=== PATIENT | female | born 1950 | race Caucasian/White ===

== ENCOUNTER 2024-04-03 11:27 | Emergency (ER) | payer MEDICARE, OTHER, SELFPAY ==
[2024-04-03 11:29] VITALS: BP 124/87
--- NOTE | 2024-04-03 13:02 | ED.GENMED ---
History of Present Illness
<Antoinette Marcial PA-C - Last Filed: 04/05/24 21:54>
General
Chief Complaint: Abdominal Symptoms
Source: patient
Exam Limitations: none
Time Seen by Provider: 04/03/24 12:22
Nursing documentation reviewed up to this point in time: agreed with
History of Present Illness
History of Present Illness:
Patient is a 73-year-old female with history hypertension, hyperlipidemia, IBS presenting for evaluation of intermittent abdominal pain and diarrhea. Patient states symptoms have been ongoing for the past month. She states that she typically tries
a brat diet which does improve symptoms. This past Tuesday she states she did eat a steak sandwich that was very greasy and then had significant abdominal cramping and diarrhea. The symptoms have persisted over the weekend. She was seen in urgent
care today where she was sent to the emergency department for further evaluation. Patient does state that she may have had chills over the weekend and feels generally fatigued and dehydrated given the diarrhea.
Patient denies any known fever, vomiting, urinary symptoms. Patient denies any chest pain or shortness of breath. Patient denies any blood in her stool. Patient denies any recent travel or recent antibiotic use. Patient not drink any well water
or has had any undercooked seafood recently. No known sick contacts.
Past History
<Antoinette Marcial PA-C - Last Filed: 04/05/24 21:54>
Past History
ED Past Medical History: None
ED Past Surgical History: None
Review of Systems
<Antoinette Marcial PA-C - Last Filed: 04/05/24 21:54>
Review of Systems
Allergies reviewed?: Yes
All Other Systems: ROS reviewed and negative except as documented in HPI and ROS
Phy Exam
<Antoinette Marcial PA-C - Last Filed: 04/05/24 21:54>
Physical Exam
Physical Exam:
Vitals: Patient's vital signs are stable. Afebrile
General: Patient is well appearing, no acute distress. Nontoxic-appearing
Skin: Warm and dry, no rashes or lesions
Head: Normocephalic, atraumatic
Eyes: Sclera nonicteric. EOMs intact. No nystagmus.
Throat: Dry mucous membranes. Protecting airway
Neck: Normal ROM, no cervical spine tenderness, no meningismus. Trachea midline
Cardiac: Regular rate and rhythm, no murmurs.
Pulm: Normal respiratory effort, no wheezes, rales, rhonchi heard on exam.
Abdomen: Abdomen soft. Mild lower abdominal tenderness without rebound tenderness or guarding. No CVA tenderness.
Extremities: No evidence of cyanosis or edema. Great distal pulses
Neuro: AAOx3. CN II-XII intact. No focal neurologic deficits. Speech fluid. Strength 5 out of 5 in upper and lower extremities. Sensation fully intact. Normal gait.
Psychiatric: Normal affect.
Course
<Antoinette Marcial PA-C - Last Filed: 04/05/24 21:54>
Orders/Labs/Results
Orders:
Orders
04/03/24 12:59
0.9% Sodium Chloride 1000 ml [Nss] 1,000 ml IV BOLUS
04/03/24 13:01
Electrocardiogram (*1) Urgent
Reason for Study: Abdominal Pain
CT Abd/Pel (IV only)-[facility] only Urgent
Comment:
Reason For Exam: Lower abdominal pain, +diarrhea
EKG- Treatment ONCE
04/03/24 13:14
Complete Blood Count/With Diff Urgent
Comprehensive Metabolic Panel Urgent
Lipase Urgent
04/03/24 14:16
Urinalysis Reflex To Culture Urgent
Date Specimen was Collected: 04/03/24
Time Specimen was Collected: 14:14
Urine Microscopic Reflex Cult Urgent
Urine Culture Urgent
MALIHA Source: U
Specimen Description:
Date Specimen was Collected: 04/03/24
Time Specimen was Collected: 14:14
Abnormal Lab Results
04/03/24 04/03/24
13:14 14:16
WBC 12.0 H 10^3/uL
(4.8-10.8)
Abs Immat Gran (auto) 0.1 H 10^3/uL
(0-0.05)
Absolute Neuts (auto) 9.0 H 10^3/uL
(1.4-6.5)
Absolute Monos (auto) 1.1 H 10^3/uL
(0.1-0.6)
Lymphocytes % 14.0 L %
(20.5-51.1)
Sodium 134 L mmol/L
(135-145)
Potassium 3.3 L mmol/L
(3.5-5.1)
Glucose 104 H mg/dl
(70-99)
Calcium 10.5 H mg/dl
(8.4-10.2)
Total Bilirubin 1.4 H mg/dl
(0.2-1.3)
AST 37 H U/L
(14-36)
Leukocyte Esterase Rfl Trace A
(Negative)
Urine Bacteria (Reflex) Moderate A
(Negative)
04/03/24 13:14
04/03/24 13:14
Vital Signs
Initial and Last Documented VS:
Initial Vital Signs
Temp Pulse Resp BP Pulse Ox
98.1 F 104 18 124/87 95
04/03/24 11:29 04/03/24 11:29 04/03/24 11:29 04/03/24 11:29 04/03/24 11:29
Last Documented Vital Signs
Temp Pulse Resp BP Pulse Ox
98.1 F 88 21 103/77 96
04/03/24 11:29 04/03/24 14:32 04/03/24 14:32 04/03/24 16:30 04/03/24 14:15
<Lenora Galdamez, DO - Last Filed: 04/03/24 16:15>
Orders/Labs/Results
Orders:
Orders
04/03/24 12:59
0.9% Sodium Chloride 1000 ml [Nss] 1,000 ml IV BOLUS
04/03/24 13:01
Electrocardiogram (*1) Urgent
Reason for Study: Abdominal Pain
CT Abd/Pel (IV only)-[facility] only Urgent
Comment:
Reason For Exam: Lower abdominal pain, +diarrhea
EKG- Treatment ONCE
04/03/24 13:14
Complete Blood Count/With Diff Urgent
Comprehensive Metabolic Panel Urgent
Lipase Urgent
04/03/24 14:16
Urinalysis Reflex To Culture Urgent
Date Specimen was Collected: 04/03/24
Time Specimen was Collected: 14:14
Urine Microscopic Reflex Cult Urgent
Urine Culture Urgent
MALIHA Source: U
Specimen Description:
Date Specimen was Collected: 04/03/24
Time Specimen was Collected: 14:14
Abnormal Lab Results
04/03/24 04/03/24
13:14 14:16
WBC 12.0 H 10^3/uL
(4.8-10.8)
Abs Immat Gran (auto) 0.1 H 10^3/uL
(0-0.05)
Absolute Neuts (auto) 9.0 H 10^3/uL
(1.4-6.5)
Absolute Monos (auto) 1.1 H 10^3/uL
(0.1-0.6)
Lymphocytes % 14.0 L %
(20.5-51.1)
Sodium 134 L mmol/L
(135-145)
Potassium 3.3 L mmol/L
(3.5-5.1)
Glucose 104 H mg/dl
(70-99)
Calcium 10.5 H mg/dl
(8.4-10.2)
Total Bilirubin 1.4 H mg/dl
(0.2-1.3)
AST 37 H U/L
(14-36)
Leukocyte Esterase Rfl Trace A
(Negative)
Urine Bacteria (Reflex) Moderate A
(Negative)
04/03/24 13:14
04/03/24 13:14
Vital Signs
Initial and Last Documented VS:
Initial Vital Signs
Temp Pulse Resp BP Pulse Ox
98.1 F 104 18 124/87 95
04/03/24 11:29 04/03/24 11:29 04/03/24 11:29 04/03/24 11:29 04/03/24 11:29
Last Documented Vital Signs
Temp Pulse Resp BP Pulse Ox
98.1 F 88 21 103/77 96
04/03/24 11:29 04/03/24 14:32 04/03/24 14:32 04/03/24 16:30 04/03/24 14:15
<Antoinette Marcial PA-C - Last Filed: 04/05/24 21:54>
MDM/Problems Addressed
Differential Diagnosis Includes:
Not limited to: IBS, IBD, colitis, diverticulitis, UTI, pancreatitis, cholelithiasis, dehydration
MDM/Problems Addressed:
73 year old female presenting with a few weeks of intermittent diarrhea and abdominal pain worsening over the past few days. Patient feels weak and dehydrated. No red flag diarrhea risk factors. No fevers or chills. Vital stable. Afebrile. Physical
exam as above. Patient is nontoxic appearing. Abdomen soft and mildly tender diffusely across lower abdomen. No rebound tenderness or guarding. Heart rate and rhythm. Lungs clear bilaterally. No focal neurologic deficits. Labs and UA were obtained.
Did place collection hat in toilet to send stool culture if patient able to provide sample. Check CT admin/pelvis. Will give IV fluids. Patient declines any analgesia at this time.
Labs noted. My leukocytosis, possibly due to dehydration. Evidence of dehydration on labs. This was repleted with 1 L normal saline. UA shows no signs of infection or blood to suggest kidney stone. EKG obtained in triage shows no acute ischemic
changes. CT pending
CT noted. No acute intraabdominal abnormalities.
Work up here negative. Patient has not had any episodes of diarrhea since arrival. She has a follow-up appointment scheduled with primary care on . Stable for discharge with return precautions and PCP follow up. Patient comfortable with
plan. All questions answered.
Chronic conditions affecting care:
IBS
Acute Exacerbation and/or Progression of Chronic Illness:
N/A
<Antoinette Marcial PA-C - Last Filed: 04/05/24 21:54>
*Radiology
Radiology exam reviewed: preliminary read by ED provider and radiology read reviewed
*Pulse Oximetry
Patient hypoxic: no
*EKG
Interpreted by ED Provider?: Yes
EKG Intrepretation Date: 04/03/24
Interpretation: normal
Comparison EKG: no changes
Heart Rate: 87
Rate: normal
Rhythm: sinus
Ischemia: no ischemia
*Nurse Unit Manager Interpretation
Rate: Nurse Unit Manager- N/A
*Critical Care Note
Total Time (30-74mins, 75-104mins- exclusive of procedures): Not Applicable
ED Attending Note
<Antoinette Marcial PA-C - Last Filed: 04/05/24 21:54>
-
Portions of this chart may have been created with voice recognition software.� Occasional wrong word or��sound alike� substitutions may have occurred due to the inherent limitations of voice recognition software.
<Lenora Galdamez DO - Last Filed: 04/03/24 16:15>
ED Attending Note
Patient seen and examined by attending physician: Yes
I performed a history and physical exam of patient and discussed management with resident, I reviewed resident's note and agree with documented findings and plan of care.: Yes
ED Attending Note:
73-year-old female history of IBS, asthma, hypertension, hyperlipidemia presenting with lower abdominal pain and diarrhea for the past 1 month. Patient states that she was previously eating a brat diet which provided relief. Patient states that on
Friday 03/30 she had a steak sandwich when symptoms returned. Patient states that she has been having multiple episodes of nonbloody diarrhea daily since. Patient reports nausea but denies fever, vomiting, or urinary symptoms. Patient states that
she has a appointment with her PCP on 04/05. Patient denies any recent use of antibiotics. Patient states that she has been using loperamide with some relief. Heart regular rate rhythm, lungs clear, abdomen soft nondistended nontender.
Results reviewed. UA negative for UTI. Mild hyponatremia potassium 3.3 possibly from diarrhea. Mild leukocytosis white count 12, no bandemia. CT abdomen pelvis reviewed, Evaluation for bowel pathology is limited by the lack of enteric contrast
Diverticuli are present in the colon with no CT evidence of diverticulitis
There are no areas of pericolonic inflammatory stranding.
If there is clinical suspicion for bowel pathology, this study could be repeated with enteric contrast
There is multilevel lumbar degenerative disc disease
There is a 1.5 cm umbilical hernia which contains only fat
Discussed results with patient at bedside. Patient has not had a bowel movement in the ER. Recommended to continue loperamide as needed for diarrhea. Stable for discharge with PCP follow-up. Discussed return precautions, patient expressed verbal
understanding
Discharge Plan
Departure
Patient Disposition: Home (Routine Discharge)
Date of Disposition: 04/03/24
Time of Disposition: 16:08
Patient with high blood pressure during this ER visit?: No
Condition: Good
Covid-19: Not Applicable
Discharge Problem:
Abdominal pain, Diarrhea
Instructions: Dehydration, Adult (DC), Acute Diarrhea, Abdominal Pain
Prescriptions:
No Action
diltiazem HCl [Cardizem CD] 120 MG capsule,extended release 24hr
120 mg PO DAILY
furosemide 20 MG tablet
20 mg PO DAILY
clorazepate dipotassium 3.75 MG tablet
1 - 2 tab PO DAILY
doxycycline hyclate 50 MG capsule
50 mg PO DAILY
Patient Comments:
uses for frequent sinus infections-none taken recently
aspirin 81 MG tablet,delayed release (DR/EC)
81 mg PO DAILY
vitamin A palmitate 10,000 UNIT capsule
10,000 unit PO DAILY
Patient Comments:
not taking yet
azelastine-fluticasone [Dymista] 23 GM spray,non-aerosol
50 mg NS DAILY
guaifenesin [Mucinex] 600 MG tablet extended release 12hr
600 mg PO PRN PRN (Reason: CONGESTION)
losartan 50 MG tablet
25 mg PO DAILY
selenium 200 MCG tablet
200 mcg PO DAILY
Patient Comments:
stopped in May pre-surgery
vitamin E 400 UNIT capsule
400 unit PO DAILY
Patient Comments:
stopped last month pre-surgery
mometasone-formoterol [Dulera] 1 PUFF HFA aerosol inhaler
2 puff inhalation BID
Patient Comments:
prefers dulera to advair but uses whichever her doctor has samples of
fluticasone propion-salmeterol [Advair Diskus] 1 DISK blister with device
2 puff inhalation BID
Patient Comments:
prefers to use advair
hydrocodone-acetaminophen 1 TABLET tablet
1 tab PO Q6HPRN PRN (Reason: moderate pain) Qty: 40 0RF
amiodarone [Pacerone] 200 MG tablet
200 mg PO DAILY Qty: 30 0RF
Rx Instructions:
200 mg daily then stop
warfarin [Jantoven] 2 MG tablet
2 mg PO DAILY Qty: 60 3RF
Rx Instructions:
4mg (2 tabs) daily or as directed for target INR 2.0-3.[address] to manage INR as outpatient
Referrals:
Azeb Estrada CRNP [Family Provider] - Follow up in 2-3 days
Arlen Fernández DO [Active] - Call in 1-3 days for appt
Activity Restrictions/Additional Instructions:
RETURN TO THE EMERGENCY DEPARTMENT WITH ANY FEVERS, CHILLS, WORSENING ABDOMINAL PAIN, INTRACTABLE NAUSEA/VOMITING, SIGNS OF SEVERE DEHYDRATION, CHEST PAIN, SHORTNESS OF BREATH, WORSENING IN CURRENT SYMPTOMS, OR ANY OTHER CONCERNS
-It is important to stay well-hydrated. You should eat a bland diet and advance as tolerated. You can take [id number] Imodium if diarrhea persists.
-You should follow-up with your primary care provider with your scheduled appointment on .
Interventions
Interventions:
*Risk Screen - Suicide Last Done: 04/03/24 13:15
*General Assessment Last Done: 04/03/24 13:15
*Neglect/Abuse Screening Last Done: 04/03/24 13:15
ED- Fall Risk Assessment Last Done: 04/03/24 16:38
*ED COVID-19 Vaccine History Last Done: 04/03/24 13:15
*Nursing Disposition Last Done: 04/03/24 16:38
GD-Opslhm-Apwkvrahry Assessment Last Done: 04/03/24 13:15
Discharge Date and Time
Discharge Date/Time: 04/03/24 16:39
Print Language: [place]
[2024-04-03 13:12] VITALS: BP 110/65
[2024-04-03] MEDS: NSS 1000 IV (13:16)
[2024-04-03 13:26] LABS: % Basophils 0.6 % (0-2); % Eosinophils 0.7 % (0-6); % Immature Granulocytes 0.5 % (0-0.5); % Monocytes 9.3 % (1.7-9.3); % Neutrophils 74.9 % (42.2-75.2); Absolute Basophils 0.1 10^3/uL (0-0.2); Absolute Eosinophils 0.1 10^3/uL (0-0.7); Absolute Immature Granulocytes 0.1 10^3/uL (0-0.05); Absolute Lymphocytes 1.7 10^3/uL (1.2-3.4); Absolute Monocytes 1.1 10^3/uL (0.1-0.6); Hematocrit 40.3 % (37.0-47.0); Hemoglobin 13.9 g/dL (12.0-16.0); Mean Corp Hgb Conc. 34.5 g/dL (33.0-37.0); Mean Corpuscular Hgb 30.3 pg (27.0-31.0); Mean Corpuscular Volume 87.8 fL (81.0-99.0); Mean Platelet Volume 10.1 fL (7.4-10.4); Nucleated Red Blood Cells % 0 %; Platelet Count 267 10^3/uL (130-400); Red Blood Cell Count 4.59 10^6/uL (4.20-5.40); Red Cell Dist. Width 12.7 % (11.5-14.5)
[2024-04-03 13:42] LABS: ALT (SGPT) 28 U/L (0-35); AST (SGOT) 37 U/L (14-36); Alkaline Phosphatase 78 U/L (38-126); Blood Urea Nitrogen 16 mg/dl (7-17); Calcium 10.5 mg/dl (8.4-10.2); Carbon Dioxide 23 mmol/L (22-30); Chloride 101 mmol/L (98-107); Glucose 104 mg/dl (70-99); Lipase 148 U/L (23-300); Potassium 3.3 mmol/L (3.5-5.1); Sodium 134 mmol/L (135-145); Total Bilirubin 1.4 mg/dl (0.2-1.3); Total Protein 6.5 g/dl (6.3-8.2); eGFR > 60.00
[2024-04-03 14:00] VITALS: BP 119/92
[2024-04-03 14:12] VITALS: BP 109/62
[2024-04-03 14:23] LABS: Urine Albumin Negative (Neg - Trace); Urine Bilirubin Negative (Negative); Urine Character Clear (Clear); Urine Color Yellow; Urine Glucose Negative (Negative); Urine Ketone Negative (Negative); Urine Leukocyte Trace (Negative); Urine Nitrite Negative (Negative); Urine Occult Blood Negative (Negative); Urine Urobilinogen Negative (Neg - 1+)
[2024-04-03 15:29] LABS: Urine Red Blood Cell 0-2 /HPF (0-2); Urine Squamous Cell 26-30 /LPF (Few)
[2024-04-03 15:30] LABS: Urine Bacteria Moderate (Negative); Urine White Cell 0-2 /HPF (0-5)
[2024-04-03 16:30] VITALS: BP 103/77
== END 2024-04-03 16:39 | disposition home or self-care (01) ==
LOC: EMR 11:27
PROVIDERS: Physician Assistant; EMERGENCY PHYSICIAN Emergency Medicine; FAMILY PHYSICIAN Nurse Practitioner Family
DX: R19.7 Diarrhea, unspecified (principal); R10.30 Lower abdominal pain, unspecified; K42.9 Umbilical hernia without obstruction or gangrene; M51.35 Other intervertebral disc degeneration, thoracolumbar region; K58.9 Irritable bowel syndrome, unspecified; I10 Essential (primary) hypertension; J45.909 Unspecified asthma, uncomplicated; E78.5 Hyperlipidemia, unspecified; Z79.82 Long term (current) use of aspirin; Z88.6 Allergy status to analgesic agent; Z88.0 Allergy status to penicillin; Z88.8 Allergy status to other drugs, medicaments and biological substances; Z91.048 Other nonmedicinal substance allergy status
CPT/HCPCS: 99285; 96360; 74177; 80053; 81003; 81015; 83690; 85025; 87086; 93005; Q9967

== ENCOUNTER 2024-05-22 09:00 | Day surgery (SDC) | payer MEDICARE, OTHER, SELFPAY ==
--- NOTE | 2024-05-22 11:59 | ITS.CL.CARDI ---
Laboratory Tester - Cardioversion
Cardioversion
Procedure Report:
CARDIOVERSION REPORT
Date of Procedure: 05/22/2024
Referring: Romain Lane DO
�
INDICATION: Atrial flutter (onset 4 weeks ago)
�
MEDICATION: Eliquis
�
ANESTHESIA: Propofol
�
CARDIOVERSION: Successful synchronized cardioversion using a single 100 J shock to restore normal sinus rhythm
�
COMPLICATIONS: None
�
CONCLUSION: Successful cardioversion of atrial flutter to normal sinus rhythm with single synchronized 100 J shock
�
RECOMMENDATION: Continue Eliquis without interruption
�
Copy to: Romain Lane DO, LORE Sargent
�
Chris Gurrola MD, FACC
�
== END 2024-05-22 12:15 | disposition home or self-care (01) ==
LOC: CATH 09:00
PROVIDERS: ATTENDING PHYSICIAN Internal Medicine Cardiovascular Disease; FAMILY PHYSICIAN Nurse Practitioner Family
DX: I48.92 Unspecified atrial flutter (principal); I10 Essential (primary) hypertension; E78.5 Hyperlipidemia, unspecified; Z79.82 Long term (current) use of aspirin; Z79.01 Long term (current) use of anticoagulants
CPT/HCPCS: 92960; 93005

== ENCOUNTER 2025-03-24 16:39 | Inpatient (IN) | payer MEDICARE, OTHER, SELFPAY ==
[2025-03-24] VITALS (10 sets, daily range): BP systolic 92–133; BP diastolic 54–78; BMI 31.5; BMI 33.7
--- NOTE | 2025-03-24 13:24 | ED.GENMED ---
History of Present Illness
<LORE De Jesus - Last Filed: 03/24/25 16:26>
General
Chief Complaint: Abdominal Symptoms
Source: patient
Exam Limitations: none
Time Seen by Provider: 03/24/25 13:09
Nursing documentation reviewed up to this point in time: agreed with
History of Present Illness
History of Present Illness:
74-year-old female with past with history of hypertension hyperlipidemia mitral regurgitation A-fib on Eliquis, anemia presents to the ER for evaluation abdominal pain. Patient has had abdominal pain for the past 2 days intermittently nauseous
constipated. She did move her bowels a little bit today but did not have a full good bowel movement yesterday. She does have issues with diarrhea and did take a lot of Imodium last week. She does complain of mild pain with urination. Denies any
back pain. Denies any fevers.
Past History
<LORE De Jesus - Last Filed: 03/24/25 16:26>
Past History
ED Past Medical History: None
ED Past Surgical History: None
Review of Systems
<LORE De Jesus - Last Filed: 03/24/25 16:26>
Review of Systems
Allergies reviewed?: Yes
All Other Systems: ROS reviewed and negative except as documented in HPI and ROS
Phy Exam
<LORE De Jesus - Last Filed: 03/24/25 16:26>
General Physical Exam
General Presentation: no apparent distress
General age: appears stated age
General Skin: warm and dry
General Habitus: normal
General Mental: alert
General Hydration: appears well hydrated
Cardiovascular Exam
Cardiovascular Exam: regular rate/rhythm, no murmur and normal peripheral pulses
Pulmonary Exam
Pulmonary Exam: lungs clear and no respiratory distress
Gastrointestinal Exam
Gastrointestinal Exam: soft and other (+ BS + non specific tenderness throughout )
Neurological Exam
Neurological Exam: alert and oriented x3
Musculoskeletal Exam
Musculoskeletal Exam: full ROM
Skin Exam
Skin Exam: normal color and warm/dry
Psychiatric Exam
Psychiatric Exam: normal mood/affect
Course
<LORE De Jesus - Last Filed: 03/24/25 16:26>
Orders/Labs/Results
Orders:
Orders
03/24/25 13:23
IV Insert/Care/Rem.- Treatment PRN
0.9% Sodium Chloride 1000 ml [Nss] 1,000 ml IV BOLUS
03/24/25 13:24
CT Abd/Pel (IV only)-DH only Urgent
Comment:
Reason For Exam: abd pain /constipation
03/24/25 13:40
Complete Blood Count/With Diff Urgent
Comprehensive Metabolic Panel Urgent
Lipase Urgent
Urinalysis Reflex To Culture Urgent
Date Specimen was Collected: 03/24/25
Time Specimen was Collected: 13:28
Urine Microscopic Reflex Cult Urgent
Urine Culture Urgent
MALIHA Source: U
Specimen Description:
Date Specimen was Collected: 03/24/25
Time Specimen was Collected: 13:28
03/24/25 15:33
Lactic Acid Q4H
Comment: CANCEL 2nd LACTIC ACID IF 1st LACTIC ACID IS LESS THAN 2
Blood Culture Q30M
MALIHA Source: Blood/Venous
Specimen Description:
Blood Culture Q30M
MALIHA Source: Blood/Venous
Specimen Description:
03/24/25 15:49
LevoFLOXacin 500 MG/100 ML [Levaquin] 500 mg in 100 ml IV NOW
MetroNIDAZOLE 500 MG/100 ML [Flagyl 500 mg] 100 ml IV NOW
03/24/25 15:52
Electrocardiogram (*1) Stat
Reason for Study: Other
Other Reason for Exam: chest pain
Electrocardiogram (*1) Urgent
Reason for Study: Abdominal Pain
Cardiac Monitoring- Treatment ONCE
EKG- Treatment ONCE
EKG- Treatment ONCE
03/24/25 16:11
Type+Screen Stat
INR [Prothrombin Time] Stat
PTT Stat
03/24/25 16:13
Admit/Transfer Patient As Directed
Co-Sign Provider:
Level of Care: Inpatient admission
Assign to:: Telemetry
Physician / Group: terry
Diagnosis: sigmoid diverticulitis
Reason for Telemetry: Arrhythmia
Date to Stop Telemetry: 03/27/25
Time to Stop Telemetry: 11:00
Reason for Hospitalization: sigmoid diverticulitis
Expected length of stay greater than two midnights?: Yes
ELOS- Estimated Length of Stay in days: 3
I certify the patient meets the requirements for IP care: Yes
PRN Pain Medication Management As Directed
May give lesser potent ordered pain med per pt: Yes
preference::
Protocol:: Medication orders for pain may be administered in a
manner that supports deferring to patient preference
when the pt is:
- Requesting an ordered lesser potent pain medication.
Least to most potent pain medications are defined
as: acetaminophen < NSAID < tramadol < opioids
(morphine, oxycodone, hydromorphone).
- Requesting a lesser dose of the same medication IF
ORDERED.
- Requesting a less intrusive route of administration
if both routes are prescribed by the provider (PO <
IV).
03/24/25 16:14
Code Status As Directed
Resuscitation Status: Do not resuscitate
Reached after discussion with pt or family/Healthcare POA: Yes
DNR Bracelet Application ONCE
03/24/25 18:45
Lactic Acid Q4H
Comment: CANCEL 2nd LACTIC ACID IF 1st LACTIC ACID IS LESS THAN 2
03/27/25 11:00
DC Protocol for Telemetry ONCE
Abnormal Lab Results
03/24/25 03/24/25
13:40 15:33
WBC 29.2 H 10^3/uL
(4.8-10.8)
MPV 10.6 H fL
(7.4-10.4)
Abs Immat Gran (auto) 0.3 H 10^3/uL
(0-0.05)
Absolute Neuts (auto) 24.6 H 10^3/uL
(1.4-6.5)
Absolute Monos (auto) 1.4 H 10^3/uL
(0.1-0.6)
Immature Gran % 0.9 H %
(0-0.5)
Neutrophils % 84.2 H %
(42.2-75.2)
Lymphocytes % 9.6 L %
(20.5-51.1)
Carbon Dioxide 20 L mmol/L
(22-30)
Glucose 103 H mg/dl
(70-99)
Lactic Acid 2.9 H mmol/L
(0.7-2.0)
Calcium 10.5 H mg/dl
(8.4-10.2)
Total Bilirubin 2.2 H mg/dl
(0.2-1.3)
Ur Occult Blood Reflex 3+ A
(Negative)
Leukocyte Esterase Rfl 3+ A
(Negative)
Urine RBC 3-6 A /HPF
(0-2)
Urine WBC (Reflex) 11-15 A /HPF
(0-5)
Urine Bacteria (Reflex) Many A
(Negative)
Urine Albumin (Reflex) 2+ A
(Neg - Trace)
03/24/25 13:40
03/24/25 13:40
Vital Signs
Initial and Last Documented VS:
Initial Vital Signs
Temp Pulse Resp BP Pulse Ox
98.2 F 79 20 133/78 96
03/24/25 12:16 03/24/25 12:16 03/24/25 12:16 03/24/25 12:16 03/24/25 12:16
Last Documented Vital Signs
Temp Pulse Resp BP Pulse Ox
98.3 F 85 18 127/66 97
03/24/25 15:43 03/24/25 15:43 03/24/25 15:43 03/24/25 15:43 03/24/25 15:43
Summer Child Caregiver consulted with Physician
Summer Child Caregiver consulted with physician?: Yes
Name of Physician Consulted: Elodia
<Thang Clifton, DO - Last Filed: 03/24/25 15:56>
Orders/Labs/Results
Orders:
Orders
03/24/25 13:23
IV Insert/Care/Rem.- Treatment PRN
0.9% Sodium Chloride 1000 ml [Nss] 1,000 ml IV BOLUS
03/24/25 13:24
CT Abd/Pel (IV only)-DH only Urgent
Comment:
Reason For Exam: abd pain /constipation
03/24/25 13:40
Complete Blood Count/With Diff Urgent
Comprehensive Metabolic Panel Urgent
Lipase Urgent
Urinalysis Reflex To Culture Urgent
Date Specimen was Collected: 03/24/25
Time Specimen was Collected: 13:28
Urine Microscopic Reflex Cult Urgent
Urine Culture Urgent
MALIHA Source: U
Specimen Description:
Date Specimen was Collected: 03/24/25
Time Specimen was Collected: 13:28
03/24/25 15:33
Lactic Acid Q4H
Comment: CANCEL 2nd LACTIC ACID IF 1st LACTIC ACID IS LESS THAN 2
Blood Culture Q30M
MALIHA Source: Blood/Venous
Specimen Description:
Blood Culture Q30M
MALIHA Source: Blood/Venous
Specimen Description:
03/24/25 15:49
LevoFLOXacin 500 MG/100 ML [Levaquin] 500 mg in 100 ml IV NOW
MetroNIDAZOLE 500 MG/100 ML [Flagyl 500 mg] 100 ml IV NOW
03/24/25 15:52
Electrocardiogram (*1) Stat
Reason for Study: Other
Other Reason for Exam: chest pain
Electrocardiogram (*1) Urgent
Reason for Study: Abdominal Pain
Cardiac Monitoring- Treatment ONCE
EKG- Treatment ONCE
EKG- Treatment ONCE
03/24/25 16:11
Type+Screen Stat
INR [Prothrombin Time] Stat
PTT Stat
03/24/25 16:13
Admit/Transfer Patient As Directed
Co-Sign Provider:
Level of Care: Inpatient admission
Assign to:: Telemetry
Physician / Group: terry
Diagnosis: sigmoid diverticulitis
Reason for Telemetry: Arrhythmia
Date to Stop Telemetry: 03/27/25
Time to Stop Telemetry: 11:00
Reason for Hospitalization: sigmoid diverticulitis
Expected length of stay greater than two midnights?: Yes
ELOS- Estimated Length of Stay in days: 3
I certify the patient meets the requirements for IP care: Yes
PRN Pain Medication Management As Directed
May give lesser potent ordered pain med per pt: Yes
preference::
Protocol:: Medication orders for pain may be administered in a
manner that supports deferring to patient preference
when the pt is:
- Requesting an ordered lesser potent pain medication.
Least to most potent pain medications are defined
as: acetaminophen < NSAID < tramadol < opioids
(morphine, oxycodone, hydromorphone).
- Requesting a lesser dose of the same medication IF
ORDERED.
- Requesting a less intrusive route of administration
if both routes are prescribed by the provider (PO <
IV).
03/24/25 16:14
Code Status As Directed
Resuscitation Status: Do not resuscitate
Reached after discussion with pt or family/Healthcare POA: Yes
DNR Bracelet Application ONCE
03/24/25 18:45
Lactic Acid Q4H
Comment: CANCEL 2nd LACTIC ACID IF 1st LACTIC ACID IS LESS THAN 2
03/27/25 11:00
DC Protocol for Telemetry ONCE
Abnormal Lab Results
03/24/25 03/24/25
13:40 15:33
WBC 29.2 H 10^3/uL
(4.8-10.8)
MPV 10.6 H fL
(7.4-10.4)
Abs Immat Gran (auto) 0.3 H 10^3/uL
(0-0.05)
Absolute Neuts (auto) 24.6 H 10^3/uL
(1.4-6.5)
Absolute Monos (auto) 1.4 H 10^3/uL
(0.1-0.6)
Immature Gran % 0.9 H %
(0-0.5)
Neutrophils % 84.2 H %
(42.2-75.2)
Lymphocytes % 9.6 L %
(20.5-51.1)
Carbon Dioxide 20 L mmol/L
(22-30)
Glucose 103 H mg/dl
(70-99)
Lactic Acid 2.9 H mmol/L
(0.7-2.0)
Calcium 10.5 H mg/dl
(8.4-10.2)
Total Bilirubin 2.2 H mg/dl
(0.2-1.3)
Ur Occult Blood Reflex 3+ A
(Negative)
Leukocyte Esterase Rfl 3+ A
(Negative)
Urine RBC 3-6 A /HPF
(0-2)
Urine WBC (Reflex) 11-15 A /HPF
(0-5)
Urine Bacteria (Reflex) Many A
(Negative)
Urine Albumin (Reflex) 2+ A
(Neg - Trace)
03/24/25 13:40
03/24/25 13:40
Vital Signs
Initial and Last Documented VS:
Initial Vital Signs
Temp Pulse Resp BP Pulse Ox
98.2 F 79 20 133/78 96
03/24/25 12:16 03/24/25 12:16 03/24/25 12:16 03/24/25 12:16 03/24/25 12:16
Last Documented Vital Signs
Temp Pulse Resp BP Pulse Ox
98.3 F 85 18 127/66 97
03/24/25 15:43 03/24/25 15:43 03/24/25 15:43 03/24/25 15:43 03/24/25 15:43
<LORE De Jesus - Last Filed: 03/24/25 16:26>
MDM/Problems Addressed
Differential Diagnosis Includes:
Not limited to constipation, obstruction ,colitis, diverticulitis
MDM/Problems Addressed:
Patient is a 74 yr old female complaining abdominal pain and constipation. Patient presents with distended abdomen however nontachycardic no fever. Tender throughout the abdomen, white count elevated at 29,000 CAT scan shows acute sigmoid
diverticulitis with perforation 6 cm abscess with mild to moderate pneumoperitoneum. Patient is allergic to penicillin IV Levaquin and Flagyl ordered Case reviewed with ED physician. ED hospitalist and surgeon notified via [facility] text. Patient
with stable blood pressure nontachycardic. Patient is on Eliquis and did take her morning dose this morning surgery made aware.
Chronic conditions affecting care:
stroke hx on eliquis
<LORE De Jesus - Last Filed: 03/24/25 16:26>
*Radiology
Radiology exam reviewed: radiology read reviewed
*Pulse Oximetry
SaO2: 96
Oxygen Mode of Delivery: Room air
Patient hypoxic: no
<Thang Clifton DO - Last Filed: 03/24/25 15:56>
*EKG
Interpreted by ED Provider?: Yes
*Critical Care Note
Total Time (30-74mins, 75-104mins- exclusive of procedures): 30
<LORE De Jesus - Last Filed: 03/24/25 16:26>
Patient Management
Discussion with other providers: Field Handyman (Dr Tato Hutson colorectal )
ED Attending Note
<LORE De Jesus - Last Filed: 03/24/25 16:26>
-
Portions of this chart may have been created with voice recognition software.� Occasional wrong word or��sound alike� substitutions may have occurred due to the inherent limitations of voice recognition software.
<Thang Clifton DO - Last Filed: 03/24/25 15:56>
ED Attending Note
Patient seen and examined by attending physician: Yes
I performed the substantive portion of visit, reviewed & personally made and approve the management plan that is documented in note by myself or ZOHAIB.: Yes
ED Attending Note:
Seen with CORE BAKER examined independently 74-year-old female A-fib on Eliquis followed by Dr. Lane at [place], known diverticulosis presents with a few days of abdominal pain diarrhea pain white count was 30,000 CT report noted patient and friends
updated, will try to get her comfortable start on antibiotics consult to colorectal surgery admit to medical team, check EKG
Discharge Plan
Departure
Patient Disposition: Admit
Date of Disposition: 03/24/25
Time of Disposition: 16:14
Admit to: Telemetry
Admit to doctor: hospitalist
Presentation/result/management discussed w/ accepting MD/DO: Hospitalist
Patient with high blood pressure during this ER visit?: No
Condition: Fair
Covid-19: Not Applicable
Discharge Problem:
Diverticulitis of colon with perforation
Prescriptions:
No Action
furosemide 20 MG tablet
20 mg PO DAILY
clorazepate dipotassium 3.75 MG tablet
1 - 2 tab PO DAILY
aspirin 81 MG tablet,delayed release (DR/EC)
81 mg PO DAILY
azelastine-fluticasone [Dymista] 23 GM spray,non-aerosol
50 mg NS DAILY
guaifenesin [Mucinex] 600 MG tablet extended release 12hr
600 mg PO PRN PRN (Reason: CONGESTION)
selenium 200 MCG tablet
200 mcg PO DAILY
Patient Comments:
stopped in May pre-surgery
Dulera 1 PUFF HFA aerosol inhaler
2 puff inhalation BID
Patient Comments:
prefers dulera to advair but uses whichever her doctor has samples of
fluticasone propion-salmeterol [Advair Diskus] 1 DISK blister with device
2 puff inhalation BID
Patient Comments:
prefers to use advair
atorvastatin [Lipitor] 40 mg Tablet
40 mg PO HS
metoprolol succinate 50 mg Tablet Extended Release 24 Hr
50 mg PO TID
meclizine 25 mg Tablet
25 mg PO DAILY PRN (Reason: vertigo)
ibuprofen [Advil] 200 mg Tablet
omeprazole magnesium [Prilosec OTC] 20 mg Tablet,Delayed Release (Dr/Ec)
20 mg PO DAILY
cholecalciferol (vitamin D3) [Vitamin D3] 50 mcg (2,000 unit) Tablet
50 mcg PO DAILY
Eliquis 5 mg Tablet
5 mg PO BID
Referrals:
UNKNOWN - PT DOES,NOT KNOW [Family Provider]
Interventions
Interventions:
*Risk Screen - Suicide Last Done: 03/24/25 12:54
*General Assessment Last Done: 03/24/25 12:16
*Neglect/Abuse Screening Last Done: 03/24/25 12:54
*ED- Fall Risk Assessment Last Done: 03/24/25 12:53
*ED COVID-19 Vaccine History Last Done: 03/24/25 12:53
JM-Ikezgj-Tzunleudoc Assessment Last Done: 03/24/25 12:54
Discharge Date and Time
Print Language: WELSH
[2025-03-24] MEDS: NSS 1000 IV (13:47)
[2025-03-24 14:12] LABS: ALT (SGPT) 21 U/L (0-35); AST (SGOT) 32 U/L (14-36); Albumin 4.6 g/dl (3.5-5.0); Alkaline Phosphatase 76 U/L (38-126); Blood Urea Nitrogen 17 mg/dl (7-17); Calcium 10.5 mg/dl (8.4-10.2); Carbon Dioxide 20 mmol/L (22-30); Chloride 107 mmol/L (98-107); Estimated Creatinine Clearance 65 ml/min; Glucose 103 mg/dl (70-99); Lipase 33 U/L (23-300); Potassium 4.7 mmol/L (3.5-5.1); Sodium 138 mmol/L (135-145); Total Protein 7.7 g/dl (6.3-8.2); eGFR > 60.00
[2025-03-24 14:13] LABS: Urine Character Clear (Clear)
[2025-03-24 14:17] LABS: Hematocrit 44.9 % (37.0-47.0); Hemoglobin 15.3 g/dL (12.0-16.0); Mean Corp Hgb Conc. 34.1 g/dL (33.0-37.0); Mean Corpuscular Volume 89.4 fL (81.0-99.0); Platelet Count 253 10^3/uL (130-400); Red Cell Dist. Width 12.7 % (11.5-14.5)
[2025-03-24 15:00] LABS: Urine Squamous Cell >30 /LPF (Few)
[2025-03-24 15:15] LABS: Nucleated Red Blood Cells % 0 %
--- NOTE | 2025-03-24 15:51 | HPS.HSE ---
Family Physician
-
Family Physician: NOT KNOW UNKNOWN - PT DOES
Chief Complaint
-
abdominal pain
History of Present Illness
74-year-old female with past with history of hypertension hyperlipidemia mitral regurgitation A-fib on Eliquis, anemia presents to the ER for evaluation abdominal pain for past three associated with nausea and constipation. a week ago, she was
having diarrhea and took Imodium. she has not had a bowel movement for past two days. she had small BM today. she was having painful urination yesterday. today she was able to void without difficulty. she was noted warm yesterday and chills. she did
not measure temp yesterday. Patient denies any headache, dizziness syncope. Patient denies chest pain. She has chronic short of breath. Patient denied hematuria.
CT with acute sigmoid diverticulitis with perforation. Pelvic abscess. Admitting for further management. Patient received r Levaquin and Flagyl in the ER
Medical History
Past Medical History
Past Medical History: Reports Other
Additional Past Medical History:
Mitral valve disorder
Diastolic heart failure
Hypertension
Severe
A-fib
PVCs
Past Surgical History: Reports Other
Additional Past Surgical History:
Left shoulder replacement
Left knee replacement
Mitral valve repair
Social History
Tobacco: Non-smoker
Alcohol: Occasional
Drug: None
Personal: Single
Living: Alone
Family History
Family History: Not pertinent
Allergies / Home Medications
Allergies reflects when Allergies were last updated in [facility].
Home Medications with original date entered in [facility]
Allergy/Medication List:
Allergies
Allergy/AdvReac Type Severity Reaction Status Date / Time
atenolol Allergy 'felt out Verified 03/24/25 12:16
of it'
ibuprofen Allergy swelling Verified 03/24/25 12:16
of face
Penicillins Allergy Hives Verified 03/24/25 12:16
environmental Allergy Sneezing Uncoded 03/24/25 12:16
and
Coughing
Home Medications
furosemide 20 mg tablet 20 mg PO DAILY 06/06/14
aspirin 81 mg tablet,delayed release 81 mg PO DAILY 06/07/14
azelastine 137 mcg-fluticasone 50 mcg/spray nasal spray (Dymista) 50 mg NS DAILY 06/07/14
clorazepate dipotassium 3.75 mg tablet 1 - 2 tab PO DAILY 06/07/14
guaifenesin 600 mg tablet, extended release 12 hr (Mucinex) 600 mg PO PRN PRN CONGESTION 06/07/14
fluticasone 250 mcg-salmeterol 50 mcg/dose blistr powdr for inhalation (Advair Diskus) 2 puff inhalation BID 07/12/14
mometasone-formoterol HFA 200 mcg-5 mcg/actuation aerosol inhaler (Dulera) 2 puff inhalation BID 07/12/14
selenium 200 mcg tablet 200 mcg PO DAILY 07/12/14
apixaban 5 mg tablet (Eliquis) 5 mg PO BID 05/22/24
atorvastatin 40 mg tablet (Lipitor) 40 mg PO HS 05/22/24
cholecalciferol (vitamin D3) 50 mcg (2,000 unit) tablet (Vitamin D3) 50 mcg PO DAILY 05/22/24
ibuprofen 200 mg tablet (Advil) mg 05/22/24
meclizine 25 mg tablet 25 mg PO DAILY PRN vertigo 05/22/24
metoprolol succinate 50 mg tablet,extended release 24 hr 50 mg PO TID 05/22/24
omeprazole magnesium 20 mg tablet,delayed release (Prilosec OTC) 20 mg PO DAILY 05/22/24
Review of Systems
-
Constitutional: Reports No Symptoms
EENT: Reports No Symptoms
Respiratory: Reports No Symptoms
Cardiac: Reports No Symptoms
Abdomen/GI: Reports Abdominal Pain, Nausea and Constipated
: Reports No Symptoms
Musculoskeletal: Reports No Symptoms
Skin: Reports No Symptoms
Neurological: Reports No Symptoms
Endocrine: Reports No Symptoms
Hematologic/Lymphatic: Reports No Symptoms
Psych: Reports No Symptoms
Physical Exam
Vital Signs
Vital Signs
Temp Pulse Resp BP Pulse Ox
98.3 F 85 18 127/66 97
03/24/25 15:43 03/24/25 15:43 03/24/25 15:43 03/24/25 15:43 03/24/25 15:43
Physical Exam
General: Well Developed, Well Nourished and No Apparent Distress
HEENT: NormoCephalic, Moist mucous membranes and Atraumatic
Respiratory: Clear
Cardiac: S1/S2 and Regular Rhythm; No Murmur or Rub
GI: Soft, Non Tender, Non Distended and Normal Bowel Sounds; No Organomegaly
Rectal: Deferred by Provider
Musculoskeletal: No Clubbing, No Cyanosis and No Edema
Skin: No Rash
Neuro: AO x 3 and Nonfocal/grossly intact
Psych: Calm
Laboratory Results
-
03/24/25 13:40
03/24/25 13:40
Laboratory Results
Total Bilirubin 2.2 mg/dl (0.2-1.3) H 03/24/25 13:40
AST 32 U/L (14-36) 03/24/25 13:40
ALT 21 U/L (0-35) 03/24/25 13:40
Alkaline Phosphatase 76 U/L (38-126) 03/24/25 13:40
Lipase 33 U/L (23-300) 03/24/25 13:40
Data Reviewed
-
CT Scan: Report Reviewed by me
Lab Data: Labs Reviewed by me
Impression/Plan
-
# Abdominal pain secondary to acute sigmoid diverticulitis with perforation/pelvic abscess
- WBC 29
- IV Levaquin and Flagyl continue
- Keep patient n.p.o.
- Tylenol as needed for fever or pain
-Blood culture sent from ER
-Surgery consulted
- CT abdomen pelvis with impression Acute sigmoid diverticulitis with perforation. Pelvic abscess in the cul-de-sac measuring 6.1 x 3.2 cm.
# Paroxysmal A-fib
-Hold Eliquis in anticipation of surgical procedure
-Metoprolol continued
#GERD
-omeprazole
#anxiety
-clorazepate continued
#HLD
-statin continued
# DVT prophylaxis
-SCD
# CODE STATUS
- Patient is DNR
[2025-03-24] MEDS: LEVAQUIN 100 IV (15:59)
[2025-03-24] MEDS: FLAGYL 500 MG 100 IV (16:00)
[2025-03-24 16:32] LABS: APTT 30.8 Sec (23.4-35.0); INR 1.30; PT 16.5 Sec (11.4-14.6)
--- NOTE | 2025-03-24 16:45 | CON.CRS ---
Consultation
-
Date/Time Consultation Performed: 03/24/25 1645
Reason for Consultation: perforated diverticulitis
Medical History
-
Chief Complaint: abdominal pain
History of Present Illness:
74 yo female with a pmh of aflutter s/p cardioversion in 2023 on Eliquis, MV repair 2013, last colonoscopy about 3 years ago in [place] with reported diverticula who presents with worsening abdominal pain. She has struggled with diarrhea over the
past few years with recent worsening noted about 3-4 days ago for which she took Imodium. About 2 days ago she noted increased lower abdominal pain, mostly in the pelvis with cramping. Diarrhea had resolved but she was only passing small formed
stools. Yesterday, the pain worsened and she began feeling rectal pressure as well as increasing pain. She presents today for evaluation given ongoing symptoms. She denies nausea or vomiting but notes she has not eaten all day due to decreased
appetite. She denies fevers but has had chills. She is having cramping twinges of pain currently. On exam, she has mild upper abdominal tenderness with severe tenderness to the BLLQ and pelvis.
Past Medical History
Past Medical History: Arrhythmias (afluttter s/p cardioversion), CHF (hfpef), CVA, HTN, Hypercholesterolemia and Other (karina with cpap use at home, obesity)
Past Surgical History: Cardiac (MV repair) and Orthopedic (left TSA, left TKR)
Social History
Tobacco: Non-Smoker
Alcohol: Occasional
Family History
Family History: Reviewed & Not Pertinent
Allergies / Home Medications
Allergy/AdvReac Type Severity Reaction Status Date / Time
atenolol Allergy 'felt out Verified 03/24/25 12:16
of it'
ibuprofen Allergy swelling Verified 03/24/25 12:16
of face
Penicillins Allergy Hives Verified 03/24/25 12:16
environmental Allergy Sneezing Uncoded 03/24/25 12:16
and
Coughing
�Medication �Instructions �Recorded �Confirmed �Type
furosemide 20 mg tablet 20 mg PO DAILY 06/06/14 03/24/25 History
azelastine 137 mcg-fluticasone 50 50 mg intranasal DAILY 06/07/14 03/24/25 History
mcg/spray nasal spray (Dymista)
clorazepate dipotassium 3.75 mg 7.5 mg PO DAILY 06/07/14 03/24/25 History
tablet
guaifenesin 600 mg tablet, 600 mg PO DAILY 06/07/14 03/24/25 History
extended release 12 hr (Mucinex)
mometasone-formoterol HFA 200 2 puff inhalation R BID 07/12/14 03/24/25 History
mcg-5 mcg/actuation aerosol
inhaler (Dulera)
apixaban 5 mg tablet (Eliquis) 5 mg PO BID 05/22/24 03/24/25 History
atorvastatin 40 mg tablet (Lipitor) 40 mg PO HS 05/22/24 03/24/25 History
metoprolol succinate 50 mg 50 mg PO QPM 05/22/24 03/24/25 History
tablet,extended release 24 hr
omeprazole magnesium 20 mg 20 mg PO DAILY 05/22/24 03/24/25 History
tablet,delayed release (Prilosec
OTC)
acetaminophen 325 mg tablet 650 mg PO Q6HPRN PRN mild pain 03/24/25 03/24/25 History
(Tylenol)
budesonide 160 mcg-glycopyr 9 2 inh inhalation R DAILY 03/24/25 03/24/25 History
mcg-formot 4.8 mcg/actuation HFA
inhaler (Breztri Aerosphere)
metoprolol succinate 50 mg 100 mg PO DAILY 03/24/25 03/24/25 History
tablet,extended release 24 hr
(Toprol XL)
Review of Systems
-
History Source: Patient
All other systems: Negative unless noted
A 10 point review of systems was completed, and was negative except as per HPI.
Physical Exam
Vital Signs
Temp 98.3 F 03/24/25 15:43
Pulse 85 03/24/25 15:43
Resp Rate 18 03/24/25 15:43
Blood pressure 127/66 03/24/25 15:43
SaO2 97 03/24/25 15:43
03/23/25 03/24/25 03/25/25
06:59 06:59 06:59
Actual Weight 85.729 kg
Body Mass Index (BMI) 31.5
Lab Results / Allergies
03/24/25 13:40
03/24/25 13:40
WBC 29.2 10^3/uL (4.8-10.8) H 03/24/25 13:40
Hgb 15.3 g/dL (12.0-16.0) 03/24/25 13:40
Hct 44.9 % (37.0-47.0) 03/24/25 13:40
Plt Count 253 10^3/uL (130-400) 03/24/25 13:40
Abs Immat Gran (auto) 0.3 10^3/uL (0-0.05) H 03/24/25 13:40
Neutrophils % 84.2 % (42.2-75.2) H 03/24/25 13:40
Allergy/AdvReac Type Severity Reaction Status Date / Time
atenolol Allergy 'felt out Verified 03/24/25 12:16
of it'
ibuprofen Allergy swelling Verified 03/24/25 12:16
of face
Penicillins Allergy Hives Verified 03/24/25 12:16
environmental Allergy Sneezing Uncoded 03/24/25 12:16
and
Coughing
Physical Exam
General: Well Developed, Well Nourished and Pain
HEENT: Moist Mucous Membranes
Respiratory: Non Labored Respirations
GI: Soft, Tender (Mild BLUQ, mod to severe BLLQ mostly on the left and suprapubically) and Distended
Skin: Warm
Neuro: Awake, Alert and AO x 3
Psych: Other (anxious)
Data Reviewed
-
CT Scan: Image Personally Visualized and interpreted, Report Reviewed by me, Discussed with Physician and Discussed with Patient
Labs: Labs Reviewed by me, Discussed with Physician and Discussed with Patient
Old Records: Reviewed
Assessment / Plan
-
74 yo female pmh of aflutter s/p cardioversion in 2023 on Eliquis (LD today), MV repair 2013, last colonoscopy about 3 years ago in [place] with reported diverticula who presents with worsening abdominal pain over the past 2 days proceeded by
diarrhea for 1-2 days. Prior colonoscopy with diverticula but she denies prior episodes of diverticulitis. CT imaging concerning for perforated sigmoid diverticulitis with free air present under the diaphragm and near the umbilicus. Pelvic abscess
vs stool collection in the cul-de-sac measuring 6.1 x 3.2 cm. Afebrile with stable vital signs currently. Lactic acid elevated to 2.9. WBC elevated to 29.2. UA abnormal, cx pending.
Plan:
Discussed emergent surgery with patient for exploratory laparotomy with likely diverting colostomy creation intraop. She is very hesitant about surgery currently and trying to reach her daughter in [place] to discuss. Placed 2 calls from hospital
phone and 1 from the patient's cell to her daughter Aaliyah without response as of yet.
-Admit to medicine service
-IV abx started in ED with Levaquin and Flagyl, would continue
-Keep NPO
-Check type and screen and coags
-Hold AC in anticipation of OR, will give Kcentra if she is agreeable to proceed with surgery as she last took Eliquis this am
--- NOTE | 2025-03-24 17:27 | W.PN.UPDATE ---
Update Note
Progress Note Update
Patient seen and examined independently with SWEETIE Mcgarry on 03/24/2025.
74-year-old female past medical history of asthma, anxiety, chronic diastolic heart failure, hypertension, hyperlipidemia, mitral regurgitation, atrial fibrillation on Eliquis, anemia, presenting with abdominal pain for 3 days with chills and
constipation. �Last took Eliquis this morning.
Labs show leukocytosis. �Lactic acid 2.9.
CT abdomen pelvis showed acute sigmoid diverticulitis with perforation. �Pelvic abscess 6 x 3 cm.
Hold Eliquis. �N.p.o., IV fluids, Levaquin/Flagyl. �Hold Lasix, antihypertensives. �Colorectal surgery consulted. �Patient to go to OR today.
[2025-03-24] MEDS: KCENTRA 160 UNIT IV (17:50)
--- NOTE | 2025-03-24 22:55 | W.IMMPOSTOP ---
Addendum entered and electronically signed by Tato Hutson MD 03/24/25 23:05:
Preoperatively; patient identified her daughter, Aaliyah, to serve as her medical proxy if she is unable to make decisions for herself, but she does have a living will; I updated her daughter over the phone; daughter lives in [place]
Original Note:
Surgical Immed Post Op Note
-
Primary Surgeon: Tato Hutson MD
Assisting Surgeon: Tiffany Ramirez NP
Pre-op Diagnosis: Perforated sigmoid diverticulitis
Post-op Diagnosis: Perforated sigmoid diverticulitis
Procedure Performed: Ex lap, drainage of pelvic abscess, sigmoidectomy, abdominal washout, creation of end colostomy
Anesthesia Type: General
Specimen / Cultures: Sigmoid
Estimated Blood Loss: 75 mL
IVF: 2 L
UOP: 700 mL
Complications: None
Operative Findings: Identified perforation in the distal sigmoid; sigmoid colon was significantly redundant; identified abscess with pus in the pouch of Grzegorz; sent anaerobic/aerobic cultures; divided just distal to the perforation and mid
sigmoid, divided mesentery with LigaSure; washed abdomen with 5 L of warm saline; mobilized proximal sigmoid and created a LUQ and colostomy
--- NOTE | 2025-03-24 22:59 | OR.RPT ---
Addendum entered and electronically signed by Tato Hutson MD 03/27/25 15:50:
Missing info from paragraph 6 of 'procedure in detail' section: I secured the umbilical stalk to the midline fascial closure with a horizontal mattress 0 Vicryl stitch.
Original Note:
Operative Report
Operative Report
DATE OF OPERATION: 03/24/2025
SURGEON: Tato Hutson MD
PREOPERATIVE DIAGNOSIS: Acute perforated sigmoid diverticulitis
POSTOPERATIVE DIAGNOSIS: Acute perforated sigmoid diverticulitis
OPERATION: Exploratory laparotomy, drainage of pelvic abscess, sigmoidectomy, creation of end-colostomy, repair of umbilical hernia
ASSISTANTS:
1. Tiffany Ramirez NP
ANESTHESIA: General
ESTIMATED BLOOD LOSS: 75 mL
UOP: 700 mL
IVF: 2.0 L
FINDINGS:
1. Identified perforation in the distal sigmoid colon, adjacent to a pelvic abscess; cultured the purulent fluid
2. Sigmoid colon significantly redundant; stapled across healthy bowel in the mid sigmoid colon and just distal to the inflammation on the distal sigmoid
3. Created proximal sigmoid end colostomy in the left upper quadrant
4. Inferior aspect of incision left open packed with Betadine�soaked Kerlix and superior aspect closed with intermittent molly and Telfa raiza
SPECIMENS:
1. Abdominal fluid cultures.
2. Sigmoid colon
DRAINS: None
COMPLICATIONS: No immediate complications.
INDICATIONS: The patient is a 74-year-old female who presented with 2 to 3 days of abdominal discomfort after taking Imodium for her chronic diarrhea, followed by acute abdominal pain starting 1 day prior to admission. A CT scan showed acute
diverticulitis with pneumoperitoneum and a pelvic abscess. Due to the free perforation and the concern for possible stool spillage, I recommended that she proceed with surgery. The operation was discussed with the patient and patient's daughter
over the phone in detail, including risks, benefits and alternatives. My plan is to explore the abdomen, identify the site of perforation and remove the segment of bowel, likely the sigmoid colon. I will then assess if a primary anastomosis is
reasonable or if an ostomy would be safer. I anticipate needing to create an ostomy to reduce the risk of post-operative complications. Risks described included, but are not limited to, bleeding, infection, anastomotic leak or stenosis (if
anastomosis created), rectal stump dehiscence, ureteral injury, bowel or solid organ injury, recurrence of diverticulitis, risks associated with a stoma if created (ie- skin irritation, ischemia, retraction, prolapse and parastomal hernia) and
anesthetic risks, including but not limited to, WA, CVA, DVT/PE, organ failure, respiratory failure, prolonged intubation and . The patient understood and agreed to proceed.
PROCEDURE IN DETAIL: The patient was taken to the operating room and placed on the operating table in supine position. Sequential compression devices were placed bilaterally. General anesthesia was induced and the patient was intubated without
complication. The patient was placed in lithotomy position with both arms secured to the armboards in extended position. Roa catheter was placed with sterile technique. The abdomen was prepped and draped in a sterile fashion. A time-out was
performed verifying the correct patient, procedure, operative site, positioning, and special equipment. Anesthesia placed a nasogastric tube. IV antibiotics were recently given. A marking pen was used to justo out the midline.
Using a 15 blade scalpel, a midline incision was made from 4 cm above the umbilicus and extended caudally to 4 cm above the pubic symphysis. This was taken down to the level of the fascia with Bovie electrocautery and hemostasis was assured. The
linea alba was divided carefully with Bovie electrocautery. Then 2 Kellys were used to grasp and elevate the peritoneum, which was sharply divided with Metzenbaum scissors, ensuring no peritoneal organs were in the vicinity. Upon entry, I
evaluated the nearby structures and no injury from entry was identified. I extended the fascial incision to the length of the skin incision, taking care to avoid injury to the bladder. I identified an umbilical hernia. Therefore, I disconnected
the umbilical stalk from the fascia and excised the hernia sac. I cleaned the edge of the fascia at this location. The Bookwalter was set up with 4 points of retraction. The patient was placed in Trendelenburg position. The abdomen was explored.
The transverse colon was fairly redundant and the omentum extended into the inferior abdomen. This was swept cephalad out of the operative field. The small bowel was swept out of the pelvis. At this point, I had not encountered the perforation
and I had not encountered any purulent or feculent ascites. The sigmoid colon was significantly redundant. Using blunt dissection, I followed the sigmoid colon down into the pelvis and encountered an abscess with 15 cc of purulent fluid. This was
swabbed for anaerobic and aerobic cultures. I bluntly mobilized the rectosigmoid and brought this into the operative field. I identified the site of perforation in the distal sigmoid colon. The total extent of sigmoid inflammation was about 15 cm
in length.
I mobilized the sigmoid from its lateral attachments. However, the sigmoid was quite redundant and minimal mobilization was required. The left ovary and fallopian tube was adherent to the mesentery of the sigmoid. This was carefully dissected off
of the sigmoid mesentery with electrocautery. I freed the white line of Toldt up to the distal descending colon. There were some adhesions between the distal and mid sigmoid, which I lysed. I took care to avoid injury to the left ureter, which
was at a significant distance from the inflamed sigmoid colon. I created a hole in the mesentery just distal to the inflammation on the distal sigmoid and another at the apex of the loop of sigmoid proximally. I stapled and divided at both
location with a green load of the contour stapler. The staple lines were hemostatic. I divided the mesentery with the [place] LigaSure, staying close to the mesenteric border of the colon and away from the left ureter. The sigmoid colon was passed
off as specimen. The abdomen was washed with 5 L of warm saline and the effluent was clear. I evaluated the cut edge of the mesentery and the staple lines, which remained hemostatic.
I discussed the case with anesthesia at this point. She was not on vasopressors. However, due to her significant comorbidities, emergency nature of the surgery as well as purulent contamination of the pelvis, I felt the safest option for her was
to proceed with end-colostomy creation as opposed to primary anastomosis. I mobilized the proximal sigmoid from its lateral attachments up to the distal descending colon. This easily reached my intended left upper quadrant ostomy site. Due to the
patient's significant pannus, I felt that a left lower quadrant ostomy would be more prone to complications.
Using an Allis, I elevated the skin at a site in the left upper quadrant and created a circular incision with electrocautery. I coned out a small amount of subcutaneous tissue. Using [place] [address]'s and electrocautery, I took this down through the
anterior and posterior layers of the fascia, making a cruciate incision in each and splitting the rectus muscle with a Kierra clamp. I ensured the colostomy tunnel was large enough by passing the tips of 3 fingers through easily. I inverted the
abdominal wall and checked for hemostasis from the intra-abdominal side, which was confirmed. I brought the colon through the colostomy tunnel, ensuring no twist to the mesentery. I directed the mesentery inferiorly. I once more examined the
operative field, including the rectal stump, mesentery, and left retroperitoneum and hemostasis was assured.
I cleaned the edges of the fascia from the subcutaneous tissue by 1 to 2 cm. I checked for NG tube placement. Due to the significant fatty tissue in the omentum and gastrohepatic ligament, it was difficult for me to identify the esophagus without
opening the incision more superiorly. I palpated the stomach and anesthesia advanced the NG tube to 75 cm. Some gastric contents was seen. However, I was unable to confirm gastric placement of the NG tube. Seprafilm was placed just below the
midline incision. The midline fascia was closed with a running 0 PDS, starting at the corners and ending in the middle. The superior aspect of the incision was closed with intermittent molly and Telfa raiza. The inferior aspect was left open and
was packed with Betadine�soaked Kerlix. An Aquacel dressing was placed over the midline incision. The left-sided colostomy was matured in a Brooked fashion with 3-0 Vicryl stitches, and a stoma appliance was placed.
At this point, the procedure was complete. The patient was awoken and extubated without complication. All needle, sponge and instrument counts were reported as correct. The patient tolerated the procedure well and was transferred to the recovery
room in stable condition with the nasogastric tube and Roa in place.
Of note, Tiffany Ramirez, SWEETIE, outreach assistant, was necessary during this procedure for traction, countertraction, and exploratory purposes. I was present for the entire duration of the case.
DICTATED BY: Tato Hutson MD
[2025-03-25] VITALS (18 sets, daily range): BP systolic 95–117; BP diastolic 54–82; PULSE 71–82; O2SAT 90; BMI 33.7
[2025-03-25] MEDS: NORMOSOL-R/PLASMALYTE-A 1000 IV ×3 (00:43→22:12)
[2025-03-25] MEDS: FLAGYL 500 MG 100 IV ×4 (00:45→23:53)
[2025-03-25] MEDS: OFIRMEV 100 IV ×4 (00:50→18:24)
[2025-03-25] MEDS: CHLORASEPTIC/SORE THROAT SPRAY 1 SPRAY PO ×2 (05:08→07:36)
--- NOTE | 2025-03-25 05:26 | PTCARENOTE ---
Pt c/o throat pain & a feeling of choking. NGT was coiling in back of pt's throat. Had to pull out and readvance tube. REAL ESTATE SALES ASSOCIATE aware, another CXR ordered to confirm placement.
[2025-03-25 05:47] LABS: Hematocrit 38.6 % (37.0-47.0); Hemoglobin 13.1 g/dL (12.0-16.0); Mean Corp Hgb Conc. 33.9 g/dL (33.0-37.0); Mean Corpuscular Volume 90.8 fL (81.0-99.0); Platelet Count 214 10^3/uL (130-400); Red Cell Dist. Width 12.7 % (11.5-14.5)
[2025-03-25 06:10] LABS: Blood Urea Nitrogen 12 mg/dl (7-17); Calcium 8.9 mg/dl (8.4-10.2); Carbon Dioxide 23 mmol/L (22-30); Chloride 108 mmol/L (98-107); Estimated Creatinine Clearance 74 ml/min; Glucose 174 mg/dl (70-99); Magnesium 2.5 mg/dl (1.6-2.3); Potassium 4.0 mmol/L (3.5-5.1); Sodium 139 mmol/L (135-145); eGFR > 60.00
[2025-03-25 06:39] LABS: Nucleated Red Blood Cells % 0 %
[2025-03-25] MEDS: SYMBICORT 160/4.5 MCG INHALER 2 PUFF INH ×2 (07:15→19:56)
[2025-03-25] MEDS: SPIRIVA RESPIMAT 2.5 MCG 2 PUFF INH (07:15)
[2025-03-25] MEDS: PROTONIX IV 40 MG IV (07:24)
[2025-03-25] MEDS: DILAUDID 0.5 MG IV (07:24)
[2025-03-25] MEDS: NSS (PRESERVATIVE FREE) 10 ML IV (07:24)
--- NOTE | 2025-03-25 07:25 | PTCARENOTE ---
Cared for pt overnight. aaox3, very anxious. NSR, 5LNC. NGT in place draining brown liquid. Roa in place draining clear yellow urine. SCDs. Aquacell small drainage but intact. Colostomy in place. Iv tylenol. Refusing q2 turns. No other issues.
Will monitor.
--- NOTE | 2025-03-25 08:30 | W.PN.CRS1 ---
Today's Communication / Plan
-
continue ngt
lovenox
wound RN for stoma teaching
Assessment/Plan
-
POD#1 Ex lap, drainage of pelvic abscess, sigmoidectomy, abdominal washout, creation of end colostomy
WBC: 27.3 (29.2). Hgb 13.1
-Discontinue NGT. Remain NPO today.
-Continue IVFs
-OOB as tolerated with PT
-Wound RN for stoma management
-Start lovenox tonight for DVT prophylaxis
-DC zamarripa
-Will change dressing tomorrow and remove packing
-OR pathology pending
-Continue IV antibiotics
-Pain control: Tylenol standing, Dilaudid PRN
-Hold Eliquis for now
Subjective Data
Procedure
03/24/2025- Ex lap, drainage of pelvic abscess, sigmoidectomy, abdominal washout, creation of end colostomy
Subjective Data
Date of Service: March 25, 2025
Patient states her NGT is causing a lot of discomfort. Denies nausea but she feels weak. She has abdominal pain when she coughs.
Objective Data
-
Vital Signs
Temp Pulse Resp BP Pulse Ox
98.5 F 72 18 105/57 94
03/25/25 07:49 03/25/25 07:15 03/25/25 07:15 03/25/25 06:00 03/25/25 07:15
Intake & Output
03/24/25 03/25/25 03/26/25
06:59 06:59 06:59
Intake Total 440 / 440
Output Total 1265 / 1265
Balance -825 / -825
Intake:
IV fluids (Total) 350 / 350
normosol 350 / 350
Amount instilled into GI Tube ( 90 / 90
Total)
[place] Sump 90 / 90
Output:
Gastrointestinal tube output ( 415 / 415
Total)
[place] Sump 415 / 415
Urine, Zamarripa 850 / 850
Lab Results
03/25/25 05:20
03/25/25 05:20
Physical Exam
-
General: No Acute Distress and AOx3
Abdomen: Soft, Non Distended, Tender (around incision) and Other (colostomy warm and pink)
Wound: Dressing in Place
--- NOTE | 2025-03-25 09:45 | PTCARENOTE ---
NG tube and zamarripa d/c per order. Patient tolerated well. Care ongoing.
--- NOTE | 2025-03-25 10:36 | W.PN.HOSP.TC ---
Today's Communication/Plan
-
Post Op care
IVF
Restart anticoagulation when ok with surgeon
Assessment / Plan
Assessment / Plan
74-year-old with abdominal pain
CT abdomen and pelvis-acute sigmoid diverticulitis with perforation. Pelvic abscess 6.1 into 3.2 cm. Left scoliosis. Multilevel discogenic and facet DJD. Mild grade 1 spondylolisthesis L4 on L5. 1.7 cm umbilical hernia
EKG 03/20-sinus rhythm. LAD poor R wave progression, inferior/posterior infarct now present
CVS: S1-S2 normal
Chest:few rales at bases
Abdomen: midline wound, with shadowing on the dressing. NO BS, Colostomy empty.
Extremities: No edema
# Acute sigmoid diverticulitis with perforation/pelvic abscess
S/P Ex lap, drainage of pelvic abscess, sigmoidectomy, abdominal washout, creation of end colostomy Dr. Hutson on 03/24/2025
Continue Levaquin and Flagyl-allergic to penicillin
White count trending down
OR cultures pending
NG tube removed and Roa removed.
Continue n.p.o.-pain control, IV fluids
sales rep for stoma management
# Lactic acidosis resolved
# Acute Hypoxic resp inufficiency post op - Likely atelectasis- Wean O2 as tolerated. Discussed about using IS.
# Paroxysmal atrial fibrillation
Restart full anticoagulation when okay with surgeon
Continue metoprolol IV
Will use Lovenox prophylaxis dose in the meantime
# Mitral Regurgitation-history of valve repair 2013
# Asthma-continue Dulera, Breztri, Dymista or equivalent
# Hyperlipidemia-statin
# HTN- BB IV. Was on metoprolol 100 mg in a.m. and 50 mg in p.m.
# GERD-continue PPI
# Anxiety-continue clorazepate
# Left scoliosis. Multilevel discogenic and facet degenerative changes. Mild grade 1 spondylolisthesis of L4 and L5.
# H/O Migraine
# Obesity with a BMI 33
# HUNTER- CPAP ordered .
# DVT prophylaxis-Lovenox
# CODE STATUS-DNR
D/W PT OT at bed side
D/W RN at bed side
Time spent over 50 min
Part of this note was created using voice recognition system. Occasional wrong word or��sound alike� substitutions may have inadvertently occurred due to the inherent limitations of voice recognition software. If noted kindly bring it to my
attention for correction.
Anticipated Discharge: > 48 hours
Subjective/Interval History
-
Date of Service: March 25, 2025
Objective Data
-
Labs:
Laboratory Results
03/25/25
05:20
WBC 27.3 H
Hgb 13.1
Hct 38.6
Plt Count 214
Sodium 139
Potassium 4.0
Chloride 108 H
Carbon Dioxide 23
BUN 12
Creatinine 0.7
Glucose 174 H
Calcium 8.9 D
Vital Signs:
Vital Signs
Temp Pulse Resp BP Pulse Ox
98.5 F 69 17 101/55 94
03/25/25 07:49 03/25/25 08:00 03/25/25 08:00 03/25/25 08:00 03/25/25 08:00
I&O
03/24/25 03/25/25 03/26/25
06:59 06:59 06:59
Intake Total 440 / 440
Output Total 1265 / 1265 650 / 650
Balance -825 / -825 -650 / -650
[2025-03-25] MEDS: LOPRESSOR 5 MG IV ×2 (13:11→23:53)
--- NOTE | 2025-03-25 14:34 | WOUNDNOTE ---
WO RN note: Patient s/p end colostomy yesterday. Stoma pink and swollen. Ostomy appliance intact. Skin on sacrum and heels intact. Air chair cushion in recliner chair. Colostomy teaching folder and ostomy supplies (Chip wafer # [id number], Ariadna
seal and Chip pouch # [id number]) given. Instructed patient how to open and close pouch. Patient upset about having an ostomy. Emotional support given. Plan to change pouch with teaching on . Patient stated she lives alone and plans to go to
rehab/SNF when discharged. Patient gave verbal permission for a [place] ostomy secure starting kit but prefers it be ordered closer to discharge.
[2025-03-25] MEDS: TRANXENE 7.5 MG PO (15:53)
--- NOTE | 2025-03-25 16:49 | PTCARENOTE ---
Patient AOx3. Patient is very anxious about plan of care. PRN anxiety medication given per MAR. Emotional support provided throughout shift. 5L NC with SpO2 greater than 92%. NSR on the monitor. BP stable. Patient able to urinate post zamarripa removal.
Patient tolerating ice chips post NG tube removal. No output from colostomy. Stoma is budded, pink, and moist. Midline dressing with moderate amount of drainage. Assist x1 with RW when OOB. IVF running per order. Call wheeler within reach, bed in
lowest position, and bed of wheels locked.
--- NOTE | 2025-03-25 17:09 | CM ---
Patient with Dx sigmoid diverticulitis with perforation/pelvic abscess S/P Ex lap, drainage pelvic abscess, sigmoidectomy, end colostomy. O2 5L this am. Receiving IVF, IV Abx. NPO. Seen by ostomy nurse. Pt/OT; requires assist of 2, recommend
skilled rehab.
Met with patient who resides alone in a first floor condo with 3 steps at entrance/patient walks on grass to avoid stairs.
The patient was independent in ADLs and ambulation using her SPC.
She states she was having difficulty getting OOB/doing transfers prior to admission.
She has some trepidation about being alone and the possibility of falling - suggested getting medical alert - she looked into this and could not afford it.
DME - SPC, RW stored at son's house/unsure if still available
Prior VN, can't remember agency
No prior SNF.
PCP - Azeb Estrada NP
Pharmacy - [facility]
Discussed SNF for short term rehab and ostomy care/teaching, and provided NH list. Patient receptive and wants to discuss with her children. Her daughter and son in law in [place] are both nurses.
Plan follow up with patient for SNF preferences.
[2025-03-25] MEDS: LOPRESSOR IV (17:15)
[2025-03-25] MEDS: LEVAQUIN 100 IV (17:21)
[2025-03-25] MEDS: LOVENOX 40 MG SC (17:21)
[2025-03-26] VITALS (13 sets, daily range): BP systolic 109–139; BP diastolic 60–90; PULSE 84; BMI 34.1
[2025-03-26 04:14] LABS: Hematocrit 36.7 % (37.0-47.0); Hemoglobin 12.1 g/dL (12.0-16.0); Mean Corp Hgb Conc. 33.0 g/dL (33.0-37.0); Mean Corpuscular Volume 92.0 fL (81.0-99.0); Platelet Count 213 10^3/uL (130-400); Red Cell Dist. Width 12.5 % (11.5-14.5)
[2025-03-26] MEDS: DILAUDID 0.5 MG IV ×2 (04:15→10:29)
[2025-03-26 04:38] LABS: Blood Urea Nitrogen 14 mg/dl (7-17); Calcium 9.2 mg/dl (8.4-10.2); Carbon Dioxide 22 mmol/L (22-30); Chloride 112 mmol/L (98-107); Estimated Creatinine Clearance 87 ml/min; Glucose 113 mg/dl (70-99); Magnesium 3.0 mg/dl (1.6-2.3); Potassium 4.2 mmol/L (3.5-5.1); Sodium 141 mmol/L (135-145); eGFR > 60.00
--- NOTE | 2025-03-26 04:45 | PTCARENOTE ---
Caring for pt overnight. aaox3, very anxious and forgetful. Remains on 5Lnc & cpap hs. IVF running. ivabx. moderate drainage on aquacell but intact. colostomy intact, very scant bowel drainage. NSR. pt remains npo no po meds. pt is refusing turns.
pt very anxious and cautious with care.
Pt c/o pain in abdomen & urinating frequently. Scanned her for 671cc, pt unable to empty bladder all the way. cathed her for 700cc clear yellow urine. Pain improved. will monitor.
[2025-03-26] MEDS: LOPRESSOR 5 MG IV ×3 (06:15→17:13)
[2025-03-26] MEDS: SYMBICORT 160/4.5 MCG INHALER 2 PUFF INH (07:56)
[2025-03-26] MEDS: SPIRIVA RESPIMAT 2.5 MCG 2 PUFF INH (07:56)
[2025-03-26] MEDS: FLAGYL 500 MG 100 IV (08:01)
[2025-03-26] MEDS: NSS (PRESERVATIVE FREE) 10 ML IV (08:01)
[2025-03-26] MEDS: PROTONIX IV 40 MG IV (08:01)
[2025-03-26] MEDS: NORMOSOL-R/PLASMALYTE-A 1000 IV (08:04)
--- NOTE | 2025-03-26 08:41 | W.PN.CRS1 ---
Today's Communication / Plan
-
clears
dressing changed
Assessment/Plan
-
POD#2 Ex lap, drainage of pelvic abscess, sigmoidectomy, abdominal washout, creation of end colostomy
WBC: 20.0 (27.3), Hgb 12.1
-Advance to clears
-Continue IVFs until tolerating po
-OOB as tolerated with PT
-Wound RN for stoma management
-Lovenox for DVT prophylaxis, TEDS/SCDS in place
-Voiding post zamarripa removal
-Daily dressing changes
-OR pathology pending
-Continue IV antibiotics
-Pain control: Tylenol standing, Dilaudid PRN
-Hold Eliquis for now
Subjective Data
Procedure
03/24/2025- Ex lap, drainage of pelvic abscess, sigmoidectomy, abdominal washout, creation of end colostomy
Subjective Data
Date of Service: March 26, 2025
Patient states she is feeling much better. Denies nausea or vomiting. NGT came out yesterday.
Objective Data
-
Vital Signs
Temp Pulse Resp BP Pulse Ox
98.2 F 71 16 125/81 98
03/26/25 03:32 03/26/25 08:04 03/26/25 08:04 03/26/25 08:00 03/26/25 08:04
Intake & Output
03/25/25 03/26/25 03/27/25
06:59 06:59 06:59
Intake Total 440 / 440 2700 / 2700
Output Total 1265 / 1265 1500 / 1500
Balance -825 / -825 1200 / 1200
Intake:
IV fluids (Total) 350 / 350 2200 / 2200
normosol 350 / 350
IV piggybacks 500 / 500
Amount instilled into GI Tube ( 90 / 90
Total)
[place] Sump
Output:
Gastrointestinal tube output ( 415 / 415 50 / 50
Total)
[place] Sump 415 / 415 50 / 50
Urine, Zamarripa 850 / 850 600 / 600
Urine, Voided 150 / 150
Straight cath output 700 / 700
Other:
Number of approximated MODERATE 1
amounts of urine
Number of approximated LARGE 1
amounts of urine
How many times incontinent 1
MODERATE amount urine
How many times incontinent 1
SATURATED amount urine
Lab Results
03/26/25 03:37
03/26/25 03:37
Physical Exam
-
General: No Acute Distress and AOx3
Abdomen: Soft, Non Distended and Non Tender
Wound: Dressing Changed (kerilex removed, gauze put into wound and redressed)
--- NOTE | 2025-03-26 08:43 | PN.CDI ---
CDI
- -
CDI:
Physician Documentation Request
Admit Date: 03/24/25 16:39
Dear Doctor Ilia,
Patient admitted for diverticulitis.
Nursing documentation clinical panel wound care
03/25/25
01:22
Is this a pressure-related injury? [Present on admission Right Second Toe] Yes
Pressure injury appearance (Stage 1) [Present on admission Right Second Toe] Non blanchable
red
Pressure injury stage [Present on admission Right Second Toe] Stage 1
Surrounding Skin - [Present on admission Right Second Toe] Dry and intact
Physician documentation of the type and location of wounds is required for compliant documentation. Based on the above clinical findings and your assessment, please provide the following in your progress note:
1. Location of the ulcer/wound, including laterality.
2. Type (etiology) of ulcer/wound:
- Diabetic ulcer
- Arterial (ischemic) ulcer
- Traumatic wound
- Venous stasis ulcer
- Pressure (decubitus) ulcer
- Non-healing surgical wound
- Other
- Unable to determine
3. For a non-pressure ulcer, please indicate the depth/severity:
- Limited to the breakdown of skin
- With fat layer exposed
- With necrosis of muscle
- With necrosis of bone
- Other
- Unable to determine
4. If a pressure ulcer, please also include the stage* of the ulcer:
- Stage 1 - Skin intact, non-blanchable redness
- Stage 2 - Partial thickness loss of dermis, includes intact or open blister
- Stage 3 - Full thickness tissue not including bone, tendon or muscle
- Stage 4 - Full thickness tissue loss, including exposed bone, tendon or muscle
- Unstageable - Full thickness loss in which the base of the ulcer is covered by slough (yellow, sanchez, ruiz, green or brown) and/or eschar (sanchez, brown or black) in the wound bed.
- Unable to determine
Use of terms such as suspected, likely, concern for, or probable (associated with a specific diagnosis that is being evaluated, monitored, or treated as if it exists) are acceptable and can be coded in the inpatient setting, when documented at the
time of discharge.
Thank you,
Celina Johnson RN, BSN
CDI Specialist
Available via [employer] text
Please use your independent medical judgment in providing your response.
*Source: National Pressure Ulcer Advisory Panel (NPUAP)
--- NOTE | 2025-03-26 10:14 | W.PN.HOSP.TC ---
Addendum entered and electronically signed by Danish Morillo MD 03/26/25 10:23:
Diet advanced to clears
Spoke to daughter who is an RN and updated.
Original Note:
Today's Communication/Plan
-
Okay to transfer to 2 S.
Encourage incentive spirometry
Wean oxygen as tolerated
Continue n.p.o. with IV fluids and await return of bowel function
Continue antibiotic
PT OT
Assessment / Plan
Assessment / Plan
74-year-old with abdominal pain
CT abdomen and pelvis-acute sigmoid diverticulitis with perforation. Pelvic abscess 6.1 into 3.2 cm. Left scoliosis. Multilevel discogenic and facet DJD. Mild grade 1 spondylolisthesis L4 on L5. 1.7 cm umbilical hernia
EKG 03/20-sinus rhythm. LAD poor R wave progression, inferior/posterior infarct now present
CVS: S1-S2 normal
Chest:few rales at bases
Abdomen: midline wound dressing. NO BS, Colostomy empty.
Extremities: No edema
# Acute sigmoid diverticulitis with perforation/pelvic abscess
S/P Ex lap, drainage of pelvic abscess, sigmoidectomy, abdominal washout, creation of end colostomy Dr. Hutson on 03/24/2025
Continue Levaquin and Flagyl-allergic to penicillin
White count trending down
OR cultures pending, Gram stain with gram-positive cocci and gram-negative rods
NG tube removed and Roa removed.
ID eval
Continue n.p.o.-pain control, IV fluids
floor plan adjuster for stoma management
encourage IS
# Lactic acidosis resolved
# Acute Hypoxic resp inufficiency post op - Likely atelectasis- Wean O2 as tolerated. Discussed about using IS.
# Paroxysmal atrial fibrillation
Restart full anticoagulation when okay with surgeon
Continue metoprolol IV
Will use Lovenox prophylaxis dose in the meantime
# Mitral Regurgitation-history of valve repair 2013
# Asthma-continue Dulera, Breztri, Dymista or equivalent
# Hyperlipidemia-statin
# HTN- BB IV. Was on metoprolol 100 mg in a.m. and 50 mg in p.m.
# GERD-continue PPI
# Anxiety-continue clorazepate
# Left scoliosis. Multilevel discogenic and facet degenerative changes. Mild grade 1 spondylolisthesis of L4 and L5.
# H/O Migraine
# Obesity with a BMI 33
# HUNTER- CPAP ordered .
# DVT prophylaxis-Lovenox
# CODE STATUS-DNR
D/W Surgeon at bed side
D/W RN at bed side
Part of this note was created using voice recognition system. Occasional wrong word or��sound alike� substitutions may have inadvertently occurred due to the inherent limitations of voice recognition software. If noted kindly bring it to my
attention for correction.
Anticipated Discharge: > 48 hours
Subjective/Interval History
-
Date of Service: March 26, 2025
Objective Data
-
Labs:
Laboratory Results
03/26/25
03:37
WBC 20.0 H
Hgb 12.1
Hct 36.7 L
Plt Count 213
Sodium 141
Potassium 4.2
Chloride 112 H
Carbon Dioxide 22
BUN 14
Creatinine 0.6
Glucose 113 H
Calcium 9.2
Vital Signs:
Vital Signs
Temp Pulse Resp BP Pulse Ox
98.0 F 71 16 125/81 98
03/26/25 07:48 03/26/25 08:04 03/26/25 08:04 03/26/25 08:00 03/26/25 08:04
I&O
03/25/25 03/26/25 03/27/25
06:59 06:59 06:59
Intake Total 440 / 440 2900 / 2900 100 / 100
Output Total 1265 / 1265 1500 / 1500
Balance -825 / -825 1400 / 1400 100 / 100
[2025-03-26] MEDS: LR 1000 IV (10:29)
--- NOTE | 2025-03-26 12:08 | CON.ID ---
Consultation
-
Date/Time Consultation Requested: March 26, 2025 1013
Date/Time Consultation Performed: March 26, 2025 1210
Requesting Provider: Dr. Danish Morillo
Performing Provider: Dr. Yanira Farrar
Reason for Consultation: Perforated diverticulitis
Chief Complaint / Past History
Chief Complaint
Abdominal pain
History of Present Illness
74-year-old female with history of atrial fibrillation, mitral valve repair, heart failure with preserved EF who presented to the hospital on March 24 due to several day history of abdominal pain. She reports that she has a history of diverticulosis
and was told not to eat seeds. Never had diverticulitis in the past. She has been having diarrhea chronically in taking Imodium regularly. She then developed constipation for 2 days. She then developed severe abdominal pain with nausea.
Positive chills. She presented to the ER March 24 with white count 29.2, lactic acid 2.9. CAT scan shows perforated sigmoid diverticulitis with a 6.1 cm pelvic abscess. She was taken to the OR right away status post abscess drainage,
sigmoidectomy, and end colostomy. She is currently on levofloxacin and metronidazole. She reports history of hives from penicillin 20 years ago. Never had cephalosporins. Today she complains of postop abdominal pain. She also feels weak. She
wants to eat solid foods but currently on liquid diet.
Past History
Additional Past Medical History:
Asthma
CVA
Hypertension
Atrial fibrillation
HFpEF
Mitral valve repair
HUNTER
Anxiety
Left total knee replaced
Left shoulder replacement
Allergy History:
atenolol Allergy (Verified 03/24/25 12:16)
'felt out of it'
ibuprofen Allergy (Verified 03/24/25 12:16)
swelling of face
Penicillins Allergy (Verified 03/24/25 12:16)
Hives
environmental Allergy (Uncoded 03/24/25 12:16)
Sneezing and Coughing
Medications Reviewed: Yes
Current Antibiotics:
Levofloxacin
Metronidazole
Social History
Tobacco: Non-Smoker
Alcohol: Occasional
Drug: None
Living: Alone
Family History
Family History: Not Pertinent
Review of Systems
Review of Systems
General: Chills and Change in Appetite
HEENT: Negative Sinus Problems, Headache or Pharyngitis
Cardiovascular: Negative Chest Pain or Dyspnea
Respiratory: Negative Dyspnea or Cough
Gasteroenterology: Negative Diarrhea
Genital / Urological: Negative Dysuria or Flank Pain
Endocrine: Weakness
All systems: All other systems were reviewed and were negative
Vital Signs
Temp Pulse Resp BP Pulse Ox
98.0 F 74 26 128/63 96
03/26/25 07:48 03/26/25 10:00 03/26/25 10:00 03/26/25 10:00 03/26/25 10:00
Physical Exam
Physical Exam
Constitutional: No Acute Distress and Non-toxic
Eyes: No Conjunctival Hemorrhage and Sclera Anicteric
Cardiovascular: Regular Rate and S1/S2
Pulmonary: Clear
Gastrointestinal: Soft, Tender, Non Distended and Decreased Bowel Sounds
Genito-Urinary: Negative CVA Tenderness
Extremities: Negative Edema
Neurological: AO x 3
Lab / Diagnostic Study Results
03/26/25 03:37
03/26/25 03:37
Abs Immat Gran (auto) 0.2 10^3/uL (0-0.05) H 03/25/25 05:20
Absolute Neuts (auto) 25.2 10^3/uL (1.4-6.5) H 03/25/25 05:20
Absolute Lymphs (auto) 1.0 10^3/uL (1.2-3.4) L 03/25/25 05:20
Absolute Monos (auto) 0.8 10^3/uL (0.1-0.6) H 03/25/25 05:20
Absolute Basos (auto) 0.1 10^3/uL (0-0.2) 03/25/25 05:20
Immature Gran % 0.8 % (0-0.5) H 03/25/25 05:20
Neutrophils % 92.4 % (42.2-75.2) H 03/25/25 05:20
Lymphocytes % 3.6 % (20.5-51.1) L 03/25/25 05:20
Monocytes % 2.9 % (1.7-9.3) 03/25/25 05:20
Eosinophils % 0.0 % (0-6) 03/25/25 05:20
Basophils % 0.3 % (0-2) 03/25/25 05:20
PT 16.5 Sec (11.4-14.6) H 03/24/25 16:11
INR 1.30 03/24/25 16:11
Lactic Acid 1.3 mmol/L (0.7-2.0) 03/25/25 05:20
Ur Squamous Epith Cells >30 /LPF (Few) 03/24/25 13:40
Microbiology Results
Micro:
03/24/25 19:45 Anaerobic Culture - Preliminary
Abdomen Culture pending. Anaerobic cultures are examined after 3
days incubation. Additional information to follow.
03/24/25 19:45 Wound Culture - Preliminary
Abdomen Gram Stain - Preliminary
03/24/25 13:40 Urine Culture - Final
Urine Aerococcus Species
03/25/25 05:20 MRSA Screen - Final
Nose No Methicillin Resistant Staphylococcus aureus isolated.
03/24/25 15:33 Blood Culture - Preliminary
Blood/Venous No Growth in 24 hours- Final report to follow
03/24/25 15:33 Blood Culture - Preliminary
Blood/Venous No Growth in 24 hours- Final report to follow
03/24/25 CT a/p: Acute sigmoid diverticulitis with perforation. Pelvic abscess in the cul-de-sac measuring 6.1 x 3.2 cm.
Assessment / Plan
# Perforated sigmoid diverticulitis with pelvic abscess
# Leukocytosis
# PCN allergy - hives
-03/24 s/p I+D, sigmoidectomy, end colostomy
- Appreciate colorectal surgeons. OR cx pending
- change levofloxacin/metronidazole to meropenem pending cx data.
-Trend wbc.
# Aerococcus bacteruria
- UA >30 sq epithelial cells suggesitve of contaminant specimen
- Ucx <100CFU organism
- No need to treat.
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
Asthma
CVA
Hypertension
Atrial fibrillation
HFpEF
Mitral valve repair
HUNTER
Anxiety
Left total knee replaced
Left shoulder replacement
[2025-03-26] MEDS: STERILE WATER FOR INJECTION 10 ML IV (17:12)
[2025-03-26] MEDS: MERREM 500 MG IV (17:13)
[2025-03-26] MEDS: LOVENOX 40 MG SC (17:13)
[2025-03-26] MEDS: DILAUDID 1 MG IV (17:30)
[2025-03-26] MEDS: TRANXENE 7.5 MG PO (17:30)
--- NOTE | 2025-03-26 17:43 | PTCARENOTE ---
Patient AOx3. Patient is very anxious about plan of care. PRN anxiety medication given per MAR. Emotional support provided throughout shift. 3L NC with SpO2 greater than 92%. NSR on the monitor. BP stable. Patient urinating appropriately in commode.
Patient tolerating diet. No output from colostomy. Stoma is budded, pink, and moist. Midline dressing changed by MD. Assist x1 with RW when OOB. IVF running per order. Call wheeler within reach, bed in lowest position, and bed of wheels locked.
--- NOTE | 2025-03-26 19:21 | PTCARENOTE ---
Verbal report given to 2S JULIANA Valerio.
--- NOTE | 2025-03-26 20:15 | TRANSFER ---
Patient transferred via bed on phototypesetting equipment monitor/2 L NC to room 2101. All belongings with pt. Pt thankful for care. Receiving RN & PCT at bedside.
--- NOTE | 2025-03-26 20:20 | TRANSFER ---
Transfer to from IMU. Met with off-going IMU nurse at bedside. Oriented pt. to room, addressed questions/concerns, and safety maintained.
[2025-03-26] MEDS: SYMBICORT 160/4.5 MCG INHALER INH (21:19)
[2025-03-27] VITALS (9 sets, daily range): BP systolic 104–126; BP diastolic 54–79; PULSE 85; O2SAT 88; BMI 33.9
[2025-03-27] MEDS: DESENEX/MITRAZOL/ZEASORB 1 APPLIC TOPICAL ×3 (00:22→20:59)
[2025-03-27] MEDS: MERREM 500 MG IV ×4 (00:23→21:01)
[2025-03-27] MEDS: STERILE WATER FOR INJECTION 10 ML IV ×4 (00:23→21:01)
[2025-03-27] MEDS: LR 1000 IV ×2 (00:23→15:44)
[2025-03-27] MEDS: LOPRESSOR 5 MG IV ×3 (00:23→23:11)
[2025-03-27 06:59] LABS: Hematocrit 37.2 % (37.0-47.0); Hemoglobin 12.4 g/dL (12.0-16.0); Mean Corp Hgb Conc. 33.3 g/dL (33.0-37.0); Mean Corpuscular Volume 91.9 fL (81.0-99.0); Platelet Count 267 10^3/uL (130-400); Red Cell Dist. Width 12.7 % (11.5-14.5)
[2025-03-27 07:16] LABS: Blood Urea Nitrogen 15 mg/dl (7-17); Calcium 9.5 mg/dl (8.4-10.2); Carbon Dioxide 23 mmol/L (22-30); Chloride 110 mmol/L (98-107); Estimated Creatinine Clearance 74 ml/min; Glucose 67 mg/dl (70-99); Potassium 3.8 mmol/L (3.5-5.1); Sodium 138 mmol/L (135-145); eGFR > 60.00
[2025-03-27] MEDS: SPIRIVA RESPIMAT 2.5 MCG INH (08:24)
[2025-03-27] MEDS: SYMBICORT 160/4.5 MCG INHALER INH (08:24)
--- NOTE | 2025-03-27 09:15 | W.PN.CRS1 ---
Today's Communication / Plan
-
Continue clears
Dressing changes
Assessment/Plan
-
POD# 3 ex lap, drainage of pelvic abscess, sigmoidectomy, abdominal washout, creation of end colostomy
WBC: 13.0 (20.0), Hgb 12.4 (12.1)
- Continue on clears today given a little bit of bloating.
-Continue IVFs until tolerating po
-OOB as tolerated with PT
-Wound RN for stoma management
-Lovenox for DVT prophylaxis, TEDS/SCDS in place
-Daily dressing changes. May need a possible wound VAC in a few days.
-OR pathology pending
-Continue IV antibiotics
-Pain control: Tylenol standing, Dilaudid PRN
-Hold Eliquis for now
Subjective Data
Procedure
03/24/2025- Ex lap, drainage of pelvic abscess, sigmoidectomy, abdominal washout, creation of end colostomy
Subjective Data
Date of Service: March 27, 2025
Patient states she feels a little bloated today. She has some mild pain around her incision. She denies nausea. She has some flatus in her colostomy bag. No liquid stool yet.
Objective Data
-
Vital Signs
Temp Pulse Resp BP Pulse Ox
97.9 F 73 18 106/69 96
03/27/25 07:00 03/27/25 07:00 03/27/25 07:00 03/27/25 07:00 03/27/25 07:00
Intake & Output
03/26/25 03/27/25 03/28/25
06:59 06:59 06:59
Intake Total 2900 / 2900 1480 / 1480 830 / 830
Output Total 1500 / 1500 120 / 120
Balance 1400 / 1400 1360 / 1360 830 / 830
Intake:
Oral fluids 480 / 480 830 / 830
IV fluids (Total) 2400 / 2400 900 / 900
IV piggybacks 500 / 500 100 / 100
Output:
Gastrointestinal tube output ( 50 / 50
Total)
[place] Sump 50 / 50
Urine, Roa 600 / 600
Urine, Voided 150 / 150 120 / 120
Straight cath output 700 / 700
Other:
Number of approximated SMALL 1
amounts of urine
Number of approximated MODERATE 1 1 1
amounts of urine
Number of approximated LARGE 1 2 2
amounts of urine
How many times incontinent 1
MODERATE amount urine
How many times incontinent 1
SATURATED amount urine
Lab Results
03/27/25 06:10
03/27/25 06:10
Physical Exam
-
General: No Acute Distress and AOx3
Abdomen: Soft, Distended (Mild) and Tender (Around incision)
Wound: No Signs of Infection and Dressing Changed
[2025-03-27] MEDS: PROTONIX IV 40 MG IV (10:08)
[2025-03-27] MEDS: NSS (PRESERVATIVE FREE) 10 ML IV (10:09)
[2025-03-27] MEDS: DILAUDID 0.5 MG IV ×2 (10:20→21:01)
--- NOTE | 2025-03-27 12:08 | W.PN.HOSP.TC ---
Today's Communication/Plan
-
IV AB
IV fluids to be continued
Await return of bowel function
Case management to send referrals for SNF
Assessment / Plan
Assessment / Plan
74-year-old with abdominal pain
CT abdomen and pelvis-acute sigmoid diverticulitis with perforation. Pelvic abscess 6.1 into 3.2 cm. Left scoliosis. Multilevel discogenic and facet DJD. Mild grade 1 spondylolisthesis L4 on L5. 1.7 cm umbilical hernia
EKG 03/20-sinus rhythm. LAD poor R wave progression, inferior/posterior infarct now present
CVS: S1-S2 normal
Chest:few rales at bases
Abdomen: midline wound dressing. NO BS, Colostomy empty.
Extremities: No edema
# Acute sigmoid diverticulitis with perforation/pelvic abscess
S/P Ex lap, drainage of pelvic abscess, sigmoidectomy, abdominal washout, creation of end colostomy Dr. Hutson on 03/24/2025
Currently on meropenem
White count trending down
OR cultures pending, Gram stain with strep viridans, Enterococcus and gram-negative bacilli
NG tube removed and Roa removed.
ID eval appreciated.
Clear liquid diet-still no stoma output
welder plastic for stoma management
encourage IS
# Lactic acidosis resolved
# Acute Hypoxic resp insufficiency post op - Likely atelectasis-off oxygen now.Discussed about using IS.
# Paroxysmal atrial fibrillation
Restart full Anticoagulation when okay with surgeon
Continue Metoprolol , changed to p.o.
Will use Lovenox prophylaxis dose in the meantime
# Mitral Regurgitation-history of valve repair 2013
# Asthma-continue Dulera, Breztri, Dymista or equivalent
# Hyperlipidemia-statin
# HTN- BB Was on metoprolol 100 mg in a.m. and 50 mg in p.m. will do 25 BID
# GERD-continue PPI
# Anxiety-continue clorazepate
# Left scoliosis. Multilevel discogenic and facet degenerative changes. Mild grade 1 spondylolisthesis of L4 and L5.
# H/O Migraine
# Obesity with a BMI 33
# HUNTER- CPAP ordered .
# DVT prophylaxis-Lovenox
# CODE STATUS-DNR
D/W Surgeon discussed with daughter and updated.
Discussed about probably starting anticoagulation tomorrow per discussion with surgeon.
Part of this note was created using voice recognition system. Occasional wrong word or��sound alike� substitutions may have inadvertently occurred due to the inherent limitations of voice recognition software. If noted kindly bring it to my
attention for correction.
Anticipated Discharge: 24 - 48 hours
Subjective/Interval History
-
Date of Service: March 27, 2025
Objective Data
-
Labs:
Laboratory Results
03/27/25
06:10
WBC 13.0 H
Hgb 12.4
Hct 37.2
Plt Count 267 D
Sodium 138
Potassium 3.8
Chloride 110 H
Carbon Dioxide 23
BUN 15
Creatinine 0.7
Glucose 67 L
Calcium 9.5
Vital Signs:
Vital Signs
Temp Pulse Resp BP Pulse Ox
98.6 F 74 14 126/55 99
03/27/25 11:00 03/27/25 11:00 03/27/25 11:00 03/27/25 11:00 03/27/25 11:00
I&O
03/26/25 03/27/25 03/28/25
06:59 06:59 06:59
Intake Total 2900 / 2900 1480 / 1480 830 / 830
Output Total 1500 / 1500 120 / 120
Balance 1400 / 1400 1360 / 1360 830 / 830
--- NOTE | 2025-03-27 12:22 | CM ---
Chart reviewed and recommendation is for skilled placement, options reviewed with patient and list of Medicare.gov alf facilities provided to patient along with ratings and patient [facility], referral sent to
both facilities.
Plan; Skilled placement when stable.
[2025-03-27] MEDS: MUCINEX 600 MG PO (13:44)
[2025-03-27] MEDS: TOPROL XL PO ×2 (13:44→15:53)
--- NOTE | 2025-03-27 15:05 | W.PN.ID1 ---
Date of Service
Date of Service: March 27, 2025
Today's Communication
Continue meropenem pending cx.
Assessment / Plan
# Perforated sigmoid diverticulitis with pelvic abscess
# Leukocytosis - improving
# PCN allergy - hives
-03/24 s/p I+D, sigmoidectomy, end colostomy
- Appreciate colorectal surgeons. OR cx: GNR x 2, Viridans strep, Enterococcus
- Continue meropenem pending cx data.
-Trend wbc.
# Aerococcus bacteruria
- UA >30 sq epithelial cells suggestive of contaminant specimen
- Ucx <100CFU organism
- No need to treat.
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
Asthma
CVA
Hypertension
Atrial fibrillation
HFpEF
Mitral valve repair
HUNTER
Anxiety
Left total knee replaced
Left shoulder replacement
Chief Complaint
-: Other (abd abscess)
Subjective / Review of Systems
Abd sore
Vital Signs / Physical Exam
Vital Signs
Vital Signs
Temp Pulse Resp BP Pulse Ox
98.6 F 74 14 126/55 99
03/27/25 11:00 03/27/25 11:00 03/27/25 11:00 03/27/25 11:00 03/27/25 11:00
Physical Exam
Constitutional: No Acute Distress
Cardiovascular: Regular Rate and S1/S2
Pulmonary: Clear
Gastrointestinal: Soft, Tender (mild), Non Distended and Decreased Bowel Sounds
Extremities: Negative Edema
Neurological: AO x 3
Objective Data
Lab Data
Lab Results
03/27/25 06:10
03/27/25 06:10
PT 16.5 Sec (11.4-14.6) H 03/24/25 16:11
INR 1.30 03/24/25 16:11
APTT 30.8 Sec (23.4-35.0) 03/24/25 16:11
Estimated Creat Clear 74 ml/min 03/27/25 06:10
Lactic Acid 1.3 mmol/L (0.7-2.0) 03/25/25 05:20
Total Bilirubin 2.2 mg/dl (0.2-1.3) H 03/24/25 13:40
AST 32 U/L (14-36) 03/24/25 13:40
ALT 21 U/L (0-35) 03/24/25 13:40
Alkaline Phosphatase 76 U/L (38-126) 03/24/25 13:40
Most recent labs reviewed.
Micro Results:
03/24/25 19:45 Wound Culture - Preliminary
Abdomen Gram negative bacilli
Enterococcus species
Viridans Streptococcus Group
Gram Stain - Preliminary
03/24/25 15:33 Blood Culture - Preliminary
Blood/Venous No Growth in 48 hours- Final report to follow
03/24/25 15:33 Blood Culture - Preliminary
Blood/Venous No Growth in 48 hours- Final report to follow
03/24/25 19:45 Anaerobic Culture - Preliminary
Abdomen Culture pending. Anaerobic cultures are examined after 3
days incubation. Additional information to follow.
03/24/25 13:40 Urine Culture - Final
Urine Aerococcus Species
03/25/25 05:20 MRSA Screen - Final
Nose No Methicillin Resistant Staphylococcus aureus isolated.
03/24/25 CT a/p: Acute sigmoid diverticulitis with perforation. Pelvic abscess in the cul-de-sac measuring 6.1 x 3.2 cm.
[2025-03-27] MEDS: LR IV (15:39)
[2025-03-27] MEDS: LOPRESSOR IV (16:17)
[2025-03-27] MEDS: LIPITOR 40 MG PO (18:58)
[2025-03-27] MEDS: LOVENOX 40 MG SC (18:59)
[2025-03-27] MEDS: SYMBICORT 160/4.5 MCG INHALER 2 PUFF INH (19:19)
[2025-03-27] MEDS: TOPROL XL 25 MG PO (20:58)
--- NOTE | 2025-03-27 23:04 | W.PN.UPDATE ---
Update Note
Progress Note Update
HR 120's - 130's. Patient asymptomatic, EKG sinus tachycardia, hx of Afib Eliquis on hold. 99.0, HR sustaining 132 122/79 93 4l 18
patient seen and evaluated, denies chest pain, or shortness of breath. lungs with rales bases, regular rate, tachycardia 130's, 18 RR.
labs ordered, Metoprolol 5mg IVx1
lab results noted. HR 106
[2025-03-28 00:03] LABS: Hematocrit 41.2 % (37.0-47.0); Hemoglobin 14.0 g/dL (12.0-16.0); Mean Corp Hgb Conc. 34.0 g/dL (33.0-37.0); Mean Corpuscular Volume 90.5 fL (81.0-99.0); Platelet Count 302 10^3/uL (130-400); Red Cell Dist. Width 12.8 % (11.5-14.5)
[2025-03-28 00:19] LABS: Blood Urea Nitrogen 12 mg/dl (7-17); Calcium 9.7 mg/dl (8.4-10.2); Carbon Dioxide 25 mmol/L (22-30); Chloride 109 mmol/L (98-107); Estimated Creatinine Clearance 74 ml/min; Glucose 92 mg/dl (70-99); Magnesium 2.2 mg/dl (1.6-2.3); Potassium 3.7 mmol/L (3.5-5.1); Sodium 140 mmol/L (135-145); eGFR > 60.00
--- NOTE | 2025-03-28 00:26 | PTCARENOTE ---
2231 noted pts HR on tele was SR sustained in the 120s, at start of shift was SR 70's. Pt asymptomatic. Reached out to SPORTS MARKETING SPECIALIST Isaac. VS as documented. STAT EKG done, & labs drawn, metoprolol given. HR came down to 110's. STAT lab results reviewed w SPORTS MARKETING SPECIALIST.
Care ongoing.
[2025-03-28 03:00] VITALS: BP 120/78
[2025-03-28] MEDS: STERILE WATER FOR INJECTION 10 ML IV ×4 (03:13→21:24)
[2025-03-28] MEDS: MERREM 500 MG IV ×4 (03:13→21:24)
[2025-03-28] MEDS: LR IV (04:46)
--- NOTE | 2025-03-28 05:13 | PTCARENOTE ---
Early on during this shift, pt was educated on need to get OOB and use commode for toileting. Pt stated she couldn't do it bc she felt tired and felt that she can't do anything for herself. Then pt stated that the floor she was on before did
everything for her and spoiled her. RN explained that pt did not need to be in higher level of care anymore and that pt should try to maintain/regain any functional independence. Pt verbalized understanding but refused to get OOB for toileting this
shift. Care ongoing.
[2025-03-28 05:56] VITALS: BMI 33.5
[2025-03-28 07:00] VITALS: BP 123/85
[2025-03-28] MEDS: SPIRIVA RESPIMAT 2.5 MCG 2 PUFF INH (07:48)
[2025-03-28] MEDS: SYMBICORT 160/4.5 MCG INHALER 2 PUFF INH (07:48)
[2025-03-28 07:57] LABS: Hematocrit 42.1 % (37.0-47.0); Hemoglobin 13.9 g/dL (12.0-16.0); Mean Corp Hgb Conc. 33.0 g/dL (33.0-37.0); Mean Corpuscular Volume 91.1 fL (81.0-99.0); Platelet Count 310 10^3/uL (130-400); Red Cell Dist. Width 12.8 % (11.5-14.5)
[2025-03-28] MEDS: DESENEX/MITRAZOL/ZEASORB 1 APPLIC TOPICAL ×2 (08:29→20:26)
[2025-03-28] MEDS: MUCINEX 600 MG PO (08:30)
[2025-03-28] MEDS: PROTONIX IV 40 MG IV (08:30)
[2025-03-28] MEDS: TOPROL XL 25 MG PO ×2 (08:30→20:27)
[2025-03-28] MEDS: NSS (PRESERVATIVE FREE) 10 ML IV (08:30)
[2025-03-28] MEDS: DILAUDID 0.5 MG IV ×2 (08:31→19:15)
[2025-03-28 08:49] LABS: Blood Urea Nitrogen 12 mg/dl (7-17); Calcium 9.8 mg/dl (8.4-10.2); Carbon Dioxide 25 mmol/L (22-30); Chloride 110 mmol/L (98-107); Estimated Creatinine Clearance 86 ml/min; Glucose 112 mg/dl (70-99); Potassium 3.8 mmol/L (3.5-5.1); Sodium 139 mmol/L (135-145); eGFR > 60.00
--- NOTE | 2025-03-28 08:58 | W.PN.CRS1 ---
Today's Communication / Plan
-
full liquid diet
okay to restart eliquis from our perspective
Assessment/Plan
-
POD#4 ex lap, drainage of pelvic abscess, sigmoidectomy, abdominal washout, creation of end colostomy
WBC: 12.9 (13.0), Hgb 13.9 (12.4)
-Advance to full liquid diet
-Continue IVFs until tolerating po
-OOB as tolerated with PT
-Wound RN for stoma management
-Lovenox for DVT prophylaxis, TEDS/SCDS in place
-Daily dressing changes. May need a possible wound VAC in a few days.
-OR pathology pending
-Continue IV antibiotics
-Pain control: Tylenol standing, Dilaudid PRN
-Okay to restart Eliquis from our perspective. If starting a heparin gtt, please no bolus.
Subjective Data
Procedure
03/24/2025- Ex lap, drainage of pelvic abscess, sigmoidectomy, abdominal washout, creation of end colostomy
Subjective Data
Date of Service: March 28, 2025
Patient states she is feeling sore. She denies nausea or vomiting. She is tolerating clears.
Objective Data
-
Vital Signs
Temp Pulse Resp BP Pulse Ox
97.9 F 76 16 123/85 93
03/28/25 07:00 03/28/25 07:54 03/28/25 07:54 03/28/25 07:00 03/28/25 07:54
Intake & Output
03/27/25 03/28/25 03/29/25
06:59 06:59 06:59
Intake Total 1480 / 1480 2180 / 2180
Output Total 120 / 120
Balance 1360 / 1360 2180 / 2180
Intake:
Oral fluids 480 / 480 1430 / 1430
IV fluids (Total) 900 / 900 750 / 750
IV piggybacks 100 / 100
Output:
Urine, Voided 120 / 120
Other:
Number of approximated SMALL 1
amounts of urine
Number of approximated MODERATE 1 1
amounts of urine
Number of approximated LARGE 2 1
amounts of urine
How many times incontinent 1
MODERATE amount urine
How many times incontinent 1
SATURATED amount urine
Lab Results
03/28/25 07:34
03/28/25 07:34
Physical Exam
-
General: No Acute Distress and AOx3
Abdomen: Soft, Non Distended and Tender (mild around incision)
Skin: Warm and Dry
Wound: Dressing Changed (dry gauze into wound)
--- NOTE | 2025-03-28 09:40 | WOUNDNOTE ---
WOC RN note: Patient's stoma pink and budded. Mild local erythema suspect from moisture. Small serous brown drainage in pouch. Midline dressing D+I. Instructed patient colostomy appliance emptying and changing using Chip wafer # [id number] and
[place] pouch # [id number]. Ostomy supplies in room. Skin on sacrum and heels intact. Patient's heels off bed with pillow. Patient can turn self slowly in bed. Next appliance change due early next week. Will follow as needed.
[2025-03-28] MEDS: LR 1000 IV (09:44)
--- NOTE | 2025-03-28 10:09 | CON.CAR ---
Addendum entered and electronically signed by Tato Das MD 03/28/25 11:16:
Patient seen and examined in collaboration with NUCLEAR SPECTROSCOPIST; agree with below.
- 74-year-old female with remote mitral valve repair and paroxysmal atrial flutter (on Eliquis) admitted with diverticulitis with perforation/pelvic abscess who underwent subsequent colostomy; cardiology consulted for atrial flutter with RVR.
- Will start the patient on a Cardizem drip.
- Continue Toprol-XL 25 mg BID.
- Will resume Eliquis, as patient was cleared to resume by Surgery.
- Echocardiogram today.
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
Original Note:
Consultation
Consultation Request
Date/Time Consultation Requested: 03/28/2025 0900
Date/Time Consultation Performed: 03/28/2025 0930
Requesting Provider: Dr. Morillo
Performing Provider: Dr. Das
Reason for Consultation: Atrial flutter RVR
Medical History
-
Chief Complaint: Atrial flutter RVR
History of Present Illness:
Deputy Bailiff: Dr. Lane [facility] cardiology/[place]
74-year-old patient who is followed by Dr. Lane of [facility] cardiology. Patient with prior history of mitral valve repair with [place] cords to P2 x 2 and a 28 mm annuloplasty ring and suture closure of the left atrial appendage 07/12/2014,
atrial flutter, CVA in 2016 She presented to [facility] with acute abdominal pain. She was found to have diverticulitis and abscess. She proceeded to drainage of pelvic abscess, sigmoidectomy, abdominal washout and creation of end
colostomy. Initially she presented in normal sinus rhythm however has developed atrial flutter with RVR. Patient's Eliquis had been held secondary to needing surgery. Patient states that as an outpatient she had been stable and had seen her
manager community late last week. She had not had recurrent episodes of atrial flutter. She currently denies chest pain or shortness of breath. She can feel some some degree of palpitations this morning.
Past Medical History
Past Medical History: Arrhythmias (atrial flutter), Asthma, CVA (2016), HTN and Valvular Disease (MV repair, )
Past Surgical History: Other (MV repair, 03/24/2025- Ex lap, drainage of pelvic abscess, sigmoidectomy, abdominal washout, creation of end colostomy)
Social History
Tobacco: Non-Smoker
Alcohol: Occasional
Living: Alone
Family History
Family History: Reviewed & Not Pertinent
Allergies / Home Medications
Allergy/AdvReac Type Severity Reaction Status Date / Time
atenolol Allergy 'felt out Verified 03/24/25 12:16
of it'
ibuprofen Allergy swelling Verified 03/24/25 12:16
of face
Penicillins Allergy Hives Verified 03/24/25 12:16
environmental Allergy Sneezing Uncoded 03/24/25 12:16
and
Coughing
�Medication �Instructions �Recorded �Confirmed �Type
furosemide 20 mg tablet 20 mg PO DAILY Fluid 06/06/14 03/24/25 History
Retention/Swelling
azelastine 137 mcg-fluticasone 50 50 mg intranasal DAILY 06/07/14 03/24/25 History
mcg/spray nasal spray (Dymista) Lung/Breathing Issues
clorazepate dipotassium 3.75 mg 7.5 mg PO DAILY Mental 06/07/14 03/24/25 History
tablet Health/Anxiety
guaifenesin 600 mg tablet, 600 mg PO DAILY Congestion 06/07/14 03/24/25 History
extended release 12 hr (Mucinex)
mometasone-formoterol HFA 200 2 puff inhalation R BID 07/12/14 03/24/25 History
mcg-5 mcg/actuation aerosol Lung/Breathing Issues
inhaler (Dulera)
apixaban 5 mg tablet (Eliquis) 5 mg PO BID Blood Clot 05/22/24 03/24/25 History
Prevention/Tx
atorvastatin 40 mg tablet (Lipitor) 40 mg PO HS High Cholesterol 05/22/24 03/24/25 History
metoprolol succinate 50 mg 50 mg PO QPM Blood Pressure 05/22/24 03/24/25 History
tablet,extended release 24 hr
omeprazole magnesium 20 mg 20 mg PO DAILY Gastrointestinal 05/22/24 03/24/25 History
tablet,delayed release (Prilosec Issue
OTC)
acetaminophen 325 mg tablet 650 mg PO Q6HPRN PRN mild pain 03/24/25 03/24/25 History
(Tylenol)
budesonide 160 mcg-glycopyr 9 2 inh inhalation R DAILY 03/24/25 03/24/25 History
mcg-formot 4.8 mcg/actuation HFA Lung/Breathing Issues
inhaler (Breztri Aerosphere)
metoprolol succinate 50 mg 100 mg PO DAILY Blood Pressure 03/24/25 03/24/25 History
tablet,extended release 24 hr
(Toprol XL)
Review of Systems
-
History Source: Patient
Constitutional: No Symptoms
EENT: No Symptoms
Respiratory: No Symptoms
Cardiac: Palpitations
: No Symptoms
Musculoskeletal: No Symptoms
Skin: No Symptoms
Neurological: No Symptoms
Physical Exam
Vital Signs
Temp Pulse Resp BP Pulse Ox
97.9 F 76 16 123/85 93
03/28/25 07:00 03/28/25 07:54 03/28/25 07:54 03/28/25 07:00 03/28/25 07:54
Lab Results
03/28/25 07:34
03/28/25 07:34
Physical Exam
General: Well Developed, Well Nourished and No Apparent Distress
HEENT: Normocephalic and Moist Mucous Membranes
Respiratory: Clear and Non Labored Respirations
Cardiac: S1/S2 and Regular Rhythm
Breast: Deferred by me
GI: Soft, Non Tender and Other (colostomy )
Musculoskeletal: No Edema
Skin: Warm and Dry
Neuro: AO x 3
Psych: Calm
Impression / Plan
-
Acute sigmoid diverticulitis with perforation and pelvic abscess :
s/p ex lap, drainage of pelvic abscess, sigmoidectomy, abdominal washout, creation of end colostomy
Surgery note indicates that Eliquis can be restarted
Paroxysmal atrial flutter with RVR:
Patient presented with normal sinus rhythm. She has now developed atrial flutter with RVR.
Initiate IV diltiazem for rate control. This requires intensive monitoring. Continue current doses of metoprolol and titrate as BP allows. ( OP dosing was toprol succ 100mg am, 50mg pm)
[id number] score is 6. She is on chronic anticoagulation with Eliquis which was held for her abdominal procedure.
Surgery indicates that Eliquis can be restarted. Will restart Eliquis today.
In the past has required cardioversion.
Mitral valve repair:
Mitral valve repair as well as suture closure of the left atrial appendage in June 2024
Follow-up echo
CVA:
Noted in 2016. She denies any recurrent events.
hyperlipidemia:
on chronic statin.
Data Reviewed
-
EKG: Tracing Personally Visualized and interpreted (EKG from 03/24/2025 with normal sinus rhythm at 86 bpm with inferior posterior infarct age undetermined.EKG from 03/27/25 atrial flutter at 131 bpm, left axis deviation, inferior infarct)
Radiology: Report Reviewed by me (Chest x-ray 03/25/2025 small bilateral pleural effusions, moderate cardiomegaly)
Medical Tests (Nuc Med, Echo etc): Other ([facility] 06/07/2014 LM normal, LAD mild proximal LAD ectasia with out focal stenosis, LCx mild luminal irregularities, RCA large dominant, proximal ectasia and mild luminal disease in mid RCA)
Labs: Labs Reviewed by me, Discussed with Physician and Discussed with Patient
Old Records: Requested (Office records request from Dr. Lane patient's primary manager community)
[2025-03-28] MEDS: CARDIZEM 10 MG IV (10:29)
[2025-03-28] MEDS: ELIQUIS 5 MG PO ×2 (10:54→20:27)
[2025-03-28] MEDS: CARDIZEM 125 IV (10:57)
--- NOTE | 2025-03-28 10:59 | PTCARENOTE ---
Cardizem gtt started hr 130.
[2025-03-28 11:46] VITALS: BP 94/55
--- NOTE | 2025-03-28 12:00 | W.PN.ID1 ---
Date of Service
Date of Service: March 28, 2025
Today's Communication
Continue antibiotics
Assessment / Plan
# Perforated sigmoid diverticulitis with pelvic abscess
# Leukocytosis - improving
# PCN allergy - hives
-03/24 s/p I+D, sigmoidectomy, end colostomy
- OR cx: GNR x 2, Viridans strep, Enterococcus
--> Continue meropenem pending cx data.
- Trend wbc.
# Aerococcus bacteruria
- UA >30 sq epithelial cells suggestive of contaminant specimen
- Ucx <100CFU organism
- No need to treat.
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
Asthma
CVA
Hypertension
Atrial fibrillation
HFpEF
Mitral valve repair
HUNTER
Anxiety
Left total knee replaced
Left shoulder replacement
Chief Complaint
-: Other (abd abscess)
Subjective / Review of Systems
Patient seen and examined. Reports ongoing abdominal discomfort.
Vital Signs / Physical Exam
Vital Signs
Vital Signs
Temp Pulse Resp BP Pulse Ox
98.0 F 76 16 94/55 95
03/28/25 11:46 03/28/25 11:46 03/28/25 11:46 03/28/25 11:46 03/28/25 11:46
Physical Exam
Constitutional: No Acute Distress
Cardiovascular: Regular Rate and S1/S2
Pulmonary: Clear
Gastrointestinal: Soft, Tender (mild), Non Distended, Decreased Bowel Sounds and Other (Ostomy in place. )
Extremities: Negative Edema
Wound: Other (Midline abdominal wound dressed.)
Neurological: AO x 3
Objective Data
Lab Data
Lab Results
03/28/25 07:34
03/28/25 07:34
PT 16.5 Sec (11.4-14.6) H 03/24/25 16:11
INR 1.30 03/24/25 16:11
APTT 30.8 Sec (23.4-35.0) 03/24/25 16:11
Estimated Creat Clear 86 ml/min 03/28/25 07:34
Lactic Acid 1.3 mmol/L (0.7-2.0) 03/25/25 05:20
Total Bilirubin 2.2 mg/dl (0.2-1.3) H 03/24/25 13:40
AST 32 U/L (14-36) 03/24/25 13:40
ALT 21 U/L (0-35) 03/24/25 13:40
Alkaline Phosphatase 76 U/L (38-126) 03/24/25 13:40
Most recent labs reviewed.
Micro Results:
03/24/25 19:45 Anaerobic Culture - Preliminary
Abdomen Culture pending. Anaerobic cultures are examined after 3
days incubation. Additional information to follow.
03/24/25 19:45 Wound Culture - Preliminary
Abdomen Gram negative bacilli
Enterococcus species
Viridans Streptococcus Group
Gram Stain - Preliminary
03/24/25 15:33 Blood Culture - Preliminary
Blood/Venous No Growth in 72 hours- Final report to follow
03/24/25 15:33 Blood Culture - Preliminary
Blood/Venous No Growth in 72 hours- Final report to follow
03/24/25 13:40 Urine Culture - Final
Urine Aerococcus Species
03/25/25 05:20 MRSA Screen - Final
Nose No Methicillin Resistant Staphylococcus aureus isolated.
03/24/25 CT a/p: Acute sigmoid diverticulitis with perforation. Pelvic abscess in the cul-de-sac measuring 6.1 x 3.2 cm.
--- NOTE | 2025-03-28 12:20 | W.PN.HOSP.TC ---
Today's Communication/Plan
-
Continue Cardizem drip
Eliquis restarted
Continue antibiotics
Assessment / Plan
Assessment / Plan
74-year-old with abdominal pain
CT abdomen and pelvis-acute sigmoid diverticulitis with perforation. Pelvic abscess 6.1 into 3.2 cm. Left scoliosis. Multilevel discogenic and facet DJD. Mild grade 1 spondylolisthesis L4 on L5. 1.7 cm umbilical hernia
EKG 03/20-sinus rhythm. LAD poor R wave progression, inferior/posterior infarct now present
CVS: S1-S2 irregular
Chest:few rales at bases
Abdomen: midline wound dressing. NO BS, Colostomy empty.
Extremities: No edema
# Acute sigmoid diverticulitis with perforation/pelvic abscess
S/P Ex lap, drainage of pelvic abscess, sigmoidectomy, abdominal washout, creation of end colostomy Dr. Hutson on 03/24/2025
Currently on meropenem
White count trending down
OR cultures pending, Gram stain with strep viridans, Enterococcus and gram-negative bacilli
NG tube removed and Roa removed.
ID eval appreciated.
Clear liquid diet-still no stoma output, changed to full liquids today
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
encourage IS
# Lactic acidosis resolved
# Acute Hypoxic resp insufficiency post op - Likely atelectasis-off oxygen now.Discussed about using IS.
# Paroxysmal atrial fibrillation
went into afib noght of 03/27/25
Started Cardizem gtt
Restart full Anticoagulation 03/28/25
Continue Metoprolol
# Mitral Regurgitation-history of valve repair 2013
# Asthma-continue Dulera, Breztri, Dymista or equivalent
# Hyperlipidemia-statin
# HTN- BB Was on metoprolol 100 mg in a.m. and 50 mg in p.m. will do 25 BID and now on cardizem.
# GERD-continue PPI
# Anxiety-continue clorazepate
# Left scoliosis. Multilevel discogenic and facet degenerative changes. Mild grade 1 spondylolisthesis of L4 and L5.
# H/O Migraine
# Obesity with a BMI 33
# HUNTER- CPAP ordered .
# DVT prophylaxis-Eliquis
# CODE STATUS-DNR
Part of this note was created using voice recognition system. Occasional wrong word or��sound alike� substitutions may have inadvertently occurred due to the inherent limitations of voice recognition software. If noted kindly bring it to my
attention for correction.
Anticipated Discharge: > 48 hours
Subjective/Interval History
-
Date of Service: March 28, 2025
Objective Data
-
Labs:
Laboratory Results
03/28/25
07:34
WBC 12.9 H
Hgb 13.9
Hct 42.1
Plt Count 310
Sodium 139
Potassium 3.8
Chloride 110 H
Carbon Dioxide 25
BUN 12
Creatinine 0.6
Glucose 112 H
Calcium 9.8
Vital Signs:
Vital Signs
Temp Pulse Resp BP Pulse Ox
98.0 F 76 16 94/55 95
03/28/25 11:46 03/28/25 11:46 03/28/25 11:46 03/28/25 11:46 03/28/25 11:46
I&O
03/27/25 03/28/25 03/29/25
06:59 06:59 06:59
Intake Total 1480 / 1480 2179
Output Total 120 / 120
Balance 1360 / 1360 2179 / 2179
--- NOTE | 2025-03-28 12:42 | WOUNDNOTE ---
Updated [facility] [place] via tiger text re: patient's peristomal skin was mildly red suspect was r/t moisture.
[2025-03-28 13:04] VITALS: BP 125/61
--- NOTE | 2025-03-28 13:29 | CM ---
CM following re: discharge planning.
Reviewed pt's chart, met with pt.
Pt is aware that [facility] offered a bed and [facility] still reviewing clinical. Pt expressed her agreement with [facility].
CM TTed [facility] distributor of directories to confirm whether or not pt can be admitted to [facility] on the weekend.
D/C plan: [facility] based on bed availability on the day of discharge.
CM will follow to assist pt with discharge to [facility]
--- NOTE | 2025-03-28 14:40 | PN.CDI ---
CDI
- -
CDI:
Physician Documentation Request
Admit Date: 03/24/25 16:39
Dear Doctor Ilia,
Patient admitted for diverticulitis.
03/27 Hospitalist PN: 'Acute Hypoxic resp insufficiency post op - Likely atelectasis-off oxygen now.Discussed about using IS.'
Selected Entries
03/24/25
23:27 03/25/25
20:02 03/26/25
08:04
Nasal Cannula flow liters per minute 6 5 3
03/26/25
20:30 03/27/25
19:21 03/27/25
22:45
Nasal Cannula flow liters per minute 2 3 4
Clarify which of the following accurately represents the patient's respiratory status following surgery:
Acute hypoxic respiratory failure
Acute pulmonary insufficiency following surgery
Hypoxia
Other
Additional information for Pulmonary Insufficiency:
Consider when patients require termite exterminator helper oxygen therapy postoperatively
Weaned off oxygen initially then requiring supplemental oxygen
No other definitive diagnosis to support the need for oxygen (COPD exac, CHF etc.)
Unable to wean from vent
When criteria for respiratory failure not present
May extend stay or require additional resources; may need home O2
Additional information for Respiratory Failure:
Recognized criteria for Respiratory Failure (Source: [facility] Hospitalist Jul 2013)
ABGs: (1 or more) Symptoms Indicate:
1. p)2 <60 or RA SPO2 <91% on RA 1. Tachypnea, SOB, dyspnea 1. Type as:
2. pCO2 50 and pH <7.35 2. Use of accessory muscles a. Hypoxic
3. pO2 decrease of pCO2 increase by 3. Pallor or cyanosis b. Hypercapnic
10 mmHg from baseline if known 4. Anxiety or restlessness 2. If due to procedure or due to another cause
5. Unable to speak in full sentences
Supplemental O2 of > 40% Intubation is not required
Use of terms such as suspected, likely, concern for, or probable (associated with a specific diagnosis that is being evaluated, monitored, or treated as if it exists) are acceptable and can be coded in the inpatient setting, when documented at the
time of discharge.
Thank you,
Celina Johnson RN, BSN
CDI Specialist
Available via [place] text
Please use your independent medical judgment in providing your response.
[2025-03-28] MEDS: LIPITOR 40 MG PO (17:45)
[2025-03-28 19:05] VITALS: BP 124/71
[2025-03-28] MEDS: SYMBICORT 160/4.5 MCG INHALER INH (20:22)
[2025-03-28 23:00] VITALS: BP 100/63
[2025-03-29 03:00] VITALS: BP 108/60
[2025-03-29] MEDS: MERREM 500 MG IV ×4 (03:31→21:57)
[2025-03-29] MEDS: STERILE WATER FOR INJECTION 10 ML IV ×4 (03:31→21:57)
[2025-03-29 06:00] VITALS: BMI 33.2
[2025-03-29 07:00] VITALS: BP 103/56
[2025-03-29 07:22] LABS: Hematocrit 40.9 % (37.0-47.0); Hemoglobin 14.4 g/dL (12.0-16.0); Mean Corp Hgb Conc. 35.2 g/dL (33.0-37.0); Mean Corpuscular Volume 88.0 fL (81.0-99.0); Platelet Count 255 10^3/uL (130-400); Red Cell Dist. Width 12.8 % (11.5-14.5)
[2025-03-29] MEDS: SPIRIVA RESPIMAT 2.5 MCG 2 PUFF INH (08:20)
[2025-03-29] MEDS: SYMBICORT 160/4.5 MCG INHALER 2 PUFF INH ×2 (08:20→18:33)
[2025-03-29] MEDS: NSS (PRESERVATIVE FREE) 10 ML IV (09:13)
[2025-03-29] MEDS: PROTONIX IV 40 MG IV (09:13)
[2025-03-29] MEDS: TOPROL XL 25 MG PO (09:13)
[2025-03-29] MEDS: ELIQUIS 5 MG PO ×2 (09:14→20:41)
[2025-03-29] MEDS: MUCINEX 600 MG PO (09:14)
[2025-03-29] MEDS: DESENEX/MITRAZOL/ZEASORB 1 APPLIC TOPICAL ×2 (09:15→20:41)
[2025-03-29 09:19] LABS: Blood Urea Nitrogen 14 mg/dl (7-17); Calcium 10.1 mg/dl (8.4-10.2); Carbon Dioxide 23 mmol/L (22-30); Chloride 109 mmol/L (98-107); Estimated Creatinine Clearance 73 ml/min; Glucose 109 mg/dl (70-99); Potassium 3.8 mmol/L (3.5-5.1); Sodium 138 mmol/L (135-145); eGFR > 60.00
--- NOTE | 2025-03-29 09:39 | W.PN.HOSP.TC ---
Today's Communication/Plan
-
Continue antibiotics
Await return of bowel function
Encourage out of bed
Assessment / Plan
Assessment / Plan
74-year-old with abdominal pain
CT abdomen and pelvis-acute sigmoid diverticulitis with perforation. Pelvic abscess 6.1 into 3.2 cm. Left scoliosis. Multilevel discogenic and facet DJD. Mild grade 1 spondylolisthesis L4 on L5. 1.7 cm umbilical hernia
EKG 03/20-sinus rhythm. LAD poor R wave progression, inferior/posterior infarct now present
Echo 04/24/2025-EF more than 75%. Wall motion is consistent with postoperative state. Normal RV size and function. Severely dilated LA. Mild . Mild TR. PA pressure 25 to 30 mmHg
CVS: S1-S2 irregular
Chest:few rales at bases
Abdomen: Midline wound dressing. Diminished BS
Extremities: No edema
# Acute sigmoid diverticulitis with perforation/pelvic abscess
S/P Ex lap, drainage of pelvic abscess, sigmoidectomy, abdominal washout, creation of end colostomy Dr. Hutson on 03/24/2025
Currently on meropenem
White count trending down
OR cultures , Gram stain with strep viridans, Enterococcus and gram-negative bacilli
NG tube removed and Roa removed.
ID eval appreciated.
On full liquids
Still no stoma output
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
encourage IS
# Mild burning with urination- Try a dose of pyridium
# Lactic acidosis resolved
# Acute Hypoxic resp failure post op - Likely atelectasis-off oxygen now.Discussed about using IS.
# Paroxysmal atrial fibrillation
went into afib night of 03/27/25
Started Cardizem gtt
Restarted full Anticoagulation 03/28/25
Continue Metoprolol
# Mitral Regurgitation-history of valve repair 2013
# Asthma-continue Dulera, Breztri, Dymista or equivalent
# Hyperlipidemia-statin
# HTN- BB Was on metoprolol 100 mg in a.m. and 50 mg in p.m. on 25mg BID and now on cardizem.
# GERD-continue PPI
# Anxiety-continue clorazepate
# Left scoliosis. Multilevel discogenic and facet degenerative changes. Mild grade 1 spondylolisthesis of L4 and L5.
# H/O Migraine
# Obesity with a BMI 33
# HUNTER- CPAP ordered .
# DVT prophylaxis-Eliquis
# CODE STATUS-DNR
D/W RN
Part of this note was created using voice recognition system. Occasional wrong word or��sound alike� substitutions may have inadvertently occurred due to the inherent limitations of voice recognition software. If noted kindly bring it to my
attention for correction.
Anticipated Discharge: > 48 hours
Subjective/Interval History
-
Date of Service: March 29, 2025
Objective Data
-
Labs:
Laboratory Results
03/29/25 03/29/25
05:43 08:18
WBC 12.9 H
Hgb 14.4
Hct 40.9
Plt Count 255
Sodium Cancelled 138
Potassium Cancelled 3.8
Chloride Cancelled 109 H
Carbon Dioxide Cancelled 23
BUN Cancelled 14
Creatinine Cancelled 0.7
Glucose Cancelled 109 H
Calcium Cancelled 10.1
Vital Signs:
Vital Signs
Temp Pulse Resp BP Pulse Ox
98.3 F 76 16 103/56 92
03/29/25 07:00 03/29/25 09:13 03/29/25 08:25 03/29/25 09:13 03/29/25 08:25
I&O
03/28/25 03/29/25 03/30/25
06:59 06:59 06:59
Intake Total 2180 / 2180 1260 / 1260 1260 / 1260
Balance 2180 / 2180 1260 / 1260 1260 / 1260
[2025-03-29] MEDS: CARDIZEM 125 IV (09:46)
[2025-03-29] MEDS: TYLENOL 1000 MG PO ×3 (09:47→23:56)
--- NOTE | 2025-03-29 10:09 | W.PN.ID1 ---
Date of Service
Date of Service: March 29, 2025
Today's Communication
Continue antibiotics.
Assessment / Plan
# Perforated sigmoid diverticulitis with pelvic abscess
# Leukocytosis - improving
# PCN allergy - hives
-03/24 s/p I+D, sigmoidectomy, end colostomy
- OR cx: GNR x 2, Viridans strep, Enterococcus; awaiting final identification and susceptibilities.
--> Continue meropenem pending cx data.
- Trend wbc.
# Aerococcus bacteruria
- UA >30 sq epithelial cells suggestive of contaminant specimen
- Ucx <100CFU organism
- No need to treat.
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
Asthma
CVA
Hypertension
Atrial fibrillation
HFpEF
Mitral valve repair
HUNTER
Anxiety
Left total knee replaced
Left shoulder replacement
Chief Complaint
-: Other (abd abscess)
Subjective / Review of Systems
Review of Systems: No Fever, No Chills and Abdominal Pain (Controlled)
Vital Signs / Physical Exam
Vital Signs
Vital Signs
Temp Pulse Resp BP Pulse Ox
98.3 F 76 16 103/56 92
03/29/25 07:00 03/29/25 09:13 03/29/25 08:25 03/29/25 09:13 03/29/25 08:25
Physical Exam
Constitutional: No Acute Distress
Cardiovascular: Regular Rate and S1/S2
Pulmonary: Clear
Gastrointestinal: Soft, Tender (mild), Non Distended, Decreased Bowel Sounds and Other (Ostomy in place. )
Extremities: Negative Edema
Wound: Other (Midline abdominal wound dressed.)
Neurological: AO x 3
Objective Data
Lab Data
Lab Results
03/29/25 05:43
03/29/25 08:18
PT 16.5 Sec (11.4-14.6) H 03/24/25 16:11
INR 1.30 03/24/25 16:11
APTT 30.8 Sec (23.4-35.0) 03/24/25 16:11
Estimated Creat Clear 73 ml/min 03/29/25 08:18
Lactic Acid 1.3 mmol/L (0.7-2.0) 03/25/25 05:20
Total Bilirubin 2.2 mg/dl (0.2-1.3) H 03/24/25 13:40
AST 32 U/L (14-36) 03/24/25 13:40
ALT 21 U/L (0-35) 03/24/25 13:40
Alkaline Phosphatase 76 U/L (38-126) 03/24/25 13:40
Most recent labs reviewed.
Micro Results:
03/24/25 15:33 Blood Culture - Preliminary
Blood/Venous No Growth in 4 days- Final report to follow
03/24/25 15:33 Blood Culture - Preliminary
Blood/Venous No Growth in 4 days- Final report to follow
03/24/25 19:45 Anaerobic Culture - Preliminary
Abdomen Culture pending. Anaerobic cultures are examined after 3
days incubation. Additional information to follow.
03/24/25 19:45 Wound Culture - Preliminary
Abdomen Gram negative bacilli
Enterococcus species
Viridans Streptococcus Group
Gram Stain - Preliminary
03/24/25 13:40 Urine Culture - Final
Urine Aerococcus Species
03/25/25 05:20 MRSA Screen - Final
Nose No Methicillin Resistant Staphylococcus aureus isolated.
Imaging:
03/24/25 CT a/p: Acute sigmoid diverticulitis with perforation. Pelvic abscess in the cul-de-sac measuring 6.1 x [address] Scan: Image Reviewed and Report Reviewed
[2025-03-29 11:10] VITALS: BP 106/65
--- NOTE | 2025-03-29 12:19 | W.PN.CRS1 ---
Today's Communication / Plan
-
As above
Assessment/Plan
-
74-year-old female with PMH of severe MR s/p MVR 2013, HUNTER (on CPAP), A-fib (on Eliquis, last dose morning of admission), TIA 2016, HFpEF, HLD, HTN who presented with 2 to 3 days of acute abdominal pain and rectal pressure after taking Imodium for
her chronic diarrhea. She does have chronic SBO with activity, unable to climb 1 flight of stairs. Denied any recent N/V, unintentional weight loss or chest pain. Her WBC was 29.[address] scan showed acute diverticulitis with pelvic abscess as
well as moderate amount of distant free air. She was taken urgently to the operating room.
POD 5 ex lap, drainage of pelvic abscess (culture sent), sigmoidectomy, creation of end colostomy
AFVSS
WBC 12.9 from 12.9, Hb 14.4, CR 0.7
� Continue fulls until ostomy function; cautioned regarding N/V
�Recommended wound VAC; however, patient declining for now; continue daily packing with kerlix
� Okay for hep drip; okay for Eliquis if tolerating regular and having ostomy function
� Pain control with Tylenol and Dilaudid as needed; will add pregabalin and lidocaine patches
�Appreciate ID, on IV teodoro; okay to stop antibiotics from my standpoint
� Encourage OOB/IS, appreciate PT
� Appreciate hospitalist
Subjective Data
Procedure
03/24/2025- Ex lap, drainage of pelvic abscess, sigmoidectomy, abdominal washout, creation of end colostomy
Subjective Data
Date of Service: March 29, 2025
No overnight events. Tolerated clears, but felt a stomachache with yogurt. Denies vomiting.
Minimal flatus in ostomy bag, no stool. Voiding.
Pain somewhat controlled.
Patient out of bed to chair.
Objective Data
-
Vital Signs
Temp Pulse Resp BP Pulse Ox
98.3 F 76 16 103/56 92
03/29/25 07:00 03/29/25 09:13 03/29/25 08:25 03/29/25 09:13 03/29/25 09:09
Intake & Output
03/28/25 03/29/25 03/30/25
06:59 06:59 06:59
Intake Total 2180 / 2180 1260 / 1260 1260 / 1260
Balance 2180 / 2180 1260 / 1260 1260 / 1260
Intake:
Oral fluids 1430 / 1430 360 / 360 450 / 450
IV fluids (Total) 750 / 750 900 / 900 750 / 750
IV piggybacks 60 / 60
Other:
Number of approximated MODERATE 1 1 2
amounts of urine
Number of approximated LARGE 1 1
amounts of urine
How many times incontinent 1
SATURATED amount urine
Lab Results
03/29/25 05:43
03/29/25 08:18
Physical Exam
-
General: No Acute Distress and AOx3
HEENT: Grossly Normal
Abdomen: Soft, Non Distended, Tender (Appropriately tender near midline incision), No Guarding and No Rebound
Skin: Warm and Dry
Wound: Other (Dressing changed, incision and inferior midline wound clean without surrounding erythema or purulence; wound repacked)
[2025-03-29] MEDS: LYRICA 75 MG PO ×2 (13:02→20:41)
[2025-03-29] MEDS: LIDOCAINE 4% PATCH 1 PATCH TOPICAL ×2 (13:02→13:03)
[2025-03-29 15:35] VITALS: BP 118/60
--- NOTE | 2025-03-29 15:50 | W.PN.CD ---
Today's Communication / Plan
-
stop diltiazem drip after giving 12-1/2 mg of Lopressor. Increase standing metoprolol succinate to 37.5 p.o. twice daily.
Continue to monitor telemetry and titrate medication as needed.
Impression / Plan
-
Acute sigmoid diverticulitis with perforation and pelvic abscess :
s/p ex lap, drainage of pelvic abscess, sigmoidectomy, abdominal washout, creation of end colostomy
Surgery note indicates that Eliquis can be restarted
Paroxysmal atrial flutter with RVR:
Patient presented with normal sinus rhythm. She has now developed atrial flutter with RVR.
Rate controlled now, will transition dilt gtt to higher metoprolol dose and titrate as BP allows. Increase to 37.5 mg bid, 12.5 of tartrate now ( OP dosing was toprol succ 100mg am, 50mg pm)
[id number] score is 6. She is on chronic anticoagulation with Eliquis .
In the past has required cardioversion.
Mitral valve repair:
Mitral valve repair as well as suture closure of the left atrial appendage in June 2024
CVA:
Noted in 2016. She denies any recurrent events.
hyperlipidemia:
on chronic statin.
Subjective:
extremely tired, cannot sleep without being woken up
TTE: 03/28/25:
CONCLUSIONS
-Left ventricular ejection fraction is >75%, by visual assessment. Wall motion
is consistent with post-operative state.
-Normal right ventricular size and function.
-Severely dilated left atrium.
-Status-post mitral valve repair with peak/mean gradients of 17/7 mmHg.
-Mild aortic stenosis; peak/mean gradients 18/12 mmHg, calculated CAR is 1.8
cm2.
-Mild tricuspid regurgitation. Estimated pulmonary artery pressure of 25-30
mmHg, assuming a right atrial pressure of 3 mmHg.
Physical Exam
Vital Signs/Labs
Vital Signs
Temp Pulse Resp BP Pulse Ox
98.0 F 72 16 106/65 94
03/29/25 11:10 03/29/25 11:10 03/29/25 11:10 03/29/25 11:10 03/29/25 11:10
03/28/25 03/29/25 03/30/25
06:59 06:59 06:59
Actual Weight 195 lb 193 lb 4.8 oz
03/29/25 05:43
03/29/25 08:18
PT 16.5 Sec (11.4-14.6) H 03/24/25 16:11
INR 1.30 03/24/25 16:11
APTT 30.8 Sec (23.4-35.0) 03/24/25 16:11
Magnesium 2.2 mg/dl (1.6-2.3) 03/27/25 23:45
Physical Exam
Constitutional: No acute distress and Other (Somnolent)
Cardiovascular: Pedal edema is absent, JVD pressure is normal and Rhythm/rate is irregular
Respiratory: Respiratory effort normal, Lungs clear to auscul., Wheeze Absent and Crackles Absent
GI: Soft and Non tender
Data Reviewed
-
Date of Service: March 29, 2025
Medical Decision Making: Review of Case with other Provider (Updated Dr. Morillo and her nurse. Stopping Dilt and increasing the Lopressor)
[2025-03-29] MEDS: LOPRESSOR 12.5 MG PO (16:26)
[2025-03-29] MEDS: TRANXENE 7.5 MG PO (17:05)
[2025-03-29] MEDS: LIPITOR 40 MG PO (17:05)
[2025-03-29 19:00] VITALS: BP 107/64
[2025-03-29] MEDS: TOPROL XL 37.5 MG PO (20:42)
[2025-03-29 23:00] VITALS: BP 114/72
[2025-03-29] MEDS: REMOVE LIDOCAINE PATCH 1 PATCH REMOVE ×2 (23:55)
[2025-03-30] VITALS (7 sets, daily range): BP systolic 101–131; BP diastolic 59–71; PULSE 70; O2SAT 93; BMI 32.2
[2025-03-30] MEDS: STERILE WATER FOR INJECTION 10 ML IV ×4 (04:14→21:19)
[2025-03-30] MEDS: MERREM 500 MG IV ×4 (04:14→21:18)
[2025-03-30] MEDS: TYLENOL 1000 MG PO ×3 (05:39→17:48)
[2025-03-30 06:22] LABS: Hematocrit 38.8 % (37.0-47.0); Hemoglobin 13.0 g/dL (12.0-16.0); Mean Corp Hgb Conc. 33.5 g/dL (33.0-37.0); Mean Corpuscular Volume 91.7 fL (81.0-99.0); Platelet Count 310 10^3/uL (130-400); Red Cell Dist. Width 12.8 % (11.5-14.5)
[2025-03-30 06:42] LABS: Blood Urea Nitrogen 13 mg/dl (7-17); Calcium 9.9 mg/dl (8.4-10.2); Carbon Dioxide 24 mmol/L (22-30); Chloride 110 mmol/L (98-107); Estimated Creatinine Clearance 84 ml/min; Glucose 100 mg/dl (70-99); Potassium 4.2 mmol/L (3.5-5.1); Sodium 140 mmol/L (135-145); eGFR > 60.00
[2025-03-30] MEDS: SPIRIVA RESPIMAT 2.5 MCG 2 PUFF INH (07:37)
[2025-03-30] MEDS: SYMBICORT 160/4.5 MCG INHALER 2 PUFF INH ×2 (07:37→20:04)
[2025-03-30] MEDS: MUCINEX 600 MG PO (08:39)
[2025-03-30] MEDS: LYRICA 75 MG PO ×2 (08:40→21:17)
[2025-03-30] MEDS: ELIQUIS 5 MG PO ×2 (08:40→21:17)
[2025-03-30] MEDS: DESENEX/MITRAZOL/ZEASORB 1 APPLIC TOPICAL ×2 (08:40→21:19)
[2025-03-30] MEDS: LIDOCAINE 4% PATCH 1 PATCH TOPICAL ×2 (08:41)
[2025-03-30] MEDS: TOPROL XL 37.5 MG PO ×2 (08:42→18:42)
[2025-03-30] MEDS: PROTONIX IV 40 MG IV (08:42)
[2025-03-30] MEDS: NSS (PRESERVATIVE FREE) 10 ML IV (08:42)
--- NOTE | 2025-03-30 09:03 | W.PN.CD ---
Today's Communication / Plan
-
- Continue Toprol-XL 37.5 mg twice daily (she was taking 100 mg twice daily at home, but does not appear to need such a high dose at this time--blood pressure will not allow).
- Cardiology will remain available on an as-needed basis; patient to follow-up with primary Biomedical Engineering Technologist as an outpatient (Dr. Lane).
Impression / Plan
-
Acute sigmoid diverticulitis with perforation and pelvic abscess :
s/p ex lap, drainage of pelvic abscess, sigmoidectomy, abdominal washout, creation of end colostomy
Surgery note indicates that Eliquis can be restarted
Paroxysmal atrial flutter with RVR:
- Patient presented with normal sinus rhythm. She has now developed atrial flutter with RVR.
- Heart remains controlled.
- Continue Toprol-XL 37.5 mg twice daily (she was taking 100 mg twice daily at home, but does not appear to need such a high dose at this time--blood pressure will not allow).
- [id number] score is 6. She is on chronic anticoagulation with Eliquis.
- Cardiology will remain available on an as-needed basis; patient to follow-up with primary Biomedical Engineering Technologist as an outpatient (Dr. Lane).
Mitral valve repair:
- Mitral valve repair as well as suture closure of the left atrial appendage in June 2024
- Stable.
CVA:
Noted in 2016. She denies any recurrent events.
- Stable.
- Continue atorvastatin; on Eliquis.
hyperlipidemia:
- Continue atorvastatin.
Subjective:
No cardiac complaints this a.m.
TTE: 03/28/25:
CONCLUSIONS
-Left ventricular ejection fraction is >75%, by visual assessment. Wall motion
is consistent with post-operative state.
-Normal right ventricular size and function.
-Severely dilated left atrium.
-Status-post mitral valve repair with peak/mean gradients of 17/7 mmHg.
-Mild aortic stenosis; peak/mean gradients 18/12 mmHg, calculated CAR is 1.8
cm2.
-Mild tricuspid regurgitation. Estimated pulmonary artery pressure of 25-30
mmHg, assuming a right atrial pressure of 3 mmHg.
Physical Exam
Vital Signs/Labs
Vital Signs
Temp Pulse Resp BP Pulse Ox
98.2 F 70 14 111/59 95
03/30/25 07:00 03/30/25 07:42 03/30/25 07:42 03/30/25 07:00 03/30/25 07:42
03/29/25 03/30/25 03/31/25
06:59 06:59 06:59
Actual Weight 87.679 kg 85.003 kg
03/30/25 05:07
03/30/25 05:07
PT 16.5 Sec (11.4-14.6) H 03/24/25 16:11
INR 1.30 03/24/25 16:11
APTT 30.8 Sec (23.4-35.0) 03/24/25 16:11
Magnesium 2.2 mg/dl (1.6-2.3) 03/27/25 23:45
Physical Exam
Constitutional: No acute distress and Comfortable
EENT: Anicteric
Cardiovascular: Rhythm & rate is regular, Pedal edema is absent, Systolic murmur present (Soft 2/6) and S1S2 is normal
Respiratory: Respiratory effort normal and Rhonchi Present (Mild bibasilar)
GI: Soft
Neuro/Psych: AO x 3
Other: Skin (Warm, dry)
Data Reviewed
-
Date of Service: March 30, 2025
EKG: Tracing Personally Visualized and interpreted (Telemetry: Atrial flutter (rate-controlled))
Echo: Tracing Personally Visualized and interpreted (As above: EF greater than 75%; mild .)
Labs: Labs Reviewed by me
--- NOTE | 2025-03-30 09:24 | W.PN.HOSP.TC ---
Today's Communication/Plan
-
Regular diet started
Watch heart rate
Possible discharge Tuesday. Patient aware
Assessment / Plan
Assessment / Plan
74-year-old with abdominal pain
CT abdomen and pelvis-acute sigmoid diverticulitis with perforation. Pelvic abscess 6.1 into 3.2 cm. Left scoliosis. Multilevel discogenic and facet DJD. Mild grade 1 spondylolisthesis L4 on L5. 1.7 cm umbilical hernia
EKG 03/20-sinus rhythm. LAD poor R wave progression, inferior/posterior infarct now present
Echo 04/24/2025-EF more than 75%. Wall motion is consistent with postoperative state. Normal RV size and function. Severely dilated LA. Mild . Mild TR. PA pressure 25 to 30 mmHg
CVS: S1-S2 irregular
Chest:few rales at bases
Abdomen: Stoma with brown stool
Extremities: No edema
# Acute sigmoid diverticulitis with perforation/pelvic abscess
S/P Ex lap, drainage of pelvic abscess, sigmoidectomy, abdominal washout, creation of end colostomy Dr. Hutson on 03/24/2025
Currently on meropenem
White count trending down
OR cultures , Gram stain with strep viridans, Enterococcus and gram-negative bacilli
NG tube removed and Roa removed.
ID eval appreciated.
Diet advanced to regular diet
Stool output noted in the stoma
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
encourage IS
# Mild burning with urination-better with 1 dose of pyridium
# Lactic acidosis resolved
# Acute Hypoxic resp failure post op - Likely atelectasis-off oxygen now.Discussed about using IS.
# Paroxysmal atrial fibrillation
went into afib night of 03/27/25
Of Cardizem gtt
Restarted full Anticoagulation 03/28/25
Continue Metoprolol 37.5 mg twice daily
# Mitral Regurgitation-history of valve repair 2013
# Asthma-continue Dulera, Breztri, Dymista or equivalent
# Hyperlipidemia-statin
# HTN- BB Was on metoprolol 100 mg in a.m. and 50 mg in p.m. now on 37.5 mg p.o. twice daily
# GERD-continue PPI
# Anxiety-continue clorazepate
# Left scoliosis. Multilevel discogenic and facet degenerative changes. Mild grade 1 spondylolisthesis of L4 and L5.
# H/O Migraine
# Obesity with a BMI 33
# HUNTER- CPAP ordered .
# DVT prophylaxis-Eliquis
# CODE STATUS-DNR
D/W RN at bedside
Part of this note was created using voice recognition system. Occasional wrong word or��sound alike� substitutions may have inadvertently occurred due to the inherent limitations of voice recognition software. If noted kindly bring it to my
attention for correction.
Anticipated Discharge: 24 - 48 hours
Subjective/Interval History
-
Date of Service: March 30, 2025
Objective Data
-
Labs:
Laboratory Results
03/30/25
05:07
WBC 13.3 H
Hgb 13.0
Hct 38.8
Plt Count 310 D
Sodium 140
Potassium 4.2
Chloride 110 H
Carbon Dioxide 24
BUN 13
Creatinine 0.6
Glucose 100 H
Calcium 9.9
Vital Signs:
Vital Signs
Temp Pulse Resp BP Pulse Ox
98.2 F 70 14 111/59 95
03/30/25 07:00 03/30/25 07:42 03/30/25 07:42 03/30/25 07:00 03/30/25 07:42
I&O
03/29/25 03/30/25 03/31/25
06:59 06:59 06:59
Intake Total 1260 / 1260 2029
Balance 1260 / 1260 2029
[2025-03-30] MEDS: FLUSH (NSS) 2 FLUSH IV ×2 (10:03→15:16)
--- NOTE | 2025-03-30 10:43 | W.PN.ID1 ---
Date of Service
Date of Service: March 30, 2025
Today's Communication
Continue antibiotics
Assessment / Plan
# Perforated sigmoid diverticulitis with pelvic abscess
- s/p washout, ostomy placement (03/24/25)
# Leukocytosis - improving
# PCN allergy - hives
-03/24 s/p I+D, sigmoidectomy, end colostomy
- OR cx: GNR x 2, Viridans strep, Enterococcus; awaiting final identification and susceptibilities.
--> Continue meropenem pending cx data.
- Trend wbc.
# Aerococcus bacteruria
- UA >30 sq epithelial cells suggestive of contaminant specimen
- Ucx <100CFU organism
- No need to treat.
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
Asthma
CVA
Hypertension
Atrial fibrillation
HFpEF
Mitral valve repair
HUNTER
Anxiety
Left total knee replaced
Left shoulder replacement
Chief Complaint
-: Other (abd abscess)
Subjective / Review of Systems
Patient seen and examined. Reports some ongoing abdominal discomfort, but pain controlled.
Review of Systems: No Fever and No Chills
Vital Signs / Physical Exam
Vital Signs
Vital Signs
Temp Pulse Resp BP Pulse Ox
98.2 F 70 14 111/59 95
03/30/25 07:00 03/30/25 07:42 03/30/25 07:42 03/30/25 07:00 03/30/25 07:42
Physical Exam
Constitutional: No Acute Distress, Comfortable and Non-toxic
Cardiovascular: Regular Rate and S1/S2; Negative S3/S4
Pulmonary: Clear
Gastrointestinal: Soft, Tender (mild), Non Distended, Decreased Bowel Sounds and Other (Ostomy in place with stool in the bag)
Extremities: Negative Edema
Wound: Other (Midline abdominal wound dressed.)
Neurological: AO x 3
Objective Data
Lab Data
Lab Results
03/30/25 05:07
03/30/25 05:07
PT 16.5 Sec (11.4-14.6) H 03/24/25 16:11
INR 1.30 03/24/25 16:11
APTT 30.8 Sec (23.4-35.0) 03/24/25 16:11
Estimated Creat Clear 84 ml/min 03/30/25 05:07
Lactic Acid 1.3 mmol/L (0.7-2.0) 03/25/25 05:20
Total Bilirubin 2.2 mg/dl (0.2-1.3) H 03/24/25 13:40
AST 32 U/L (14-36) 03/24/25 13:40
ALT 21 U/L (0-35) 03/24/25 13:40
Alkaline Phosphatase 76 U/L (38-126) 03/24/25 13:40
Most recent labs reviewed.
Micro Results:
03/24/25 19:45 Wound Culture - Final
Abdomen Gram negative bacilli
Enterococcus species
Viridans Streptococcus Group
Gram Stain - Final
03/24/25 19:45 Anaerobic Culture - Final
Abdomen
03/24/25 15:33 Blood Culture - Final
Blood/Venous No Growth - Final Report
03/24/25 15:33 Blood Culture - Final
Blood/Venous No Growth - Final Report
03/24/25 13:40 Urine Culture - Final
Urine Aerococcus Species
03/25/25 05:20 MRSA Screen - Final
Nose No Methicillin Resistant Staphylococcus aureus isolated.
Imaging:
03/24/25 CT a/p: Acute sigmoid diverticulitis with perforation. Pelvic abscess in the cul-de-sac measuring 6.1 x 3.2 cm.
--- NOTE | 2025-03-30 11:34 | W.PN.GS2 ---
Addendum entered and electronically signed by Donta Pruitt MD 03/30/25 12:31:
Patient seen and examined. Agree with assessment plan as documented below.
74 yo female with h/o MVR 2013, HUNTER (on CPAP), A-fib, HFpEF presenting for perforated diverticulitis with pelvic abscess now POD #6 ex lap, drainage of abscess, sigmoidectomy and creation of end colostomy
AFVSS
WBC with slight up trend, h/h stable
Lytes stable
Tolerating fulls with evidence of bowel recovery
Plan:
Advance to regular diet
ABX as per ID
Resumed on PO Eliquis
Wound care following for stoma/wound care. Anticipate eventual wound vac to lower portion of incision
OOB/ambulate
Pt/Ot following, will likely need inpatient rehab upon d/c
Original Note:
Today's Communication / Plan
-
regular diet
OOB/ambulate
Assessment / Plan
-
74 yo female with h/o MVR 2013, HUNTER (on CPAP), A-fib, HFpEF presenting for perforated diverticulitis with pelvic abscess now POD #6 ex lap, drainage of abscess, sigmoidectomy and creation of end colostomy
AFVSS
WBC with slight uptrend, h/h stable
Lytes stable
Tolerating fulls with evidence of bowel recovery
Plan:
Advance to regular diet
ABX as per ID
Resumed on PO Eliquis
Wound care following for stoma/wound care. Anticipate eventual wound vac to lower portion of incision
OOB/ambulate
Pt/Ot following, will likey need inpatient rehab upon d/c
Subjective Data
-
Date of Service: March 30, 2025
Pt seen and examined at bedside with Dr. Pruitt. Denies n/v. Tolerating diet. Still feeling uncomfortable managing stoma. Mild abdomional tenderness.
Objective Data
-
Intake and Output
03/29/25 03/30/25 03/31/25
06:59 06:59 06:59
Intake Total 1260 / 1260 2029 330 / 330
Balance 1260 / 1260 2029 330 / 330
Intake:
Oral fluids 360 / 360 1170 / 1170 330 / 330
IV fluids (Total) 900 / 900 750 / 750
IV piggybacks 110 / 110
Other:
Number of approximated MODERATE 1 2
amounts of urine
Number of approximated LARGE 1
amounts of urine
Vital Signs
Temp Pulse Resp BP Pulse Ox
98.2 F 70 14 111/59 93
03/30/25 07:00 03/30/25 07:42 03/30/25 07:42 03/30/25 07:00 03/30/25 08:39
Lab Results
03/30/25 05:07
03/30/25 05:07
Calcium 9.9 mg/dl (8.4-10.2) 03/30/25 05:07
Magnesium 2.2 mg/dl (1.6-2.3) 03/27/25 23:45
Total Bilirubin 2.2 mg/dl (0.2-1.3) H 03/24/25 13:40
AST 32 U/L (14-36) 03/24/25 13:40
ALT 21 U/L (0-35) 03/24/25 13:40
Alkaline Phosphatase 76 U/L (38-126) 03/24/25 13:40
Total Protein 7.7 g/dl (6.3-8.2) 03/24/25 13:40
Albumin 4.6 g/dl (3.5-5.0) 03/24/25 13:40
Physical Exam
-
NAD
ABD soft, incisional tenderness, ND
Stoma pink/viable with stool/flatus in appliance
Incision with intact molly to upper portion of incision, backing to distal portion of wound changed: ssf on dressing
Patient has a zamarripa catheter: No
Patient has a central line: No
--- NOTE | 2025-03-30 15:55 | CM ---
Plan is for skilled placement at [facility], call placed to admissions regarding wound vac placement.
Plan; Skilled placement at [facility] with [facility].
[2025-03-30] MEDS: LIPITOR 40 MG PO (17:48)
[2025-03-30] MEDS: REMOVE LIDOCAINE PATCH 1 PATCH REMOVE ×2 (21:18)
[2025-03-31] MEDS: TYLENOL PO (01:03)
[2025-03-31 03:00] VITALS: BP 109/63
[2025-03-31] MEDS: MERREM 500 MG IV ×4 (04:46→21:02)
[2025-03-31] MEDS: TYLENOL 1000 MG PO ×4 (04:47→23:29)
[2025-03-31] MEDS: STERILE WATER FOR INJECTION 10 ML IV ×4 (04:47→21:02)
[2025-03-31 05:55] LABS: Hematocrit 38.9 % (37.0-47.0); Hemoglobin 12.9 g/dL (12.0-16.0); Mean Corp Hgb Conc. 33.2 g/dL (33.0-37.0); Mean Corpuscular Volume 91.3 fL (81.0-99.0); Platelet Count 301 10^3/uL (130-400); Red Cell Dist. Width 12.8 % (11.5-14.5)
[2025-03-31 06:00] VITALS: BMI 32.5
[2025-03-31 06:28] LABS: Blood Urea Nitrogen 19 mg/dl (7-17); Calcium 10.1 mg/dl (8.4-10.2); Carbon Dioxide 21 mmol/L (22-30); Chloride 113 mmol/L (98-107); Estimated Creatinine Clearance 85 ml/min; Glucose 106 mg/dl (70-99); Magnesium 2.2 mg/dl (1.6-2.3); Potassium 4.9 mmol/L (3.5-5.1); Sodium 141 mmol/L (135-145); eGFR > 60.00
[2025-03-31] MEDS: SPIRIVA RESPIMAT 2.5 MCG 2 PUFF INH (07:12)
[2025-03-31] MEDS: SYMBICORT 160/4.5 MCG INHALER 2 PUFF INH ×2 (07:13→19:55)
[2025-03-31 07:20] VITALS: BP 121/66
[2025-03-31] MEDS: DESENEX/MITRAZOL/ZEASORB 1 APPLIC TOPICAL ×2 (08:47→20:58)
[2025-03-31] MEDS: MUCINEX 600 MG PO (08:48)
[2025-03-31] MEDS: LIDOCAINE 4% PATCH 1 PATCH TOPICAL ×2 (08:48)
[2025-03-31] MEDS: ELIQUIS 5 MG PO (08:49)
[2025-03-31] MEDS: TOPROL XL 37.5 MG PO ×2 (08:49→20:59)
[2025-03-31] MEDS: PROTONIX IV 40 MG IV (08:49)
[2025-03-31] MEDS: LYRICA 75 MG PO ×2 (08:49→20:59)
[2025-03-31] MEDS: NSS (PRESERVATIVE FREE) 10 ML IV (08:49)
--- NOTE | 2025-03-31 09:14 | W.PN.GS2 ---
Addendum entered and electronically signed by Donta Pruitt MD 03/31/25 09:45:
Patient seen and examined. Agree with assessment plan as documented below.
74 yo female with h/o MVR 2013, HUNTER (on CPAP), A-fib, HFpEF presenting for perforated diverticulitis with pelvic abscess
POD #7 ex lap, drainage of abscess, sigmoidectomy and creation of end colostomy
AFVSS
WBC with slight up trend, h/h stable
Lytes stable
Tolerating regular diet with +stool/flatus from stoma
Midline wound open to base of incision with packing, nonpurulent drainage
Differential for elevated WBC includes but is not limited to midline wound versus persistent deeper intra-abdominal abscess cavity. Plan for repeat CT of the abdomen pelvis with oral and IV contrast today to help differentiate and further workup.
Plan:
CT abd/pelvis given rising WBC to aid in abx course
Continue regular diet
ABX as per ID
Resumed on PO Eliquis
Wound care following for stoma/wound care. Anticipate eventual wound vac to lower portion of incision
OOB/ambulate
Pt/Ot following, will likey need inpatient rehab upon d/c
Original Note:
Today's Communication / Plan
-
Local wound care
CT abd/pelvis
Assessment / Plan
-
74 yo female with h/o MVR 2013, HUNTER (on CPAP), A-fib, HFpEF presenting for perforated diverticulitis with pelvic abscess
POD #7 ex lap, drainage of abscess, sigmoidectomy and creation of end colostomy
AFVSS
WBC with slight uptrend, h/h stable
Lytes stable
Tolerating regular diet with +stool/flatus from stoma
Midline wound open to base of incision with packing, nonpurulent drainage
Plan:
Ct abd/pelvis given rising WBC
Continue regular diet
ABX as per ID
Resumed on PO Eliquis
Wound care following for stoma/wound care. Anticipate eventual wound vac to lower portion of incision
OOB/ambulate
Pt/Ot following, will likey need inpatient rehab upon d/c
Subjective Data
-
Date of Service: March 31, 2025
Pt seen and examined at bedside with Dr. Pruitt. Denies n/v. Tolerating diet. Anxious. Feels her colostomy is quite 'gross' and not yet comfortable with it.
Objective Data
-
Intake and Output
03/30/25 03/31/25 04/01/25
06:59 06:59 06:59
Intake Total 2029 330 / 330 720 / 720
Output Total 50 / 50
Balance 2029 330 / 330 670 / 670
Intake:
Oral fluids 1170 / 1170 330 / 330 720 / 720
IV fluids (Total) 750 / 750
IV piggybacks 110 / 110
Output:
Liquid stool amount 50 / 50
Colostomy 50 / 50
Other:
Number of approximated MODERATE 2 1
amounts of urine
Vital Signs
Temp Pulse Resp BP Pulse Ox
98.1 F 69 17 121/66 96
03/31/25 07:20 03/31/25 07:20 03/31/25 07:20 03/31/25 07:20 03/31/25 07:20
Lab Results
03/31/25 05:04
03/31/25 05:04
Calcium 10.1 mg/dl (8.4-10.2) 03/31/25 05:04
Magnesium 2.2 mg/dl (1.6-2.3) 03/31/25 05:04
Total Bilirubin 2.2 mg/dl (0.2-1.3) H 03/24/25 13:40
AST 32 U/L (14-36) 03/24/25 13:40
ALT 21 U/L (0-35) 03/24/25 13:40
Alkaline Phosphatase 76 U/L (38-126) 03/24/25 13:40
Total Protein 7.7 g/dl (6.3-8.2) 03/24/25 13:40
Albumin 4.6 g/dl (3.5-5.0) 03/24/25 13:40
Physical Exam
-
NAD
ABD soft, incisional tenderness, ND
Stoma pink/viable with stool/flatus in appliance
Incision with intact molly to upper portion of incision, packing to distal portion of wound changed: ssf on dressing
Patient has a zamarripa catheter: No
Patient has a central line: No
--- NOTE | 2025-03-31 09:21 | W.PN.ID1 ---
Date of Service
Date of Service: March 31, 2025
Today's Communication
Continue antibiotics.
Assessment / Plan
# Perforated sigmoid diverticulitis with pelvic abscess
- s/p washout, ostomy placement (03/24/25)
# Leukocytosis -stable
# PCN allergy - hives
-03/24 s/p I+D, sigmoidectomy, end colostomy
- OR cx: GNR x 2, Viridans strep, Enterococcus; awaiting final identification and susceptibilities.
--> Continue meropenem
- Trend wbc.
- for CT ab/pel today
# Aerococcus bacteruria
- UA >30 sq epithelial cells suggestive of contaminant specimen
- Ucx <100CFU organism
- No need to treat.
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
Asthma
CVA
Hypertension
Atrial fibrillation
HFpEF
Mitral valve repair
HUNTER
Anxiety
Left total knee replaced
Left shoulder replacement
Chief Complaint
-: Other (abd abscess)
Subjective / Review of Systems
Review of Systems: No Fever and No Chills
Vital Signs / Physical Exam
Vital Signs
Vital Signs
Temp Pulse Resp BP Pulse Ox
98.1 F 69 17 121/66 96
03/31/25 07:20 03/31/25 07:20 03/31/25 07:20 03/31/25 07:20 03/31/25 07:20
Physical Exam
Constitutional: No Acute Distress, Comfortable and Non-toxic
Cardiovascular: Regular Rate and S1/S2; Negative S3/S4
Pulmonary: Clear
Gastrointestinal: Soft, Tender (mild) and Non Distended
Extremities: Negative Edema
Wound: Other (Midline abdominal wound dressed.)
Neurological: AO x 3
Objective Data
Lab Data
Lab Results
03/31/25 05:04
03/31/25 05:04
PT 16.5 Sec (11.4-14.6) H 03/24/25 16:11
INR 1.30 03/24/25 16:11
APTT 30.8 Sec (23.4-35.0) 03/24/25 16:11
Estimated Creat Clear 85 ml/min 03/31/25 05:04
Lactic Acid 1.3 mmol/L (0.7-2.0) 03/25/25 05:20
Total Bilirubin 2.2 mg/dl (0.2-1.3) H 03/24/25 13:40
AST 32 U/L (14-36) 03/24/25 13:40
ALT 21 U/L (0-35) 03/24/25 13:40
Alkaline Phosphatase 76 U/L (38-126) 03/24/25 13:40
Most recent labs reviewed.
Micro Results:
03/24/25 19:45 Wound Culture - Final
Abdomen Gram negative bacilli
Enterococcus species
Viridans Streptococcus Group
Gram Stain - Final
03/24/25 19:45 Anaerobic Culture - Final
Abdomen
03/24/25 15:33 Blood Culture - Final
Blood/Venous No Growth - Final Report
03/24/25 15:33 Blood Culture - Final
Blood/Venous No Growth - Final Report
03/24/25 13:40 Urine Culture - Final
Urine Aerococcus Species
03/25/25 05:20 MRSA Screen - Final
Nose No Methicillin Resistant Staphylococcus aureus isolated.
Imaging:
03/24/25 CT a/p: Acute sigmoid diverticulitis with perforation. Pelvic abscess in the cul-de-sac measuring 6.1 x 3.2 cm.
[2025-03-31] MEDS: OMNIPAQUE 50 ML PO (09:22)
[2025-03-31] MEDS: FLUSH (NSS) 2 FLUSH IV ×2 (10:02→15:41)
[2025-03-31 11:00] VITALS: BP 99/59
--- NOTE | 2025-03-31 14:01 | W.PN.HOSP.TC ---
Today's Communication/Plan
-
IR to see if they can drain the abscess
Pt needs a wound Vac
Possible Discharge Tuesday. Case management to arrange
Assessment / Plan
Assessment / Plan
74-year-old with abdominal pain
03/24/2025 CT abdomen and pelvis-acute sigmoid diverticulitis with perforation. Pelvic abscess 6.1 into 3.2 cm. Left scoliosis. Multilevel discogenic and facet DJD. Mild grade 1 spondylolisthesis L4 on L5. 1.7 cm umbilical hernia
EKG 03/20-sinus rhythm. LAD poor R wave progression, inferior/posterior infarct now present
Echo 04/24/2025-EF more than 75%. Wall motion is consistent with postoperative state. Normal RV size and function. Severely dilated LA. Mild . Mild TR. PA pressure 25 to 30 mmHg
03/31/2025-CT abdomen and pelvis-postoperative changes of partial colectomy with left lower quadrant and a colostomy. Persistent rim-enhancing collection within the lower midline pelvis adjacent to the rectal stump 3.2 into 3.0 into 4.6 into 2.1 cm.
Mild hepatomegaly. Bibasilar atelectasis more pronounced on the right.
CVS: S1-S2 irregular
Chest:few rales at bases
Abdomen: Stoma with brown stool
Extremities: No edema
# Acute sigmoid diverticulitis with perforation/pelvic abscess
S/P Ex lap, drainage of pelvic abscess, sigmoidectomy, abdominal washout, creation of end colostomy Dr. Hutson on 03/24/2025
Currently on meropenem
White count trending down
OR cultures , Gram stain with strep viridans, Enterococcus and gram-negative bacilli
NG tube removed and Roa removed.
ID eval appreciated.
Diet advanced to regular diet
Stool output noted in the stoma
fitness center attendant for stoma management
encourage IS
CT showing a collection of 4.6 into 3.2 cm-Eliquis on hold. Interventional radiology consult to see if this could be drained
# Mild burning with urination-better with 1 dose of Pyridium
# Lactic acidosis resolved
# Acute Hypoxic resp failure post op - Likely atelectasis-off oxygen now.Discussed about using IS.
# Paroxysmal atrial fibrillation
went into afib night of 03/27/25
Of Cardizem gtt, Continue Metoprolol 37.5 mg twice daily
Restarted full Anticoagulation 03/28/25. Anticoagulation placed on hold on 03/31/2025
# Mitral Regurgitation-history of valve repair 2013
# Asthma-continue Dulera, Breztri, Dymista or equivalent
# Hyperlipidemia-statin
# HTN- BB Was on metoprolol 100 mg in a.m. and 50 mg in p.m. now on 37.5 mg p.o. twice daily
# GERD-continue PPI
# Anxiety-continue clorazepate
# Left scoliosis. Multilevel discogenic and facet degenerative changes. Mild grade 1 spondylolisthesis of L4 and L5.
# H/O Migraine
# Obesity with a BMI 33
# HUNTER- CPAP ordered .
# DVT prophylaxis-Eliquis
# CODE STATUS-DNR
D/W RN at bedside
D/W Surgeon and ID
Spoke to patient's daughter who is a nurse and updated
Part of this note was created using voice recognition system. Occasional wrong word or��sound alike� substitutions may have inadvertently occurred due to the inherent limitations of voice recognition software. If noted kindly bring it to my
attention for correction.
Anticipated Discharge: 24 - 48 hours
Subjective/Interval History
-
Date of Service: March 31, 2025
Objective Data
-
Labs:
Laboratory Results
03/31/25
05:04
WBC 13.7 H
Hgb 12.9
Hct 38.9
Plt Count 301
Sodium 141
Potassium 4.9
Chloride 113 H
Carbon Dioxide 21 L
BUN 19 H
Creatinine 0.6
Glucose 106 H
Calcium 10.1
Vital Signs:
Vital Signs
Temp Pulse Resp BP Pulse Ox
98.6 F 72 17 99/59 96
03/31/25 11:00 03/31/25 11:00 03/31/25 11:00 03/31/25 11:00 03/31/25 11:00
I&O
03/30/25 03/31/25 04/01/25
06:59 06:59 06:59
Intake Total 2029 330 / 330 720 / 720
Output Total 50 / 50
Balance 2029 330 / 330 670 / 670
[2025-03-31 15:12] VITALS: BP 103/65
[2025-03-31] MEDS: LIPITOR 40 MG PO (17:16)
[2025-03-31 19:00] VITALS: BP 99/55
[2025-03-31] MEDS: REMOVE LIDOCAINE PATCH 1 PATCH REMOVE ×2 (21:01)
--- NOTE | 2025-03-31 21:30 | PTCARENOTE ---
pt education provided for colostomy care. Pt demonstrated understanding of how to open and empty appliance, but needed some help w cleaning up and closing appliance. Pt verbalized need for education regarding diet, literature provided. Care ongoing.
[2025-03-31 23:00] VITALS: BP 111/58
[2025-04-01] VITALS (8 sets, daily range): BP systolic 79–112; BP diastolic 43–67; BMI 31.8
[2025-04-01] MEDS: STERILE WATER FOR INJECTION 10 ML IV ×4 (03:05→21:15)
[2025-04-01] MEDS: MERREM 500 MG IV ×4 (03:05→21:15)
[2025-04-01] MEDS: TYLENOL 1000 MG PO ×3 (05:17→18:23)
[2025-04-01 06:51] LABS: Hematocrit 39.8 % (37.0-47.0); Hemoglobin 12.9 g/dL (12.0-16.0); Mean Corp Hgb Conc. 32.4 g/dL (33.0-37.0); Mean Corpuscular Volume 92.6 fL (81.0-99.0); Platelet Count 322 10^3/uL (130-400); Red Cell Dist. Width 12.9 % (11.5-14.5)
[2025-04-01 07:15] LABS: Blood Urea Nitrogen 18 mg/dl (7-17); Calcium 9.9 mg/dl (8.4-10.2); Carbon Dioxide 22 mmol/L (22-30); Chloride 113 mmol/L (98-107); Estimated Creatinine Clearance 84 ml/min; Glucose 93 mg/dl (70-99); Potassium 4.5 mmol/L (3.5-5.1); Sodium 142 mmol/L (135-145); eGFR > 60.00
[2025-04-01] MEDS: SPIRIVA RESPIMAT 2.5 MCG 2 PUFF INH (07:24)
[2025-04-01] MEDS: SYMBICORT 160/4.5 MCG INHALER 2 PUFF INH ×2 (07:25→19:50)
[2025-04-01] MEDS: PROTONIX 40 MG PO (08:06)
[2025-04-01] MEDS: TOPROL XL 37.5 MG PO (08:06)
[2025-04-01] MEDS: MUCINEX 600 MG PO (08:06)
[2025-04-01] MEDS: LYRICA 75 MG PO ×2 (08:06→21:15)
[2025-04-01] MEDS: LIDOCAINE 4% PATCH 1 PATCH TOPICAL ×2 (08:07)
[2025-04-01] MEDS: DESENEX/MITRAZOL/ZEASORB 1 APPLIC TOPICAL ×2 (08:08→21:16)
--- NOTE | 2025-04-01 08:28 | CM ---
Addendum entered by Talya Cline 04/01/25 15:02:
accepted by [facility] and [facility]. IF [facility] is choice will need hard copy of scripts for CPAP and wound VAC as well as 3 days of ostomy supplies. [facility] will also need scripts. CM will continue to follow for discharge planning
needs.
Addendum entered by Talya Cline 04/01/25 12:06:
updated clinicals sent to [facility] and to [facility]. awaiting clarification of acceptance.
Addendum entered by Talya Cline 04/01/25 10:16:
Patient also asking about possible bed at [facility]. Patient for further assessments today per physician; possible for transfer tuesday pending further medical treatment plan
Original Note:
CM sent response via all scripts and texted to liaison at [facility]. Awaiting response about when bed would be available. CM will continue to follow for discharge planning needs.
PLan; [facility] when medically appropriate.
[2025-04-01] MEDS: DILAUDID 1 MG IV (09:33)
--- NOTE | 2025-04-01 09:43 | W.PN.CRS1 ---
Today's Communication / Plan
-
consult IR for ?drain
holding eliquis for now
npo until plan with IR sorted out, then back to regular
Assessment/Plan
-
74-year-old female with PMH of severe MR s/p MVR 2013, HUNTER (on CPAP), A-fib (on Eliquis, last dose morning of admission), TIA 2015, HFpEF, HLD, HTN who presented with 2 to 3 days of acute abdominal pain and rectal pressure after taking Imodium for
her chronic diarrhea. She does have chronic SBO with activity, unable to climb 1 flight of stairs. Denied any recent N/V, unintentional weight loss or chest pain. Her WBC was 29.[address] scan showed acute diverticulitis with pelvic abscess as
well as moderate amount of distant free air. She was taken urgently to the operating room.
POD #7 ex lap, drainage of abscess, sigmoidectomy and creation of end colostomy
AFVSS
WBC 12.1 (13/), Hgb 12.9 (12.9)
Tolerating regular diet with +stool/flatus from stoma
Midline wound open to base of incision with packing, nonpurulent drainage
Plan:
-IR consulted for ?drainage of lower midline pelvis fluid collection
-NPO until plan from IR, the resume regular diet
-Hold Eliquis until decision made regarding IR drain (held yesterday AM)
-Antibiotics per ID
-Wound care following for stoma/wound care. Spoke with wound RN today regarding vac placement.
-OOB/ambulate, pt/ot following, will likey need inpatient rehab upon d/c
-OR pathology consistent with acute focal diverticulitis
Subjective Data
Procedure
03/24/2025- Ex lap, drainage of pelvic abscess, sigmoidectomy, abdominal washout, creation of end colostomy
Subjective Data
Date of Service: April 01, 2025
Patient states she is very hungry. She has some pain but it is controlled. She is passing gas and flatus in her bag. Denies nausea or vomiting.
Objective Data
-
Vital Signs
Temp Pulse Resp BP Pulse Ox
98.0 F 82 18 107/67 96
04/01/25 07:00 04/01/25 07:28 04/01/25 07:28 04/01/25 07:00 04/01/25 07:28
Intake & Output
03/31/25 04/01/25 04/02/25
06:59 06:59 06:59
Intake Total 330 / 330 960 / 960
Output Total 500 / 500
Balance 330 / 330 460 / 460
Intake:
Oral fluids 330 / 330 960 / 960
Output:
Liquid stool amount 500 / 500
Colostomy 500 / 500
Other:
Number of approximated MODERATE 1 1 1
amounts of urine
Number of approximated LARGE 1
amounts of urine
Lab Results
04/01/25 05:23
04/01/25 05:23
Physical Exam
-
General: No Acute Distress and AOx3
Abdomen: Soft, Non Distended and Non Tender
Wound: Dressing Changed (in lower midline portion of wound, molly in place in anterior aspect)
--- NOTE | 2025-04-01 10:31 | WOUNDNOTE ---
[facility] RN note: Patient's stoma pink, budded and functioning for soft loose brown stool. Local peristomal yeast rash noted. Instructed patient how to empty pouch, treat peristomal rash with light dusting of Miconazole powder followed by no sting
barrier wipe and how to change appliance using Chip wafer # [id number], Ariadna seal and Chip pouch # [id number]. Ostomy supplies and ostomy teaching folder with patient. Wound vac applied to distal abdominal surgical wound per Dr. Cortez's request.
Confirmed use just black foam, pump setting 125mmhg continuous, change q 48-72 hours. Patient tolerated well. Patient was premedicated for pain from RN Frances. Patient sleepy from pain medication. Patient stated she thinks just the Tylenol will be
enough for the next vac dressing change. Deb Martini aware patient will need a wound vac at SNF/rehab. Patient's sacral and heel skin intact. Patient turned to R semi side lying position. Heels off bed with pillow. Air chair cushion given by [facility] RN
student Karla. Nursing will remove abdominal vac dressing on day of discharge and apply gauze or saline moistened gauze dressing for transfer and SNF/rehab will apply their own vac equipment. Next vac dressing change due Tuesday. Will follow as
needed.
--- NOTE | 2025-04-01 11:57 | W.PN.HOSP.TC ---
Today's Communication/Plan
-
Await IR plans
Assessment / Plan
Assessment / Plan
74-year-old with abdominal pain
03/24/2025 CT abdomen and pelvis-acute sigmoid diverticulitis with perforation. Pelvic abscess 6.1 into 3.2 cm. Left scoliosis. Multilevel discogenic and facet DJD. Mild grade 1 spondylolisthesis L4 on L5. 1.7 cm umbilical hernia
EKG 03/20-sinus rhythm. LAD poor R wave progression, inferior/posterior infarct now present
Echo 04/24/2025-EF more than 75%. Wall motion is consistent with postoperative state. Normal RV size and function. Severely dilated LA. Mild . Mild TR. PA pressure 25 to 30 mmHg
03/31/2025-CT abdomen and pelvis-postoperative changes of partial colectomy with left lower quadrant and a colostomy. Persistent rim-enhancing collection within the lower midline pelvis adjacent to the rectal stump 3.2 into 3.0 into 4.6 into 2.1 cm.
Mild hepatomegaly. Bibasilar atelectasis more pronounced on the right.
CVS: S1-S2 irregular
Chest:few rales at bases
Abdomen: Stoma with brown stool
Extremities: No edema
# Acute sigmoid diverticulitis with perforation/pelvic abscess
S/P Ex lap, drainage of pelvic abscess, sigmoidectomy, abdominal washout, creation of end colostomy Dr. Hutson on 03/24/2025
Currently on meropenem
White count trending down
OR cultures , Gram stain with strep viridans, Enterococcus and gram-negative bacilli
NG tube removed and Roa removed.
ID eval appreciated.
Diet advanced to regular diet
Stool output noted in the stoma
rubber chemist for stoma management
encourage IS
CT showing a collection of 4.6 into 2.1 cm and one 3.2X3.0 cm-Eliquis on hold. Interventional radiology consult to see if this could be drained
# Hypotension- Post BB, Vac change and Dilaudid- 500 ml bolus and watch.Pt feels tired. no other symptoms. EKG flutter with 4:1 block
# Lactic acidosis resolved
# Acute Hypoxic resp failure post op - Likely atelectasis-off oxygen now.Discussed about using IS.
# Paroxysmal atrial fibrillation
went into afib night of 03/27/25
Of Cardizem gtt, Continue Metoprolol 37.5 mg twice daily
Restarted full Anticoagulation 03/28/25. Anticoagulation placed on hold on 03/31/2025 for IR procedure
Pause - Reviewed with cards. No new changes
# Mitral Regurgitation-history of valve repair 2013
# Asthma-continue Dulera, Breztri, Dymista or equivalent
# Hyperlipidemia-statin
# HTN- BB Was on metoprolol 100 mg in a.m. and 50 mg in p.m. now on 37.5 mg p.o. twice daily
# GERD-continue PPI
# Anxiety-continue clorazepate
# Left scoliosis. Multilevel discogenic and facet degenerative changes. Mild grade 1 spondylolisthesis of L4 and L5.
# H/O Migraine
# Obesity with a BMI 33
# HUNTER- CPAP ordered .
# DVT prophylaxis-Eliquis
# CODE STATUS-DNR
D/W RN at bedside
D/W Cardiology
D/W Wound care at bed side
Spoke to patient's daughter who is a nurse and updated yesterday
Part of this note was created using voice recognition system. Occasional wrong word or��sound alike� substitutions may have inadvertently occurred due to the inherent limitations of voice recognition software. If noted kindly bring it to my
attention for correction.
Anticipated Discharge: Within 24 hours
Subjective/Interval History
-
Date of Service: April 01, 2025
Objective Data
-
Labs:
Laboratory Results
04/01/25
05:23
WBC 12.1 H
Hgb 12.9
Hct 39.8
Plt Count 322
Sodium 142
Potassium 4.5
Chloride 113 H
Carbon Dioxide 22
BUN 18 H
Creatinine 0.6
Glucose 93
Calcium 9.9
Vital Signs:
Vital Signs
Temp Pulse Resp BP Pulse Ox
98.4 F 69 16 92/52 100
04/01/25 11:15 04/01/25 11:31 04/01/25 11:15 04/01/25 11:31 04/01/25 11:15
I&O
03/31/25 04/01/25 04/02/25
06:59 06:59 06:59
Intake Total 330 / 330 960 / 960
Output Total 500 / 500
Balance 330 / 330 460 / 460
[2025-04-01] MEDS: NSS 500 IV (12:03)
--- NOTE | 2025-04-01 12:20 | W.PN.UPDATE ---
Update Note
Progress Note Update
Called by primary service to evaluate telemetry.
There was a concern for 2.7-second pause overnight. The patient is in atrial flutter. No significant heart blocks.
On the general review heart rate is mainly controlled around 65 bpm.
If the patient remains hospitalized and can safely resume apixaban, can consider TANISHA guided DCCV. She would need to be on uninterrupted anticoagulation for 4 weeks postprocedure.
--- NOTE | 2025-04-01 12:26 | W.PN.ID1 ---
Date of Service
Date of Service: April 01, 2025
Today's Communication
For IR abscess drainage.
Continue meropenem.
Assessment / Plan
# Perforated sigmoid diverticulitis with pelvic abscess
- s/p washout, ostomy placement (03/24/25)
# Leukocytosis -stable
# PCN allergy - hives
-03/24 s/p I+D, sigmoidectomy, end colostomy
- OR cx: GNR x 2, Viridans strep, Enterococcus; awaiting final identification and susceptibilities.
- 03/31/25 CT a/p: rim enhancing collection next to rectal stump
- For IR drain placement, aerobic and anaerobic cx
- Continue meropenem
# Aerococcus bacteruria
- UA >30 sq epithelial cells suggestive of contaminant specimen
- Ucx <100CFU organism
- No need to treat.
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
Asthma
CVA
Hypertension
Atrial fibrillation
HFpEF
Mitral valve repair
HUNTER
Anxiety
Left total knee replaced
Left shoulder replacement
Chief Complaint
-: Other (abd abscess)
Subjective / Review of Systems
No new complaints.
Vital Signs / Physical Exam
Vital Signs
Vital Signs
Temp Pulse Resp BP Pulse Ox
98.4 F 69 16 92/52 100
04/01/25 11:15 04/01/25 11:31 04/01/25 11:15 04/01/25 11:31 04/01/25 11:15
Physical Exam
Constitutional: No Acute Distress
Pulmonary: Clear
Gastrointestinal: Soft, Non Tender, Non Distended and Other (Ostomy with soft stool)
Extremities: Negative Edema
Neurological: AO x 3
Objective Data
Lab Data
Lab Results
04/01/25 05:23
04/01/25 05:23
PT 16.5 Sec (11.4-14.6) H 03/24/25 16:11
INR 1.30 03/24/25 16:11
APTT 30.8 Sec (23.4-35.0) 03/24/25 16:11
Estimated Creat Clear 84 ml/min 04/01/25 05:23
Lactic Acid 1.3 mmol/L (0.7-2.0) 03/25/25 05:20
Total Bilirubin 2.2 mg/dl (0.2-1.3) H 03/24/25 13:40
AST 32 U/L (14-36) 03/24/25 13:40
ALT 21 U/L (0-35) 03/24/25 13:40
Alkaline Phosphatase 76 U/L (38-126) 03/24/25 13:40
Most recent labs reviewed.
Micro Results:
03/24/25 19:45 Wound Culture - Preliminary
Abdomen Gram negative bacilli
Enterococcus species
Viridans Streptococcus Group
Gram Stain - Final
03/24/25 19:45 Anaerobic Culture - Final
Abdomen
03/24/25 15:33 Blood Culture - Final
Blood/Venous No Growth - Final Report
03/24/25 15:33 Blood Culture - Final
Blood/Venous No Growth - Final Report
03/24/25 13:40 Urine Culture - Final
Urine Aerococcus Species
03/25/25 05:20 MRSA Screen - Final
Nose No Methicillin Resistant Staphylococcus aureus isolated.
Imaging:
03/31/25 CT a/p: There is a persistent rim-enhancing collection within the lower midline pelvis, adjacent to the rectal stump, which appears bilobed and measures 3.2 x 3.0 cm and 4.6 x 2.1 cm.
03/24/25 CT a/p: Acute sigmoid diverticulitis with perforation. Pelvic abscess in the cul-de-sac measuring 6.1 x 3.2 cm.
--- NOTE | 2025-04-01 15:55 | W.PN.UPDATE ---
Update Note
Progress Note Update
Blood pressure improved after the bolus
Patient was seen again
Other than feeling slightly tired no other complaints of chest pain or shortness of breath
Continue to monitor
[2025-04-01] MEDS: LIPITOR 40 MG PO (18:24)
[2025-04-01] MEDS: TOPROL XL PO ×2 (21:15→21:19)
[2025-04-01] MEDS: REMOVE LIDOCAINE PATCH 1 PATCH REMOVE ×2 (21:16)
[2025-04-02] VITALS (7 sets, daily range): BP systolic 104–139; BP diastolic 54–76
[2025-04-02] MEDS: TYLENOL PO
[2025-04-02] MEDS: TYLENOL 1000 MG PO ×3 (03:04→17:30)
[2025-04-02] MEDS: MERREM 500 MG IV ×4 (04:30→21:25)
[2025-04-02] MEDS: STERILE WATER FOR INJECTION 10 ML IV ×4 (04:30→21:25)
[2025-04-02] MEDS: SPIRIVA RESPIMAT 2.5 MCG 2 PUFF INH (07:51)
[2025-04-02] MEDS: SYMBICORT 160/4.5 MCG INHALER 2 PUFF INH ×2 (07:51→19:39)
[2025-04-02] MEDS: LIDOCAINE 4% PATCH 1 PATCH TOPICAL ×2 (07:53→07:54)
[2025-04-02] MEDS: MUCINEX 600 MG PO (07:54)
[2025-04-02] MEDS: DESENEX/MITRAZOL/ZEASORB 1 APPLIC TOPICAL ×2 (07:54→20:11)
[2025-04-02] MEDS: LYRICA 75 MG PO ×2 (07:57→20:08)
[2025-04-02] MEDS: PROTONIX 40 MG PO (07:57)
[2025-04-02] MEDS: TOPROL XL 37.5 MG PO ×2 (07:57→20:10)
[2025-04-02 08:27] LABS: Hematocrit 41.8 % (37.0-47.0); Hemoglobin 13.6 g/dL (12.0-16.0); Mean Corp Hgb Conc. 32.5 g/dL (33.0-37.0); Mean Corpuscular Volume 92.3 fL (81.0-99.0); Platelet Count 352 10^3/uL (130-400); Red Cell Dist. Width 12.6 % (11.5-14.5)
--- NOTE | 2025-04-02 09:40 | CM ---
Patient for procedure today, per physician. CM will update facilities and clarify availability for tomorrow with [facility] and [facility]. CM will also continue to follow for discharge planning needs.
Plan; SNF; [facility] or [facility] pending bed availability
[2025-04-02] MEDS: TRANXENE 7.5 MG PO (09:53)
--- NOTE | 2025-04-02 10:01 | W.PN.CRS1 ---
Today's Communication / Plan
-
IR drain
Assessment/Plan
-
74-year-old female with PMH of severe MR s/p MVR 2013, HUNTER (on CPAP), A-fib (on Eliquis, last dose morning of admission), TIA 2016, HFpEF, HLD, HTN who presented with 2 to 3 days of acute abdominal pain and rectal pressure after taking Imodium for
her chronic diarrhea. She does have chronic SBO with activity, unable to climb 1 flight of stairs. Denied any recent N/V, unintentional weight loss or chest pain. Her WBC was 29.[address] scan showed acute diverticulitis with pelvic abscess as
well as moderate amount of distant free air. She was taken urgently to the operating room.
POD #8 ex lap, drainage of abscess, sigmoidectomy and creation of end colostomy
AFVSS
WBC 10.6, Hgb 13.6
Tolerating regular diet with +stool/flatus from stoma
7- wound vac placement
Plan:
-IR consulted for ?drainage of lower midline pelvis fluid collection - will attempt today
-NPO until plan from IR, the resume regular diet
-Hold Eliquis for IR drain (held 7/6 AM). Will re-evaluate tomorrow if can restart.
-Antibiotics per ID
-Wound care for vac changes
-OOB/ambulate, pt/ot following, will likey need inpatient rehab upon d/c
-OR pathology consistent with acute focal diverticulitis
Subjective Data
Procedure
03/24/2025- Ex lap, drainage of pelvic abscess, sigmoidectomy, abdominal washout, creation of end colostomy
Subjective Data
Date of Service: April 02, 2025
Patient states she has some abdominal pain. She also thinks she might have a cold. Denies nausea or vomiting. She is tolerating a diet and has bowel function.
Objective Data
-
Vital Signs
Temp Pulse Resp BP Pulse Ox
97.5 F 55 16 142/66 97
04/02/25 07:00 04/02/25 07:57 04/02/25 07:52 04/02/25 07:57 04/02/25 07:52
Intake & Output
04/01/25 04/02/25 04/03/25
06:59 06:59 06:59
Intake Total 960 / 960 1720 / 1720
Output Total 500 / 500 195 / 195
Balance 460 / 460 1525 / 1525
Intake:
Oral fluids 960 / 960 720 / 720
IV fluids (Total) 1000 / 1000
Output:
Liquid stool amount 500 / 500 195 / 195
Colostomy 500 / 500 195 / 195
Other:
Number of approximated MODERATE 1 1
amounts of urine
Number of approximated LARGE 1 1
amounts of urine
Lab Results
04/02/25 08:08
Physical Exam
-
General: No Acute Distress and AOx3
Abdomen: Soft, Non Distended, Non Tender and Other (colostomy warm and pink)
Skin: Warm and Dry
Wound: Other (wound vac in place)
[2025-04-02 10:06] LABS: Blood Urea Nitrogen 12 mg/dl (7-17); Calcium 10.5 mg/dl (8.4-10.2); Carbon Dioxide 21 mmol/L (22-30); Chloride 111 mmol/L (98-107); Estimated Creatinine Clearance 84 ml/min; Glucose 97 mg/dl (70-99); Potassium 4.6 mmol/L (3.5-5.1); Sodium 141 mmol/L (135-145); eGFR > 60.00
--- NOTE | 2025-04-02 10:41 | W.PN.HOSP.TC ---
Today's Communication/Plan
-
IR intervention today
Assessment / Plan
Assessment / Plan
74-year-old with abdominal pain
03/24/2025 CT abdomen and pelvis-acute sigmoid diverticulitis with perforation. Pelvic abscess 6.1 into 3.2 cm. Left scoliosis. Multilevel discogenic and facet DJD. Mild grade 1 spondylolisthesis L4 on L5. 1.7 cm umbilical hernia
EKG 03/20-sinus rhythm. LAD poor R wave progression, inferior/posterior infarct now present
Echo 04/24/2025-EF more than 75%. Wall motion is consistent with postoperative state. Normal RV size and function. Severely dilated LA. Mild . Mild TR. PA pressure 25 to 30 mmHg
03/31/2025-CT abdomen and pelvis-postoperative changes of partial colectomy with left lower quadrant and a colostomy. Persistent rim-enhancing collection within the lower midline pelvis adjacent to the rectal stump 3.2 into 3.0 into 4.6 into 2.1 cm.
Mild hepatomegaly. Bibasilar atelectasis more pronounced on the right.
CVS: S1-S2 irregular
Chest:few rales at bases
Abdomen: Stoma with brown stool
Extremities: No edema
# Acute sigmoid diverticulitis with perforation/pelvic abscess
S/P Ex lap, drainage of pelvic abscess, sigmoidectomy, abdominal washout, creation of end colostomy Dr. Hutson on 03/24/2025
Currently on meropenem
White count trending down
OR cultures , Gram stain with strep viridans, Enterococcus and Morganella, E. coli
NG tube removed and Roa removed.
Diet advanced to regular diet
Stool output noted in the stoma
credit review officer for stoma management
encourage IS
CT showing a collection of 4.6 into 2.1 cm and one 3.2X3.0 cm-Eliquis on hold. Interventional radiology consult to see if this could be drained-IR planning for today
# Hypotension- Post BB, Vac change and Dilaudid- 500 ml bolus and watch.Pt feels tired. no other symptoms. EKG flutter with 4:1 block
# Lactic acidosis resolved
# Acute Hypoxic resp failure post op - Likely atelectasis-off oxygen now.Discussed about using IS.
# Paroxysmal atrial fibrillation
went into afib night of 03/27/25
Of Cardizem gtt, Continue Metoprolol 37.5 mg twice daily
Restarted full Anticoagulation 03/28/25. Anticoagulation placed on hold on 03/31/2025 for IR procedure
Pause - Reviewed with cards Yesterday, no new changes recommended
Heart rate has been up and down. Continue metoprolol dose recommended by cardiology
# Mitral Regurgitation-history of valve repair 2013
# Asthma-continue Dulera, Breztri, Dymista or equivalent
# Hyperlipidemia-statin
# HTN- BB Was on metoprolol 100 mg in a.m. and 50 mg in p.m. now on 37.5 mg p.o. twice daily
# GERD-continue PPI
# Anxiety-continue clorazepate
# Left scoliosis. Multilevel discogenic and facet degenerative changes. Mild grade 1 spondylolisthesis of L4 and L5.
# H/O Migraine
# Obesity with a BMI 33
# HUNTER- CPAP ordered .
# DVT prophylaxis-Eliquis
# CODE STATUS-DNR
D/W RN at bedside
Part of this note was created using voice recognition system. Occasional wrong word or��sound alike� substitutions may have inadvertently occurred due to the inherent limitations of voice recognition software. If noted kindly bring it to my
attention for correction.
Anticipated Discharge: Within 24 hours
Subjective/Interval History
-
Date of Service: April 02, 2025
Objective Data
-
Labs:
Laboratory Results
04/02/25
08:08
WBC 10.6
Hgb 13.6
Hct 41.8
Plt Count 352
Sodium 141
Potassium 4.6
Chloride 111 H
Carbon Dioxide 21 L
BUN 12
Creatinine 0.6
Glucose 97
Calcium 10.5 H
Vital Signs:
Vital Signs
Temp Pulse Resp BP Pulse Ox
97.5 F 55 16 142/66 97
04/02/25 07:00 04/02/25 07:57 04/02/25 07:52 04/02/25 07:57 04/02/25 07:52
I&O
04/01/25 04/02/25 04/03/25
06:59 06:59 06:59
Intake Total 960 / 960 1720 / 1720
Output Total 500 / 500 195 / 195
Balance 460 / 460 1525 / 1525
--- NOTE | 2025-04-02 14:08 | W.PN.ID1 ---
Date of Service
Date of Service: April 02, 2025
Today's Communication
Continue meropenem.
Assessment / Plan
# Perforated sigmoid diverticulitis with pelvic abscess
- s/p washout, ostomy placement (03/24/25)
# Leukocytosis -resolved
# PCN allergy - hives
-03/24 s/p I+D, sigmoidectomy, end colostomy
- OR cx: E. coli, Morganella, Viridans strep, Enterococcus
- 03/31/25 CT a/p: rim enhancing collection next to rectal stump
- For IR drain placement, aerobic and anaerobic cx
- Continue meropenem
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
Asthma
CVA
Hypertension
Atrial fibrillation
HFpEF
Mitral valve repair
HUNTER
Anxiety
Left total knee replaced
Left shoulder replacement
Chief Complaint
-: Other (abd abscess)
Subjective / Review of Systems
No new complaints.
Vital Signs / Physical Exam
Vital Signs
Vital Signs
Temp Pulse Resp BP Pulse Ox
97.5 F 94 16 110/60 97
04/02/25 07:00 04/02/25 11:53 04/02/25 11:59 04/02/25 11:53 04/02/25 07:52
Physical Exam
Constitutional: No Acute Distress
Pulmonary: Clear
Gastrointestinal: Soft, Non Tender, Non Distended and Other (Ostomy with soft stool)
Extremities: Negative Edema
Neurological: AO x 3
Objective Data
Lab Data
Lab Results
04/02/25 08:08
04/02/25 08:08
PT 16.5 Sec (11.4-14.6) H 03/24/25 16:11
INR 1.30 03/24/25 16:11
APTT 30.8 Sec (23.4-35.0) 03/24/25 16:11
Estimated Creat Clear 84 ml/min 04/02/25 08:08
Lactic Acid 1.3 mmol/L (0.7-2.0) 03/25/25 05:20
Total Bilirubin 2.2 mg/dl (0.2-1.3) H 03/24/25 13:40
AST 32 U/L (14-36) 03/24/25 13:40
ALT 21 U/L (0-35) 03/24/25 13:40
Alkaline Phosphatase 76 U/L (38-126) 03/24/25 13:40
Most recent labs reviewed.
Micro Results:
03/24/25 19:45 Wound Culture - Final
Abdomen Escherichia coli
Morganella morganii
Enterococcus faecalis
Viridans Streptococcus Group
Gram Stain - Final
03/24/25 19:45 Anaerobic Culture - Final
Abdomen
03/24/25 15:33 Blood Culture - Final
Blood/Venous No Growth - Final Report
03/24/25 15:33 Blood Culture - Final
Blood/Venous No Growth - Final Report
03/24/25 13:40 Urine Culture - Final
Urine Aerococcus Species
03/25/25 05:20 MRSA Screen - Final
Nose No Methicillin Resistant Staphylococcus aureus isolated.
Imaging:
03/31/25 CT a/p: There is a persistent rim-enhancing collection within the lower midline pelvis, adjacent to the rectal stump, which appears bilobed and measures 3.2 x 3.0 cm and 4.6 x 2.1 cm.
03/24/25 CT a/p: Acute sigmoid diverticulitis with perforation. Pelvic abscess in the cul-de-sac measuring 6.1 x 3.2 cm.
--- NOTE | 2025-04-02 14:24 | WOUNDNOTE ---
WOC RN NOTE: Reviewed chart and met with patient. Scant areas noted with some serous drainage due to edema. The skin was cleaned and ABD and ese applied. Confirmed order for compression with MARISELA with Dr. Quintero. RN Mckenzie to apply. Patient declined
to stand for sacral assessment due to rib pain and recent PT session. RN Mckenzie to contact WOC RN if sacral wound is noted on next assessment. Will sign off.
--- NOTE | 2025-04-02 17:07 | W.PN.UPDATE ---
Update Note
Progress Note Update
Patient is unable to lie prone for the pelvic fluid drainage procedure due to severe pain, surgical wound, and ostomy bag. Offered pillows and other positioning aids, but she was unable to try due to above concerns. No procedure performed.
[2025-04-02] MEDS: LIPITOR 40 MG PO (17:30)
[2025-04-02] MEDS: REMOVE LIDOCAINE PATCH 1 PATCH REMOVE ×2 (20:11)
[2025-04-02] MEDS: MELATONIN 5 MG PO (21:25)
[2025-04-02] MEDS: FLUSH (NSS) 2 FLUSH IV (21:26)
[2025-04-03] VITALS (7 sets, daily range): BP systolic 97–120; BP diastolic 59–86; PULSE 117–139; BMI 31.9
[2025-04-03] MEDS: TYLENOL PO (00:34)
[2025-04-03] MEDS: STERILE WATER FOR INJECTION 10 ML IV ×2 (03:54→10:51)
[2025-04-03] MEDS: MERREM 500 MG IV ×2 (03:54→10:51)
[2025-04-03] MEDS: FLUSH (NSS) 2 FLUSH IV (03:54)
[2025-04-03] MEDS: TYLENOL 1000 MG PO ×3 (06:16→17:20)
[2025-04-03] MEDS: SPIRIVA RESPIMAT 2.5 MCG 2 PUFF INH (07:22)
[2025-04-03] MEDS: SYMBICORT 160/4.5 MCG INHALER 2 PUFF INH ×2 (07:23→19:44)
[2025-04-03] MEDS: LIDOCAINE 4% PATCH 1 PATCH TOPICAL ×2 (07:52→07:53)
[2025-04-03] MEDS: LYRICA 75 MG PO ×2 (07:53→21:52)
[2025-04-03] MEDS: TOPROL XL 37.5 MG PO ×2 (07:53→21:51)
[2025-04-03] MEDS: PROTONIX 40 MG PO (07:53)
[2025-04-03] MEDS: MUCINEX 600 MG PO (07:53)
[2025-04-03] MEDS: DESENEX/MITRAZOL/ZEASORB 1 APPLIC TOPICAL ×2 (07:54→21:51)
--- NOTE | 2025-04-03 08:35 | W.PN.CRS1 ---
Today's Communication / Plan
-
hold eliquis
regular diet
will call daughter regarding IR drain
Assessment/Plan
-
74-year-old female with PMH of severe MR s/p MVR 2013, HUNTER (on CPAP), A-fib (on Eliquis, last dose morning of admission), TIA 2016, HFpEF, HLD, HTN who presented with 2 to 3 days of acute abdominal pain and rectal pressure after taking Imodium for
her chronic diarrhea. She does have chronic SBO with activity, unable to climb 1 flight of stairs. Denied any recent N/V, unintentional weight loss or chest pain. Her WBC was 29.[address] scan showed acute diverticulitis with pelvic abscess as
well as moderate amount of distant free air. She was taken urgently to the operating room.
POD #9 ex lap, drainage of abscess, sigmoidectomy and creation of end colostomy
AFVSS
no labs today
Tolerating regular diet with +stool/flatus from stoma
04/01- wound vac placement
04/02- refused IR drain
Plan:
-Refused IR yesterday - we will talk to daughter regarding this today
-Regular diet
-Continue to hold Eliquis for now, will re-evaluate tomorrow
-Antibiotics per ID
-Wound care for vac changes
-OOB/ambulate, pt/ot following, will likey need inpatient rehab upon d/c
-OR pathology consistent with acute focal diverticulitis
Subjective Data
Procedure
03/24/2025- Ex lap, drainage of pelvic abscess, sigmoidectomy, abdominal washout, creation of end colostomy
Subjective Data
Date of Service: April 03, 2025
Patient states she did not want to undergo the IR drain yesterday due to them asking her to roll onto her belly. She does not have any pain. Denies nausea or vomiting. Tolerating a diet.
Objective Data
-
Vital Signs
Temp Pulse Resp BP Pulse Ox
98 F 73 16 139/75 95
04/03/25 07:00 04/03/25 07:53 04/03/25 07:25 04/03/25 07:53 04/03/25 07:00
Intake & Output
04/02/25 04/03/25 04/04/25
06:59 06:59 06:59
Intake Total 1720 / 1720 240 / 240
Output Total 195 / 195 200 / 200
Balance 1525 / 1525 40 / 40
Intake:
Oral fluids 720 / 720 240 / 240
IV fluids (Total) 1000 / 1000
Output:
Liquid stool amount 195 / 195 200 / 200
Colostomy 195 / 195 200 / 200
Other:
Number of approximated MODERATE 1 2
amounts of urine
Number of approximated LARGE 1
amounts of urine
Lab Results
04/02/25 08:08
04/02/25 08:08
Physical Exam
-
General: No Acute Distress and AOx3
Abdomen: Soft, Non Distended, Non Tender and Other (colostomy warm and pink with function)
Wound: Other (wound vac in place)
Incision: Clear, Dry, Intact
--- NOTE | 2025-04-03 12:58 | W.PN.ID1 ---
Date of Service
Date of Service: April 03, 2025
Today's Communication
Transition IV meropenem to doxycycline 100mg po bid, cefdinir 300mg po bid and metronidazole 500mg po bid through 04/16/25.
Assessment / Plan
# Perforated sigmoid diverticulitis with pelvic abscess
- s/p washout, ostomy placement (03/24/25)
# Leukocytosis -resolved
# PCN allergy - hives
-03/24 s/p I+D, sigmoidectomy, end colostomy
- OR cx: E. coli, Morganella, Viridans strep, Enterococcus
- 03/31/25 CT a/p: rim enhancing collection next to rectal stump -> pt unable to lay prone for IR drain placement
- Transition IV meropenem to doxycycline 100mg po bid, cefdinir 300mg po bid and metronidazole 500mg po bid through 04/16/25.
# Conditions [employer]
Asthma
CVA
Hypertension
Atrial fibrillation
HFpEF
Mitral valve repair
HUNTER
Anxiety
Left total knee replaced
Left shoulder replacement
Chief Complaint
-: Other (abd abscess)
Subjective / Review of Systems
Feeling better. Pt unable to lay prone for perc drain yesterday.
Vital Signs / Physical Exam
Vital Signs
Vital Signs
Temp Pulse Resp BP Pulse Ox
98.4 F 67 16 110/61 96
04/03/25 12:00 04/03/25 12:00 04/03/25 12:00 04/03/25 12:00 04/03/25 12:00
Physical Exam
Constitutional: No Acute Distress and Comfortable
Cardiovascular: Regular Rate and S1/S2
Pulmonary: Clear
Gastrointestinal: Soft, Non Tender and Non Distended
Neurological: AO x 3
Objective Data
Lab Data
Lab Results
04/02/25 08:08
04/02/25 08:08
PT 16.5 Sec (11.4-14.6) H 03/24/25 16:11
INR 1.30 03/24/25 16:11
APTT 30.8 Sec (23.4-35.0) 03/24/25 16:11
Estimated Creat Clear 84 ml/min 04/02/25 08:08
Lactic Acid 1.3 mmol/L (0.7-2.0) 03/25/25 05:20
Total Bilirubin 2.2 mg/dl (0.2-1.3) H 03/24/25 13:40
AST 32 U/L (14-36) 03/24/25 13:40
ALT 21 U/L (0-35) 03/24/25 13:40
Alkaline Phosphatase 76 U/L (38-126) 03/24/25 13:40
Most recent labs reviewed.
Micro Results:
03/24/25 19:45 Wound Culture - Final
Abdomen Escherichia coli
Morganella morganii
Enterococcus faecalis
Viridans Streptococcus Group
Gram Stain - Final
03/24/25 19:45 Anaerobic Culture - Final
Abdomen
03/24/25 15:33 Blood Culture - Final
Blood/Venous No Growth - Final Report
03/24/25 15:33 Blood Culture - Final
Blood/Venous No Growth - Final Report
03/24/25 13:40 Urine Culture - Final
Urine Aerococcus Species
03/25/25 05:20 MRSA Screen - Final
Nose No Methicillin Resistant Staphylococcus aureus isolated.
Imaging:
03/31/25 CT a/p: There is a persistent rim-enhancing collection within the lower midline pelvis, adjacent to the rectal stump, which appears bilobed and measures 3.2 x 3.0 cm and 4.6 x 2.1 cm.
03/24/25 CT a/p: Acute sigmoid diverticulitis with perforation. Pelvic abscess in the cul-de-sac measuring 6.1 x 3.2 cm.
Care Review
Plan reviewed with: Physician (Dr. Morillo)
--- NOTE | 2025-04-03 13:42 | W.PN.HOSP.TC ---
Today's Communication/Plan
-
Discharge patient when okay with colorectal surgeon
Assessment / Plan
Assessment / Plan
74-year-old with abdominal pain
03/24/2025 CT abdomen and pelvis-acute sigmoid diverticulitis with perforation. Pelvic abscess 6.1 into 3.2 cm. Left scoliosis. Multilevel discogenic and facet DJD. Mild grade 1 spondylolisthesis L4 on L5. 1.7 cm umbilical hernia
EKG 03/20-sinus rhythm. LAD poor R wave progression, inferior/posterior infarct now present
Echo 04/24/2025-EF more than 75%. Wall motion is consistent with postoperative state. Normal RV size and function. Severely dilated LA. Mild . Mild TR. PA pressure 25 to 30 mmHg
03/31/2025-CT abdomen and pelvis-postoperative changes of partial colectomy with left lower quadrant and a colostomy. Persistent rim-enhancing collection within the lower midline pelvis adjacent to the rectal stump 3.2 into 3.0 into 4.6 into 2.1 cm.
Mild hepatomegaly. Bibasilar atelectasis more pronounced on the right.
CVS: S1-S2 irregular
Chest:CTA
Abdomen: Stoma with brown stool
Extremities: No edema
# Acute sigmoid diverticulitis with perforation/pelvic abscess
S/P Ex lap, drainage of pelvic abscess, sigmoidectomy, abdominal washout, creation of end colostomy Dr. Hutson on 03/24/2025
Currently on meropenem, to be changed to doxycycline 100mg po bid, cefdinir 300mg po bid and metronidazole 500mg po bid through 04/16/25.
White count trending down
OR cultures , Gram stain with strep viridans, Enterococcus and Morganella, E. coli
NG tube removed and Roa removed.
Diet advanced to regular diet
Stool output noted in the stoma
salesperson floor coverings for stoma management
encourage IS
CT showing a collection of 4.6 into 2.1 cm and one 3.2X3.0 cm-Eliquis on hold.
Patient could not lay prone therefore IR could not aspirate
Colorectal surgery wants to watch patient for another day and get labs
# Hypotension- Post BB, Vac change and Dilaudid- 500 ml bolus and watch.Pt feels tired. no other symptoms. EKG flutter with 4:1 block
# Lactic acidosis resolved
# Acute Hypoxic resp failure post op - Likely atelectasis-off oxygen now.Discussed about using IS.
# Paroxysmal atrial fibrillation
went into afib night of 03/27/25
Of Cardizem gtt, Continue Metoprolol 37.5 mg twice daily
Restarted full Anticoagulation 03/28/25. Anticoagulation placed on hold on 03/31/2025 for IR procedure
Pause - Reviewed with cards Yesterday, no new changes recommended
Heart rate has been up and down. Continue metoprolol dose recommended by cardiology
# Mitral Regurgitation-history of valve repair 2013
# Asthma-continue Dulera, Breztri, Dymista or equivalent
# Hyperlipidemia-statin
# HTN- BB Was on metoprolol 100 mg in a.m. and 50 mg in p.m. now on 37.5 mg p.o. twice daily
# GERD-continue PPI
# Anxiety-continue Clorazepate
# Left scoliosis. Multilevel discogenic and facet degenerative changes. Mild grade 1 spondylolisthesis of L4 and L5.
# H/O Migraine
# Obesity with a BMI 33
# HUNTER- CPAP ordered .
# DVT prophylaxis-Eliquis
# CODE STATUS-DNR
D/W RN at bedside
D/W ID
Part of this note was created using voice recognition system. Occasional wrong word or��sound alike� substitutions may have inadvertently occurred due to the inherent limitations of voice recognition software. If noted kindly bring it to my
attention for correction.
Anticipated Discharge: Within 24 hours
Subjective/Interval History
-
Date of Service: April 03, 2025
Objective Data
-
Vital Signs:
Vital Signs
Temp Pulse Resp BP Pulse Ox
98.4 F 67 16 110/61 96
04/03/25 12:00 04/03/25 12:00 04/03/25 12:00 04/03/25 12:00 04/03/25 12:00
I&O
04/02/25 04/03/25 04/04/25
06:59 06:59 06:59
Intake Total 1720 / 1720 240 / 240 240 / 240
Output Total 195 / 195 200 / 200
Balance 1525 / 1525 40 / 40 240 / 240
--- NOTE | 2025-04-03 13:58 | CM ---
Addendum entered by Po Bryant 04/03/25 15:17:
CM spoke to [facility] quality control director and she confirmed that pt is accepted for admission to [facility] tomorrow. Pt will bring her own C-Pap machine.
Pt is aware and she expressed her great appreciation with discharge plan outcome.
Original Note:
CM following re: discharge planning.
Reviewed pt's chart, met with pt.
Per Colorectal surgery, pt possibly will be ready for discharge tomorrow.
CM spoke to [facility] quality control director and she confirmed that [facility] will have a bed available tomorrow and pt will be accepted for admission and they will order wound vac.
Pt is aware and she stated she really wants to go to [facility] instead of [facility].
CM made numerous attempts to talk to [facility] admissions department and has to leave messages on quality control director cell phone and desk phone.
Awaiting for confirmation from [facility]
D/C plan: [facility] or [facility].
CM will follow to assist pt with discharge to a preferred SNF.
[2025-04-03] MEDS: VIBRAMYCIN 100 MG PO ×2 (14:27→21:51)
[2025-04-03] MEDS: OMNICEF 300 MG PO ×2 (14:28→21:52)
--- NOTE | 2025-04-03 15:07 | WOUNDNOTE ---
WON RN NOTE: Changed abdominal wound vac dressing today, patient tolerated with minimal discomfort. Patient made aware when goes to SNF upon discharge vac dressing will be removed and saline wet to dry dressing will be applied, until facility can
apply their wound vac dressing. Teaching done with patient regarding purpose of vac dressing and how it works, requires repeat instruction. Base of wound with pink granulation tissue. Colostomy functioning for soft light brown stool, stoma pink, no
leakage under wafer. Answered all questions regarding ostomy care, support and encouragement given. Patient reports she is watching staff empty pouch and wants to do on own before discharge. Patient ambulated to bed from chair using walker, sacrum
is intact. Heels are blanchable red. Next vac change due Tuesday if still here.
[2025-04-03] MEDS: FLAGYL 500 MG PO ×2 (15:15→21:52)
[2025-04-03] MEDS: LIPITOR 40 MG PO (17:20)
[2025-04-03] MEDS: REMOVE LIDOCAINE PATCH 1 PATCH REMOVE ×2 (21:52)
[2025-04-04] VITALS (10 sets, daily range): BP systolic 70–139; BP diastolic 56–94; BMI 31.6
[2025-04-04] MEDS: TYLENOL PO (00:24)
[2025-04-04] MEDS: TYLENOL 1000 MG PO ×3 (03:31→17:27)
[2025-04-04] MEDS: TRANXENE 7.5 MG PO (06:02)
[2025-04-04 06:53] LABS: Hematocrit 39.3 % (37.0-47.0); Hemoglobin 12.9 g/dL (12.0-16.0); Mean Corp Hgb Conc. 32.8 g/dL (33.0-37.0); Mean Corpuscular Volume 91.6 fL (81.0-99.0); Platelet Count 343 10^3/uL (130-400); Red Cell Dist. Width 12.5 % (11.5-14.5)
[2025-04-04 07:08] LABS: Blood Urea Nitrogen 22 mg/dl (7-17); Calcium 10.7 mg/dl (8.4-10.2); Carbon Dioxide 21 mmol/L (22-30); Chloride 112 mmol/L (98-107); Estimated Creatinine Clearance 84 ml/min; Glucose 104 mg/dl (70-99); Potassium 4.6 mmol/L (3.5-5.1); Sodium 141 mmol/L (135-145); eGFR > 60.00
--- NOTE | 2025-04-04 08:17 | W.PN.CRS1 ---
Today's Communication / Plan
-
As below
Assessment/Plan
-
74-year-old female with PMH of severe MR s/p MVR 2013, HUNTER (on CPAP), A-fib (on Eliquis, last dose morning of admission), TIA 2016, HFpEF, HLD, HTN who presented with 2 to 3 days of acute abdominal pain and rectal pressure after taking Imodium for
her chronic diarrhea. She does have chronic SBO with activity, unable to climb 1 flight of stairs. Denied any recent N/V, unintentional weight loss or chest pain. Her WBC was 29.[address] scan showed acute diverticulitis with pelvic abscess as
well as moderate amount of distant free air. She was taken urgently to the operating room.
POD 10 ex lap, drainage of pelvic abscess (culture sent), sigmoidectomy, creation of end colostomy
AFVSS
WBC 12.2 from 10.6
�Due to increase in leukocytosis, recommend IR drain; had lengthy discussion and patient is willing if we can use sedation
�Will reach out to IR to see if this can be scheduled for this afternoon; will need to be n.p.o. for 7 to 8 hours, so soonest would be 3 or 4 PM
�Continue doxycycline, cefdinir and Flagyl per ID
�Make n.p.o., okay for p.o. meds
�Pain control with Tylenol, pregabalin, lidocaine patches, tramadol as needed, and Dilaudid as needed
�Hold Eliquis, okay for DVT PPx
� Encourage OOB/IS, appreciate PT
� Appreciate hospitalist
Dispo�Will need 1-2 more days of admission
Subjective Data
Procedure
03/24/2025- Ex lap, drainage of pelvic abscess, sigmoidectomy, abdominal washout, creation of end colostomy
Subjective Data
Date of Service: April 04, 2025
No issues overnight. Denies N/V. Just finished breakfast.
Pain controlled.
Voiding
Objective Data
-
Vital Signs
Temp Pulse Resp BP Pulse Ox
97.7 F 47 18 139/73 96
04/04/25 03:54 04/04/25 03:54 04/04/25 03:54 04/04/25 03:54 04/04/25 03:54
Intake & Output
04/03/25 04/04/25 04/05/25
06:59 06:59 06:59
Intake Total 240 / 240 480 / 480
Output Total 200 / 200 100 / 100
Balance 40 / 40 380 / 380
Intake:
Oral fluids 240 / 240 480 / 480
Output:
Liquid stool amount 200 / 200 100 / 100
Colostomy 200 / 200 100 / 100
Other:
Number of approximated MODERATE 2 1 1
amounts of urine
Lab Results
04/04/25 06:28
04/04/25 06:28
Physical Exam
-
General: No Acute Distress and AOx3
HEENT: Grossly Normal
Abdomen: Soft, Non Distended, Tender (Appropriately tender near midline incision), No Guarding, No Rebound and Other (Ostomy pink and productive of stool)
Skin: Warm and Dry
Wound: No Signs of Infection and Dressing in Place (Superior aspect of midline incision open to air, intermittent molly, no surrounding erythema or purulent drainage; inferior aspect with wound VAC in place, functioning)
[2025-04-04] MEDS: TOPROL XL 37.5 MG PO ×2 (08:38→19:56)
[2025-04-04] MEDS: FLAGYL 500 MG PO ×2 (08:38→19:56)
[2025-04-04] MEDS: LYRICA 75 MG PO ×2 (08:38→19:56)
[2025-04-04] MEDS: OMNICEF 300 MG PO ×2 (08:38→19:56)
[2025-04-04] MEDS: PROTONIX 40 MG PO (08:38)
[2025-04-04] MEDS: DESENEX/MITRAZOL/ZEASORB 1 APPLIC TOPICAL ×2 (08:38→21:14)
[2025-04-04] MEDS: VIBRAMYCIN 100 MG PO ×2 (08:39→19:56)
[2025-04-04] MEDS: MUCINEX 600 MG PO (08:39)
[2025-04-04] MEDS: LIDOCAINE 4% PATCH 1 PATCH TOPICAL ×2 (08:40)
[2025-04-04 08:49] LABS: Nucleated Red Blood Cells % 0 %
[2025-04-04] MEDS: SYMBICORT 160/4.5 MCG INHALER 2 PUFF INH ×2 (08:53→21:40)
[2025-04-04] MEDS: SPIRIVA RESPIMAT 2.5 MCG 2 PUFF INH (08:53)
--- NOTE | 2025-04-04 10:10 | W.PN.ID1 ---
Date of Service
Date of Service: April 04, 2025
Today's Communication
Continue abx's.
Assessment / Plan
# Perforated sigmoid diverticulitis with pelvic abscess
- s/p washout, ostomy placement (03/24/25)
# Leukocytosis - trended up today
# PCN allergy - hives
-03/24 s/p I+D, sigmoidectomy, end colostomy
- OR cx: E. coli, Morganella, Viridans strep, Enterococcus
- 03/31/25 CT a/p: rim enhancing collection next to rectal stump
pt unable to lay prone for IR drain placement. Pt will be sedated for procedure today.
- s/p IV meropenem x 8 days
- Continue doxycycline 100mg po bid, cefdinir 300mg po bid and metronidazole 500mg po bid (d2)
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
Asthma
CVA
Hypertension
Atrial fibrillation
HFpEF
Mitral valve repair
HUNTER
Anxiety
Left total knee replaced
Left shoulder replacement
Chief Complaint
-: Other (abd abscess)
Subjective / Review of Systems
Pt to undergo perc drain today. She will be sedated for procedure.
Tolerating antibiotics so far.
Vital Signs / Physical Exam
Vital Signs
Vital Signs
Temp Pulse Resp BP Pulse Ox
97.9 F 58 16 114/63 96
04/04/25 08:25 04/04/25 09:03 04/04/25 09:03 04/04/25 08:25 04/04/25 09:03
Physical Exam
Constitutional: No Acute Distress
Cardiovascular: Regular Rate and S1/S2
Pulmonary: Clear
Gastrointestinal: Soft, Non Tender and Non Distended
Extremities: Negative Edema
Neurological: AO x 3
Objective Data
Lab Data
Lab Results
04/04/25 06:28
04/04/25 06:28
PT 16.5 Sec (11.4-14.6) H 03/24/25 16:11
INR 1.30 03/24/25 16:11
APTT 30.8 Sec (23.4-35.0) 03/24/25 16:11
Estimated Creat Clear 84 ml/min 04/04/25 06:28
Lactic Acid 1.3 mmol/L (0.7-2.0) 03/25/25 05:20
Total Bilirubin 2.2 mg/dl (0.2-1.3) H 03/24/25 13:40
AST 32 U/L (14-36) 03/24/25 13:40
ALT 21 U/L (0-35) 03/24/25 13:40
Alkaline Phosphatase 76 U/L (38-126) 03/24/25 13:40
Most recent labs reviewed.
Micro Results:
03/24/25 19:45 Wound Culture - Final
Abdomen Escherichia coli
Morganella morganii
Enterococcus faecalis
Viridans Streptococcus Group
Gram Stain - Final
03/24/25 19:45 Anaerobic Culture - Final
Abdomen
03/24/25 15:33 Blood Culture - Final
Blood/Venous No Growth - Final Report
03/24/25 15:33 Blood Culture - Final
Blood/Venous No Growth - Final Report
03/24/25 13:40 Urine Culture - Final
Urine Aerococcus Species
03/25/25 05:20 MRSA Screen - Final
Nose No Methicillin Resistant Staphylococcus aureus isolated.
Imaging:
03/31/25 CT a/p: There is a persistent rim-enhancing collection within the lower midline pelvis, adjacent to the rectal stump, which appears bilobed and measures 3.2 x 3.0 cm and 4.6 x 2.1 cm.
03/24/25 CT a/p: Acute sigmoid diverticulitis with perforation. Pelvic abscess in the cul-de-sac measuring 6.1 x 3.2 cm.
--- NOTE | 2025-04-04 11:23 | W.PN.HOSP.TC ---
Today's Communication/Plan
-
for IRAD drainage of presumptive abscess
Assessment / Plan
Assessment / Plan
74-year-old with abdominal pain
03/24/2025 CT abdomen and pelvis-acute sigmoid diverticulitis with perforation. Pelvic abscess 6.1 into 3.2 cm. Left scoliosis. Multilevel discogenic and facet DJD. Mild grade 1 spondylolisthesis L4 on L5. 1.7 cm umbilical hernia
EKG 03/20-sinus rhythm. LAD poor R wave progression, inferior/posterior infarct now present
Echo 04/24/2025-EF more than 75%. Wall motion is consistent with postoperative state. Normal RV size and function. Severely dilated LA. Mild . Mild TR. PA pressure 25 to 30 mmHg
03/31/2025-CT abdomen and pelvis-postoperative changes of partial colectomy with left lower quadrant and a colostomy. Persistent rim-enhancing collection within the lower midline pelvis adjacent to the rectal stump 3.2 into 3.0 into 4.6 into 2.1 cm.
Mild hepatomegaly. Bibasilar atelectasis more pronounced on the right.
# Acute sigmoid diverticulitis with perforation/pelvic abscess
S/P Ex lap, drainage of pelvic abscess, sigmoidectomy, abdominal washout, creation of end colostomy Dr. Hutson on 03/24/2025
S/P meropenem x 8 days, was changed to doxycycline 100mg po bid, cefdinir 300mg po bid and metronidazole 500mg po bid through 04/16/25.
White count 10.6-->12.2k
OR cultures , Gram stain with strep viridans, Enterococcus and Morganella, E. coli
NG tube removed and Roa removed.
Diet advanced to regular diet
Stool output noted in the stoma
mechanical technician for stoma management
encourage IS
CT showing: Postoperative changes of partial colectomy with left lower quadrant end colostomy. There is a persistent rim-enhancing collection within the lower midline pelvis, adjacent to the rectal stump, which appears bilobed and measures 3.2 x
3.0 cm and 4.6 x 2.1 cm.-Eliquis on hold.
Patient could not lay prone therefore IR could not aspirate
Colorectal surgery wants to IRAD drain with sedation later today
# Hypotension- Post BB, Vac change and Dilaudid- 500 ml bolus and watch.Pt feels tired. no other symptoms. EKG flutter with 4:1 block
# Lactic acidosis resolved
# Acute Hypoxic resp failure post op - Likely atelectasis-off oxygen now.Discussed about using IS.
# Paroxysmal atrial fibrillation
went into afib night of 03/27/25
Of Cardizem gtt, Continue Metoprolol 37.5 mg twice daily
Restarted full Anticoagulation 03/28/25. Anticoagulation placed on hold on 03/31/2025 for IR procedure
Pause - Reviewed with cards Yesterday, no new changes recommended
Heart rate has been up and down. Continue metoprolol dose recommended by cardiology
# Mitral Regurgitation-history of valve repair 2013
# Asthma-continue Dulera, Breztri, Dymista or equivalent
# Hyperlipidemia-statin
# HTN- BB Was on metoprolol 100 mg in a.m. and 50 mg in p.m. now on 37.5 mg p.o. twice daily
# GERD-continue PPI
# Anxiety-continue Clorazepate
# Left scoliosis. Multilevel discogenic and facet degenerative changes. Mild grade 1 spondylolisthesis of L4 and L5.
# H/O Migraine
# Obesity with a BMI 33
# HUNTER- CPAP ordered .
# DVT prophylaxis-Eliquis
# CODE STATUS-DNR
D/W RN at bedside
discussed with Dr. Jaxon Hutson. He will confirm plans with Dr. Tirado for intervention on rim enhancing collection seen on CT scan from 03/31. IRAD nursing recommended holding off on SQ Heparin for DVT until 12 hrs post procedure, for planned prone
procedure for IRAD drainage
D/W ID
Anticipated Discharge: > 48 hours
Subjective/Interval History
-
Date of Service: April 04, 2025
Nervous over planned IRAD drainage
Objective Data
-
Labs:
Laboratory Results
04/04/25
06:28
WBC 12.2 H
Hgb 12.9
Hct 39.3
Plt Count 343
Sodium 141
Potassium 4.6
Chloride 112 H
Carbon Dioxide 21 L
BUN 22 H
Creatinine 0.6
Glucose 104 H
Calcium 10.7 H
Vital Signs:
Vital Signs
Temp Pulse Resp BP Pulse Ox
97.9 F 58 16 114/63 96
04/04/25 08:25 04/04/25 09:03 04/04/25 09:03 04/04/25 08:25 04/04/25 09:03
I&O
04/03/25 04/04/25 04/05/25
06:59 06:59 06:59
Intake Total 240 / 240 480 / 480
Output Total 200 / 200 100 / 100 50 / 50
Balance 40 / 40 380 / 380 -50 / -50
Review of Systems
-
History Source: Patient and Coordinated Provider
Constitutional: Denies Fever
EENT: Reports No Symptoms Reported
Respiratory: Reports No Symptoms
Cardiac: Reports No Symptoms
Abdomen/GI: Reports Abdominal Pain
Musculoskeletal: Reports No Symptoms
Physical Exam
-
General: Well Developed, Well Nourished and No Apparent Distress
HEENT: Normocephalic, Atraumatic and Moist Mucous Membranes
Respiratory: Clear to Auscultation (with splinting); Negative Wheezes, Rales or Rhonchi
Cardiac: Regular Rhythm and S1/S2
GI: Soft, Tender and Ostomy (Stoma with liquidy stool in ostomy bag); Negative Normal Bowel Sounds (hypoactive BS)
Musculoskeletal: No Clubbing, No Cyanosis and No Edema
Skin: Warm and Dry
Neuro: Awake, Alert and Oriented
--- NOTE | 2025-04-04 13:43 | CM ---
CM following re: discharge planning.
Reviewed pt's chart, met with pt.
Per Colorectal surgery, pt will need to continue inpatient level of cafe for 1-2 days. ID following.
CM spoke to [facility] space sciences director and she confirmed that pt will be accepted for admission to [facility] when pt is medically stable. Pt is aware, expressed her great appreciation with discharge plan outcome.
Pt stated she will need w/c van transport at discharge. Pt stated she might ask her son to transport but pt feels that her son might not be able due to being impatience.
Pt stated she has her C-pap machine here and she will bring it to [facility]. [facility] is aware.
[facility] nursing report: [phone]
Discharge instructions fax: [phone].
D/C plan: [facility] most likely by w/c van.
CM will follow to assist pt with discharge to [facility].
[2025-04-04] MEDS: ATIVAN 0.5 MG IV (15:12)
[2025-04-04] MEDS: LIPITOR 40 MG PO (17:27)
[2025-04-04] MEDS: REMOVE LIDOCAINE PATCH 1 PATCH REMOVE ×2 (21:14)
[2025-04-05] VITALS (8 sets, daily range): BP systolic 102–131; BP diastolic 59–89; PULSE 117; O2SAT 96–98; BMI 31.7
[2025-04-05] MEDS: TYLENOL PO ×2 (01:04→06:05)
[2025-04-05] MEDS: SPIRIVA RESPIMAT 2.5 MCG 2 PUFF INH (07:15)
[2025-04-05] MEDS: SYMBICORT 160/4.5 MCG INHALER 2 PUFF INH ×2 (07:15→18:06)
[2025-04-05] MEDS: DESENEX/MITRAZOL/ZEASORB 1 APPLIC TOPICAL ×2 (07:58→20:21)
--- NOTE | 2025-04-05 07:58 | PN.IRAD.UPD ---
Update Note - IRAD
- -
Checked the abscess drain to make sure there was still a stop cock on it and it is still in good position.
Fabio Reynolds RT(R)()
[2025-04-05] MEDS: LIDOCAINE 4% PATCH 1 PATCH TOPICAL ×2 (08:00)
[2025-04-05] MEDS: VIBRAMYCIN 100 MG PO ×2 (08:00→20:22)
[2025-04-05] MEDS: MUCINEX 600 MG PO (08:00)
[2025-04-05] MEDS: LYRICA 75 MG PO ×2 (08:00→20:22)
[2025-04-05] MEDS: PROTONIX 40 MG PO (08:01)
[2025-04-05] MEDS: FLAGYL 500 MG PO ×2 (08:01→20:22)
[2025-04-05] MEDS: OMNICEF 300 MG PO ×2 (08:01→20:22)
[2025-04-05] MEDS: TOPROL XL 37.5 MG PO ×2 (08:01→20:22)
--- NOTE | 2025-04-05 10:24 | W.PN.ID1 ---
Date of Service
Date of Service: April 05, 2025
Today's Communication
Continue doxycycline 100mg po bid, cefdinir 300mg po bid and metronidazole 500mg po bid (d3) through 04/16/25.
Assessment / Plan
# Perforated sigmoid diverticulitis with pelvic abscess
- s/p washout, ostomy placement (03/24/25)
# Leukocytosis - trended up today
# PCN allergy - hives
-03/24 s/p I+D, sigmoidectomy, end colostomy
- OR cx: E. coli, Morganella, Viridans strep, Enterococcus
- 03/31/25 CT a/p: rim enhancing collection next to rectal stump
04/04/12 s/p IR perc drain - thick bloody fluid.
Gram stain no org. cx neg.
- s/p IV meropenem x 8 days
- Continue doxycycline 100mg po bid, cefdinir 300mg po bid and metronidazole 500mg po bid (d3) through 04/16/25.
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
Asthma
CVA
Hypertension
Atrial fibrillation
HFpEF
Mitral valve repair
HUNTER
Anxiety
Left total knee replaced
Left shoulder replacement
Chief Complaint
-: Other (abd abscess)
Subjective / Review of Systems
Tolerating abx's.
Vital Signs / Physical Exam
Vital Signs
Vital Signs
Temp Pulse Resp BP Pulse Ox
98.4 F 83 18 131/89 96
04/05/25 07:50 04/05/25 07:50 04/05/25 07:50 04/05/25 07:50 04/05/25 07:56
Physical Exam
Constitutional: No Acute Distress
Cardiovascular: Regular Rate and S1/S2
Pulmonary: Clear
Gastrointestinal: Soft, Non Tender, Non Distended and Other (YOEL drain: serosanguinous clear fluid)
Extremities: Negative Edema
Neurological: AO x 3
Objective Data
Lab Data
PT 16.5 Sec (11.4-14.6) H 03/24/25 16:11
INR 1.30 03/24/25 16:11
APTT 30.8 Sec (23.4-35.0) 03/24/25 16:11
Estimated Creat Clear 84 ml/min 04/04/25 06:28
Lactic Acid 1.3 mmol/L (0.7-2.0) 03/25/25 05:20
Total Bilirubin 2.2 mg/dl (0.2-1.3) H 03/24/25 13:40
AST 32 U/L (14-36) 03/24/25 13:40
ALT 21 U/L (0-35) 03/24/25 13:40
Alkaline Phosphatase 76 U/L (38-126) 03/24/25 13:40
Most recent labs reviewed.
Micro Results:
04/04/25 16:00 Wound Culture - Pending
Abscess Gram Stain - Preliminary
04/04/25 16:00 Anaerobic Culture - Pending
Abscess
03/24/25 19:45 Wound Culture - Final
Abdomen Escherichia coli
Morganella morganii
Enterococcus faecalis
Viridans Streptococcus Group
Gram Stain - Final
03/24/25 19:45 Anaerobic Culture - Final
Abdomen
03/24/25 15:33 Blood Culture - Final
Blood/Venous No Growth - Final Report
03/24/25 15:33 Blood Culture - Final
Blood/Venous No Growth - Final Report
03/24/25 13:40 Urine Culture - Final
Urine Aerococcus Species
03/25/25 05:20 MRSA Screen - Final
Nose No Methicillin Resistant Staphylococcus aureus isolated.
Imaging:
03/31/25 CT a/p: There is a persistent rim-enhancing collection within the lower midline pelvis, adjacent to the rectal stump, which appears bilobed and measures 3.2 x 3.0 cm and 4.6 x 2.1 cm.
03/24/25 CT a/p: Acute sigmoid diverticulitis with perforation. Pelvic abscess in the cul-de-sac measuring 6.1 x 3.2 cm.
[2025-04-05 10:35] LABS: Hematocrit 44.2 % (37.0-47.0); Hemoglobin 14.5 g/dL (12.0-16.0); Mean Corp Hgb Conc. 32.8 g/dL (33.0-37.0); Mean Corpuscular Volume 91.5 fL (81.0-99.0); Nucleated Red Blood Cells % 0 %; Platelet Count 368 10^3/uL (130-400); Red Cell Dist. Width 12.4 % (11.5-14.5)
[2025-04-05 10:59] LABS: ALT (SGPT) 20 U/L (0-35); AST (SGOT) 26 U/L (14-36); Albumin 4.3 g/dl (3.5-5.0); Alkaline Phosphatase 89 U/L (38-126); Blood Urea Nitrogen 21 mg/dl (7-17); Calcium 10.9 mg/dl (8.4-10.2); Carbon Dioxide 21 mmol/L (22-30); Chloride 112 mmol/L (98-107); Estimated Creatinine Clearance 83 ml/min; Glucose 106 mg/dl (70-99); Potassium 4.9 mmol/L (3.5-5.1); Sodium 142 mmol/L (135-145); Total Protein 7.5 g/dl (6.3-8.2); eGFR > 60.00
[2025-04-05] MEDS: TYLENOL 1000 MG PO ×3 (11:23→23:13)
--- NOTE | 2025-04-05 12:24 | W.PN.CRS1 ---
Today's Communication / Plan
-
Continue current care.
Assessment/Plan
-
POD 11.
1. IR drain in place. WBC up a bit to 13.3. Continue drain care and antibiotics (per ID). Would like to see WBC improvement.
2. continue other measures.
Subjective Data
Procedure
03/24/2025- Ex lap, drainage of pelvic abscess, sigmoidectomy, abdominal washout, creation of end colostomy
Subjective Data
Date of Service: April 05, 2025
Some discomfort at new drain site.
Tolerating diet.
Objective Data
-
Vital Signs
Temp Pulse Resp BP Pulse Ox
97.8 F 72 18 102/67 99
04/05/25 11:00 04/05/25 11:00 04/05/25 11:00 04/05/25 11:00 04/05/25 11:00
Intake & Output
04/04/25 04/05/25 04/06/25
06:59 06:59 06:59
Intake Total 480 / 480 970 / 970 5 / 5
Output Total 100 / 100 350 / 350 250 / 250
Balance 380 / 380 620 / 620 -245 / -245
Intake:
Oral fluids 480 / 480 720 / 720
IV fluids (Total) 250 / 250
NSS 250 / 250
Amount instilled into Drain ( 5 / 5
Total)
Left Lower Back Chase-Guzman 5 / 5
Output:
Liquid stool amount 100 / 100 350 / 350 250 / 250
Colostomy 100 / 100 350 / 350 250 / 250
Other:
Number of approximated MODERATE 1 3 1
amounts of urine
Lab Results
04/05/25 10:03
04/05/25 10:03
Physical Exam
-
General: No Acute Distress
Chest: Clear
Cardiovascular: Regular Rate & Rhythm
Abdomen: Tender (mild incisional; stoma viable with output) and Other (IR drain with SS output)
Incision: Clear, Dry, Intact, No Skin Erythema and Other (VAC in place)
--- NOTE | 2025-04-05 12:45 | CM ---
CM following re: discharge planning.
Reviewed pt's chart, met with pt.
Per MD pt is not medically stable to be discharged today.
CM spoke to [facility] director talent management and she confirmed that pt will be accepted for admission to [facility] when pt is medically stable. Pt is aware, expressed her great appreciation with discharge plan outcome.
Pt stated she will need w/c van transport at discharge. Pt stated she might ask her son to transport but pt feels that her son might not be able due to being impatience.
Pt stated she has her C-pap machine here and she will bring it to [facility]. [facility] is aware.
[facility] nursing report: [phone]
Discharge instructions fax: [phone].
D/C plan: [facility] most likely by w/c van.
CM will follow to assist pt with discharge to [facility].
--- NOTE | 2025-04-05 12:48 | WOUNDNOTE ---
WON RN NOTE: Wound vac dressing changed, base of wound filling in with granulation tissue, few scattered sanchez areas suspect fat deposits. Colostomy appliance changed with patient doing most of the work while guided. Stoma pink and budded, peristomal
skin intact. Patient reports she and staff have been emptying pouch together. Encouraged patient to continue to assist staff and eventually try and do on own. Reviewed ostomy folder, how to order supplies and the secure start box. Patient ambulating
with use of walker, assist with tubes etc. Will follow on Tuesday if still here.
[2025-04-05] MEDS: LIPITOR 40 MG PO (17:05)
--- NOTE | 2025-04-05 17:45 | W.PN.HOSP.TC ---
Today's Communication/Plan
-
continue abx as ordered
resume Eliquis recheck CBC in AM
Assessment / Plan
Assessment / Plan
74-year-old with abdominal pain
03/24/2025 CT abdomen and pelvis-acute sigmoid diverticulitis with perforation. Pelvic abscess 6.1 into 3.2 cm. Left scoliosis. Multilevel discogenic and facet DJD. Mild grade 1 spondylolisthesis L4 on L5. 1.7 cm umbilical hernia
EKG 03/20-sinus rhythm. LAD poor R wave progression, inferior/posterior infarct now present
Echo 04/24/2025-EF more than 75%. Wall motion is consistent with postoperative state. Normal RV size and function. Severely dilated LA. Mild . Mild TR. PA pressure 25 to 30 mmHg
03/31/2025-CT abdomen and pelvis-postoperative changes of partial colectomy with left lower quadrant and a colostomy. Persistent rim-enhancing collection within the lower midline pelvis adjacent to the rectal stump 3.2 into 3.0 into 4.6 into 2.1 cm.
Mild hepatomegaly. Bibasilar atelectasis more pronounced on the right.
# Acute sigmoid diverticulitis with perforation/pelvic abscess
S/P Ex lap, drainage of pelvic abscess, sigmoidectomy, abdominal washout, creation of end colostomy Dr. Hutson on 03/24/2025
S/P meropenem x 8 days, was changed to doxycycline 100mg po bid, cefdinir 300mg po bid and metronidazole 500mg po bid through 04/16/25.
White count 10.6-->12.2-->13.3k
OR cultures , Gram stain with strep viridans, Enterococcus and Morganella, E. coli
NG tube removed and Roa removed.
Diet advanced to regular diet
Stool output noted in the stoma
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
encourage IS
03/31 CT showing: Postoperative changes of partial colectomy with left lower quadrant end colostomy. There is a persistent rim-enhancing collection within the lower midline pelvis, adjacent to the rectal stump, which appears bilobed and measures 3.2
x 3.0 cm and 4.6 x 2.1 cm.-Eliquis on hold.
Patient could not lay prone therefore IR could not aspirate
Colorectal surgery wanted to IRAD drain with sedation later
# Hypotension- Post BB, Vac change and Dilaudid- 500 ml bolus and watch.Pt feels tired. no other symptoms. EKG flutter with 4:1 block
# Lactic acidosis resolved
# Acute Hypoxic resp failure post op - Likely atelectasis-off oxygen now.Discussed about using IS.
# Paroxysmal atrial fibrillation
went into afib night of 03/27/25
Of Cardizem gtt, Continue Metoprolol 37.5 mg twice daily
Restarted full Anticoagulation 03/28/25. Anticoagulation placed on hold on 03/31/2025 for IR procedure
Pause - Reviewed with cards no new changes recommended
Heart rate has been up and down. Continue metoprolol dose recommended by cardiology
# Mitral Regurgitation-history of valve repair 2013
# Asthma-continue Dulera, Breztri, Dymista or equivalent
# Hyperlipidemia-statin
# HTN- BB Was on metoprolol 100 mg in a.m. and 50 mg in p.m. now on 37.5 mg p.o. twice daily
# GERD-continue PPI
# Anxiety-continue Clorazepate
# Left scoliosis. Multilevel discogenic and facet degenerative changes. Mild grade 1 spondylolisthesis of L4 and L5.
# H/O Migraine
# Obesity with a BMI 33
# HUNTER- CPAP ordered .
# DVT prophylaxis-Eliquis
# CODE STATUS-DNR
D/W RN at bedside
discussed with Dr. Jaxon Hutson. Discussed with Dr. Tirado, okay to resume Eliquis today (04/05), will order
D/W ID
Anticipated Discharge: > 48 hours
Subjective/Interval History
-
Date of Service: April 05, 2025
Generally feels better today
Objective Data
-
Labs:
Laboratory Results
04/05/25
10:03
WBC 13.3 H
Hgb 14.5
Hct 44.2
Plt Count 368
Sodium 142
Potassium 4.9
Chloride 112 H
Carbon Dioxide 21 L
BUN 21 H
Creatinine 0.6
Glucose 106 H
Calcium 10.9 H
Total Bilirubin 1.0
AST 26
ALT 20
Alkaline Phosphatase 89
Vital Signs:
Vital Signs
Temp Pulse Resp BP Pulse Ox
97.9 F 75 18 108/69 98
04/05/25 15:00 04/05/25 15:00 04/05/25 15:00 04/05/25 15:00 04/05/25 15:00
I&O
04/04/25 04/05/25 04/06/25
06:59 06:59 06:59
Intake Total 480 / 480 970 / 970 245 / 245
Output Total 100 / 100 350 / 350 250 / 250
Balance 380 / 380 620 / 620 -5 / -5
Review of Systems
-
History Source: Patient and Coordinated Provider
Constitutional: Denies Fever
EENT: Reports No Symptoms Reported
Respiratory: Reports No Symptoms
Cardiac: Reports No Symptoms
Abdomen/GI: Reports Abdominal Pain
Musculoskeletal: Reports No Symptoms
Physical Exam
-
General: Well Developed, Well Nourished and No Apparent Distress
HEENT: Normocephalic, Atraumatic and Moist Mucous Membranes
Respiratory: Clear to Auscultation (with splinting); Negative Wheezes, Rales or Rhonchi
Cardiac: Regular Rhythm and S1/S2
GI: Soft, Tender, Ostomy (Stoma with liquidy stool in ostomy bag) and Other (IRAD drain in place); Negative Normal Bowel Sounds (BS much more active today, probably approaching baseline status)
Musculoskeletal: No Clubbing, No Cyanosis and No Edema
Skin: Warm and Dry
Neuro: Awake, Alert and Oriented
[2025-04-05] MEDS: REMOVE LIDOCAINE PATCH 1 PATCH REMOVE ×2 (20:22→20:23)
[2025-04-05] MEDS: ELIQUIS 5 MG PO (20:22)
[2025-04-06 03:10] VITALS: BP 106/67
[2025-04-06] MEDS: MYLICON 80 MG PO (03:36)
[2025-04-06 06:23] LABS: Hematocrit 39.4 % (37.0-47.0); Hemoglobin 12.7 g/dL (12.0-16.0); Mean Corp Hgb Conc. 32.2 g/dL (33.0-37.0); Mean Corpuscular Volume 92.7 fL (81.0-99.0); Nucleated Red Blood Cells % 0 %; Platelet Count 321 10^3/uL (130-400); Red Cell Dist. Width 12.6 % (11.5-14.5)
[2025-04-06 06:46] LABS: Blood Urea Nitrogen 26 mg/dl (7-17); Calcium 10.2 mg/dl (8.4-10.2); Carbon Dioxide 22 mmol/L (22-30); Chloride 112 mmol/L (98-107); Estimated Creatinine Clearance 83 ml/min; Glucose 98 mg/dl (70-99); Potassium 4.1 mmol/L (3.5-5.1); Sodium 142 mmol/L (135-145); eGFR > 60.00
[2025-04-06 07:00] VITALS: BP 143/76
[2025-04-06 07:14] VITALS: BMI 31.5
[2025-04-06] MEDS: MUCINEX 600 MG PO (07:46)
[2025-04-06] MEDS: TOPROL XL 37.5 MG PO ×2 (07:46→20:41)
[2025-04-06] MEDS: PROTONIX 40 MG PO (07:46)
[2025-04-06] MEDS: TYLENOL 1000 MG PO ×4 (07:47→22:37)
[2025-04-06] MEDS: OMNICEF 300 MG PO ×2 (07:47→20:41)
[2025-04-06] MEDS: LIDOCAINE 4% PATCH 1 PATCH TOPICAL ×2 (07:47→12:52)
[2025-04-06] MEDS: VIBRAMYCIN 100 MG PO ×2 (07:48→20:41)
[2025-04-06] MEDS: LYRICA 75 MG PO ×2 (07:48→20:41)
[2025-04-06] MEDS: FLAGYL 500 MG PO ×2 (07:48→20:42)
--- NOTE | 2025-04-06 08:02 | W.PN.ID1 ---
Date of Service
Date of Service: April 06, 2025
Today's Communication
Continue doxycycline 100mg po bid, cefdinir 300mg po bid and metronidazole 500mg po bid (d5) through 04/16/25.
Assessment / Plan
# Perforated sigmoid diverticulitis with pelvic abscess
- s/p washout, ostomy placement (03/24/25)
# Leukocytosis - resolving
# PCN allergy - hives
-03/24 s/p I+D, sigmoidectomy, end colostomy
- OR cx: E. coli, Morganella, Viridans strep, Enterococcus
- 03/31/25 CT a/p: rim enhancing collection next to rectal stump
04/04/12 s/p IR perc drain - thick bloody fluid.
Gram stain no org. cx neg to date
- (s/p IV meropenem x 8 days)
- Continue doxycycline 100mg po bid, cefdinir 300mg po bid and metronidazole 500mg po bid (d5) through 04/16/25.
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
Asthma
CVA
Hypertension
Atrial fibrillation
HFpEF
Mitral valve repair
HUNTER
Anxiety
Left total knee replaced
Left shoulder replacement
Chief Complaint
-: Other (abd abscess)
Subjective / Review of Systems
Feels well
Vital Signs / Physical Exam
Vital Signs
Vital Signs
Temp Pulse Resp BP Pulse Ox
98.0 F 70 18 143/76 96
04/06/25 07:00 04/06/25 07:00 04/06/25 07:00 04/06/25 07:00 04/06/25 07:00
Physical Exam
Constitutional: No Acute Distress
Cardiovascular: Regular Rate and S1/S2
Pulmonary: Clear
Gastrointestinal: Soft, Non Tender, Non Distended and Other (YOEL drain: serosanguinous clear fluid)
Extremities: Negative Edema
Neurological: AO x 3
Objective Data
Lab Data
Lab Results
04/06/25 05:19
04/06/25 05:19
PT 16.5 Sec (11.4-14.6) H 03/24/25 16:11
INR 1.30 03/24/25 16:11
APTT 30.8 Sec (23.4-35.0) 03/24/25 16:11
Estimated Creat Clear 83 ml/min 04/06/25 05:19
Lactic Acid 1.3 mmol/L (0.7-2.0) 03/25/25 05:20
Total Bilirubin 1.0 mg/dl (0.2-1.3) 04/05/25 10:03
AST 26 U/L (14-36) 04/05/25 10:03
ALT 20 U/L (0-35) 04/05/25 10:03
Alkaline Phosphatase 89 U/L (38-126) 04/05/25 10:03
Most recent labs reviewed.
Micro Results:
04/04/25 16:00 Anaerobic Culture - Preliminary
Abscess Culture pending. Anaerobic cultures are examined after 3
days incubation. Additional information to follow.
04/04/25 16:00 Wound Culture - Preliminary
Abscess No growth
Gram Stain - Preliminary
03/24/25 19:45 Wound Culture - Final
Abdomen Escherichia coli
Morganella morganii
Enterococcus faecalis
Viridans Streptococcus Group
Gram Stain - Final
03/24/25 19:45 Anaerobic Culture - Final
Abdomen
03/24/25 15:33 Blood Culture - Final
Blood/Venous No Growth - Final Report
03/24/25 15:33 Blood Culture - Final
Blood/Venous No Growth - Final Report
03/24/25 13:40 Urine Culture - Final
Urine Aerococcus Species
03/25/25 05:20 MRSA Screen - Final
Nose No Methicillin Resistant Staphylococcus aureus isolated.
Imaging:
03/31/25 CT a/p: There is a persistent rim-enhancing collection within the lower midline pelvis, adjacent to the rectal stump, which appears bilobed and measures 3.2 x 3.0 cm and 4.6 x 2.1 cm.
03/24/25 CT a/p: Acute sigmoid diverticulitis with perforation. Pelvic abscess in the cul-de-sac measuring 6.1 x 3.2 cm.
[2025-04-06] MEDS: SPIRIVA RESPIMAT 2.5 MCG 2 PUFF INH (08:14)
[2025-04-06] MEDS: SYMBICORT 160/4.5 MCG INHALER 2 PUFF INH ×2 (08:14→20:18)
[2025-04-06] MEDS: ELIQUIS 5 MG PO ×2 (08:52→20:41)
[2025-04-06 09:52] VITALS: PULSE 74; O2SAT 96
[2025-04-06 10:40] LABS: COVID-19 Antigen Negative (Negative)
[2025-04-06 11:15] VITALS: BP 142/76
--- NOTE | 2025-04-06 11:25 | W.PN.CRS1 ---
Today's Communication / Plan
-
dispo planning
Assessment/Plan
-
74 yo female with h/o MVR 2013, HUNTER (on CPAP), A-fib, HFpEF presenting for perforated diverticulitis with pelvic abscess
POD #14 ex lap, drainage of abscess, sigmoidectomy and creation of end colostomy
F/u CT imaging on 03/31 with ?abscess near rectal stump, initially refused IR drain placement but agreeable to proceed with sedation on 04/04, drain continues in place (Cx with NGTD)
AFVSS
Tolerating diet with good stoma function
Wound vac to lower portion of incision
WBC trended down to 10.9, other labs stable
Plan:
Continue regular diet
ABX as per ID, doxycycline 100mg po bid, cefdinir 300mg po bid and metronidazole 500mg po bid planned to continue through 04/16
PT/OT/CM following
OOB as tolerated
Ok for discharge from surgical standpoint, final disposition as per primary team
Subjective Data
Procedure
03/24/2025- Ex lap, drainage of pelvic abscess, sigmoidectomy, abdominal washout, creation of end colostomy
Subjective Data
Date of Service: April 06, 2025
Pt seen and examined at bedside with Dr. Davenport. Denies n/v. Passing quite a bit of flatus from stoma. Tolerating diet. OOB to chair. In good spirits. Reports some nasal congestion.
Objective Data
-
Vital Signs
Temp Pulse Resp BP Pulse Ox
98.0 F 47 16 143/76 96
04/06/25 07:00 04/06/25 08:15 04/06/25 08:15 04/06/25 07:00 04/06/25 08:15
Intake & Output
04/05/25 04/06/25 04/07/25
06:59 06:59 06:59
Intake Total 970 / 970 245 / 245
Output Total 350 / 350 250 / 250
Balance 620 / 620 -5 / -5 0 / 0
Intake:
Oral fluids 720 / 720 240 / 240
IV fluids (Total) 250 / 250
NSS 250 / 250
Amount instilled into Drain (
Total)
Left Lower Back Chase-Guzman
Output:
Liquid stool amount 350 / 350 250 / 250
Colostomy 350 / 350 250 / 250
Drain Output (Total)
Left Lower Back Chase-Guzman
Other:
Number of approximated MODERATE 3 1 2
amounts of urine
Lab Results
04/06/25 05:19
04/06/25 05:19
Physical Exam
-
General: No Acute Distress
Chest: Clear
Cardiovascular: Regular Rate & Rhythm
Abdomen: Tender (mild incisional; stoma viable with output) and Other (IR drain with SS output)
Skin: Warm
Incision: Clear, Dry, Intact, No Skin Erythema and Other (VAC in place)
--- NOTE | 2025-04-06 11:54 | W.PN.HOSP.TC ---
Addendum entered and electronically signed by Eduardo Breaux MD 04/06/25 12:39:
DOnt use billing under this PN - use D/C summary billing only
Original Note:
Today's Communication/Plan
-
CM for rehab
Assessment / Plan
Assessment / Plan
74yo F with PMHx of MVR, HUNTER, Afib on Eliquis, HFpEF came with abd pain, found diverticulitis with pelvic abscesses, had exploratory laparoscopy and drainage of abscess with sigmoidectomy and creation of end colostomy. Later had drain placed on
03/31/25 due to f/u CT showing abscess near rectal stump. Wound vac started. Abx to cont till 04/16/25. COlorectalSx agreeable with d/c to [facility] as recommended by PT/OT
A/P:
#Acute diverticulitis
#Peritoneal abscess
S/P Ex lap, drainage of pelvic abscess, sigmoidectomy, abdominal washout, creation of end colostomy Dr. Hutson on 03/24/2025
S/P IRADdrain of abscess on 03/31/25
Doxy/Cefdinir/Flagyl until 04/16/25 as per ID
#Paroxysmal Afib
cont Eliquis and rate control
#Acute upper respiratory inection
COVID-19 and Influenza neg
#MR s/p repair
#Asthma, not in exacerbation
#HLD
#Essential HTN
#GERD
#ANxiety
#Hx of migraines
#HUNTER on CPAP
cont home meds and CPAP
DVT ppx Eliquis
DNR/DNI
I have spent at least 57min reviewing chart, test results, communication with consultants and providing direct patient care
Anticipated Discharge: Within 24 hours
Subjective/Interval History
-
Date of Service: April 06, 2025
Objective Data
-
Labs:
Laboratory Results
04/06/25
05:19
WBC 10.9 H
Hgb 12.7
Hct 39.4
Plt Count 321
Sodium 142
Potassium 4.1
Chloride 112 H
Carbon Dioxide 22
BUN 26 H
Creatinine 0.6
Glucose 98
Calcium 10.2
Vital Signs:
Vital Signs
Temp Pulse Resp BP Pulse Ox
98.0 F 47 16 143/76 96
04/06/25 07:00 04/06/25 08:15 04/06/25 08:15 04/06/25 07:00 04/06/25 08:15
I&O
04/05/25 04/06/25 04/07/25
06:59 06:59 06:59
Intake Total 970 / 970 245 / 245
Output Total 350 / 350 250 / 250
Balance 620 / 620 -5 / -5 0 / 0
Review of Systems
-
History Source: Patient
All other systems: Reviewed and negative
Physical Exam
-
General: No Apparent Distress
HEENT: Normocephalic
Respiratory: Clear to Auscultation
Neuro: Awake, Alert, Oriented and AO x 3
Psych: Calm
--- NOTE | 2025-04-06 12:38 | W.DCSUMMARY ---
Discharge Summary
Discharge Data
Date of Admission: 03/24/25
Date of Discharge: 04/06/25
-
Pending Results: No
Hospital Course
74yo F with PMHx of MVR, HUNTER, Afib on Eliquis, HFpEF came with abd pain, found diverticulitis with pelvic abscesses, had exploratory laparoscopy and drainage of abscess with sigmoidectomy and creation of end colostomy. Later had drain placed on
03/31/25 due to f/u CT showing abscess near rectal stump. Wound vac started. Abx to cont till 04/16/25. COlorectalSx agreeable with d/c to STR as recommended by PT/OT
I have spent at least 57min reviewing chart, test results, communication with consultants and providing direct patient care
Patient managed for:
#Acute diverticulitis
#Peritoneal abscess
#Paroxysmal Afib
#Acute upper respiratory infection
#MR s/p repair
#Asthma, not in exacerbation
#HLD
#Essential HTN
#GERD
#ANxiety
#Hx of migraines
#HUNTER on CPAP
Discharge Plan
-
Patient Disposition: Alf/SNF
Discharge Diagnosis/Procedures: Acute sigmoid diverticulitis with perforation/pelvic abscess
Exploratory laparotomy, drainage of pelvic abscess, sigmoidectomy, end colostomy 03/24/2025
Acute hypoxic respiratory failure
Paroxysmal atrial fibrillation
Mitral regurgitation with history of mitral valve repair 2013
Asthma
Hyperlipidemia
Hypertension
GERD
Anxiety
Sleep apnea
Diet: Low Residue
Activity: No strenuous activity
Additional Activity: No lifting over 10lbs (gallon of milk)
Driving Restrictions: No driving for 1 week
Bathing Restrictions: OK to Shower
Other Services: PT and OT
Activity Restrictions/Additional Instructions:
Mid lower abdominal wound-negative pressure wound therapy (Wound vac)-Use Black foam, Change every 48 - 72 hours (i. e. Pduqzbh-Xnnrmdckga-Qtbdawb) and prn if unable to obtain a seal. Low Intensity, Continuous at 125 mmHg. Upon discharge or transfer
to another facility, remove VAC foam and apply NS moistened gauze dressing unless home VAC unit available.
Colostomy supplies: Chip wafer # [id number], Ariadna seal(IF HAVING LEAKAGE ISSUES) and Chip pouch # [id number], change 2 times a week and as needed for leakage. If leakage occurs, try using Chip soft convex wafer # [id number] instead with an Ariadna
seal.
Call supply [facility] (list in folder provided) for monthly Ostomy supplies after discharge (ask VN to order supplies while on service).
Follow up with surgeon.
Call [facility] RN nurse for ostomy pouching concerns or leakage problems [phone] or [phone] or [phone].
Incentive spirometry
CPAP-at nighttime-patient to use her own
Referrals:
Tato Hutson MD [Active, ColoRectal] - in two weeks
UNKNOWN - PT DOES,NOT KNOW [Family Provider]
Additional Discharge Medication Instructions: doxycycline 100mg po bid, cefdinir 300mg po bid and metronidazole 500mg po bid through 04/16/25.
Prescriptions:
New
lidocaine 4 % Adhesive Patch,Medicated
1 patch topical DAILY Qty: 0 0RF
tramadol 50 mg Tablet
50 mg PO Q6HPRN PRN (Reason: moderate pain) Qty: 8 0RF
metoprolol succinate 25 mg Tablet Extended Release 24 Hr
37.5 mg PO BID Qty: 0 0RF
pregabalin 75 mg Capsule
75 mg PO BID Qty: 0 0RF
doxycycline hyclate 100 mg capsule
100 mg PO BID Qty: 20 0RF
cefdinir 300 mg capsule
300 mg PO BID Qty: 20 0RF
metronidazole 500 mg tablet
500 mg PO Q8H Qty: 30 0RF
Continued
clorazepate dipotassium 3.75 MG tablet
7.5 mg PO DAILY
azelastine-fluticasone [Dymista] 23 GM spray,non-aerosol
50 mg intranasal DAILY
guaifenesin [Mucinex] 600 MG tablet extended release 12hr
600 mg PO DAILY
Dulera 1 PUFF HFA aerosol inhaler
2 puff inhalation R BID
Rx Instructions:
no pharmacy fill or ecw
atorvastatin [Lipitor] 40 mg Tablet
40 mg PO HS
omeprazole magnesium [Prilosec OTC] 20 mg Tablet,Delayed Release (Dr/Ec)
20 mg PO DAILY
Eliquis 5 mg Tablet
5 mg PO BID
acetaminophen [Tylenol] 325 mg Tablet
650 mg PO Q6HPRN PRN (Reason: mild pain)
Breztri Aerosphere 160-9-4.8 mcg/actuation Hfa Aerosol Inhaler
2 inh INHALATION R DAILY
Changed
furosemide 20 MG tablet
20 mg PO DAILY PRN (Reason: Fluid Retention/Swelling) Qty: 0 0RF
Discontinued
metoprolol succinate 50 mg Tablet Extended Release 24 Hr
50 mg PO QPM
metoprolol succinate [Toprol XL] 50 mg Tablet Extended Release 24 Hr
100 mg PO DAILY
Discharge Orders:
Discharge Patient (As Directed); Ordered 04/06/25
Ordered By: Eduardo Breaux
Discharge Date and Time
Print Language: RUSSIAN
[2025-04-06] MEDS: DESENEX/MITRAZOL/ZEASORB 1 APPLIC TOPICAL ×2 (12:52→20:43)
--- NOTE | 2025-04-06 14:03 | CM ---
Pt ready for dc. JAJA spoke with [facility], and they have not received the ordered wound vac yet.
was made aware as well as pt.
DC on hold until wound vac is received.
[2025-04-06 15:05] VITALS: BP 88/68
[2025-04-06] MEDS: LIPITOR 40 MG PO (16:36)
[2025-04-06] MEDS: TRANXENE 7.5 MG PO (16:42)
[2025-04-06] MEDS: REMOVE LIDOCAINE PATCH 1 PATCH REMOVE ×2 (20:42)
[2025-04-06 23:12] VITALS: BP 116/61
[2025-04-07] MEDS: TRANXENE 7.5 MG PO (05:55)
[2025-04-07 06:07] VITALS: BMI 31.5
[2025-04-07] MEDS: TYLENOL 1000 MG PO ×2 (06:52→16:43)
[2025-04-07 07:00] VITALS: BP 116/62
[2025-04-07] MEDS: SPIRIVA RESPIMAT 2.5 MCG 2 PUFF INH (07:27)
[2025-04-07] MEDS: SYMBICORT 160/4.5 MCG INHALER 2 PUFF INH ×2 (07:28→21:00)
[2025-04-07] MEDS: TOPROL XL 37.5 MG PO ×2 (07:29→19:49)
[2025-04-07] MEDS: MUCINEX 600 MG PO (07:30)
[2025-04-07] MEDS: ELIQUIS 5 MG PO ×2 (07:30→19:49)
[2025-04-07] MEDS: PROTONIX 40 MG PO (07:30)
[2025-04-07] MEDS: OMNICEF 300 MG PO ×2 (07:30→19:49)
[2025-04-07] MEDS: VIBRAMYCIN 100 MG PO ×2 (07:30→19:49)
[2025-04-07] MEDS: LYRICA 75 MG PO ×2 (07:30→19:49)
[2025-04-07] MEDS: FLAGYL 500 MG PO ×2 (07:30→19:49)
[2025-04-07] MEDS: DESENEX/MITRAZOL/ZEASORB 1 APPLIC TOPICAL ×2 (07:31→19:50)
[2025-04-07] MEDS: LIDOCAINE 4% PATCH TOPICAL ×2 (09:07→09:08)
--- NOTE | 2025-04-07 09:40 | W.PN.HOSP.TC ---
Today's Communication/Plan
-
remains medically stable for d/c - awaiting accepting facility to recieve WoundVac
Assessment / Plan
Assessment / Plan
74yo F with PMHx of MVR, HUNTER, Afib on Eliquis, HFpEF came with abd pain, found diverticulitis with pelvic abscesses, had exploratory laparoscopy and drainage of abscess with sigmoidectomy and creation of end colostomy. Later had drain placed on
03/31/25 due to f/u CT showing abscess near rectal stump. Wound vac started. Abx to cont till 04/16/25. COlorectalSx agreeable with d/c to [facility] as recommended by PT/OT , however facility lack working WoundVac device - awaiting for it
A/P:
#Acute diverticulitis
#Peritoneal abscess
S/P Ex lap, drainage of pelvic abscess, sigmoidectomy, abdominal washout, creation of end colostomy Dr. Hutson on 03/24/2025
S/P IRAD drain of abscess on 03/31/25
Doxy/Cefdinir/Flagyl until 04/16/25 as per ID
#Paroxysmal Afib
cont Eliquis and rate control
#Acute upper respiratory inection
COVID-19 and Influenza neg
#MR s/p repair
#Asthma, not in exacerbation
#HLD
#Essential HTN
#GERD
#ANxiety
#Hx of migraines
#HUNTER on CPAP
cont home meds and CPAP
DVT ppx Eliquis
DNR/DNI
I have spent at least 36min reviewing chart, test results, communication with consultants and providing direct patient care
Anticipated Discharge: 24 - 48 hours
Subjective/Interval History
-
Date of Service: April 07, 2025
Objective Data
-
Vital Signs:
Vital Signs
Temp Pulse Resp BP Pulse Ox
98.1 F 101 20 116/62 92
04/07/25 07:00 04/07/25 07:32 04/07/25 07:32 04/07/25 07:00 04/07/25 07:32
I&O
04/06/25 04/07/25 04/08/25
06:59 06:59 06:59
Intake Total 245 / 245 1170 / 1170
Output Total 250 / 250 270 / 270
Balance -5 / -5 900 / 900
Review of Systems
-
History Source: Patient
All other systems: Reviewed and negative
Physical Exam
-
HEENT: Normocephalic
Respiratory: Clear to Auscultation
GI: Soft, Nondistended, Tender (mildly diffuse) and Other (blaise drain)
Musculoskeletal: No Clubbing, No Cyanosis and No Edema
Neuro: Awake, Alert, Oriented and AO x 3
Psych: Calm
--- NOTE | 2025-04-07 10:27 | W.PN.ID1 ---
Date of Service
Date of Service: April 07, 2025
Today's Communication
Continue doxycycline 100mg po bid, cefdinir 300mg po bid and metronidazole 500mg po bid (6) through 04/16/25.
Assessment / Plan
# Perforated sigmoid diverticulitis with pelvic abscess
- s/p washout, ostomy placement (03/24/25)
# Leukocytosis - resolving
# PCN allergy - hives
-03/24 s/p I+D, sigmoidectomy, end colostomy
- OR cx: E. coli, Morganella, Viridans strep, Enterococcus
- 03/31/25 CT a/p: rim enhancing collection next to rectal stump
04/04/12 s/p IR perc drain - thick bloody fluid.
Gram stain no org. Cx neg to date
- (s/p IV meropenem x 8 days)
- Continue doxycycline 100mg po bid, cefdinir 300mg po bid and metronidazole 500mg po bid (6) through 04/16/25.
# Conditions PANTRY CHEF
Asthma
CVA
Hypertension
Atrial fibrillation
HFpEF
Mitral valve repair
HUNTER
Anxiety
Left total knee replaced
Left shoulder replacement
Chief Complaint
-: Other (abd abscess)
Subjective / Review of Systems
Waiting for wound vac delivery to SNF.
Vital Signs / Physical Exam
Vital Signs
Vital Signs
Temp Pulse Resp BP Pulse Ox
98.1 F 101 20 116/62 92
04/07/25 07:00 04/07/25 07:32 04/07/25 07:32 04/07/25 07:00 04/07/25 07:32
Physical Exam
Constitutional: No Acute Distress
Cardiovascular: Regular Rate and S1/S2
Pulmonary: Clear
Gastrointestinal: Soft, Non Tender, Non Distended and Other (YOEL drain: serosanguinous clear fluid)
Extremities: Negative Edema
Neurological: AO x 3
Objective Data
Lab Data
Lab Results
04/06/25 05:19
04/06/25 05:19
PT 16.5 Sec (11.4-14.6) H 03/24/25 16:11
INR 1.30 03/24/25 16:11
APTT 30.8 Sec (23.4-35.0) 03/24/25 16:11
Estimated Creat Clear 83 ml/min 04/06/25 05:19
Lactic Acid 1.3 mmol/L (0.7-2.0) 03/25/25 05:20
Total Bilirubin 1.0 mg/dl (0.2-1.3) 04/05/25 10:03
AST 26 U/L (14-36) 04/05/25 10:03
ALT 20 U/L (0-35) 04/05/25 10:03
Alkaline Phosphatase 89 U/L (38-126) 04/05/25 10:03
Most recent labs reviewed.
Micro Results:
04/04/25 16:00 Wound Culture - Preliminary
Abscess No growth
Gram Stain - Preliminary
04/06/25 10:04 Influenza Types A & B (LOCO) - Final
Nasal Swab Negative for Influenza A & B, NAAT
Negative results must be combined with clinical observations
and patient history.
Nucleic Acid Amplification test (NAAT)performed on the
[employer] platform.
04/04/25 16:00 Anaerobic Culture - Preliminary
Abscess Culture pending. Anaerobic cultures are examined after 3
days incubation. Additional information to follow.
03/24/25 19:45 Wound Culture - Final
Abdomen Escherichia coli
Morganella morganii
Enterococcus faecalis
Viridans Streptococcus Group
Gram Stain - Final
03/24/25 19:45 Anaerobic Culture - Final
Abdomen
03/24/25 15:33 Blood Culture - Final
Blood/Venous No Growth - Final Report
03/24/25 15:33 Blood Culture - Final
Blood/Venous No Growth - Final Report
03/24/25 13:40 Urine Culture - Final
Urine Aerococcus Species
03/25/25 05:20 MRSA Screen - Final
Nose No Methicillin Resistant Staphylococcus aureus isolated.
Imaging:
03/31/25 CT a/p: There is a persistent rim-enhancing collection within the lower midline pelvis, adjacent to the rectal stump, which appears bilobed and measures 3.2 x 3.0 cm and 4.6 x 2.1 cm.
03/24/25 CT a/p: Acute sigmoid diverticulitis with perforation. Pelvic abscess in the cul-de-sac measuring 6.1 x 3.2 cm.
[2025-04-07] MEDS: TYLENOL PO (11:39)
[2025-04-07 15:00] VITALS: BP 116/62
--- NOTE | 2025-04-07 15:44 | PTCARENOTE ---
the family is asking if pt can have a PICC line placed b/c of the difficulty of drawing labs and pain to pt. They stated previous hospitalizations she had a Midline. Not sure if she was hospitalized here. sent Dr. China stout TT.
second unit of PRBC started without complications via 20g LAC. had a CLD, tolerated. one soft BM jade blood/melena.
[2025-04-07] MEDS: LIPITOR 40 MG PO (16:42)
[2025-04-07] MEDS: REMOVE LIDOCAINE PATCH REMOVE ×2 (19:51)
[2025-04-07 23:00] VITALS: BP 113/65
[2025-04-08] MEDS: TYLENOL PO ×2 (01:21→16:35)
[2025-04-08 06:00] VITALS: BMI 31.8
[2025-04-08] MEDS: TYLENOL 1000 MG PO ×3 (06:32→23:03)
[2025-04-08] MEDS: LYRICA 75 MG PO ×2 (07:15→21:01)
[2025-04-08] MEDS: OMNICEF 300 MG PO ×2 (07:15→21:02)
[2025-04-08] MEDS: TOPROL XL 37.5 MG PO (07:16)
[2025-04-08] MEDS: FLAGYL 500 MG PO ×2 (07:16→21:02)
[2025-04-08] MEDS: DESENEX/MITRAZOL/ZEASORB 1 APPLIC TOPICAL ×2 (07:17→21:05)
[2025-04-08] MEDS: ELIQUIS 5 MG PO ×2 (07:17→21:02)
[2025-04-08] MEDS: PROTONIX 40 MG PO (07:18)
[2025-04-08] MEDS: MUCINEX 600 MG PO (07:18)
[2025-04-08] MEDS: LIDOCAINE 4% PATCH TOPICAL ×2 (07:18→07:19)
[2025-04-08] MEDS: TRANXENE 7.5 MG PO (07:18)
[2025-04-08] MEDS: VIBRAMYCIN 100 MG PO ×2 (07:18→21:02)
[2025-04-08] MEDS: SPIRIVA RESPIMAT 2.5 MCG 2 PUFF INH (08:15)
[2025-04-08] MEDS: SYMBICORT 160/4.5 MCG INHALER 2 PUFF INH ×2 (08:15→20:02)
[2025-04-08 08:53] LABS: Hematocrit 38.6 % (37.0-47.0); Hemoglobin 12.7 g/dL (12.0-16.0); Mean Corp Hgb Conc. 32.9 g/dL (33.0-37.0); Mean Corpuscular Volume 91.0 fL (81.0-99.0); Platelet Count 338 10^3/uL (130-400); Red Cell Dist. Width 12.5 % (11.5-14.5)
[2025-04-08 09:01] VITALS: BP 117/44
[2025-04-08 09:14] LABS: Blood Urea Nitrogen 15 mg/dl (7-17); Calcium 10.7 mg/dl (8.4-10.2); Carbon Dioxide 17 mmol/L (22-30); Chloride 115 mmol/L (98-107); Estimated Creatinine Clearance 84 ml/min; Glucose 121 mg/dl (70-99); Potassium 4.2 mmol/L (3.5-5.1); Sodium 142 mmol/L (135-145); eGFR > 60.00
--- NOTE | 2025-04-08 10:26 | PTCARENOTE ---
Placed call to [facility]. spoke to salon receptionist, who transferred nurse to [facility]. DEWAYNE
--- NOTE | 2025-04-08 10:35 | W.PN.CRS1 ---
Today's Communication / Plan
-
dispo pending
possible drain study later today before leaving
Assessment/Plan
-
74 yo female with h/o MVR 2013, HUNTER (on CPAP), A-fib, HFpEF presenting for perforated diverticulitis with pelvic abscess
POD #15 ex lap, drainage of abscess, sigmoidectomy and creation of end colostomy
F/u CT imaging on 03/31 with ?abscess near rectal stump, initially refused IR drain placement but agreeable to proceed with sedation on 04/04, drain continues in place (Cx with NGTD)
AFVSS
Tolerating diet with good stoma function
Wound vac to lower portion of incision
WBC trended down to 10.4
Plan:
-Continue regular diet
-ABX as per ID, doxycycline 100mg po bid, cefdinir 300mg po bid and metronidazole 500mg po bid planned to continue through 04/16
-PT/OT/CM following
-OOB as tolerated
-Wound vac in place
-Will remove molly in the office at post op appointment
-?drain study regarding transgluteal drain - will discuss with Dr. Hutson this AM
Subjective Data
Procedure
03/24/2025- Ex lap, drainage of pelvic abscess, sigmoidectomy, abdominal washout, creation of end colostomy
Subjective Data
Date of Service: April 08, 2025
Patient currently has no complaints except the IR drain in her buttocks region. Otherwise, her pain is controlled. Denies nausea or vomiting. Tolerating a diet.
Objective Data
-
Vital Signs
Temp Pulse Resp BP Pulse Ox
98.0 F 57 18 117/44 91
04/08/25 09:01 04/08/25 09:01 04/08/25 09:01 04/08/25 09:01 04/08/25 09:01
Intake & Output
04/07/25 04/08/25 04/09/25
06:59 06:59 06:59
Intake Total 1170 / 1170 730 / 730 250 / 250
Output Total 270 / 270 50 / 50
Balance 900 / 900 720 / 720 200 / 200
Intake:
Oral fluids 1160 / 1160 720 / 720 240 / 240
Amount instilled into Drain (
Total)
Left Lower Back Chase-Guzman
Output:
Liquid stool amount 200 / 200 50 / 50
Colostomy 200 / 200 50 / 50
Drain Output (Total) 70 / 70
Abdomen Wound Vac 50 0 / 0
Left Lower Back Chase-Guzman
Other:
Number of approximated SMALL 1
amounts of urine
Number of approximated MODERATE 2 1 2
amounts of urine
Lab Results
04/08/25 08:40
04/08/25 08:40
Physical Exam
-
General: No Acute Distress and AOx3
Abdomen: Soft, Non Distended, Non Tender and Other (molly and wound vac in place)
Skin: Warm and Dry
--- NOTE | 2025-04-08 10:58 | W.PN.HOSP.TC ---
Today's Communication/Plan
-
Discharge planning
Discussed with colorectal surgery to see if they are planning for drain study prior to leaving today if so if this can be coordinated orally patient can be discharged to rehab
Assessment / Plan
Assessment / Plan
74yo F with PMHx of MVR, HUNTER, Afib on Eliquis, HFpEF came with abd pain, found diverticulitis with pelvic abscesses, had exploratory laparoscopy and drainage of abscess with sigmoidectomy and creation of end colostomy. Later had drain placed on
03/31/25 due to f/u CT showing abscess near rectal stump. Wound vac started. Abx to cont till 04/16/25. COlorectalSx agreeable with d/c to STR as recommended by PT/OT , however facility lack working WoundVac device -
03/24/2025 CT abdomen and pelvis-acute sigmoid diverticulitis with perforation. Pelvic abscess 6.1 into 3.2 cm. Left scoliosis. Multilevel discogenic and facet DJD. Mild grade 1 spondylolisthesis L4 on L5. 1.7 cm umbilical hernia
EKG 03/20-sinus rhythm. LAD poor R wave progression, inferior/posterior infarct now present
Echo 04/24/2025-EF more than 75%. Wall motion is consistent with postoperative state. Normal RV size and function. Severely dilated LA. Mild . Mild TR. PA pressure 25 to 30 mmHg
03/31/2025-CT abdomen and pelvis-postoperative changes of partial colectomy with left lower quadrant and a colostomy. Persistent rim-enhancing collection within the lower midline pelvis adjacent to the rectal stump 3.2 into 3.0 into 4.6 into 2.1 cm.
Mild hepatomegaly. Bibasilar atelectasis more pronounced on the right.
CVS: S1-S2 irregular
Chest:CTA
Abdomen: Stoma with brown stool, upper part of the wound healing well with molly still in. Lower part with wound VAC, drain present
Extremities: No edema
# Acute sigmoid diverticulitis with perforation/pelvic abscess
S/P Ex lap, drainage of pelvic abscess, sigmoidectomy, abdominal washout, creation of end colostomy Dr. Hutson on 03/24/2025
Lactic acidosis resolved
NG tube removed and Roa removed.Diet advanced to regular diet
Currently on doxycycline 100mg po bid, cefdinir 300mg po bid and metronidazole 500mg po bid through 04/16/25.
White count normalized
OR cultures , Gram stain with strep viridans, Enterococcus and Morganella, E. coli
Stool output noted in the stoma
CT showing a collection of 4.6 into 2.1 cm and one 3.2X3.0 cm-S/P IRAD drain of abscess on 03/31/25
# Acute Hypoxic resp failure post op - Likely atelectasis-off oxygen now.Discussed about using IS.
# Paroxysmal atrial fibrillation
went into afib night of 03/27/25
Of Cardizem gtt, Continue Metoprolol 37.5 mg twice daily
Anticoagulation was interrupted for surgery, postop, drain placement. Now back on Eliquis
# Mitral Regurgitation-history of valve repair 2013
# Asthma-continue Dulera, Breztri, Dymista or equivalent
# Hyperlipidemia-statin
# HTN- BB Was on metoprolol 100 mg in a.m. and 50 mg in p.m. now on 37.5 mg p.o. twice daily
# GERD-continue PPI
# Anxiety-continue Clorazepate
# Left scoliosis. Multilevel discogenic and facet degenerative changes. Mild grade 1 spondylolisthesis of L4 and L5.
# H/O Migraine
# Obesity with a BMI 33
# HUNTER- CPAP ordered .
# DVT prophylaxis-Eliquis
# CODE STATUS-DNR
Discussed with colorectal surgery
Discussed with case management
Anticipated Discharge: Today
Subjective/Interval History
-
Date of Service: April 08, 2025
Objective Data
-
Labs:
Laboratory Results
04/08/25
08:40
WBC 10.4
Hgb 12.7
Hct 38.6
Plt Count 338
Sodium 142
Potassium 4.2
Chloride 115 H
Carbon Dioxide 17 L
BUN 15
Creatinine 0.6
Glucose 121 H
Calcium 10.7 H
Vital Signs:
Vital Signs
Temp Pulse Resp BP Pulse Ox
98.0 F 57 18 117/44 91
04/08/25 09:01 04/08/25 09:01 04/08/25 09:01 04/08/25 09:01 04/08/25 09:01
I&O
04/07/25 04/08/25 04/09/25
06:59 06:59 06:59
Intake Total 1170 / 1170 730 / 730 250 / 250
Output Total 270 / 270 10 / 10 50 / 50
Balance 900 / 900 720 / 720 200 / 200
--- NOTE | 2025-04-08 12:05 | WOUNDNOTE ---
WON RN NOTE: Appliance changed today, patient assisted. Called [facility] for more ostomy supplies, asked nurse to bring to rm. Discharge still pending, may go to IR today to check drains. Confirmed with [facility] Phan can hold off on changing wound vac
dressing today since may leave today or tomorrow. Abdominal vac dressing intact without any leaks. Nurse Jenniffer updated on the above.
--- NOTE | 2025-04-08 12:46 | W.PN.ID1 ---
Date of Service
Date of Service: April 08, 2025
Today's Communication
Continue current abx's.
Assessment / Plan
# Perforated sigmoid diverticulitis with pelvic abscess
- s/p washout, ostomy placement (03/24/25)
# Leukocytosis - resolving
# PCN allergy - hives
-03/24 s/p I+D, sigmoidectomy, end colostomy
- OR cx: E. coli, Morganella, Viridans strep, Enterococcus
- 03/31/25 CT a/p: rim enhancing collection next to rectal stump
04/04/12 s/p IR perc drain - thick bloody fluid.
Gram stain no org. Cx neg to date
- For drain study today, per surgery.
- (s/p IV meropenem x 8 days)
- Continue doxycycline 100mg po bid, cefdinir 300mg po bid and metronidazole 500mg po bid (7) through 04/16/25.
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
Asthma
CVA
Hypertension
Atrial fibrillation
HFpEF
Mitral valve repair
HUNTER
Anxiety
Left total knee replaced
Left shoulder replacement
Chief Complaint
-: Other (abd abscess)
Subjective / Review of Systems
Feels well.
Vital Signs / Physical Exam
Vital Signs
Vital Signs
Temp Pulse Resp BP Pulse Ox
98.0 F 57 18 117/44 91
04/08/25 09:01 04/08/25 09:01 04/08/25 09:01 04/08/25 09:01 04/08/25 09:01
Physical Exam
Constitutional: No Acute Distress
Cardiovascular: Regular Rate and S1/S2
Pulmonary: Clear
Gastrointestinal: Soft, Non Tender, Non Distended and Other (YOEL drain: serosanguinous clear fluid)
Extremities: Negative Edema
Neurological: AO x 3
Objective Data
Lab Data
Lab Results
04/08/25 08:40
04/08/25 08:40
PT 16.5 Sec (11.4-14.6) H 03/24/25 16:11
INR 1.30 03/24/25 16:11
APTT 30.8 Sec (23.4-35.0) 03/24/25 16:11
Estimated Creat Clear 84 ml/min 04/08/25 08:40
Lactic Acid 1.3 mmol/L (0.7-2.0) 03/25/25 05:20
Total Bilirubin 1.0 mg/dl (0.2-1.3) 04/05/25 10:03
AST 26 U/L (14-36) 04/05/25 10:03
ALT 20 U/L (0-35) 04/05/25 10:03
Alkaline Phosphatase 89 U/L (38-126) 04/05/25 10:03
Most recent labs reviewed.
Micro Results:
04/04/25 16:00 Anaerobic Culture - Preliminary
Abscess NO ANAEROBES ISOLATED
04/04/25 16:00 Wound Culture - Preliminary
Abscess No growth
Gram Stain - Preliminary
04/06/25 10:04 Influenza Types A & B (LOCO) - Final
Nasal Swab Negative for Influenza A & B, NAAT
Negative results must be combined with clinical observations
and patient history.
Nucleic Acid Amplification test (NAAT)performed on the
[employer] platform.
03/24/25 19:45 Wound Culture - Final
Abdomen Escherichia coli
Morganella morganii
Enterococcus faecalis
Viridans Streptococcus Group
Gram Stain - Final
03/24/25 19:45 Anaerobic Culture - Final
Abdomen
03/24/25 15:33 Blood Culture - Final
Blood/Venous No Growth - Final Report
03/24/25 15:33 Blood Culture - Final
Blood/Venous No Growth - Final Report
03/24/25 13:40 Urine Culture - Final
Urine Aerococcus Species
03/25/25 05:20 MRSA Screen - Final
Nose No Methicillin Resistant Staphylococcus aureus isolated.
Imaging:
03/31/25 CT a/p: There is a persistent rim-enhancing collection within the lower midline pelvis, adjacent to the rectal stump, which appears bilobed and measures 3.2 x 3.0 cm and 4.6 x 2.1 cm.
03/24/25 CT a/p: Acute sigmoid diverticulitis with perforation. Pelvic abscess in the cul-de-sac measuring 6.1 x 3.2 cm.
[2025-04-08 12:57] VITALS: BP 115/66; BP_SYST 88
--- NOTE | 2025-04-08 13:06 | CM ---
CM following re: discharge planning.
Reviewed pt's chart, met with pt.
Discharge order note. Pt is aware, expressed her agreement with discharge and pt stated she will need to be transported by ambulance BLS.
IMM reviewed, placed on chart, pt has a copy.
CM spoke to [facility] child welfare director and she stated they still awaiting for wound vac delivery and she will confirm of pt's admission as soon as wound vac delivered.
PMNC completed and left with . will arrange ambulance transport BLS when pt';s admission to [facility] is confirmed.
Pt stated she has her C-pap machine here and she will bring it to [facility]. [facility] is aware.
[facility] nursing report: [phone]
Discharge instructions fax: [phone].
D/C plan: [facility] . Awaiting for confirmation
CM will follow to assist pt with discharge to [facility].
[2025-04-08 13:45] VITALS: BP 139/74
[2025-04-08 15:05] VITALS: BP 131/79
[2025-04-08] MEDS: SODIUM BICARBONATE 650 MG PO ×2 (16:36→23:03)
[2025-04-08] MEDS: LIPITOR 40 MG PO (16:46)
[2025-04-08 21:00] VITALS: BP 102/57
[2025-04-08] MEDS: TOPROL XL PO (21:00)
[2025-04-08] MEDS: REMOVE LIDOCAINE PATCH REMOVE ×2 (21:05→21:06)
[2025-04-08 23:00] VITALS: BP 103/58
--- NOTE | 2025-04-08 23:39 | PTCARENOTE ---
Educated pt on importance of CPAP for HUNTER, pt verbalized understanding, however, refused to use CPAP. Pt stated 'I don't want to use it tonight, I don't feel like putting up with it.' Care ongoing.
[2025-04-09 06:00] VITALS: BMI 31.3
[2025-04-09] MEDS: TYLENOL 1000 MG PO ×2 (06:16→12:38)
[2025-04-09] MEDS: SYMBICORT 160/4.5 MCG INHALER 2 PUFF INH (07:15)
[2025-04-09] MEDS: SPIRIVA RESPIMAT 2.5 MCG 2 PUFF INH (07:16)
[2025-04-09 08:00] VITALS: BP 114/61
[2025-04-09] MEDS: DESENEX/MITRAZOL/ZEASORB 1 APPLIC TOPICAL (08:23)
[2025-04-09] MEDS: LYRICA 75 MG PO (08:24)
[2025-04-09] MEDS: SODIUM BICARBONATE 650 MG PO (08:24)
[2025-04-09] MEDS: VIBRAMYCIN 100 MG PO (08:24)
[2025-04-09] MEDS: PROTONIX 40 MG PO (08:24)
[2025-04-09] MEDS: ELIQUIS 5 MG PO (08:24)
[2025-04-09] MEDS: MUCINEX 600 MG PO (08:24)
[2025-04-09] MEDS: FLAGYL 500 MG PO (08:24)
[2025-04-09] MEDS: OMNICEF 300 MG PO (08:24)
[2025-04-09] MEDS: TOPROL XL 37.5 MG PO (08:25)
[2025-04-09] MEDS: LIDOCAINE 4% PATCH TOPICAL ×2 (08:25)
--- NOTE | 2025-04-09 09:48 | CM ---
CM following re: discharge planning.
Reviewed pt's chart, met with pt.
Discharge order in. IMM reviewed yesterday and placed on chart.
CM spoke to [facility] support director and she stated they still having an issue to order a wound vac and she is requested to send the pt to a different SNF.
CM spoke to the pt about it, pt expressed her disappointed and unpleasant feelings and pt stated she will go to [facility].
An updated referral made to [facility], spoke to quality assurance coordinator Xin and she confirmed hat pt is accepted for admission today and they do have wound vac already.
arranged ambulance BLS, quill picking machine operator time 12:30 p.m. [facility] completed and left with
[facility] nursing report: [phone]
Discharge instructions fax: [phone]
D/C plan: [facility].
[2025-04-09] MEDS: TRANXENE 7.5 MG PO (09:52)
--- NOTE | 2025-04-09 11:08 | W.PN.CRS1 ---
Today's Communication / Plan
-
As below
Assessment/Plan
-
74-year-old female with PMH of severe MR s/p MVR 2013, HUNTER (on CPAP), A-fib (on Eliquis, last dose morning of admission), TIA 2016, HFpEF, HLD, HTN who presented with 2 to 3 days of acute abdominal pain and rectal pressure after taking Imodium for
her chronic diarrhea. She does have chronic SBO with activity, unable to climb 1 flight of stairs. Denied any recent N/V, unintentional weight loss or chest pain. Her WBC was 29.[address] scan showed acute diverticulitis with pelvic abscess as
well as moderate amount of distant free air. She was taken urgently to the operating room.
POD 16 ex lap, drainage of pelvic abscess (culture sent), sigmoidectomy, creation of end colostomy
-Complicated by pelvic abscess s/p IR drainage, IR drain removed yesterday after drain study showed no residual abscess and no fistula
AFVSS
No labs today
� Continue regular diet
�Appreciate ID; continue doxycycline, cefdinir and Flagyl until 04/16
�Pain control with Tylenol, pregabalin, lidocaine patches, tramadol as needed, and Dilaudid as needed
� Continue Eliquis
� Encourage OOB/IS, appreciate PT
� Appreciate hospitalist
Dispo�okay for [place] to [facility]
Subjective Data
Procedure
03/24/2025- Ex lap, drainage of pelvic abscess, sigmoidectomy, abdominal washout, creation of end colostomy
Subjective Data
Date of Service: April 09, 2025
No overnight events. IR drain was removed yesterday.
Pain controlled.
Has intermittent nausea, but denies vomiting and is tolerating diet.
+ Ostomy function +voiding
Pt is OOB.
Objective Data
-
Vital Signs
Temp Pulse Resp BP Pulse Ox
97.8 F 61 17 114/61 97
04/09/25 08:00 04/09/25 08:00 04/09/25 08:00 04/09/25 08:00 04/09/25 08:00
Intake & Output
04/08/25 04/09/25 04/10/25
06:59 06:59 06:59
Intake Total 730 / 730 1270 / 1270 240 / 240
Output Total 275 / 275
Balance 720 / 720 995 / 995 240 / 240
Intake:
Oral fluids 720 / 720 1260 / 1260 240 / 240
Amount instilled into Drain (
Total)
Left Lower Back Chase-Guzman
Output:
Liquid stool amount 275 / 275
Colostomy 275 / 275
Drain Output (Total)
Abdomen Wound Vac 0 / 0
Left Lower Back Chase-Guzman
Other:
Number of approximated SMALL 1
amounts of urine
Number of approximated MODERATE 1 2 1
amounts of urine
Lab Results
04/08/25 08:40
04/08/25 08:40
Physical Exam
-
General: No Acute Distress and AOx3
HEENT: Grossly Normal
Abdomen: Soft, Non Distended and Tender (Appropriately tender near midline incision, no rebound or guarding)
Skin: Warm and Dry
Wound: No Signs of Infection, Dressing in Place (VAC dressing in place and functioning; remainder of midline incision open to air, intermittent molly, skin well-approximated with small intermittent scabs) and No Skin Erythema
--- NOTE | 2025-04-09 11:41 | W.PN.HOSP.TC ---
Today's Communication/Plan
-
Discharge
Assessment / Plan
Assessment / Plan
74yo F with PMHx of MVR, HUNTER, Afib on Eliquis, HFpEF came with abd pain, found diverticulitis with pelvic abscesses, had exploratory laparoscopy and drainage of abscess with sigmoidectomy and creation of end colostomy. Later had drain placed on
03/31/25 due to f/u CT showing abscess near rectal stump. Wound vac started. Abx to cont till 04/16/25. COlorectalSx agreeable with d/c to [facility] as recommended by PT/OT , however facility lack working WoundVac device -
03/24/2025 CT abdomen and pelvis-acute sigmoid diverticulitis with perforation. Pelvic abscess 6.1 into 3.2 cm. Left scoliosis. Multilevel discogenic and facet DJD. Mild grade 1 spondylolisthesis L4 on L5. 1.7 cm umbilical hernia
EKG 03/20-sinus rhythm. LAD poor R wave progression, inferior/posterior infarct now present
Echo 04/24/2025-EF more than 75%. Wall motion is consistent with postoperative state. Normal RV size and function. Severely dilated LA. Mild . Mild TR. PA pressure 25 to 30 mmHg
03/31/2025-CT abdomen and pelvis-postoperative changes of partial colectomy with left lower quadrant and a colostomy. Persistent rim-enhancing collection within the lower midline pelvis adjacent to the rectal stump 3.2 into 3.0 into 4.6 into 2.1 cm.
Mild hepatomegaly. Bibasilar atelectasis more pronounced on the right.
CVS: S1-S2 irregular
Chest:CTA
Abdomen: Stoma with brown stool, upper part of the wound healing well with molly still in. Lower part with wound VAC, drain present
Extremities: No edema
# Acute sigmoid diverticulitis with perforation/pelvic abscess
S/P Ex lap, drainage of pelvic abscess, sigmoidectomy, abdominal washout, creation of end colostomy Dr. Hutson on 03/24/2025
Lactic acidosis resolved
NG tube removed and Roa removed.Diet advanced to regular diet
Currently on doxycycline 100mg po bid, cefdinir 300mg po bid and metronidazole 500mg po bid through 04/16/25.
White count normalized
OR cultures , Gram stain with strep viridans, Enterococcus and Morganella, E. coli
Stool output noted in the stoma
CT showing a collection of 4.6 into 2.1 cm and one 3.2X3.0 cm-S/P IRAD drain of abscess on 03/31/25
Drain removed 04/08/25
# Acute Hypoxic resp failure post op - Likely atelectasis-off oxygen now.Discussed about using IS.
# Paroxysmal atrial fibrillation
went into afib night of 03/27/25
Of Cardizem gtt, Continue Metoprolol 37.5 mg twice daily
Anticoagulation was interrupted for surgery, postop, drain placement. Now back on Eliquis
# Mitral Regurgitation-history of valve repair 2013
# Asthma-continue Dulera, Breztri, Dymista or equivalent
# Hyperlipidemia-statin
# HTN- BB Was on metoprolol 100 mg in a.m. and 50 mg in p.m. now on 37.5 mg p.o. twice daily
# GERD-continue PPI
# Anxiety-continue Clorazepate
# Left scoliosis. Multilevel discogenic and facet degenerative changes. Mild grade 1 spondylolisthesis of L4 and L5.
# H/O Migraine
# Obesity with a BMI 33
# HUNTER- CPAP ordered .
# DVT prophylaxis-Eliquis
# CODE STATUS-DNR
Drain removed yesterday
Discussed with daughter and updated
D/W RN
Discussed with case management
Discharge papers corrected re meds .
Total time for discharge cordination and dictation 33 min
Anticipated Discharge: Today
Subjective/Interval History
-
Date of Service: April 09, 2025
Objective Data
-
Vital Signs:
Vital Signs
Temp Pulse Resp BP Pulse Ox
97.8 F 61 17 114/61 97
04/09/25 08:00 04/09/25 08:00 04/09/25 08:00 04/09/25 08:00 04/09/25 08:00
I&O
04/08/25 04/09/25 04/10/25
06:59 06:59 06:59
Intake Total 730 / 730 1270 / 1270 240 / 240
Output Total 275 / 275
Balance 720 / 720 995 / 995 240 / 240
--- NOTE | 2025-04-09 11:44 | W.DS.TRANS ---
Addendum entered and electronically signed by Danish Morillo MD 04/09/25 13:54:
Dictation- [id number]
Original Note:
DC Summary - Owner Oral Surgeon
-
Discharge Instructions:
Discharge Diagnosis/Procedures Acute sigmoid diverticulitis with perforation/
pelvic abscess
Exploratory laparotomy, drainage of pelvic
abscess, sigmoidectomy, end colostomy 03/24/2025
Acute hypoxic respiratory failure
Paroxysmal atrial fibrillation
Mitral regurgitation with history of mitral
valve repair 2013
Asthma
Hyperlipidemia
Hypertension
GERD
Anxiety
Sleep apnea
Diet Low Residue
Activity No strenuous activity
Additional Activity No lifting over 10lbs (gallon of milk)
Driving Restrictions No driving for 1 week
Bathing Restrictions OK to Shower
Other Services PT,OT
Instructions:
Stand-Alone Forms:
Changes to Home Medications: Yes
Discharge Medications:
DC Medications w/original date entered in [employer]
azelastine 137 mcg-fluticasone 50 mcg/spray nasal spray (Dymista) 50 mg intranasal DAILY Lung/Breathing Issues 06/07/14
clorazepate dipotassium 3.75 mg tablet 7.5 mg PO DAILY Mental Health/Anxiety 06/07/14
guaifenesin 600 mg tablet, extended release 12 hr (Mucinex) 600 mg PO DAILY Congestion 06/07/14
mometasone-formoterol HFA 200 mcg-5 mcg/actuation aerosol inhaler (Dulera) 2 puff inhalation R BID Lung/Breathing Issues 07/12/14
apixaban 5 mg tablet (Eliquis) 5 mg PO BID Blood Clot Prevention/Tx 05/22/24
atorvastatin 40 mg tablet (Lipitor) 40 mg PO HS High Cholesterol 05/22/24
omeprazole magnesium 20 mg tablet,delayed release (Prilosec OTC) 20 mg PO DAILY Gastrointestinal Issue 05/22/24
acetaminophen 325 mg tablet (Tylenol) 650 mg PO Q6HPRN PRN mild pain 03/24/25
budesonide 160 mcg-glycopyr 9 mcg-formot 4.8 mcg/actuation HFA inhaler (Breztri Aerosphere) 2 inh inhalation R DAILY Lung/Breathing Issues 03/24/25
cefdinir 300 mg capsule 300 mg PO BID Infection #20 caps 04/03/25
doxycycline hyclate 100 mg capsule 100 mg PO BID Infection #20 caps 04/03/25
furosemide 20 mg tablet 20 mg PO DAILY PRN Fluid Retention/Swelling #0 tabs 04/03/25
lidocaine 4 % topical patch 1 patch topical DAILY Pain #0 ea 04/03/25
metoprolol succinate 25 mg tablet,extended release 24 hr 37.5 mg (1.5 x 25 mg) PO BID Arrhythmia #0 tabs 04/03/25
pregabalin 75 mg capsule 75 mg PO BID Pain #0 caps 04/03/25
tramadol 50 mg tablet 50 mg PO Q6HPRN PRN moderate pain #8 tabs 04/03/25
metronidazole 500 mg tablet 500 mg PO BID Infection #0 tabs 04/09/25
Home Medication Changes
Flagyl, tramadol, gabapentin, metoprolol, lidocaine patch, doxycycline, cefdinir-new
Pending Results: No
--- NOTE | 2025-04-09 12:01 | W.PN.ID1 ---
Date of Service
Date of Service: April 09, 2025
Today's Communication
- Continue doxycycline 100mg po bid, cefdinir 300mg po bid and metronidazole 500mg po bid through 04/16/25.
Assessment / Plan
# Perforated sigmoid diverticulitis with pelvic abscess
- s/p washout, ostomy placement (03/24/25)
# Leukocytosis - resolved
# PCN allergy - hives
-03/24 s/p I+D, sigmoidectomy, end colostomy
- OR cx: E. coli, Morganella, Viridans strep, Enterococcus
- 03/31/25 CT a/p: rim enhancing collection next to rectal stump
- 04/04/12 s/p IR perc drain - thick bloody fluid.
Gram stain no org. Cx neg
- 04/08 drain study: resolved abscess, drain removed
- (s/p IV meropenem x 8 days)
- Continue doxycycline 100mg po bid, cefdinir 300mg po bid and metronidazole 500mg po bid through 04/16/25.
# Conditions HOSPITAL LIAISON
Asthma
CVA
Hypertension
Atrial fibrillation
HFpEF
Mitral valve repair
HUNTER
Anxiety
Left total knee replaced
Left shoulder replacement
Chief Complaint
-: Other (abd abscess)
Subjective / Review of Systems
Going to SNF/rehab
Vital Signs / Physical Exam
Vital Signs
Vital Signs
Temp Pulse Resp BP Pulse Ox
97.8 F 61 17 114/61 97
04/09/25 08:00 04/09/25 08:00 04/09/25 08:00 04/09/25 08:00 04/09/25 08:00
Physical Exam
Constitutional: No Acute Distress
Cardiovascular: Regular Rate and S1/S2
Pulmonary: Clear
Gastrointestinal: Soft, Non Tender and Non Distended
Extremities: Negative Edema
Neurological: AO x 3
Objective Data
Lab Data
Lab Results
04/08/25 08:40
04/08/25 08:40
PT 16.5 Sec (11.4-14.6) H 03/24/25 16:11
INR 1.30 03/24/25 16:11
APTT 30.8 Sec (23.4-35.0) 03/24/25 16:11
Estimated Creat Clear 84 ml/min 04/08/25 08:40
Lactic Acid 1.3 mmol/L (0.7-2.0) 03/25/25 05:20
Total Bilirubin 1.0 mg/dl (0.2-1.3) 04/05/25 10:03
AST 26 U/L (14-36) 04/05/25 10:03
ALT 20 U/L (0-35) 04/05/25 10:03
Alkaline Phosphatase 89 U/L (38-126) 04/05/25 10:03
Most recent labs reviewed.
Micro Results:
04/04/25 16:00 Wound Culture - Final
Abscess No growth
Gram Stain - Final
04/04/25 16:00 Anaerobic Culture - Final
Abscess NO ANAEROBES ISOLATED
04/06/25 10:04 Influenza Types A & B (LOCO) - Final
Nasal Swab Negative for Influenza A & B, NAAT
Negative results must be combined with clinical observations
and patient history.
Nucleic Acid Amplification test (NAAT)performed on the
[employer] platform.
03/24/25 19:45 Wound Culture - Final
Abdomen Escherichia coli
Morganella morganii
Enterococcus faecalis
Viridans Streptococcus Group
Gram Stain - Final
03/24/25 19:45 Anaerobic Culture - Final
Abdomen
03/24/25 15:33 Blood Culture - Final
Blood/Venous No Growth - Final Report
03/24/25 15:33 Blood Culture - Final
Blood/Venous No Growth - Final Report
03/24/25 13:40 Urine Culture - Final
Urine Aerococcus Species
03/25/25 05:20 MRSA Screen - Final
Nose No Methicillin Resistant Staphylococcus aureus isolated.
Imaging:
03/31/25 CT a/p: There is a persistent rim-enhancing collection within the lower midline pelvis, adjacent to the rectal stump, which appears bilobed and measures 3.2 x 3.0 cm and 4.6 x 2.1 cm.
03/24/25 CT a/p: Acute sigmoid diverticulitis with perforation. Pelvic abscess in the cul-de-sac measuring 6.1 x 3.2 cm.
--- NOTE | 2025-04-09 12:54 | PTCARENOTE ---
Wound vac removed prior to discharge to [facility] and saline moistened dressing applied to wound.She will get another wound vac placed at the facility.
--- NOTE | 2025-04-10 08:04 | WOUNDNOTE ---
WOC RN note: Notified [employer] via [employer] therapy portal express of stop bill date as or 04/09/25 and parts picker of [facility] vac ulta pump (work order #[id number]).
== END 2025-04-09 13:04 | DRG 329 ==
LOC: 2 SOUTH 16:39
PROVIDERS: Internal Medicine; Nurse Practitioner; Nurse Practitioner Gerontology; Radiology Vascular & Interventional Radiology; Registered Nurse; ADMITTING PHYSICIAN Hospitalist; ATTENDING PHYSICIAN Hospitalist; CONSULT PHYSICIAN Internal Medicine; CONSULT PHYSICIAN Internal Medicine Infectious Disease; CONSULT PHYSICIAN Surgery; EMERGENCY PHYSICIAN Emergency Medicine
PROC: 0WQF0ZZ Repair Abdominal Wall, Open Approach (ICD-10-PCS; 2025-03-24)
PROC: 0D1N0Z4 Bypass Sigmoid Colon to Cutaneous, Open Approach (ICD-10-PCS; 2025-03-24)
PROC: 0DTN0ZZ Resection of Sigmoid Colon, Open Approach (ICD-10-PCS; 2025-03-24)
PROC: 5A09357 Assistance with Respiratory Ventilation, Less than 24 Consecutive Hours, Continuous Positive Airway Pressure (ICD-10-PCS; 2025-03-25)
PROC: 0W9J30Z Drainage of Pelvic Cavity with Drainage Device, Percutaneous Approach (ICD-10-PCS; 2025-04-04)
DX: K57.20 Diverticulitis of large intestine with perforation and abscess without bleeding (principal); J96.01 Acute respiratory failure with hypoxia; K65.1 Peritoneal abscess; I50.32 Chronic diastolic (congestive) heart failure; I48.92 Unspecified atrial flutter; J98.11 Atelectasis; E87.20 Acidosis, unspecified; I48.0 Paroxysmal atrial fibrillation; I34.0 Nonrheumatic mitral (valve) insufficiency; J45.909 Unspecified asthma, uncomplicated; E78.00 Pure hypercholesterolemia, unspecified; I11.0 Hypertensive heart disease with heart failure; K21.9 Gastro-esophageal reflux disease without esophagitis; F41.9 Anxiety disorder, unspecified; G47.33 Obstructive sleep apnea (adult) (pediatric); D64.9 Anemia, unspecified; Z66 Do not resuscitate; K42.9 Umbilical hernia without obstruction or gangrene; D72.829 Elevated white blood cell count, unspecified; R82.71 Bacteriuria; G43.909 Migraine, unspecified, not intractable, without status migrainosus; I49.3 Ventricular premature depolarization; E66.9 Obesity, unspecified; Z11.52 Encounter for screening for COVID-19; Z88.0 Allergy status to penicillin; Z86.73 Personal history of transient ischemic attack (TIA), and cerebral infarction without residual deficits; Z79.01 Long term (current) use of anticoagulants; Z79.82 Long term (current) use of aspirin; Z68.33 Body mass index [BMI] 33.0-33.9, adult
CPT/HCPCS: 49406; 49424; 71045; 74177; 76080; 80048; 80053; 81003; 81015; 83605; 83690; 83735; 85025; 85027; 85610; 85730; 86850; 86900; 86901; 87040; 87070; 87075; 87077; 87086; 87186; 87205; 87502; 87811; 88307; 93005; 93306; 94640; 94660; 96365; 96367; 96368; 97116; 97163; 97167; 97530; 97535; 99152; 99153; 99291; C1776; J7168; Q9967

== ENCOUNTER → 2025-04-12 10:19 | Outpatient (REF) | payer OTHER, MEDICARE, SELFPAY ==
[2025-04-12 11:08] LABS: Hematocrit 34.7 % (37.0-47.0); Hemoglobin 11.2 g/dL (12.0-16.0); Mean Corp Hgb Conc. 32.3 g/dL (33.0-37.0); Mean Corpuscular Volume 91.6 fL (81.0-99.0); Platelet Count 315 10^3/uL (130-400); Red Cell Dist. Width 12.8 % (11.5-14.5)
[2025-04-12 11:14] LABS: Blood Urea Nitrogen 12 mg/dl (7-17); Calcium 10.2 mg/dl (8.4-10.2); Carbon Dioxide 20 mmol/L (22-30); Chloride 114 mmol/L (98-107); Glucose 95 mg/dl (70-99); Potassium 3.6 mmol/L (3.5-5.1); Sodium 142 mmol/L (135-145); eGFR > 60.00
== END ==
LOC: OLABP 10:19
PROVIDERS: ATTENDING PHYSICIAN Family Medicine
DX: R10.9 Unspecified abdominal pain (principal)
CPT/HCPCS: 36415; 80048; 85027

== ENCOUNTER → 2025-05-07 12:27 | Outpatient (REF) | payer MEDICARE, OTHER, SELFPAY | LOC: WOUND 12:27 | PROVIDERS: ATTENDING PHYSICIAN Surgery; REFERRING PHYSICIAN Nurse Practitioner Family | DX: S31.109A Unspecified open wound of abdominal wall, unspecified quadrant without penetration into peritoneal cavity, initial encounter (principal); K57.92 Diverticulitis of intestine, part unspecified, without perforation or abscess without bleeding; Z93.3 Colostomy status; Y84.8 Other medical procedures as the cause of abnormal reaction of the patient, or of later complication, without mention of misadventure at the time of the procedure | CPT/HCPCS: 99213 ==

== ENCOUNTER → 2025-05-16 12:51 | Outpatient (REF) | payer MEDICARE, OTHER, SELFPAY | LOC: WOUND 12:51 | PROVIDERS: ATTENDING PHYSICIAN Surgery; FAMILY PHYSICIAN Nurse Practitioner Family | DX: S31.109A Unspecified open wound of abdominal wall, unspecified quadrant without penetration into peritoneal cavity, initial encounter (principal); K57.92 Diverticulitis of intestine, part unspecified, without perforation or abscess without bleeding; Z93.3 Colostomy status; X58.XXXA Exposure to other specified factors, initial encounter | CPT/HCPCS: 99213 ==

== ENCOUNTER → 2025-05-23 12:52 | Outpatient (REF) | payer MEDICARE, OTHER, SELFPAY | LOC: WOUND 12:52 | PROVIDERS: ATTENDING PHYSICIAN Surgery; FAMILY PHYSICIAN Nurse Practitioner Family | DX: S31.109A Unspecified open wound of abdominal wall, unspecified quadrant without penetration into peritoneal cavity, initial encounter (principal); K57.92 Diverticulitis of intestine, part unspecified, without perforation or abscess without bleeding; Z93.3 Colostomy status; X58.XXXA Exposure to other specified factors, initial encounter | CPT/HCPCS: 99213 ==

== ENCOUNTER → 2025-06-03 14:09 | Outpatient (REF) | payer MEDICARE, OTHER, SELFPAY | LOC: WOUND 14:09 | PROVIDERS: ATTENDING PHYSICIAN Surgery; FAMILY PHYSICIAN Nurse Practitioner Family | DX: S31.109A Unspecified open wound of abdominal wall, unspecified quadrant without penetration into peritoneal cavity, initial encounter (principal); K57.92 Diverticulitis of intestine, part unspecified, without perforation or abscess without bleeding; Z93.3 Colostomy status; Y84.8 Other medical procedures as the cause of abnormal reaction of the patient, or of later complication, without mention of misadventure at the time of the procedure | CPT/HCPCS: 11042 ==

== ENCOUNTER → 2025-06-17 13:16 | Outpatient (REF) | payer MEDICARE, OTHER, SELFPAY | LOC: WOUND 13:16 | PROVIDERS: ATTENDING PHYSICIAN Surgery; FAMILY PHYSICIAN Nurse Practitioner Family | DX: S31.109A Unspecified open wound of abdominal wall, unspecified quadrant without penetration into peritoneal cavity, initial encounter (principal); K57.92 Diverticulitis of intestine, part unspecified, without perforation or abscess without bleeding; Z93.3 Colostomy status; Y84.8 Other medical procedures as the cause of abnormal reaction of the patient, or of later complication, without mention of misadventure at the time of the procedure | CPT/HCPCS: 99212 ==

== ENCOUNTER 2025-07-07 13:10 | Emergency (ER) | payer MEDICARE, OTHER, SELFPAY ==
[2025-07-07 13:14] VITALS: BP 110/75
[2025-07-07 13:32] LABS: Hematocrit 40.6 % (37.0-47.0); Hemoglobin 13.4 g/dL (12.0-16.0); Mean Corp Hgb Conc. 33.0 g/dL (33.0-37.0); Mean Corpuscular Volume 89.4 fL (81.0-99.0); Nucleated Red Blood Cells % 0 %; Platelet Count 293 10^3/uL (130-400); Red Cell Dist. Width 13.2 % (11.5-14.5)
[2025-07-07 14:01] LABS: ALT (SGPT) 18 U/L (0-35); AST (SGOT) 23 U/L (14-36); Albumin 4.3 g/dl (3.5-5.0); Alkaline Phosphatase 63 U/L (38-126); Blood Urea Nitrogen 11 mg/dl (7-17); Calcium 10.7 mg/dl (8.4-10.2); Carbon Dioxide 26 mmol/L (22-30); Chloride 107 mmol/L (98-107); Glucose 101 mg/dl (70-99); Potassium 3.8 mmol/L (3.5-5.1); Sodium 140 mmol/L (135-145); Total Protein 7.4 g/dl (6.3-8.2); eGFR > 60.00
[2025-07-07 14:37] VITALS: BMI 32.0
[2025-07-07 14:38] VITALS: BP 92/79
--- NOTE | 2025-07-07 15:10 | ED.GENMED ---
History of Present Illness
<Rosendo Shelby DO - Last Filed: 07/07/25 15:11>
General
Chief Complaint: Ostomy Problem
Time Seen by Provider: 07/07/25 14:50
<Abimbola Taylor NP - Last Filed: 07/07/25 22:44>
General
Source: patient
Exam Limitations: none
Nursing documentation reviewed up to this point in time: agreed with
History of Present Illness
History of Present Illness:
Patient to ED with complaint of bloody mucous discharge from her colostomy. States yesterday she had abdominal pain and the urge to pass stool. Reported some cramping and nausea. She had little to eat and states she then did not pass much stool
thru ostomy. This AM she noted blood tinged mucous. Abdominal symptoms had resolved. She spoke with section chief colorectal provider and was advised to wipe arouond stoma with tissue and see if there was any bleeding sites identified. SHe reports no
bleeding was found. Advised to come to ED. Denies fever/chills
Past History
<Rosendo Shelby, DO - Last Filed: 07/07/25 15:11>
Past History
ED Past Medical History: None
ED Past Surgical History: None
<Abimbola Taylor PETAL CUTTER - Last Filed: 07/07/25 22:44>
Past History
ED Past Medical History: Arrthythmia (afib), COPD, GERD, HTN and Hypercholesterolemia
ED Past Surgical History: Bowel resection (colostomy 04/19 for diverticulitis with perforation)
Review of Systems
<Abimbola Taylor NP - Last Filed: 07/07/25 22:44>
Review of Systems
Allergies reviewed?: Yes
All Other Systems: ROS reviewed and negative except as documented in HPI and ROS
Phy Exam
<Abimbola Taylor NP - Last Filed: 07/07/25 22:44>
General Physical Exam
General Presentation: well appearing and no apparent distress
General age: appears stated age
General Skin: warm and dry
General Habitus: normal
General Mental: alert
Cardiovascular Exam
Cardiovascular Exam: regular rate/rhythm and no edema
Pulmonary Exam
Pulmonary Exam: lungs clear and no respiratory distress
Gastrointestinal Exam
Gastrointestinal Exam: normal bowel sounds, non tender, soft, no organomegaly, no pulsatile mass and non distended
External Findings: colostomy (Stoma is pink no signs of bleeding. Draining brown soft stool.)
Musculoskeletal Exam
Musculoskeletal Exam: full ROM and neuro vasc intact
Skin Exam
Skin Exam: normal color, warm/dry and no rash
Psychiatric Exam
Psychiatric Exam: normal mood/affect
Course
<Rosendo Shelby, DO - Last Filed: 07/07/25 15:11>
Orders/Labs/Results
Orders:
Orders
07/07/25 13:25
Type And Crossmatch [Type+Screen] Urgent
CMP [Comprehensive Metabolic Panel] Urgent
Complete Blood Count/With Diff Urgent
Abnormal Lab Results
07/07/25
13:25
WBC 11.2 H 10^3/uL
(4.8-10.8)
Absolute Neuts (auto) 8.2 H 10^3/uL
(1.4-6.5)
Absolute Monos (auto) 1.0 H 10^3/uL
(0.1-0.6)
Lymphocytes % 15.5 L %
(20.5-51.1)
Glucose 101 H mg/dl
(70-99)
Calcium 10.7 H mg/dl
(8.4-10.2)
Total Bilirubin 1.5 H mg/dl
(0.2-1.3)
07/07/25 13:25
07/07/25 13:25
Vital Signs
Initial and Last Documented VS:
Initial Vital Signs
Temp Pulse Resp BP Pulse Ox
98.9 F 134 18 110/75 98
07/07/25 13:14 07/07/25 13:14 07/07/25 13:14 07/07/25 13:14 07/07/25 13:14
Last Documented Vital Signs
Temp Pulse Resp BP Pulse Ox
98.9 F 101 18 101/72 97
07/07/25 13:14 07/07/25 16:10 07/07/25 14:38 07/07/25 16:10 07/07/25 15:11
<Abimbola Taylor PETAL CUTTER - Last Filed: 07/07/25 22:44>
Orders/Labs/Results
Orders:
Orders
07/07/25 13:25
Type And Crossmatch [Type+Screen] Urgent
CMP [Comprehensive Metabolic Panel] Urgent
Complete Blood Count/With Diff Urgent
Abnormal Lab Results
07/07/25
13:25
WBC 11.2 H 10^3/uL
(4.8-10.8)
Absolute Neuts (auto) 8.2 H 10^3/uL
(1.4-6.5)
Absolute Monos (auto) 1.0 H 10^3/uL
(0.1-0.6)
Lymphocytes % 15.5 L %
(20.5-51.1)
Glucose 101 H mg/dl
(70-99)
Calcium 10.7 H mg/dl
(8.4-10.2)
Total Bilirubin 1.5 H mg/dl
(0.2-1.3)
07/07/25 13:25
07/07/25 13:25
Vital Signs
Initial and Last Documented VS:
Initial Vital Signs
Temp Pulse Resp BP Pulse Ox
98.9 F 134 18 110/75 98
07/07/25 13:14 07/07/25 13:14 07/07/25 13:14 07/07/25 13:14 07/07/25 13:14
Last Documented Vital Signs
Temp Pulse Resp BP Pulse Ox
98.9 F 101 18 101/72 97
07/07/25 13:14 07/07/25 16:10 07/07/25 14:38 07/07/25 16:10 07/07/25 15:11
<Rosendo Shelby, DO - Last Filed: 07/07/25 15:11>
*Pulse Oximetry
SaO2: 97
Oxygen Mode of Delivery: Room air
<Abimbola Taylor PETAL CUTTER - Last Filed: 07/07/25 22:44>
*Radiology
Radiology exam reviewed: radiology read reviewed
*Pulse Oximetry
Patient hypoxic: no
*Critical Care Note
Total Time (30-74mins, 75-104mins- exclusive of procedures): Not Applicable
<Abimbola Taylor PETAL CUTTER - Last Filed: 07/07/25 22:44>
Update Note
Update Note:
Patient to the emergency department from home for concern regarding her colostomy. Patient states yesterday she developed generalized abdominal pain generalized cramping and the sensation that she needed to move her bowels. She reported nausea but
no episodes of vomiting. those symptoms resolved without treatment, however today she noticed blood-tinged mucus in her colostomy bag. She spoke with the on-call colorectal physician and was advised to take a tissue and wipe around the stoma to
see if there was any sites of bleeding. No sites of bleeding were noted by her arm. She then came to the emergency department for further evaluation. No sites of bleeding were noted on the stoma. No further blood tinged mucus was noted to be
coming from stoma. She passed a small amount of soft brown stool while in the ED. She has had no abdominal pain distention cramping while in the emergency department. Vital signs remained stable and she remains afebrile. Dr. Cortez was notified
of patient's status. Current picture of stoma and drainage was sent to him via [place] text. No intervention is required at this time. Patient will be discharged home and will contact Dr. Hutson in the a.m. for further evaluation of her stoma. She
was given instructions on signs and symptoms to return to the emergency department and she was agreeable to plan. Case was discussed with Dr. Shelby. Dr. Shelby also examined this patient. He is agreeable with findings and plan.
ED Attending Note
<Rosendo Shelby, DO - Last Filed: 07/07/25 15:11>
ED Attending Note
Patient seen and examined by attending physician: Yes
I performed the substantive portion of visit, reviewed & personally made and approve the management plan that is documented in note by myself or ZOHAIB.: Yes
ED Attending Note:
I have seen and evaluated the patient with a [id number] encounter. I have spoken to the advance practicer provider and involved in the medical history, the physical exam, medical decision making.
Evaluation and management service: agree unless noted differently below.
Results interpretation: agree unless noted differently below.
Focused HPI: 75-year-old female presenting for evaluation of of blood coming from ostomy site. She called the colorectal office and was told to come to the emergency department
Physical exam: Ostomy is not actively bleeding. Only specks of blood noted in the ostomy bag.
Medical Decision Making: Will send a picture of the ostomy site to the colorectal team. Patient likely stable for discharge from
-
Portions of this chart may have been created with voice recognition software.� Occasional wrong word or��sound alike� substitutions may have occurred due to the inherent limitations of voice recognition software.
Discharge Plan
Departure
Patient Disposition: Home (Routine Discharge)
Date of Disposition: 07/07/25
Time of Disposition: 15:59
Patient with high blood pressure during this ER visit?: No
Condition: Good
Covid-19: Not Applicable
Discharge Problem:
Stoma bleed
Instructions: How to care for an ostomy
Prescriptions:
No Action
clorazepate dipotassium 3.75 MG tablet
7.5 mg PO DAILY
azelastine-fluticasone [Dymista] 23 GM spray,non-aerosol
50 mg intranasal DAILY
guaifenesin [Mucinex] 600 MG tablet extended release 12hr
600 mg PO DAILY
Dulera 1 PUFF HFA aerosol inhaler
2 puff inhalation R BID
Rx Instructions:
no pharmacy fill or ecw
atorvastatin [Lipitor] 40 mg Tablet
40 mg PO HS
omeprazole magnesium [Prilosec OTC] 20 mg Tablet,Delayed Release (Dr/Ec)
20 mg PO DAILY
Eliquis 5 mg Tablet
5 mg PO BID
acetaminophen [Tylenol] 325 mg Tablet
650 mg PO Q6HPRN PRN (Reason: mild pain)
Breztri Aerosphere 160-9-4.8 mcg/actuation Hfa Aerosol Inhaler
2 inh INHALATION R DAILY
lidocaine 4 % Adhesive Patch,Medicated
1 patch topical DAILY Qty: 0 0RF
tramadol 50 mg Tablet
50 mg PO Q6HPRN PRN (Reason: moderate pain) Qty: 8 0RF
metoprolol succinate 25 mg Tablet Extended Release 24 Hr
37.5 mg PO BID Qty: 0 0RF
pregabalin 75 mg Capsule
75 mg PO BID Qty: 0 0RF
furosemide 20 MG tablet
20 mg PO DAILY PRN (Reason: Fluid Retention/Swelling) Qty: 0 0RF
doxycycline hyclate 100 mg capsule
100 mg PO BID Qty: 20 0RF
cefdinir 300 mg capsule
300 mg PO BID Qty: 20 0RF
metronidazole 500 mg Tablet
500 mg PO BID Qty: 0 0RF
Referrals:
Azeb Estrada CRNP [Family Provider, Family Practice]
Activity Restrictions/Additional Instructions:
Call Dr. Hutson in AM for follow up instructions. Return to the emergency department immediately for any changes in/worsening of your symptoms.
Interventions
Interventions:
*Risk Screen - Suicide Last Done: 07/07/25 13:14
*General Assessment Last Done: 07/07/25 13:14
*Neglect/Abuse Screening Last Done: 07/07/25 13:14
*ED- Fall Risk Assessment Last Done: 07/07/25 13:14
*ED COVID-19 Vaccine History Last Done: 07/07/25 13:14
*ED Influenza Vaccine History Last Done: 07/07/25 13:14
*Nursing Disposition Last Done: 07/07/25 16:10
DQ-[id number]-[id number] Assessment Last Done: 07/07/25 14:39
ED-Female Genitourinary Assessment Last Done: 07/07/25 14:39
Discharge Date and Time
Discharge Date/Time: 07/07/25 16:05
Print Language: TURKISH
[2025-07-07 16:10] VITALS: BP 101/72
== END 2025-07-07 16:05 | disposition home or self-care (01) ==
LOC: EMR 13:10
PROVIDERS: EMERGENCY PHYSICIAN Student in an Organized Health Care Education/Training Program; FAMILY PHYSICIAN Nurse Practitioner Family
DX: R10.84 Generalized abdominal pain (principal); R11.0 Nausea; E78.00 Pure hypercholesterolemia, unspecified; I10 Essential (primary) hypertension; I48.91 Unspecified atrial fibrillation; J44.9 Chronic obstructive pulmonary disease, unspecified; Z93.3 Colostomy status
CPT/HCPCS: 99283; 80053; 85025; 86850; 86900; 86901

== ENCOUNTER 2025-07-24 05:48 | Inpatient (IN) | payer MEDICARE, OTHER, SELFPAY ==
[2025-07-17 11:08] LABS: Hematocrit 41.1 % (37.0-47.0); Hemoglobin 13.4 g/dL (12.0-16.0); Mean Corp Hgb Conc. 32.6 g/dL (33.0-37.0); Mean Corpuscular Volume 91.7 fL (81.0-99.0); Platelet Count 282 10^3/uL (130-400); Red Cell Dist. Width 13.3 % (11.5-14.5)
[2025-07-17 11:21] LABS: INR 1.25; PT 16.2 Sec (11.4-14.6)
[2025-07-17 11:22] LABS: APTT 31.9 Sec (23.4-35.0)
[2025-07-17 11:33] LABS: ALT (SGPT) 16 U/L (0-35); AST (SGOT) 21 U/L (14-36); Albumin 4.3 g/dl (3.5-5.0); Alkaline Phosphatase 66 U/L (38-126); Blood Urea Nitrogen 19 mg/dl (7-17); Calcium 10.2 mg/dl (8.4-10.2); Carbon Dioxide 27 mmol/L (22-30); Chloride 106 mmol/L (98-107); Glucose 96 mg/dl (70-99); Potassium 3.9 mmol/L (3.5-5.1); Sodium 138 mmol/L (135-145); Total Protein 7.2 g/dl (6.3-8.2); eGFR > 60.00
[2025-07-17 12:51] LABS: Glycohemoglobin (HgbA1c) 5.6 % (4.0-5.9)
[2025-07-17 14:11] VITALS: BMI 32.7
[2025-07-24] VITALS (15 sets, daily range): BP systolic 92–129; BP diastolic 52–86; BMI 32.7
[2025-07-24] MEDS: TYLENOL 1000 MG PO ×3 (06:33→23:56)
[2025-07-24] MEDS: NORMOSOL-R/PLASMALYTE-A 1000 IV ×2 (06:34→18:17)
[2025-07-24] MEDS: HEPARIN 5000 UNITS SC (06:34)
--- NOTE | 2025-07-24 14:47 | W.IMMPOSTOP ---
Addendum entered and electronically signed by Tato Hutson MD 07/24/25 19:35:
updated son via phone immediately postoperatively
Original Note:
Surgical Immed Post Op Note
-
Primary Surgeon: Tato Hutson MD
Assisting Surgeon: GEMA Falcon
Pre-op Diagnosis: History of colostomy, diverticular disease
Post-op Diagnosis: History of colostomy, diverticular disease
Procedure Performed: Robotic colostomy reversal; lysis of adhesions x 1 hour, flexible sigmoidoscopy, mesenteric angiography with ICG, laparoscopic tap block; cystoscopy with bilateral ureteral stents by Dr. Gerardo
Anesthesia Type: General
Specimen / Cultures: 1. Colostomy 2. Residual rectosigmoid
Estimated Blood Loss: 50 mL
IVF: 2.7 L
UOP: 350 mL
Complications: None
Operative Findings: Took down colostomy and sutured in anvil; placed Abel and insufflated abdomen; placed 3 additional ports with an assist port; significant adhesions from the omentum to the colon, as well as interloop adhesions between small
bowel and colon; unable to adequately reach through the colostomy wound, so placed an additional 8 mm port at Aly's point; took down adhesions from omentum and from the colon to the left lower abdomen; freed small bowel adhesions from the rim of
the pelvis; placed a Ray-Ronaldo to assist with small bowel retraction; freed adhesions from the uterus to the rectal stump; suspended the uterus with a nylon stitch; mobilized the rectal stump beyond the peritoneal reflection; performed flexible
sigmoidoscopy and evacuated multiple hard mucus balls from the rectal stump; blood and mucus ball remained, I attempted to remove using endoscopic grasper, but was unable to; I passed sizers and was unable to pass a sizer beyond 15 cm from the anal
verge; upsized the right mid abdominal port to a 12 mm and stapled across at 15 cm to include the hard mucus ball in the residual rectosigmoid; EEA sizers passed up easily now; performed EEA stapled anastomosis from proximal sigmoid to proximal
rectum; donuts intact, negative leak test, intact on flexible sigmoidoscopy; Ray-Ronaldo was removed; performed laparoscopic tap block bilaterally and closed the 12 mm port with the Israel Tilley and an 0 Vicryl; ports removed under direct
visualization and no bleeding was noted; I cleaned up the fascia around the colostomy wound and closed with a 0 stratafix; closed the remaining incisions in the usual fashion; ostomy wound packed with Betadine soaked packing and covered with
dressing and Tegaderm; right stent was removed; Roa and left stent remained in place
--- NOTE | 2025-07-24 14:55 | CON.HOSP ---
Consultation
-
Date/Time Consultation Requested: 07/24/2025, 14: 37
Date/Time Consultation Performed: 07/24/2025, 15:10
Requesting Provider: Tato Hutson MD
Performing Provider: Rodrigo Guillermo MD ; Lei Chapa DO
Reason for Consultation: Multiple comorbidities
Family Physician
-
Family Physician: Azeb Estrada
Chief Complaint
-
Robotic colostomy reversal
History of Present Illness
75 year old F with known PMHx of MVR, HUNTER, Afib on Eliquis, HFpEF, diverticulitis with pelvic abscesses, had exploratory laparoscopy and drainage of abscess with sigmoidectomy and creation of end colostomy on 03/24/2025 now received robotic colostomy
reversal today, on 07/24/2025. There were no immediate postop complications documented.
Procedure performed: Robotic colostomy reversal; lysis of adhesions x 1 hour, flexible sigmoidoscopy, mesenteric angiography with ICG, laparoscopic tap block; cystoscopy with bilateral ureteral stents by Dr. Gerardo
Surgeon: Tato Hutson MD
Medical History
Past Medical History
Past Medical History: Reports Arrhythmia and Other (Mitral valve disorder Diastolic heart failure Hypertension Severe A-fib PVCs)
Past Surgical History: Reports Cardiac, Orthopedic and Other (Left shoulder replacement Left knee replacement Mitral valve repair, exploratory lap with drainage of pelvic abscess, sigmoidectomy and colostomy 03/24/2025)
Social History
Tobacco: Non-smoker
Alcohol: Occasional
Drug: None
Family History
Family History: Reviewed & Not Pertinent
Allergies / Home Medications
Allergies reflects when Allergies were last updated in [facility].
Home Medications with original date entered in [facility]
Allergy/Medication List:
Allergies
Allergy/AdvReac Type Severity Reaction Status Date / Time
atenolol Allergy 'felt out Verified 07/24/25 06:26
of it'
ibuprofen Allergy swelling Verified 07/24/25 06:26
of face
Penicillins Allergy Hives; Verified 07/24/25 06:26
tolerated
cephalosporins
pollen extracts Allergy seasonal Verified 07/24/25 06:26
allergies
Home Medications
atorvastatin 40 mg tablet (Lipitor) 40 mg PO DAILY High Cholesterol 05/22/24
apixaban 5 mg tablet (Eliquis) 5 mg PO BID 07/18/25
bisacodyl 5 mg tablet,delayed release (Dulcolax (bisacodyl)) 5 mg PO PRE OP 07/18/25
clorazepate dipotassium 3.75 mg tablet 7.5 mg PO DAILY 07/18/25
famotidine 10 mg tablet (Acid Controller) 10 mg PO DAILY 07/18/25
fexofenadine 180 mg tablet (Allergy Relief (fexofenadine)) 180 mg PO DAILY 07/18/25
fluticasone propionate 50 mcg/actuation nasal spray,suspension 1 spray intranasal DAILY 07/18/25
furosemide 20 mg tablet 20 mg PO DAILY 07/18/25
guaifenesin 1,200 mg tablet, extended release 12 hr (Mucinex) 1,200 mg PO DAILY 07/18/25
meclizine 25 mg tablet 25 mg PO DAILY 07/18/25
metoprolol succinate 50 mg tablet,extended release 24 hr 50 mg PO QPM 07/18/25
metoprolol succinate 50 mg tablet,extended release 24 hr 100 mg PO DAILY 07/18/25
metronidazole 500 mg tablet 500 mg PO PRE PROCEDURE 07/18/25
neomycin 500 mg tablet 1 g PO PRE PROCEDURE 07/18/25
polyethylene glycol 3350 17 gram/dose oral powder (Miralax) 1 g PO PRE OP 07/18/25
mometasone-formoterol HFA 200 mcg-5 mcg/actuation aerosol inhaler (Dulera) 2 puff inhalation DAILY 07/22/25
Review of Systems
-
Unable to obtain full review of systems at this time due to: Other (Patient under anesthesia affect after the surgery.)
Physical Exam
Vital Signs
Vital Signs
Temp Pulse Resp BP Pulse Ox
97.8 F 118 18 114/78 96
07/24/25 06:30 07/24/25 06:30 07/24/25 06:30 07/24/25 06:30 07/24/25 06:30
Physical Exam
General: No Apparent Distress
Respiratory: Clear
Cardiac: S1/S2 and Regular Rhythm
GI: Other (Surgical scars/incision dry and intact)
Skin: Warm
Neuro: Negative Awake
Laboratory Results
-
PT 16.2 Sec (11.4-14.6) H 07/17/25 09:59
INR 1.25 07/17/25 09:59
APTT 31.9 Sec (23.4-35.0) 07/17/25 09:59
Total Bilirubin 1.3 mg/dl (0.2-1.3) 07/17/25 09:59
AST 21 U/L (14-36) 07/17/25 09:59
ALT 16 U/L (0-35) 07/17/25 09:59
Alkaline Phosphatase 66 U/L (38-126) 07/17/25 09:59
Data Reviewed
-
Old Records: Reviewed
Impression / Plan
-
# s/p Robotic colostomy reversal; adhesion lysis, flexible sigmoidoscopy, mesenteric angiography with ICG, laparoscopic tap block; cystoscopy with bilateral ureteral stents on 07/24/2025
# S/P Ex lap, drainage of pelvic abscess, sigmoidectomy, abdominal washout, creation of end colostomy Dr. Hutson on 03/24/2025
- Pain control with scheduled toradol, IV dilaudid prn
- Pt eval
- diet per surgery
- encourage IS use
- CBC, CMP and mag in the AM
# Paroxysmal atrial fibrillation
Anticoagulation was interrupted for surgery.
Restart per surgery; recommend atleast 24 hrs post op before resuming
# Mitral Regurgitation-history of valve repair 2013
# Asthma
# Hyperlipidemia
# HTN- BB Was on metoprolol 100 mg in a.m. and 50 mg in p.m.
# GERD-
# Anxiety
# Left scoliosis. Multilevel discogenic and facet degenerative changes. Mild grade 1 spondylolisthesis of L4 and L5.
# H/O Migraine
# Obesity with a BMI 32
# HUNTER
# CODE STATUS-Full code per the initial documentation
--- NOTE | 2025-07-24 14:56 | OR.RPT ---
Operative Report
Operative Report
DATE OF OPERATION: 07/24/2025
SURGEON: Tato Hutson MD
PREOPERATIVE DIAGNOSIS: History of colostomy, perforated diverticulitis
POSTOPERATIVE DIAGNOSIS: History of colostomy, perforated diverticulitis
OPERATION: Robotic colostomy reversal, adhesiolysis greater than 1 hour, flexible sigmoidoscopy, flexible sigmoidoscopy, laparoscopic TAP block; cystoscopy with bilateral ureteral stents by Urology
ASSISTANTS:
1. GEMA Falcon
ANESTHESIA: General
ESTIMATED BLOOD LOSS: 50 mL
IVF: 2.7 L
URINE OUTPUT: 350 mL
FINDINGS:
1. Significant adhesions from the omentum to the colon and small bowel, as well as interloop adhesions between small bowel and colon; mild amount of adhesions within the pelvis from the uterus to the rectal stump
2. Performed EEA stapled anastomosis at 15 cm from the anal verge to proximal sigmoid; donuts intact x 2, negative leak test, anastomosis intact on flexible sigmoidoscopy
SPECIMENS:
1. Colostomy
2. Residual rectosigmoid colon
DRAINS: None
COMPLICATIONS: No immediate complications.
INDICATIONS: The patient is a 75-year-old female who initially presented to the [place] ED with 2 days of abdominal pain and was found to have perforated diverticulitis with pneumoperitoneum. She underwent exploratory laparotomy with
sigmoidectomy, umbilical hernia repair and creation of end colostomy. Postoperatively, she did well. She had 2 small pelvic collections that were drained. She fully recovered and wanted to proceed with colostomy reversal. The operation was
discussed with the patient in detail, including the risks, benefits and alternatives. Risks described included, but not limited to, bleeding, infection, anastomotic leak, damage to nearby structures (i.e.- ureter, bowel, solid organs), incisional
hernia, need for diverting ostomy creation, conversion to open, inability to reverse the ostomy, recurrent diverticulitis, and anesthetic risks, including but not limited to IA, stroke, DVT/PE, respiratory failure and . The patient understood
and agreed to proceed.
PROCEDURE IN DETAIL: The patient was taken to the operating room and placed on the operating table in supine position. Sequential compression devices were placed bilaterally. General anesthesia was induced and the patient was intubated without
complication. The patient was placed in lithotomy position with both arms tucked. Urology performed a cystoscopy, placed bilateral ureteral stents, injected each ureter with 2.5mL of ICG and placed a Zamarripa. The ostomy was sutured closed with 2-0
Vicryl. The abdomen was prepped and draped in a sterile fashion. A time-out was performed verifying the correct patient, procedure, operative site, positioning, and special equipment. Anesthesia placed an orogastric tube. IV ertapenem was given
preincision. A marking pen was used to justo out the midline.
Using electrocautery, the mucocutaneous junction was divided circumferentially around the colostomy. This was taken down to the level of the fascia with meticulous dissection, in order to prevent injury to the colon. Hemostasis was achieved. I
entered the abdominal cavity and cleared the surrounding area of adhesions using a finger sweep. I selected a point proximal from the colostomy. A window was created in the mesentery and the mesentery was divided using clamps, Metzenbaum scissors
and 2-0 Vicryl ties. Blue towels were used to exclude the operative field from contamination. The colon was divided with Bovie electrocautery. The colostomy was passed off as specimen. A ringed forceps was used to ensure adequate diameter of the
colon. A 2-0 Prolene was sutured in a pursestring around the edge of the colon in a running [place]hall fashion. The anvil was placed and the pursestring was closed around it. The anvil staple line was cleared from any intervening mesentery and fat.
The anvil and colon was returned to the abdomen. A small Abel with port cap was placed and a robotic 12 mm port was placed through the port cap. Outer gloves were changed. The abdomen was insufflated. The robotic endoscope was advanced and the
abdomen was explored.
Adhesions were noted from the omentum to the distal colon, as well as to the small bowel. These were taken down with sharp dissection. There were adhesions noted from the small bowel to the pelvic structures, which were also taken down sharply.
After adhesions were cleared, the rectal stump was identified. To improve visualization, I retracted the uterus by using a nylon stitch on a Sg needle, passed transcutaneously above the pubic symphysis, through the body of the uterus, and back
out of the abdomen, secured using a Kierra clamp. I was able to easily identify the right and left ureters using firefly and kept these safe from my dissection. I elevated the rectal stump and entered the presacral space by scoring the peritoneum
over the sacral promontory. I dissected in the presacral plane beyond the sacral promontory and laterally, identifying the left ureteral. The superior rectal artery was still intact. Upon palpating the rectosigmoid, this felt hard, likely due to
residual scarring from diverticular disease. Therefore, I proceeded with resection of this residual area.
I performed flexible sigmoidoscopy of the rectal stump to ensure no intervening stool. I identified multiple stool balls, which were removed with lavage and digitally. There was a stool ball adherent to the staple line, which I was unable to
evacuate despite multiple digital and endoscopic attempts. I left this in place as this would be removed with my resection of the residual rectosigmoid. The rectal mucosa was healthy up to the staple line. I passed up EEA sizers to assess reach and
mobilization. The sizers did not easily pass beyond 15cm from the anal verge. Using sharp dissection and the vessel sealer, I mobilized the rectum down to the mid rectum, just beyond the anterior peritoneal reflection. I checked reach and
mobilization with the EEA sizers and identified the location for stapling at about 15 cm from the anal verge.
I retracted the rectal stump and created a tunnel through the mesorectum at my proposed transection point. I divided the mesorectum with the vessel-sealer, including the superior rectal artery. I stapled with the green load of the 60mm robotic
stapler. The staple line was hemostatic. The specimen was removed through the Abel port. I turned to the anvil and checked my reach proximally. It was plenty adequate without any additional mobilization needed. The operative field was surveyed
and hemostasis was ensured. The EEA stapler was passed transanally to the distal staple line. The pin was extended and was connected with the anvil. After ensuring there was no twist to the mesentery and there was no tension, the EEA stapler was
closed for 1 minute and fired. Both donuts were intact. A leak test was performed by filling the pelvis with saline, occluding the proximal lumen and insufflating with the flexible sigmoidoscope. There was no evidence of leak from the anastomosis.
Endoscopically, the anastomosis was intact without evidence of bleeding. The colorectum was desufflated and the flexible sigmoidoscope removed.
The nylon stitch suspending the uterus was cut and removed. The operative field was evaluated once more and was hemostatic. The robotic instruments were removed and the robot was undocked. Using laparoscopic visualization, a TAP block was
performed using a total of 30 mL of 0.25% Marcaine with epinephrine mixed with dexamethasone and injecting in the transverse abdominis plane bilaterally. The 12 mm port site was closed with an 0 Vicryl using a Israel Tilley device. The remaining
ports were removed under direct visualization and no bleeding was noted. The colostomy site was closed. First, the edges of the anterior fascia were cleaned from the subcutaneous fat. The anterior fascia was closed using an 0 Stratafix suture.
The incisions were irrigated. The skin opening of the colostomy wound was tightened by running a 2-0 Vicryl stitch in a deep dermal pursestring fashion. The wound was packed with plain packing soaked in Betadine. The remaining 30 cc of 0.25%
Marcaine with epinephrine mixed with dexamethasone were injected around the incisions. The port incisions were closed with running subcuticular 4-0 Monocryl and dressed with Dermabond. The ostomy wound was dressed with gauze and Tegaderm.
At this point, the procedure was complete. The patient was awoken and extubated without complication. The right stent was removed, and the left stent and Zamarripa were left in place. All needle, sponge and instrument counts were reported as correct.
The patient tolerated the procedure well and was transferred to the recovery room in stable condition with the zamarripa in place.
Of note, GEMA Falcon, diagnostic assistant, was necessary during this procedure for traction, countertraction, and exploratory purposes. I was present for the entire duration of the case.
DICTATED BY: Tato Hutson MD
[2025-07-24 16:10] LABS: Hematocrit 43.0 % (37.0-47.0); Hemoglobin 14.3 g/dL (12.0-16.0); Mean Corp Hgb Conc. 33.3 g/dL (33.0-37.0); Mean Corpuscular Volume 89.0 fL (81.0-99.0); Platelet Count 272 10^3/uL (130-400); Red Cell Dist. Width 13.2 % (11.5-14.5)
[2025-07-24 16:27] LABS: Nucleated Red Blood Cells % 0 %
[2025-07-24 16:29] LABS: Absolute Neutrophils -Man Diff 22.4 10^3/uL (1.4-6.5)
[2025-07-24 16:30] LABS: Normal RBC Morphology Yes; Platelets Checked Yes; Total Cells Counted 100
[2025-07-24 17:01] LABS: Blood Urea Nitrogen 10 mg/dl (7-17); Calcium 9.3 mg/dl (8.4-10.2); Carbon Dioxide 21 mmol/L (22-30); Chloride 104 mmol/L (98-107); Estimated Creatinine Clearance 69 ml/min; Glucose 188 mg/dl (70-99); Potassium 4.7 mmol/L (3.5-5.1); Sodium 135 mmol/L (135-145); eGFR > 60.00
[2025-07-24] MEDS: ZOFRAN 4 MG IV (17:26)
[2025-07-24] MEDS: DILAUDID 0.5 MG IV ×2 (17:27→23:34)
[2025-07-24] MEDS: TOPROL XL 50 MG PO (18:16)
[2025-07-24 21:29] LABS: Hematocrit 45.0 % (37.0-47.0); Hemoglobin 14.2 g/dL (12.0-16.0); Mean Corp Hgb Conc. 31.6 g/dL (33.0-37.0); Mean Corpuscular Volume 93.2 fL (81.0-99.0); Platelet Count 260 10^3/uL (130-400); Red Cell Dist. Width 13.2 % (11.5-14.5)
[2025-07-24 21:47] LABS: Magnesium 2.0 mg/dl (1.6-2.3)
[2025-07-24 22:39] LABS: Blood Urea Nitrogen 10 mg/dl (7-17); Calcium 9.6 mg/dl (8.4-10.2); Carbon Dioxide 24 mmol/L (22-30); Chloride 103 mmol/L (98-107); Estimated Creatinine Clearance 60 ml/min; Glucose 165 mg/dl (70-99); Potassium 4.4 mmol/L (3.5-5.1); Sodium 140 mmol/L (135-145); eGFR > 60.00
[2025-07-25] VITALS (8 sets, daily range): BP systolic 83–113; BP diastolic 56–77; PULSE 111–120; O2SAT 95; BMI 33.0
--- NOTE | 2025-07-25 05:32 | W.PN.UPDATE ---
Update Note
Progress Note Update
105/73 HR 118 patient states her HR goes up and down. Denies any palpitations, chest pain. HR RR tachycardia, received metoprolol 50mg PO at 1800. Eliquis to be resumed 24h Post-OP. labs wnl
BP 124/79 HR 117 will give Metoprolol 100 mg PO now
[2025-07-25] MEDS: TYLENOL 1000 MG PO ×3 (05:50→17:21)
[2025-07-25] MEDS: TOPROL XL 100 MG PO (06:15)
--- NOTE | 2025-07-25 07:24 | W.PN.HOSP.TC ---
Addendum entered and electronically signed by Lei Chapa, DO 07/25/25 18:30:
Pt with Atrial Flutter post op, per cardiology. To consider OP CTI ablation
Original Note:
Today's Communication/Plan
-
regular diet
dc zamarripa
ivf LR
continue home meds
continue to debbie munoz per surgery
Assessment / Plan
Assessment / Plan
# s/p Robotic colostomy reversal; adhesion lysis, flexible sigmoidoscopy, mesenteric angiography with ICG, laparoscopic tap block; cystoscopy with bilateral ureteral stents on 07/24/2025
# S/P Ex lap, drainage of pelvic abscess, sigmoidectomy, abdominal washout, creation of end colostomy Dr. Hutson on 03/24/2025
- pod #1
- Pain control with scheduled toradol, IV dilaudid prn
- Pt eval
- REGULAR DIET
- encourage IS use
- plan to recheck hb in afternoon
# Paroxysmal atrial fibrillation
Anticoagulation was interrupted for surgery.
Restart per surgery; recommend atleast 24 hrs post op before resuming
- Cardio consult per surgery as patient is tachy and very anxious given her hx of a fib
# Mitral Regurgitation-history of valve repair 2013
# Asthma
# Hyperlipidemia
# HTN- BB on metoprolol 100 mg in a.m. and 50 mg in p.m.
# GERD-
# Anxiety
# Left scoliosis. Multilevel discogenic and facet degenerative changes. Mild grade 1 spondylolisthesis of L4 and L5.
# H/O Migraine
# Obesity with a BMI 32
# HUNTER
# CODE STATUS-Full code
DVT ppx after reviewing garrett afternoon lab results; will consider lovenox
Anticipated Discharge: 24 - 48 hours
Subjective/Interval History
-
Date of Service: July 25, 2025
AFVSS. soft bp readings. She was given metoprolol earlier in the morning because of tachycardia.
Objective Data
-
Labs:
Laboratory Results
07/24/25 07/24/25 07/25/25
21:10 22:08 07:10
WBC 22.3 H Pending
Hgb 14.2 Pending
Hct 45.0 Pending
Plt Count 260 Pending
Sodium 140 Cancelled Pending
Potassium 4.4 Cancelled Pending
Chloride 103 Cancelled Pending
Carbon Dioxide 24 Cancelled Pending
BUN 10 Cancelled Pending
Creatinine 0.8 Cancelled Pending
Glucose 165 H Cancelled Pending
Calcium 9.6 Cancelled Pending
Vital Signs:
Vital Signs
Temp Pulse Resp BP Pulse Ox
97.4 F 118 17 124/78 92
07/25/25 03:05 07/25/25 06:15 07/25/25 03:05 07/25/25 06:15 07/25/25 03:05
I&O
07/24/25 07/25/25 07/26/25
06:59 06:59 06:59
Intake Total 1240 / 1240
Output Total 1400 / 1400
Balance -160 / -160
Review of Systems
-
History Source: Patient
All other systems: Reviewed and negative
Physical Exam
-
General: Well Developed and No Apparent Distress
HEENT: Normocephalic
Respiratory: Clear to Auscultation
GI: Soft, Nondistended, Tender (mildly diffuse) and Other (Incision clean dry and intact)
Musculoskeletal: No Clubbing, No Cyanosis and No Edema
Neuro: Awake, Alert, Oriented and AO x 3
Psych: Calm
Data Reviewed
-
Labs: Labs Reviewed by me, Discussed with Physician and Discussed with Patient
[2025-07-25] MEDS: SYMBICORT 160/4.5 MCG INHALER 2 PUFF INH (07:42)
[2025-07-25 08:00] LABS: Hematocrit 37.8 % (37.0-47.0); Hemoglobin 12.1 g/dL (12.0-16.0); Mean Corp Hgb Conc. 32.0 g/dL (33.0-37.0); Mean Corpuscular Volume 92.9 fL (81.0-99.0); Nucleated Red Blood Cells % 0 %; Platelet Count 227 10^3/uL (130-400); Red Cell Dist. Width 13.4 % (11.5-14.5)
[2025-07-25 08:24] LABS: Blood Urea Nitrogen 13 mg/dl (7-17); Calcium 9.4 mg/dl (8.4-10.2); Carbon Dioxide 24 mmol/L (22-30); Chloride 105 mmol/L (98-107); Estimated Creatinine Clearance 60 ml/min; Glucose 140 mg/dl (70-99); Magnesium 2.2 mg/dl (1.6-2.3); Potassium 4.2 mmol/L (3.5-5.1); Sodium 136 mmol/L (135-145); eGFR > 60.00
[2025-07-25] MEDS: CLARITIN 10 MG PO (08:41)
[2025-07-25] MEDS: MUCINEX 1200 MG PO (08:41)
[2025-07-25] MEDS: LR 1000 IV ×2 (08:41→20:20)
[2025-07-25] MEDS: TRANXENE PO (08:41)
[2025-07-25] MEDS: LIPITOR 40 MG PO (08:42)
[2025-07-25] MEDS: RELISTOR 12 MG SC (08:42)
[2025-07-25] MEDS: PEPCID 10 MG PO (08:42)
--- NOTE | 2025-07-25 09:45 | W.PN.CRS1 ---
Today's Communication / Plan
-
continue regular diet
cards c/s
recheck hemoglobin
holding eliquis
d/c stent and zamarripa
Assessment/Plan
-
POD#1 Robotic colostomy reversal
Hgb: 12.1 (14.2), WBC: 19.2 (22.3)
Vitals: HR 101-118, afebrile, RR 17-21
-OOB with PT/OT
-Continue regular diet
-Incentive spirometry q1hr while awake
-Hold Eliquis today
-Afib history, tachy since OR, EKG pending. Will consult cards.
-Appreciate hospitalist.
-Repeat hgb at noon. If stable, will start lovenox for dvt prophylaxis. TEDs/scds in place.
-Stent removed at bedside. D/C zamarripa.
-CM for dispo planning
Subjective Data
Procedure
07/24/2025- Robotic colostomy reversal; lysis of adhesions x 1 hour, flexible sigmoidoscopy, mesenteric angiography with ICG, laparoscopic tap block; cystoscopy with bilateral ureteral stents by Dr. Gerardo
Subjective Data
Date of Service: July 25, 2025
Patient states she had some pain from the catheter overnight but it is positional. She has not had gas or flatus yet. Her abdominal pain is controlled.
Objective Data
-
Vital Signs
Temp Pulse Resp BP Pulse Ox
98.5 F 111 18 96/58 94
07/25/25 08:00 07/25/25 08:00 07/25/25 08:00 07/25/25 08:34 07/25/25 08:00
Intake & Output
07/24/25 07/25/25 07/26/25
06:59 06:59 06:59
Intake Total 1240 / 1240
Output Total 1400 / 1400
Balance -160 / -160
Intake:
Oral fluids 240 / 240
IV fluids (Total) 1000 / 1000
Normosol 400 / 400
Output:
Urine, Zamarripa 1400 / 1400
Lab Results
07/25/25 07:10
07/25/25 07:10
Physical Exam
-
General: No Acute Distress and AOx3
Abdomen: Soft, Non Distended and Non Tender
Skin: Warm and Dry
Incision: Clear, Dry, Intact
--- NOTE | 2025-07-25 10:06 | PTCARENOTE ---
Pt hypotensive and tachycardic this am, asymtpomatic. IVF ordered and started per Dr Chapa, Cardiology consulted per Dr Hutson. Care ongoing at this time.
--- NOTE | 2025-07-25 10:39 | CON.CAR ---
Addendum entered and electronically signed by Dann Teran MD 07/25/25 13:56:
I saw and examined the patient independently and performed the MDM.
The resident's note was reviewed and I agree with the note with changes/additions below.
Comment: 75 yo female with PMH of typical atrial flutter, which has been persistent, on eliquis, h/o MV repair 2014 is s/p exploratory laparoscopy and drainage of abscess with sigmoidectomy and creation of end colostomy on 03/24/2025, and now
received robotic colostomy reversal on 07/24/2025. We are consulted for atrial flutter with RVR post op. She feels occasional palps. Exam with tachy, irregular rhythm, no murmurs, no edema. Recent echo reviewed below: EF 70-75%. Tele: A flutter 110s.
Atrial flutter. Mildly elevated rates post op. BP low initially, now improving. Trend HR on tele. Continue PO metoprolol. To consider IV diltiazem if rates elevate further and BP remains stable. Patient wants to seek outpatient evaluation for
ablation.
Chronic anticoagulation. Resume eliquis when safe post op.
Original Note:
Consultation
Consultation Request
Date/Time Consultation Requested: 07/25/2025; 10:02
Date/Time Consultation Performed: 07/25/2025; 10:39
Requesting Provider: Nargis Emilie
Performing Provider: Dr. Dann Teran; Dr. Josse Bates
Reason for Consultation: tachycardia, afib, lower BP
Medical History
-
History of Present Illness:
75 yo F PMHx of MVR, HUNTER, Afib on Eliquis, HFpEF, diverticulitis c/b pelvic abscesses, had exploratory laparoscopy and drainage of abscess with sigmoidectomy and creation of end colostomy on 03/24/2025 now received robotic colostomy reversal on
07/24/2025. No immediate postop complications documented. She is POD#1.
Additional cardiology hx: she follows with Dr. Lane of [facility] cardiology. Patient with prior history of mitral valve repair with [place] cords to P2 x 2 and a 28 mm annuloplasty ring and suture closure of the left atrial appendage 07/12/2014,
atrial flutter, CVA in 2016.
She currently is receiving metoprolol-XL PO but is tachycardic to 101-120s with BP in 90/50s.
This morning, she reports pain due to the colostomy reversal procedure and says it is hard to cough, or breathe deeply. She does feel palpitations and to me endorsed some lightheadedness. She denies syncope however. She denies chest pain. She denies
lower extremity edema. In her previous hospitalization in March 2025 for creation of end colostomy, she required diltiazem drip for rate control.
She is very anxious this morning and reports that she feels her symptoms worsen when she gets worked up about the stress and improve when she tries to calm down.
On EKG telemetry review, she appears to be in atrial flutter with HR in narrow range of 118-120s (per chart review).
Past Medical History
Past Medical History: Arrhythmias, CHF, CVA, Valvular Disease (mitral valve repair and suture closure of ARLEY in 06/2024) and Other (HUNTER, diverticulitis)
Past Surgical History: Bowel Resection and Other (colostomy; reversed on 07/24/2025)
Social History
Tobacco: Non-Smoker
Alcohol: Occasional
Drug: None
Living: Alone
Allergies / Home Medications
Allergy/AdvReac Type Severity Reaction Status Date / Time
atenolol Allergy 'felt out Verified 07/24/25 06:26
of it'
ibuprofen Allergy swelling Verified 07/24/25 06:26
of face
Penicillins Allergy Hives; Verified 07/24/25 06:26
tolerated
cephalosporins
pollen extracts Allergy seasonal Verified 07/24/25 06:26
allergies
�Medication �Instructions �Recorded �Confirmed �Type
atorvastatin 40 mg tablet (Lipitor) 40 mg PO DAILY High Cholesterol 05/22/24 07/24/25 History
apixaban 5 mg tablet (Eliquis) 5 mg PO BID Blood Clot 07/18/25 07/24/25 History
Prevention/Tx
bisacodyl 5 mg tablet,delayed 5 mg PO PRE OP Constipation 07/18/25 07/24/25 History
release (Dulcolax (bisacodyl))
clorazepate dipotassium 3.75 mg 7.5 mg PO DAILY Mental 07/18/25 07/24/25 History
tablet Health/Anxiety
famotidine 10 mg tablet (Acid 10 mg PO DAILY Gastrointestinal 07/18/25 07/24/25 History
Controller) Issue
fexofenadine 180 mg tablet 180 mg PO DAILY Allergies 07/18/25 07/24/25 History
(Allergy Relief (fexofenadine))
fluticasone propionate 50 1 spray intranasal DAILY Allergies 07/18/25 07/24/25 History
mcg/actuation nasal
spray,suspension
furosemide 20 mg tablet 20 mg PO DAILY Fluid 07/18/25 07/24/25 History
Retention/Swelling
guaifenesin 1,200 mg tablet, 1,200 mg PO DAILY Lung/Breathing 07/18/25 07/24/25 History
extended release 12 hr (Mucinex) Issues
meclizine 25 mg tablet 25 mg PO DAILY Neurological 07/18/25 07/24/25 History
Condition
metoprolol succinate 50 mg 50 mg PO QPM Blood Pressure 07/18/25 07/24/25 History
tablet,extended release 24 hr
metoprolol succinate 50 mg 100 mg PO DAILY Blood Pressure 07/18/25 07/24/25 History
tablet,extended release 24 hr
metronidazole 500 mg tablet 500 mg PO PRE PROCEDURE Infection 07/18/25 07/24/25 History
neomycin 500 mg tablet 1 g PO PRE PROCEDURE Infection 07/18/25 07/24/25 History
polyethylene glycol 3350 17 1 g PO PRE OP Constipation 07/18/25 07/24/25 History
gram/dose oral powder (Miralax)
mometasone-formoterol HFA 200 2 puff inhalation DAILY 07/22/25 07/24/25 History
mcg-5 mcg/actuation aerosol Lung/Breathing Issues
inhaler (Dulera)
Review of Systems
-
History Source: Patient
Constitutional: No Symptoms
EENT: No Symptoms
Respiratory: Cough and Trouble Breathing
Cardiac: Palpitations
Abdomen/GI: Abdominal Pain
Musculoskeletal: No Symptoms
Skin: No Symptoms
Neurological: Other (lightheadedness)
Endocrine: No Symptoms
Physical Exam
Vital Signs
Temp Pulse Resp BP Pulse Ox
98.5 F 111 18 96/58 94
07/25/25 08:00 07/25/25 08:00 07/25/25 08:00 07/25/25 08:34 07/25/25 08:00
telemetry review suggests atrial flutter with HR 116-120s
per nursedomoniquering BP was in 80s, repeat to 90s systolic
Lab Results
07/25/25 07:10
Cr 0.8
electrolytes wtihin normal limits
EKG 07/25/2025
Vent. Rate : 118 BPM Atrial Rate : 236 BPM
P-R Int : * ms QRS Dur : 88 ms
QT Int : 316 ms P-R-T Axes : 212 -45 101 degrees
QTcB Int : 442 ms
ATRIAL FLUTTER WITH 2:1 A-V CONDUCTION
LEFT ANTERIOR FASCICULAR BLOCK
INFERIOR INFARCT
NONSPECIFIC ST ABNORMALITY
ABNORMAL ECG
WHEN COMPARED WITH ECG OF 01-Apr-2025 11:45,
HR HAS INCREASED BY 49 bpm.
Echocardiogram March 28, 2025
-Left ventricular ejection fraction is >75%, by visual assessment. Wall motion
is consistent with post-operative state.
-Normal right ventricular size and function.
-Severely dilated left atrium.
-Status-post mitral valve repair with peak/mean gradients of 17/7 mmHg.
-Mild aortic stenosis; peak/mean gradients 18/12 mmHg, calculated CAR is 1.8
cm2.
-Mild tricuspid regurgitation. Estimated pulmonary artery pressure of 25-30
mmHg, assuming a right atrial pressure of 3 mmHg.
Physical Exam
General: Pain
HEENT: Normocephalic
Respiratory: Clear
Cardiac: Other (tachycardia)
GI: Tender
Musculoskeletal: No Edema
Neuro: Awake, Alert, No Motor Deficits and Nonfocal/Grossly Intact
Psych: Calm
Impression / Plan
-
In summary, 75 yo F PMHx of MVR and closure of ARLEY 06/2014, atrial flutter, CVA in 2016, HUNTER, Afib on Eliquis, HFpEF, diverticulitis c/b pelvic abscesses, had exploratory laparoscopy and drainage of abscess with sigmoidectomy and creation of end
colostomy on 03/24/2025 now received robotic colostomy reversal on 07/24/2025. No immediate postop complications documented. She is POD#1 but now tachycardic
Paroxysmal atrial flutter with RVR
Hx of Paroxysmal atrial fibrillation
- telemetry and review of chart shows a heart rate that is within a narrow tachycardia range, consistent with flutter
- hemodynamically, she appears stable however, her systolic BP is in 90s, and she endorses some lightheadedness during my interview.
- Hgb is 12.1 (down from 14.2 yesterday)
- CHADVAsc score of 6, anticoagulation is indicated
- she received metoprolol 100mg this am, 50mg yesterday PM
Plan:
- She is postop day #1, she is in pain, and is stressed, all of which can contribute to her atrial flutter, tachycardia
- Continue her PO metoprolol succinate 100mg qAM, 50mg qPM for now and reassess tomorrow
- if HR remains persistently elevated, will consider IV diltiazem or digoxin
- given her recent surgery, POD#1, cardioversion is likely not appropriate at this time
- continue apixaban
- monitor VS, including BP
- monitor Hemoglobin (2g drop since yesterday)
- Recommendations are not final until discussed with Dr. Teran, cardiology attg
Hx of mitral valve repair and closure of left atrial appendage
- last echo in march 2025
HLD
- continue statin
CVA in 2016 - she denies any recent focal neurologic deficits
[2025-07-25 13:53] LABS: Hematocrit 38.2 % (37.0-47.0); Hemoglobin 12.2 g/dL (12.0-16.0)
--- NOTE | 2025-07-25 13:55 | CM ---
Addendum entered by Talya Cline 07/25/25 14:56:
Patient able to go to [facility] tomorrow if medically appropriate
Original Note:
Patient seen at bedside. Patient stated that she lives alone in a first floor condo with 3 steps at entrance. Patient has had stays at [facility] and [facility] but is planning to return home with Nick . Patient has had [facility] in the recent past.
CM sent referral via all scripts and await response. Patient has a walker and cane at home. Patient PCP is Dr. Estrada [employer] and [facility] [place]. CM will continue to follow for discharge planning needs.
Plan; home with [facility] as patient had them recently; pending response
--- NOTE | 2025-07-25 14:57 | CM ---
Patient seen at bedside. Patient stated that she lives alone in a first floor condo with 3 steps at entrance. [facility] and [facility] but is planning to return home with Nick HENDERSON. Patient has had [facility] in the recent past.
CM sent referral via all scripts and await response. Patient has a walker and cane at home. Patient PCP is Dr. Estrada [employer] and she uses the [facility] in [place]. CM will continue to follow for discharge planning needs.
Plan; home with Nick as patient had them recently; pending response
[2025-07-25] MEDS: ROXICODONE 5 MG PO (15:09)
[2025-07-25] MEDS: TOPROL XL 50 MG PO (17:21)
[2025-07-25] MEDS: SYMBICORT 160/4.5 MCG INHALER INH (20:11)
[2025-07-25] MEDS: TUMS CHEWABLE TABLET 400 MG PO (21:18)
[2025-07-26] VITALS (7 sets, daily range): BP systolic 93–121; BP diastolic 60–89; PULSE 101; O2SAT 94; BMI 33.0
[2025-07-26] MEDS: TYLENOL 1000 MG PO ×4 (00:28→17:26)
[2025-07-26] MEDS: LR 1000 IV (06:21)
[2025-07-26] MEDS: SYMBICORT 160/4.5 MCG INHALER 2 PUFF INH ×2 (07:22→18:01)
--- NOTE | 2025-07-26 07:28 | W.PN.HOSP.TC ---
Today's Communication/Plan
-
Metoprolol 100 mg twice daily
Discontinue IV fluids when able to tolerate p.o.
Assessment / Plan
Assessment / Plan
# s/p Robotic colostomy reversal; adhesion lysis, flexible sigmoidoscopy, mesenteric angiography with ICG, laparoscopic tap block; cystoscopy with bilateral ureteral stents on 07/24/2025
# S/P Ex lap, drainage of pelvic abscess, sigmoidectomy, abdominal washout, creation of end colostomy Dr. Hutson on 03/24/2025
- pod #2
- Pain control with scheduled toradol, IV dilaudid prn
- Pt eval
- REGULAR DIET
- encourage IS use
- plan to recheck hb in afternoon
- Time to restart Eliquis per surgery
- Discontinue IV fluids when tolerating p.o.
# Paroxysmal atrial fibrillation
Anticoagulation was interrupted for surgery.
Restart per surgery; recommend atleast 24 hrs post op before resuming
- Pt with Atrial Flutter post op, per cardiology. To consider OP CTI ablation
- Metoprolol increased to 100 mg twice daily
# Chronic HFpEF
# Mitral Regurgitation-history of valve repair 2013
# Asthma
# Hyperlipidemia
# HTN- BB on metoprolol 100 mg in a.m. and 50 mg in p.m.
# GERD-
# Anxiety
# Left scoliosis. Multilevel discogenic and facet degenerative changes. Mild grade 1 spondylolisthesis of L4 and L5.
# H/O Migraine
# Obesity with a BMI 32
# HUNTER
# CODE STATUS-Full code
DVT ppx: Lovenox
Patient cleared for discharge from medical standpoint
Anticipated Discharge: 24 - 48 hours
Subjective/Interval History
-
Date of Service: July 26, 2025
AFVSS.
Objective Data
-
Labs:
Laboratory Results
07/26/25
06:51
WBC Pending
Hgb Pending
Hct Pending
Plt Count Pending
Sodium Pending
Potassium Pending
Chloride Pending
Carbon Dioxide Pending
BUN Pending
Creatinine Pending
Glucose Pending
Calcium Pending
Vital Signs:
Vital Signs
Temp Pulse Resp BP Pulse Ox
97.4 F 92 16 102/67 91
07/26/25 03:03 07/26/25 07:22 07/26/25 07:22 07/26/25 03:03 07/26/25 03:03
I&O
07/25/25 07/26/25 07/27/25
06:59 06:59 06:59
Intake Total 1240 / 1240 1500 / 1500
Output Total 1400 / 1400 250 / 250
Balance -160 / -160 1250 / 1250
Review of Systems
-
History Source: Patient
All other systems: Reviewed and negative
Physical Exam
-
General: Well Developed and No Apparent Distress
HEENT: Normocephalic
Respiratory: Clear to Auscultation
GI: Soft, Nondistended, Tender (mildly diffuse) and Other (Incision clean dry and intact)
Musculoskeletal: No Clubbing, No Cyanosis and No Edema
Neuro: Awake, Alert, Oriented and AO x 3
Psych: Calm
Data Reviewed
-
Labs: Labs Reviewed by me, Discussed with Physician and Discussed with Patient
[2025-07-26 07:51] LABS: Blood Urea Nitrogen 15 mg/dl (7-17); Calcium 10.0 mg/dl (8.4-10.2); Carbon Dioxide 26 mmol/L (22-30); Chloride 108 mmol/L (98-107); Estimated Creatinine Clearance 69 ml/min; Glucose 92 mg/dl (70-99); Potassium 4.0 mmol/L (3.5-5.1); Sodium 140 mmol/L (135-145); eGFR > 60.00
[2025-07-26 08:11] LABS: Hematocrit 34.9 % (37.0-47.0); Hemoglobin 11.4 g/dL (12.0-16.0); Mean Corp Hgb Conc. 32.7 g/dL (33.0-37.0); Mean Corpuscular Volume 95.6 fL (81.0-99.0); Nucleated Red Blood Cells % 0 %; Platelet Count 208 10^3/uL (130-400); Red Cell Dist. Width 13.5 % (11.5-14.5)
[2025-07-26] MEDS: MUCINEX 1200 MG PO (08:54)
[2025-07-26] MEDS: CLARITIN 10 MG PO (08:54)
[2025-07-26] MEDS: PEPCID 10 MG PO (08:55)
[2025-07-26] MEDS: LIPITOR 40 MG PO (08:56)
[2025-07-26] MEDS: TOPROL XL 100 MG PO ×2 (08:56→17:27)
[2025-07-26] MEDS: RELISTOR 12 MG SC (08:57)
[2025-07-26] MEDS: TRANXENE 7.5 MG PO (08:57)
--- NOTE | 2025-07-26 09:16 | W.PN.CRS1 ---
Today's Communication / Plan
-
cardiology regarding afib
wound care - monitor
OOB with PT/OT
Assessment/Plan
-
POD#2 Robotic colostomy reversal
Hgb: 11.4 (12.1,14.2), WBC: 14.7 (19.2, 22.3)
Vitals: HR 97-117 afebrile, RR 17-21
BP: 93/67 - 7am, otherwise has been normal
urine output: 250ml (zamarripa), voided x 2 (unable to record)
-OOB with PT/OT
-Continue regular diet. Will keep on IVFs until I/Os recorded.
-Incentive spirometry q1hr while awake
-Hold Eliquis today - will discuss with DR. Hutson when to restart
-Appreciate cardiology for afib management
-Appreciate hospitalist.
-Lovenox for dvt prophylaxis. TEDs/scds in place.
-Voiding post zamarripa removal. Strict I/O's.
-CM for dispo planning
Subjective Data
Procedure
07/24/2025- Robotic colostomy reversal; lysis of adhesions x 1 hour, flexible sigmoidoscopy, mesenteric angiography with ICG, laparoscopic tap block; cystoscopy with bilateral ureteral stents by Dr. Gerardo
Subjective Data
Date of Service: July 26, 2025
Patient states she has some soreness but otherwise feels okay. The zamarripa came out and she urinated. Denies nausea or vomiting. Tolerating a diet.
Objective Data
-
Vital Signs
Temp Pulse Resp BP Pulse Ox
97.7 F 101 16 137/91 100
07/26/25 07:00 07/26/25 08:56 07/26/25 07:22 07/26/25 08:56 07/26/25 07:00
Intake & Output
07/25/25 07/26/25 07/27/25
06:59 06:59 06:59
Intake Total 1240 / 1240 1500 / 1500
Output Total 1400 / 1400 250 / 250
Balance -160 / -160 1250 / 1250
Intake:
Oral fluids 240 / 240 600 / 600
IV fluids (Total) 1000 / 1000 900 / 900
Normosol 400 / 400
Output:
Urine, Zamarripa 1400 / 1400 250 / 250
Other:
Number of approximated MODERATE 1
amounts of urine
Number of approximated LARGE 1
amounts of urine
Lab Results
07/26/25 06:51
07/26/25 06:51
Physical Exam
-
General: No Acute Distress and AOx3
Abdomen: Soft, Non Distended and Tender (mild around incisions)
Wound: Dressing Changed (packing removed, a little redness distally)
--- NOTE | 2025-07-26 11:21 | W.PN.CD ---
Today's Communication / Plan
-
Resume Eliquis when OK with surgery
Continue metoprolol ER
If more rate control needed add Dilt ER 120 daily
Please call if we can be of assistance
She will followup with Dr. Romain Lane, [facility]
Impression / Plan
-
In summary, 75 yo F PMHx of MVR and closure of ARLEY 06/2014, atrial flutter, CVA in 2015, HUNTER, Afib on Eliquis, HFpEF, diverticulitis c/b pelvic abscesses, had exploratory laparoscopy and drainage of abscess with sigmoidectomy and creation of end
colostomy on 03/24/2025 now received robotic colostomy reversal on 07/24/2025. No immediate postop complications documented. She is POD#1 but now tachycardic
S/p colostomy reversal and bilateral ureteral stents
Typical atrial flutter with RVR, with hx Paroxysmal atrial fibrillation
- Aflutter persisting
- Rates OK on metoprolol (at home 50 mg total 3 tabs daily)
- If more rate control needed can add Dilt ER
- Restart Eliquis when OK colorectal surgery
Hx of mitral valve repair and closure of left atrial appendage
HLD, on statin
Hx CVA, 2016
Subjective:
No CP, palps, or dyspnea
Echo 03/2025:
CONCLUSIONS
-Left ventricular ejection fraction is >75%, by visual assessment. Wall motion
is consistent with post-operative state.
-Normal right ventricular size and function.
-Severely dilated left atrium.
-Status-post mitral valve repair with peak/mean gradients of 17/7 mmHg.
-Mild aortic stenosis; peak/mean gradients 18/12 mmHg, calculated CAR is 1.8
cm2.
-Mild tricuspid regurgitation. Estimated pulmonary artery pressure of 25-30
mmHg, assuming a right atrial pressure of 3 mmHg.
Physical Exam
Vital Signs/Labs
Vital Signs
Temp Pulse Resp BP Pulse Ox
97.7 F 101 16 137/91 100
07/26/25 07:00 07/26/25 08:56 07/26/25 07:22 07/26/25 08:56 07/26/25 07:00
07/25/25 07/26/25 07/27/25
06:59 06:59 06:59
Actual Weight 84.482 kg
07/26/25 06:51
07/26/25 06:51
PT 16.2 Sec (11.4-14.6) H 07/17/25 09:59
INR 1.25 07/17/25 09:59
APTT 31.9 Sec (23.4-35.0) 07/17/25 09:59
Magnesium 2.2 mg/dl (1.6-2.3) 07/25/25 07:10
Physical Exam
Constitutional: No acute distress
Cardiovascular: Rhythm/rate is irregular and S1S2 is normal
Respiratory: Respiratory effort normal and Lungs clear to auscul.
GI: Soft and Distention absent
Neuro/Psych: AO x 3
Data Reviewed
-
Date of Service: July 26, 2025
--- NOTE | 2025-07-26 14:09 | CM ---
Patient seen at bedside on . Patient plan is for discharge home with Nick to follow. Patient given IMM and is reviewing form. Patient anticipates discharge tomorrow. Patient discussed options for additional supports and is aware that Nick
offers private duties but is not able to consider the cost. CM will continue to follow for discharge planning needs.
Plan; home with Nick
[2025-07-26] MEDS: LR IV (17:04)
[2025-07-26] MEDS: ROXICODONE 5 MG PO (17:25)
[2025-07-26] MEDS: LOVENOX 40 MG SC (17:26)
[2025-07-27] MEDS: TYLENOL PO (01:00)
[2025-07-27 04:00] VITALS: BP 126/90
[2025-07-27 06:00] VITALS: BMI 33.1
[2025-07-27] MEDS: TYLENOL 1000 MG PO ×3 (06:06→17:10)
[2025-07-27 07:08] LABS: Hematocrit 36.7 % (37.0-47.0); Hemoglobin 11.3 g/dL (12.0-16.0); Mean Corp Hgb Conc. 30.8 g/dL (33.0-37.0); Mean Corpuscular Volume 95.8 fL (81.0-99.0); Nucleated Red Blood Cells % 0 %; Platelet Count 182 10^3/uL (130-400); Red Cell Dist. Width 13.6 % (11.5-14.5)
[2025-07-27 07:32] LABS: Blood Urea Nitrogen 16 mg/dl (7-17); Calcium 9.7 mg/dl (8.4-10.2); Carbon Dioxide 25 mmol/L (22-30); Chloride 112 mmol/L (98-107); Estimated Creatinine Clearance 81 ml/min; Glucose 85 mg/dl (70-99); Potassium 4.3 mmol/L (3.5-5.1); Sodium 140 mmol/L (135-145); eGFR > 60.00
[2025-07-27] MEDS: SYMBICORT 160/4.5 MCG INHALER 2 PUFF INH ×2 (07:39→18:09)
[2025-07-27] MEDS: MUCINEX 1200 MG PO (08:40)
[2025-07-27] MEDS: PEPCID 10 MG PO (08:40)
[2025-07-27] MEDS: CLARITIN 10 MG PO (08:41)
[2025-07-27] MEDS: TOPROL XL 100 MG PO ×2 (08:41→20:09)
[2025-07-27] MEDS: LIPITOR 40 MG PO (08:41)
[2025-07-27] MEDS: TRANXENE 7.5 MG PO (08:41)
[2025-07-27] MEDS: RELISTOR 12 MG SC (08:46)
[2025-07-27 08:49] VITALS: BP 142/95
[2025-07-27] MEDS: ELIQUIS 5 MG PO ×2 (08:52→20:13)
--- NOTE | 2025-07-27 09:09 | W.PN.HOSP.TC ---
Today's Communication/Plan
-
Disposition planning
Metoprolol XL 100 twice daily
Resume home Lasix tomorrow
Telemetry
Assessment / Plan
Assessment / Plan
#S/P Elective robotic colostomy reversal, POD 3
- Status post sigmoidectomy and colostomy in March 2025 for perforated sigmoid diverticulitis with pelvic abscess.�
- Has been resumed on home Eliquis postoperatively by surgery team
- Will monitor abdomen and bowel status closely postoperatively
#S/P Bilateral ureteral stents, POD 3�
- Completed TOV and zamarripa removed
- Will monitor for signs of retention.
- Will need to follow-up OP with urology for stent removal
#AFL, 2:1 conductance.
- Has known paroxysmal AF for which she takes Eliquis, held perioperatively.
- Recent ECG reading 2-1 AFL though no obvious flutter waves on my read.
- Has been persistently tachycardic at stable rate which is fairly consistent with AFL.
- Continue with metoprolol XL 100 mg twice daily, increased here
- Consideration for OP CTI ablation with cardiology
- Monitor telemetry
#Chronic HFpEF
#H/O MVR (2013)
- Possibly valvular etiology with previous mitral valve repair in 2013.�
- Home regimen includes Lasix 20 mg daily for loop diuresis; not on GDMT.�
- Appears fairly euvolemic at this time.�
- Resume home Lasix 20 mg daily
- Monitor I's and O's, daily weights
# Asthma
# Hyperlipidemia
# HTN- BB on metoprolol 100 mg in a.m. and 50 mg in p.m.
# GERD-
# Anxiety
# Left scoliosis. Multilevel discogenic and facet degenerative changes. Mild grade 1 spondylolisthesis of L4 and L5.
# H/O Migraine
# Obesity with a BMI 32
# HUNTER on CPAP
Diet-regular
CODE STATUS-Full code
DVT ppx-apixaban
Patient cleared for discharge from medical standpoint
Anticipated Discharge: Within 24 hours
Subjective/Interval History
-
Date of Service: July 27, 2025
Seen and examined at the bedside. No acute events reported overnight. AFVSS this morning
Denies any new complaints, including chest pain, dyspnea, fevers or chills.
WBC continued to downtrend, now near normal. Remainder of labs stable, weight stable
Objective Data
-
Labs:
Laboratory Results
07/27/25
06:53
WBC 11.5 H
Hgb 11.3 L
Hct 36.7 L
Plt Count 182
Sodium 140
Potassium 4.3
Chloride 112 H
Carbon Dioxide 25
BUN 16
Creatinine 0.6
Glucose 85
Calcium 9.7
Vital Signs:
Vital Signs
Temp Pulse Resp BP Pulse Ox
98 F 88 16 142/95 96
07/27/25 08:49 07/27/25 08:49 07/27/25 08:49 07/27/25 08:49 07/27/25 08:49
I&O
07/26/25 07/27/25 07/28/25
06:59 06:59 05:59
Intake Total 1500 / 1500 1520 / 1520
Output Total 250 / 250 875 / 875
Balance 1250 / 1250 645 / 645
Review of Systems
-
History Source: Patient
All other systems: Reviewed and negative
Physical Exam
-
General: Well Developed, No Apparent Distress and Morbidly Obese
HEENT: Normocephalic, Atraumatic, Moist Mucous Membranes and Anicteric
Respiratory: Clear to Auscultation and Non Labored Respirations; Negative Accessory Resp Muscle Use
Cardiac: Regular Rhythm and S1/S2; Negative Murmur, Rub or Gallop
GI: Soft, Nontender, Nondistended and Normal Bowel Sounds
Musculoskeletal: No Clubbing, No Cyanosis and No Edema
Skin: Warm and Dry; Negative Rash
Neuro: AO x 3, Nonfocal/Grossly Intact and Central Nerve's Intact
Psych: Calm
Data Reviewed
-
Labs: Labs Reviewed by me and Discussed with Patient
--- NOTE | 2025-07-27 10:21 | W.PN.CRS1 ---
Addendum entered and electronically signed by Donta Pruitt MD 07/27/25 10:44:
Patient seen and examined. Agree with assessment plan as documented below.
Original Note:
Today's Communication / Plan
-
Pain management
Assessment/Plan
-
75 yo year old with PMHx of MVR, HUNTER, Afib on Eliquis, HFpEF, diverticulitis with pelvic abscesses, had exploratory laparoscopy and drainage of abscess with sigmoidectomy and creation of end colostomy on 03/24/2025
POD#3 Robotic colostomy reversal
Leukocytosis continues trending down
H/H stable
AFVSS, intermittent mild tachycardia
Plan:
-OOB with PT/OT
-Continue regular diet
-Incentive spirometry q1hr while awake
-Ok to resume Eliquis
-Appreciate cardiology for afib management
-Appreciate hospitalist following for medical maangement
-Lovenox for dvt prophylaxis. TEDs/scds in place.
-CM for dispo planning. May need SNF, currently she is declining.
Subjective Data
Procedure
07/24/2025- Robotic colostomy reversal; lysis of adhesions x 1 hour, flexible sigmoidoscopy, mesenteric angiography with ICG, laparoscopic tap block; cystoscopy with bilateral ureteral stents by Dr. Gerardo
Subjective Data
Date of Service: July 27, 2025
Pt seen and examined at bedside with Dr. Pruitt. Denies n/v. Tolerating diet. Pain has been an issue and limiting movement. OOB to chair but notes she still needs help standing.
Objective Data
-
Vital Signs
Temp Pulse Resp BP Pulse Ox
98 F 88 16 142/95 96
07/27/25 08:49 07/27/25 08:49 07/27/25 08:49 07/27/25 08:49 07/27/25 08:49
Intake & Output
07/26/25 07/27/25 07/28/25
06:59 06:59 05:59
Intake Total 1500 / 1500 1520 / 1520
Output Total 250 / 250 875 / 875
Balance 1250 / 1250 645 / 645
Intake:
Oral fluids 600 / 600 720 / 720
IV fluids (Total) 900 / 900 800 / 800
Output:
Urine, Roa 250 / 250
Urine, Voided 875 / 875
Other:
Number of approximated MODERATE 1
amounts of urine
Number of approximated LARGE 1 1
amounts of urine
Lab Results
07/27/25 06:53
07/27/25 06:53
Physical Exam
-
General: No Acute Distress and AOx3
Abdomen: Soft, Non Distended and Tender (mild around incisions)
Wound: Dressing Changed (prior stoma site without erythema, no purulence)
Incision: Clear, Dry, Intact (dermabond)
[2025-07-27 12:22] VITALS: BP 132/74
[2025-07-27 16:19] VITALS: BP 115/64
[2025-07-27 16:35] VITALS: BP 112/60; PULSE 72; O2SAT 95
[2025-07-27 23:00] VITALS: BP 124/90
[2025-07-28] MEDS: TYLENOL PO (01:16)
[2025-07-28] MEDS: TYLENOL 1000 MG PO ×2 (05:57→12:01)
[2025-07-28 06:00] VITALS: BMI 32.7
[2025-07-28 06:49] LABS: Blood Urea Nitrogen 15 mg/dl (7-17); Calcium 10.0 mg/dl (8.4-10.2); Carbon Dioxide 26 mmol/L (22-30); Chloride 108 mmol/L (98-107); Estimated Creatinine Clearance 81 ml/min; Glucose 79 mg/dl (70-99); Potassium 4.2 mmol/L (3.5-5.1); Sodium 140 mmol/L (135-145); eGFR > 60.00
[2025-07-28 07:15] VITALS: BP 116/76
[2025-07-28 07:28] LABS: Hematocrit 36.8 % (37.0-47.0); Hemoglobin 11.9 g/dL (12.0-16.0); Mean Corp Hgb Conc. 32.3 g/dL (33.0-37.0); Mean Corpuscular Volume 91.3 fL (81.0-99.0); Platelet Count 257 10^3/uL (130-400); Red Cell Dist. Width 13.2 % (11.5-14.5)
[2025-07-28] MEDS: TRANXENE 7.5 MG PO (08:16)
[2025-07-28] MEDS: LIPITOR 40 MG PO (08:17)
[2025-07-28] MEDS: ELIQUIS 5 MG PO (08:17)
[2025-07-28] MEDS: PEPCID 10 MG PO (08:17)
[2025-07-28] MEDS: CLARITIN 10 MG PO (08:17)
[2025-07-28] MEDS: MUCINEX 1200 MG PO (08:17)
[2025-07-28] MEDS: TOPROL XL PO (08:17)
[2025-07-28] MEDS: LASIX 20 MG PO (08:17)
[2025-07-28] MEDS: SYMBICORT 160/4.5 MCG INHALER 2 PUFF INH (08:19)
--- NOTE | 2025-07-28 08:41 | W.PN.HOSP.TC ---
Today's Communication/Plan
-
Discharge per surgery
Diltiazem/metoprolol XL/DOAC for AFL
OP follow-up with cardiology for CTI ablation
Assessment / Plan
Assessment / Plan
#S/P Elective robotic colostomy reversal, POD 3
- Status post sigmoidectomy and colostomy in March 2025 for perforated sigmoid diverticulitis with pelvic abscess.�
- Has been resumed on home Eliquis postoperatively by surgery team
- Will monitor abdomen and bowel status closely postoperatively
#S/P Bilateral ureteral stents, POD 3�
- Completed TOV and zamarripa removed
- Will monitor for signs of retention.
- Will need to follow-up OP with urology for stent removal
#AFL, 2:1 conductance.
- Has known paroxysmal AF for which she takes Eliquis, held perioperatively.
- Recent ECG reading 2-1 AFL though no obvious flutter waves on my read.
- Has been persistently tachycardic at stable rate which is fairly consistent with AFL.
- Continue with metoprolol XL 100 mg twice daily and diltiazem XR 120 mg daily
- Consideration for OP CTI ablation with cardiology
- Monitor telemetry
#Chronic HFpEF
#H/O MVR (2013)
- Possibly valvular etiology with previous mitral valve repair in 2013.�
- Home regimen includes Lasix 20 mg daily for loop diuresis; not on GDMT.�
- Appears fairly euvolemic at this time.�
- Resume home Lasix 20 mg daily
- Monitor I's and O's, daily weights
# Asthma
# Hyperlipidemia
# HTN- BB on metoprolol 100 mg in a.m. and 50 mg in p.m.
# GERD
# Anxiety
# Left scoliosis. Multilevel discogenic and facet degenerative changes. Mild grade 1 spondylolisthesis of L4 and L5.
# H/O Migraine
# Obesity with a BMI 32
# HUNTER on CPAP
Diet-regular
CODE STATUS-Full code
DVT ppx-apixaban
Patient cleared for discharge from medical standpoint
Anticipated Discharge: Today
Subjective/Interval History
-
Date of Service: July 28, 2025
Seen and examined at the bedside. No acute events overnight. AFVSS this morning
Plan discharge at 1 PM when her son arrives
Denies any complaints
Objective Data
-
Labs:
Laboratory Results
07/28/25
05:16
WBC 9.8
Hgb 11.9 L
Hct 36.8 L
Plt Count 257 D
Sodium 140
Potassium 4.2
Chloride 108 H
Carbon Dioxide 26
BUN 15
Creatinine 0.6
Glucose 79
Calcium 10.0
Vital Signs:
Vital Signs
Temp Pulse Resp BP Pulse Ox
98.0 F 110 16 116/76 98
07/28/25 07:15 07/28/25 08:22 07/28/25 08:22 07/28/25 07:15 07/28/25 08:22
I&O
07/27/25 07/28/25 07/29/25
06:59 05:59 06:59
Intake Total 1520 / 1520
Output Total 875 / 875 450 / 450
Balance 645 / 645 -450 / -450
Review of Systems
-
History Source: Patient
All other systems: Reviewed and negative
Physical Exam
-
General: Well Developed, No Apparent Distress and Obese
HEENT: Normocephalic, Atraumatic, Moist Mucous Membranes and Anicteric
Respiratory: Clear to Auscultation and Non Labored Respirations
Cardiac: Regular Rhythm and S1/S2; Negative Murmur, Rub or Gallop
GI: Soft, Nontender, Nondistended and Normal Bowel Sounds
Musculoskeletal: No Clubbing, No Cyanosis and No Edema
Skin: Warm and Dry; Negative Rash
Neuro: AO x 3, Nonfocal/Grossly Intact and Central Nerve's Intact
Psych: Calm
Data Reviewed
-
Labs: Labs Reviewed by me and Discussed with Patient
--- NOTE | 2025-07-28 09:24 | W.PN.CRS1 ---
Addendum entered and electronically signed by Donta Pruitt MD 07/28/25 09:35:
Patient seen and examined. Agree with assessment plan as documented below.
Original Note:
Today's Communication / Plan
-
Dispo planning
Assessment/Plan
-
75 yo year old with PMHx of MVR, HUNTER, Afib on Eliquis, HFpEF, diverticulitis with pelvic abscesses, had exploratory laparoscopy and drainage of abscess with sigmoidectomy and creation of end colostomy on 03/24/2025
POD#4 Robotic colostomy reversal
Leukocytosis continues trending down
H/H stable since resuming AC
AFVSS, intermittent tachycardia in the 120's
Plan:
-OOB as tolerated
-Continue regular diet
-Incentive spirometry q1hr while awake
-C/W Eliquis
-Appreciate cardiology for afib management, Diltiazem ER added for better rate control this am.
-Appreciate hospitalist following for medical management
-Lovenox for dvt prophylaxis. TEDs/scds in place.
CM for dispo planning. Declines SNF. VNA has been arranged with [facility]. Anticipate home later today pending response to cardizem er.
Subjective Data
Procedure
07/24/2025- Robotic colostomy reversal; lysis of adhesions x 1 hour, flexible sigmoidoscopy, mesenteric angiography with ICG, laparoscopic tap block; cystoscopy with bilateral ureteral stents by Dr. Gerardo
Subjective Data
Date of Service: July 28, 2025
Pt seen and examined at bedside with Dr. Pruitt. Denies n/v. Tolerating diet. Feels she is doing more for herself today and getting around better. Minimal post op pain.
Objective Data
-
Vital Signs
Temp Pulse Resp BP Pulse Ox
98.0 F 110 16 116/76 98
07/28/25 07:15 07/28/25 08:22 07/28/25 08:22 07/28/25 07:15 07/28/25 08:22
Intake & Output
07/27/25 07/28/25 07/29/25
06:59 05:59 06:59
Intake Total 1520 / 1520
Output Total 875 / 875 450 / 450
Balance 645 / 645 -450 / -450
Intake:
Oral fluids 720 / 720
IV fluids (Total) 800 / 800
Output:
Urine, Voided 875 / 875 450 / 450
Other:
Number of approximated MODERATE 3
amounts of urine
Number of approximated LARGE 1 1
amounts of urine
Lab Results
07/28/25 05:16
07/28/25 05:16
Physical Exam
-
General: No Acute Distress and AOx3
Abdomen: Soft, Non Distended and Tender (mild around incisions)
Wound: Dressing in Place
Incision: Clear, Dry, Intact (dermabond)
[2025-07-28] MEDS: CARDIZEM CD 120 MG PO (09:43)
--- NOTE | 2025-07-28 10:39 | W.DS.TRANS ---
Addendum entered and electronically signed by LORE Perrin 07/29/25 09:47:
dictated #[id number]
Original Note:
DC Summary - Physician'S Assistant
-
Discharge Instructions:
Discharge Diagnosis/Procedures Robotic colostomy reversal
Diet Regular
Activity No strenuous activity
Additional Activity No lifting over 10lbs (gallon of milk)
Driving Restrictions No driving for 1 week
Bathing Restrictions OK to Shower
Other Services VN
Wound Care Cover LLQ wound with gauze and paper tape, daily
and as needed. Okay to leave open to air to
shower.
Instructions:
Stand-Alone Forms:
Changes to Home Medications: No
Discharge Medications:
DC Medications w/original date entered in [employer]
atorvastatin 40 mg tablet (Lipitor) 40 mg PO DAILY High Cholesterol 05/22/24
apixaban 5 mg tablet (Eliquis) 5 mg PO BID Blood Clot Prevention/Tx 07/18/25
bisacodyl 5 mg tablet,delayed release (Dulcolax (bisacodyl)) 5 mg PO PRE OP Constipation 07/18/25
clorazepate dipotassium 3.75 mg tablet 7.5 mg PO DAILY Mental Health/Anxiety 07/18/25
famotidine 10 mg tablet (Acid Controller) 10 mg PO DAILY Gastrointestinal Issue 07/18/25
fexofenadine 180 mg tablet (Allergy Relief (fexofenadine)) 180 mg PO DAILY Allergies 07/18/25
fluticasone propionate 50 mcg/actuation nasal spray,suspension 1 spray intranasal DAILY Allergies 07/18/25
furosemide 20 mg tablet 20 mg PO DAILY Fluid Retention/Swelling 07/18/25
guaifenesin 1,200 mg tablet, extended release 12 hr (Mucinex) 1,200 mg PO DAILY Lung/Breathing Issues 07/18/25
meclizine 25 mg tablet 25 mg PO DAILY Neurological Condition 07/18/25
metoprolol succinate 50 mg tablet,extended release 24 hr 50 mg PO QPM Blood Pressure 07/18/25
metoprolol succinate 50 mg tablet,extended release 24 hr 100 mg PO DAILY Blood Pressure 07/18/25
polyethylene glycol 3350 17 gram/dose oral powder (Miralax) 1 g PO PRE OP Constipation 07/18/25
mometasone-formoterol HFA 200 mcg-5 mcg/actuation aerosol inhaler (Dulera) 2 puff inhalation DAILY Lung/Breathing Issues 07/22/25
acetaminophen 325 mg tablet 650 mg (2 x 325 mg) PO Q4HPRN PRN mild pain #1 tab 07/28/25
diltiazem HCl 120 mg capsule,extended release 24 hr 120 mg PO DAILY #30 caps 07/28/25
tramadol 50 mg tablet 25 - 50 mg (0.5 - 1 x 50 mg) PO Q6HPRN PRN severe pain/breakthrough pain #15 tabs 07/28/25
Home Medication Changes
Pending Results: No
--- NOTE | 2025-07-28 10:48 | CM ---
Chart reviewed and plan is to [facility] today.
[facility]
[2025-07-28 11:10] VITALS: BP 123/69
== END 2025-07-28 14:05 | disposition home health service (06) | DRG 330 ==
LOC: 2 SOUTH 05:48
PROVIDERS: Nurse Practitioner Gerontology; Physician Assistant; Registered Nurse; ADMITTING PHYSICIAN Surgery; CONSULT PHYSICIAN Internal Medicine; FAMILY PHYSICIAN Nurse Practitioner Family
PROC: 8E0W4CZ Robotic Assisted Procedure of Trunk Region, Percutaneous Endoscopic Approach (ICD-10-PCS; 2025-07-24)
PROC: 0DNU4ZZ Release Omentum, Percutaneous Endoscopic Approach (ICD-10-PCS; 2025-07-24)
PROC: 0DQN4ZZ Repair Sigmoid Colon, Percutaneous Endoscopic Approach (ICD-10-PCS; 2025-07-24)
DX: Z43.3 Encounter for attention to colostomy (principal); I48.92 Unspecified atrial flutter; I50.32 Chronic diastolic (congestive) heart failure; K57.32 Diverticulitis of large intestine without perforation or abscess without bleeding; G47.33 Obstructive sleep apnea (adult) (pediatric); I11.0 Hypertensive heart disease with heart failure; I48.0 Paroxysmal atrial fibrillation; Z79.01 Long term (current) use of anticoagulants; E78.5 Hyperlipidemia, unspecified; F41.9 Anxiety disorder, unspecified; K21.9 Gastro-esophageal reflux disease without esophagitis; E66.9 Obesity, unspecified; Z68.32 Body mass index [BMI] 32.0-32.9, adult; J45.909 Unspecified asthma, uncomplicated; M41.9 Scoliosis, unspecified; I49.3 Ventricular premature depolarization; K66.0 Peritoneal adhesions (postprocedural) (postinfection); Z86.73 Personal history of transient ischemic attack (TIA), and cerebral infarction without residual deficits; Z88.0 Allergy status to penicillin; Z90.49 Acquired absence of other specified parts of digestive tract; Z96.612 Presence of left artificial shoulder joint; Z96.652 Presence of left artificial knee joint
CPT/HCPCS: 36415; 71046; 80048; 80053; 83036; 83735; 85014; 85018; 85025; 85027; 85610; 85730; 86850; 86900; 86901; 88304; 88307; 93005; 94640; 97116; 97163; 97167; 97530; A4300; J1335

== ENCOUNTER 2025-09-23 10:11 | Day surgery (SDC) | payer MEDICARE, OTHER, SELFPAY ==
[2025-09-23] VITALS (12 sets, daily range): BP systolic 65–114; BP diastolic 47–78; BMI 31.5
[2025-09-23 13:42] LABS: ACT-LR - POC 337 Seconds (116-155)
--- NOTE | 2025-09-23 14:22 | ITS.CL.ABL ---
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
Ablation
Procedure Report:
AFIB / A flutter ablation:
Ms. Vigil is a very pleasant 75 yr old woman with medical history significant for symptomatic paroxysmal atrial fibrillation and atrial flutter is here in the EP lab for atrial fibrillation / flutter ablation
Date of Procedure:
09/23/2025
Indications:
Symptomatic paroxysmal atrial fibrillation / atrial flutter
Pre-Operative Diagnosis:
Paroxysmal atrial fibrillation / atrial flutter
Post-Operative Diagnosis:
Paroxysmal atrial fibrillation / atrial flutter
Procedure Performed:
Atrial fibrillation ablation with wide area circumferential ablation (WACA) approach for pulmonary vein isolation
Atrial flutter ablation with cavo-tricuspid isthmus line block formation
Performing Physician:
Bertha Blank MD
Assistants:
EP staff
Anesthesia:
See anesthesia records
Detailed Description of the Procedure:
Written informed consent was obtained from the patient after a full explanation of the risks and benefits of the procedure including the risks of sedation and anesthesia.
The patient was brought to the electrophysiology laboratory in stable condition in fasting state. Continuous electrocardiographic and hemodynamic monitoring was initiated.
The initial rhythm was sinus.
The procedure site was meticulously prepared with surgical scrub and allowed to dry with no pooling. Sterile draping was applied to cover the procedure site. The image intensifier was draped with sterile bag and positioned over the patient. After
infusion of local anesthetic, vascular access was obtained under ultrasound guidance and sheaths were placed over guide wire as detailed below.
The images of the ultrasound of the femoral vessels were stored in patient chart.
Sheath and Catheter Placement:
In the right femoral vein, an 8-Montenegrin sheath was placed under ultrasound guidance for use during the ablation procedure. And mapping catheter was intermittently placed in the high right atrium, right ventricle, left atrium and left ventricle. In
the right femoral vein, a 9-Fr long sheath was placed for use during intracardiac echo procedure.
The sheaths were upgraded as needed during the case. Intracardiac catheters were positioned using direct fluoroscopic guidance. ICE catheter was placed in RA. The following catheters / sheaths were placed
Sheaths:
Agilis sheath in right femoral vein upgraded from 8Fr in right femoral vein
9Fr in right femoral vein
7Fr in right femoral vein
Catheters:
The Affera Sphere 9 catheter -bidirectional D/F - at locations of HRA, RV, LA and LV.
ICE catheter -AccuNav - at locations of RA, SVC, and RV.
Bard decapolar catheter � RA and CS
Heparin was initiated after the access was obtained.
Intracardiac ECHO:
An 8-Montenegrin AcuNav intracardiac ECHO (ICE) probe was advanced through the 9-Montenegrin sheath in the left femoral vein into the right atrium under fluoroscopic and ICE ultrasound image guidance and a baseline ECHO study was performed. The left atrial
size was dilated. There was trace tricuspid regurgitation. The aortic valve was grossly normal. There was normal left ventricular size and function. There is no pericardial effusion. The ARLEY has baseline low velocities. The pulmonary had good flow
identified.
During the procedure, ICE was used for monitoring of complications, guidance of trans-septal puncture, monitor the catheter position and tracking ablation lesions. No change in the pericardial space noted throughout the procedure.
Pt was noted to be in atrial flutter 270 ms CL. The morphology on surface and the CS was consistent with typical flutter.
Electroanatomic mapping of the right atrium:
A J-tipped guidewire was advanced through the 8-Montenegrin sheath in the right femoral vein into the superior vena cava under fluoroscopic and ICE guidance. The 8-Montenegrin sheath was exchanged for an Agilis sheath which was advanced into the superior vena
cava.
Using the Sphere 9 Affera catheter advanced through Agilis sheath into the right atrium, an electroanatomic map (EAM) of the right atrium was created using the [address] mapping system with [employer] software mapping system.
The flutter was mapped in the RA and it was counterclock feng typical CTI dependent flutter.
There was borderline normal HV conduction noted at baseline at 50 ms.
Ablation # 1: Typical Atrial Flutter Ablation:
The CTI ablation was done using radiofrequency with Affera sphere -9 ablation, open irrigation, force-sensing bidirectional ablation catheter in the cavotricuspid isthmus from the tricuspid annulus to the IVC ridge. Once the ablation catheter reach
near the IVC, the ablation energy was changed to pulsefield.
The flutter terminated into sinus rhythm with ablation.
Following observations were made.
-Bidirectional block was confirmed across the CTI line with differential pacing.
-Double potentials were spaced greater than 124 msec apart.
-The conduction time across the CTI line from proximal CS pacing was 210 msec.
-EAM of the right atrium was obtained with coronary sinus pacing and showed a line of block at the CTI.
-The time interval just lateral to the ablation lesions was 210 msec and the lateral wall was 112 msec
- All these maneuvers confirmed the block at the CTI line.
- Post ablation HV interval was unchanged at 45msec
Then attention was given to atrial fibrillation ablation.
Trans-septal Puncture:
Heparin was initiated and infused to maintain appropriate ACT. A J-tipped guidewire was advanced through into the superior vena cava under fluoroscopic and ICE guidance. The Agilis sheath was advanced into the superior vena cava. An BRK transseptal
needle was utilized to perform the trans-septal puncture. The apparatus was withdrawn until it was in contact with the fossa ovalis. The position was adjusted based on fluoroscopy and ultrasound images from ICE. Under fluoroscopic, hemodynamic and
ICE ultrasound guidance, left atrium was cannulated by advancing the needle. Once atrial septum was cannulated, the needle was pulled back and the guide wire was advanced through the needle into the left atrium. The guide wire was advanced into the
left superior pulmonary vein. Both the sheath and the dilator was advanced into the left atrium. The dilator with the needle was withdrawn. Blood was aspirated from the Agilis sheath and arterial blood confirmed. The sheath was flushed. Saline
injection noted into the left atrium on ICE. The waveform of the LA pressure was recorded. The mapping catheter was advanced in the Agilis sheath into the left pulmonary vein.
3D Electroanatomic Mapping:
Using the Sphere 9 Affera catheter advanced through Agilis sheath into the left atrium, an electroanatomic map (EAM) of the left atrium was created using [address] mapping system with [employer]-1 software. The map was used for localization of catheter
position and tacking of ablation lesions. The EAM of the left atrium showed a total of 4 PVs with two left and the two right sided pulmonary veins with all electrically connected to the body the LA. It showed only scattered scar in the LA as well.
The LA was dilated in size.
Following the EAM, preparation were made for ablation.
Ablation:
Ablation # 2: Pulmonary vein Isolation:
Pulsed field ablation was performed using an open irrigation, bidirectional, contact sensing, dual energy ablation catheter ([address] [place] sphere -9) by completing the circumferential lesions around the left and right pulmonary veins achieving pulmonary
vein isolation.
Confirmation of the PVI and bidirectional block:
Following achievement of entrance block at the pulmonary veins, pacing from the Sphere 9 affera catheter in each of the four veins at 20 milliamps for 4 milliseconds showed entrance and exit block.
The LA was mapped with The [address] mapping system with Prism-1 software in sinus rhythm confirming the line of block at the ablation lesions lines.
EP study:
Sinus Node Function: The sinus node functions are within acceptable normal range.
Atrioventricular James Function: Post ablation HV interval was unchanged at 50 msec
Procedure End
ICE study was done again that showed no epicardial accumulation. No complications noted.
Following the completion of the EP study, catheters were removed. Protamine 30 mg was given at the end of the procedure and ACT was checked repeatedly. The sheaths were removed and hemostasis achieved with VASCADE and manual compression after
acceptable ACT is achieved.
Left atrial Pressure:
Pre-Procedure: Mean LA pressure was 13mmHg
Post-Procedure: Mean LA pressure was 18mmHg
Post-Procedure: Mean RA pressure was 10mmHg
Fluoro Time:
1.2min / 0.5mGy
Estimated Blood loss:
<10 cc
Specimens Removed:
None.
Implants / Devices:
None
Urine output:
None
Packs / Drains/ Tubes:
None
Instrument / Sponge Count Correct:
Yes
Complications of the Procedure:
None
Condition of Patient at Time of Transfer:
Hemodynamically stable with no neurological or vascular compromise.
Summary:
Successful atrial fibrillation ablation with circumferential bidirectional line of block at pulmonary venin antra (Pulmonary vein isolation), atrial flutter ablation with cavo-tricuspid isthmus line block formation
Figures from the Procedure:
Figure 1: The electroanatomic mapping (EAM) of the left atrium with bipolar voltage (purple indicates normal electrical activity with red as no myocardial muscle electric activity indicating a line of block or scar.
[2025-09-23] MEDS: SYMBICORT 80/4.5 MCG INHALER 2 PUFF INH (14:58)
[2025-09-23] MEDS: ANESTHETIC LOZENGE 1 LOZENGE PO (15:17)
== END 2025-09-23 17:30 | disposition home or self-care (01) ==
LOC: CATH 10:11
PROVIDERS: ATTENDING PHYSICIAN Internal Medicine Cardiovascular Disease; FAMILY PHYSICIAN Nurse Practitioner Family; REFERRING PHYSICIAN Internal Medicine Cardiovascular Disease
DX: I48.0 Paroxysmal atrial fibrillation (principal); I48.91 Unspecified atrial fibrillation; I48.92 Unspecified atrial flutter; Z88.0 Allergy status to penicillin; Z88.6 Allergy status to analgesic agent
CPT/HCPCS: C1769; C1733; C1766; C1894; C1759; C1892; 85347; 86850; 86900; 86901; 93005; 93655; 93656; 94640; C1730; C1760